=== PATIENT | male | born 1955 | race Two or more races ===

== ENCOUNTER 2023-10-27 18:45 | Inpatient (IN) | payer MEDICAID, MEDICARE ==
[~2023-10-27] VITALS: Ht 167.6 cm; Wt 70.2 kg
[2023-10-27 20:30] VITALS: PULSE 71; RESP 17; O2SAT 99
[2023-10-27 20:36] LABS: Basophils # (auto) 0 10 ^3/uL (0-0.2); Basophils % (auto) 0.3 % (0.0-2.0); Eosinophils # (auto) 0 10 ^3/uL (0-0.8); Eosinophils % (auto) 0.2 % (0.0-7.0); Hemoglobin 10.9 g/dL (13.5-17.5); Lymphocytes # (auto) 0.3 10 ^3/uL (0.4-5.4); Lymphocytes % (auto) 10.8 % (10.0-50.0); Mean Corpuscular Hemoglobin 26.4 pg (28.0-32.0); Mean Corpuscular Hgb Conc. 29.5 g/dL (32.0-36.0); Mean Corpuscular Volume 89.5 fL (80.0-100.0); Monocytes # (auto) 0.2 10 ^3/uL (0-1.3); Monocytes % (auto) 8.4 % (0.0-12.0); Neutrophils % (auto) 80.3 % (37.0-80.0); Nucleated Red Blood Cells % 0.1 %; Red Blood Cells 4.14 10^6/uL (4.5-5.90); White Blood Cell 2.5 10^3/uL (4.4-10.8)
[2023-10-27 20:37] LABS: INR 1.35 (0.9-1.15); Partial Thromboplastin Time 30.3 SEC (24.5-34.5); Prothrombin Time 13.9 sec (9.3-11.8)
[2023-10-27 20:39] LABS: Red Cell Distribution Width 22.1 % (11.8-14.3)
[2023-10-27 20:53] LABS: Alanine Aminotransferase 23 U/L (7-40); Alkaline Phosphatase 104 U/L (46-116); Anion Gap 9 (5-15); Aspartate Aminotransferase 56 U/L (13-40); BUN/Creatinine Ratio 11.3 (10.0-20.0); Blood Urea Nitrogen 8 mg/dL (9-23); Calcium 9.1 mg/dL (8.7-10.4); Carbon Dioxide 20 mmol/L (20-30); Chloride 104 mmol/L (98-107); Glucose 108 mg/dL (74-106); Potassium 4.1 mmol/L (3.5-5.1); Sodium 133 mmol/L (136-145)
[2023-10-27 20:54] LABS: Albumin 3.7 g/dL (3.2-4.8); Bilirubin, Total 2.3 mg/dL (0.2-1.0); Total Protein 8.1 g/dL (5.7-8.2)
[2023-10-27] MEDS ORDERED: ASPirin 325 MG TAB PO ONE (22:00)
[2023-10-27 22:48] LABS: Urine Bacteria NONE SEEN /hpf (None Seen); Urine Blood 1+ /uL (Negative); Urine Clarity Clear (Clear); Urine Protein, UAD Negative (Negative); Urine Specific Gravity 1.011 (1.001-1.035); Urine Urobilinogen Normal (Negative); Urine WBC 1 /hpf (0 - 3); Urine pH 5.5 (5.0-8.0)
[2023-10-27 22:49] LABS: Urine Color Straw (Yellow)
[2023-10-27 22:49] LABS: Platelet Estimate Decreased
[2023-10-27 22:53] LABS: Anisocytosis Slight
[2023-10-27] MEDS ORDERED: IOHEXOL 350 MG/ML 100ML IJ ONE ×2 (23:07→23:44)
[2023-10-28] MEDS ORDERED: HEPARIN DRIP/D5W 100UNITS/ML 250 ML IV SCH (00:30)
[2023-10-28] MEDS ORDERED: HEPARIN SODIUM (PORCINE) 5000 UNITS/ML 1ML VIAL IV ONE (00:30)
[2023-10-28 00:54] LABS: INR 1.39 (0.9-1.15); Partial Thromboplastin Time 31.3 SEC (24.5-34.5); Prothrombin Time 14.3 sec (9.3-11.8)
[2023-10-28] MEDS ORDERED: NITROGLYCERIN 0.4 MG SL TAB SL PRN (02:15)
[2023-10-28] MEDS ORDERED: ACETAMINOPHEN 325 MG TAB PO PRN (02:15)
[2023-10-28] MEDS ORDERED: MORPHINE SULFATE INJ 2 MG/ml SYRG IV PRN (02:15)
[2023-10-28 08:00] VITALS: PULSE 81; RESP 14; O2SAT 93
[2023-10-28] MEDS ORDERED: IOHEXOL 350 MG/ML 100ML IJ ONE (08:07)
[2023-10-28 08:10] LABS: Basophils # (auto) 0 10 ^3/uL (0-0.2); Basophils % (auto) 0.2 % (0.0-2.0); Eosinophils # (auto) 0 10 ^3/uL (0-0.8); Eosinophils % (auto) 0.6 % (0.0-7.0); Hematocrit 28.7 % (41.0-53.0); Hemoglobin 9.5 g/dL (13.5-17.5); Lymphocytes # (auto) 0.3 10 ^3/uL (0.4-5.4); Lymphocytes % (auto) 14.2 % (10.0-50.0); Mean Corpuscular Hemoglobin 26.7 pg (28.0-32.0); Mean Corpuscular Hgb Conc. 33.1 g/dL (32.0-36.0); Mean Corpuscular Volume 80.8 fL (80.0-100.0); Monocytes # (auto) 0.3 10 ^3/uL (0-1.3); Monocytes % (auto) 11.5 % (0.0-12.0); Neutrophils # (auto) 1.8 10 ^3/uL (1.6-8.6); Neutrophils % (auto) 73.5 % (37.0-80.0); Nucleated Red Blood Cells % 0.1 %; Red Blood Cells 3.55 10^6/uL (4.5-5.90); White Blood Cell 2.4 10^3/uL (4.4-10.8)
[2023-10-28 08:11] LABS: Red Cell Distribution Width 20.9 % (11.8-14.3)
[2023-10-28 08:15] LABS: Chloride 109 mmol/L (98-107); Potassium 3.8 mmol/L (3.5-5.1); Sodium 139 mmol/L (136-145)
[2023-10-28 08:16] LABS: Anion Gap 8 (5-15); Calcium 8.8 mg/dL (8.5-10.1); Carbon Dioxide 22 mmol/L (20-30)
[2023-10-28 08:21] LABS: BUN/Creatinine Ratio 11.9 (10.0-20.0); Blood Urea Nitrogen 8 mg/dL (9-23); Glucose 98 mg/dL (74-106)
[2023-10-28 08:22] LABS: INR 1.6 (0.9-1.15); Prothrombin Time 16.3 sec (9.3-11.8)
[2023-10-28 08:24] LABS: LDL Cholesterol 21 mg/dL (< 100); Triglycerides 48 mg/dL (< 150)
[2023-10-28 08:26] LABS: Cholesterol 63 mg/dL (< 200); HDL Cholesterol 32 mg/dL (40-59)
[2023-10-28 08:27] LABS: Partial Thromboplastin Time 120.4 SEC (24.5-34.5)
[2023-10-28] MEDS ORDERED: ASPirin 81 mg TAB PO SCH (10:00)
[2023-10-28] MEDS: METOPROLOL TARTRATE 25 MG TAB PO SCH ×2 (11:41→22:00)
[2023-10-28] MEDS: FUROSEMIDE 40 MG TAB PO SCH (11:41)
[2023-10-28] MEDS: rifAXIMin 550 MG TAB PO SCH ×2 (11:42→22:00)
[2023-10-28] MEDS ORDERED: cefTRIAXone 1GM/50ML D5W 50 ML IV ONE (12:30)
[2023-10-28] MEDS ORDERED: AZITHROMYCIN 500MG/ 250ML 250 ML IV ONE (14:00)
[2023-10-28] MEDS ORDERED: MET25T PO (18:21)
[2023-10-28] MEDS ORDERED: RIFA550T PO (18:21)
[2023-10-28] MEDS ORDERED: PHEN100C PO (18:21)
[2023-10-28] MEDS ORDERED: MIDO5TAB4 PO (18:21)
[2023-10-28] MEDS ORDERED: SPIR25TA8 PO (18:21)
[2023-10-28] MEDS ORDERED: GABA-339 PO (18:21)
[2023-10-28] MEDS ORDERED: FURO40TA4 PO (18:21)
[2023-10-28] MEDS ORDERED: MORP1TAB12 PO (18:21)
[2023-10-28] MEDS ORDERED: ATOR40TA52 PO (18:21)
[2023-10-28 18:45] VITALS: BP 105/49; PULSE 61; TEMP 36.2
[2023-10-28] MEDS: MORPHINE SULFATE INJ 2 MG/ml SYRG IV PRN ×2 (19:03→23:19)
[2023-10-28] MEDS ORDERED: DICL5GEL TOP (19:09)
[2023-10-28] MEDS ORDERED: LACT10SO3 PO (19:09)
[2023-10-28] MEDS ORDERED: ALBU108A5 INH (19:09)
[2023-10-28 20:00] VITALS: PULSE 58; PULSE 71; RESP 20; O2SAT 97
[2023-10-28] MEDS: ATORVASTATIN 20 MG TAB PO SCH ×2 (21:39→22:00)
[2023-10-28] MEDS: MELATONIN 5 MG TAB PO ONE ×2 (21:40→22:00)
[2023-10-28 22:00] VITALS: BP 104/66; PULSE 71; RESP 20; TEMP 98.1; O2SAT 97
[2023-10-28] MEDS: ONDANSETRON HCL 4 MG/2 ML VIAL IV PRN (22:18)
[2023-10-29 05:00] VITALS: BP 103/57; PULSE 69; RESP 20; TEMP 98.1; O2SAT 98
[2023-10-29] MEDS: MORPHINE SULFATE INJ 2 MG/ml SYRG IV PRN ×4 (05:21→20:02)
[2023-10-29 05:58] LABS: Basophils # (auto) 0 10 ^3/uL (0-0.2); Basophils % (auto) 0.2 % (0.0-2.0); Eosinophils # (auto) 0 10 ^3/uL (0-0.8); Lymphocytes # (auto) 0.4 10 ^3/uL (0.4-5.4); Lymphocytes % (auto) 8.8 % (10.0-50.0); Monocytes # (auto) 0.4 10 ^3/uL (0-1.3); Neutrophils # (auto) 4.1 10 ^3/uL (1.6-8.6)
[2023-10-29 06:02] LABS: Hematocrit 31.1 % (41.0-53.0); Hemoglobin 10.1 g/dL (13.5-17.5); Mean Corpuscular Hemoglobin 26.3 pg (28.0-32.0); Mean Corpuscular Hgb Conc. 32.5 g/dL (32.0-36.0); Mean Corpuscular Volume 80.7 fL (80.0-100.0); Monocytes % (auto) 7.8 % (0.0-12.0); Neutrophils % (auto) 83.2 % (37.0-80.0); Nucleated Red Blood Cells % 0.1 %; Red Blood Cells 3.85 10^6/uL (4.5-5.90); White Blood Cell 4.9 10^3/uL (4.4-10.8)
[2023-10-29 06:03] LABS: Alanine Aminotransferase 26 U/L (7-40); Albumin 3.3 g/dL (3.2-4.8); Alkaline Phosphatase 82 U/L (46-116); Anion Gap 10 (5-15); BUN/Creatinine Ratio 15.2 (10.0-20.0); Blood Urea Nitrogen 14 mg/dL (9-23); Calcium 8.5 mg/dL (8.7-10.4); Carbon Dioxide 23 mmol/L (20-30); Chloride 105 mmol/L (98-107); Glucose 104 mg/dL (74-106); Potassium 3.3 mmol/L (3.5-5.1); Sodium 138 mmol/L (136-145)
[2023-10-29 06:04] LABS: Aspartate Aminotransferase 86 U/L (13-40); Bilirubin, Total 2.8 mg/dL (0.2-1.0); Total Protein 7.4 g/dL (5.7-8.2)
[2023-10-29 06:10] LABS: Red Cell Distribution Width 21.2 % (11.8-14.3)
[2023-10-29 08:00] VITALS: PULSE 58; PULSE 75; RESP 18; O2SAT 97
[2023-10-29 09:00] VITALS: BP 108/62; PULSE 63; RESP 12; TEMP 98; O2SAT 98
[2023-10-29] MEDS: FUROSEMIDE 40 MG TAB PO SCH (10:00)
[2023-10-29] MEDS: METOPROLOL TARTRATE 25 MG TAB PO SCH ×2 (10:00→22:00)
[2023-10-29] MEDS: cefTRIAXone 1GM/50ML D5W 50 ML IV SCH (10:16)
[2023-10-29] MEDS: rifAXIMin 550 MG TAB PO SCH ×2 (10:16→22:00)
[2023-10-29] MEDS: AZITHROMYCIN 500MG/ 250ML 250 ML IV SCH (10:17)
[2023-10-29 13:00] VITALS: BP 105/65; PULSE 66; RESP 20; TEMP 98.3; O2SAT 98
[2023-10-29 16:55] VITALS: BP 110/72; PULSE 64; RESP 16; TEMP 97.8; O2SAT 97
[2023-10-29 20:00] VITALS: PULSE 70; RESP 19; O2SAT 98
[2023-10-29] MEDS: ATORVASTATIN 20 MG TAB PO SCH (22:00)
[2023-10-30] VITALS (10 sets, daily range): BP systolic 100–107; BP diastolic 57–66; PULSE 66–90; RESP 16–19; TEMP 98.1–98.7; O2SAT 93–99
[2023-10-30] MEDS: MORPHINE SULFATE INJ 2 MG/ml SYRG IV PRN ×6 (00:55→21:56)
[2023-10-30] MEDS: cefTRIAXone 1GM/50ML D5W 50 ML IV SCH (09:14)
[2023-10-30] MEDS: AZITHROMYCIN 500MG/ 250ML 250 ML IV SCH (09:14)
[2023-10-30] MEDS: rifAXIMin 550 MG TAB PO SCH ×2 (09:14→21:58)
[2023-10-30] MEDS: FUROSEMIDE 40 MG TAB PO SCH (10:00)
[2023-10-30] MEDS: METOPROLOL TARTRATE 25 MG TAB PO SCH ×2 (10:00→23:26)
[2023-10-30] MEDS: ONDANSETRON HCL 4 MG/2 ML VIAL IV PRN ×2 (18:48→23:23)
[2023-10-30] MEDS: ALBUTEROL SULF 2.5 MG/0.5ML(0.5%) NEB SOLN NEB SCH (19:24)
[2023-10-30] MEDS: ATORVASTATIN 20 MG TAB PO SCH (21:57)
[2023-10-31] VITALS (15 sets, daily range): BP systolic 91–111; BP diastolic 46–62; PULSE 64–82; RESP 15–18; TEMP 97.7–98.6; O2SAT 93–100
[2023-10-31] MEDS: ALBUTEROL SULF 2.5 MG/0.5ML(0.5%) NEB SOLN NEB SCH ×4 (00:09→20:45)
[2023-10-31] MEDS: MORPHINE SULFATE INJ 2 MG/ml SYRG IV PRN ×4 (06:03→20:12)
[2023-10-31] MEDS: cefTRIAXone 1GM/50ML D5W 50 ML IV SCH (09:00)
[2023-10-31] MEDS: FUROSEMIDE 40 MG TAB PO SCH (10:00)
[2023-10-31] MEDS: METOPROLOL TARTRATE 25 MG TAB PO SCH ×2 (10:00→21:42)
[2023-10-31 10:25] LABS: Hematocrit 28.1 % (41.0-53.0); Hemoglobin 9.2 g/dL (13.5-17.5); Mean Corpuscular Hemoglobin 26.7 pg (28.0-32.0); Mean Corpuscular Volume 82.1 fL (80.0-100.0)
[2023-10-31 10:27] LABS: Mean Corpuscular Hgb Conc. 32.5 g/dL (32.0-36.0); Red Blood Cells 3.43 10^6/uL (4.5-5.90); White Blood Cell 4.5 10^3/uL (4.4-10.8)
[2023-10-31 10:39] LABS: Red Cell Distribution Width 20.4 % (11.8-14.3)
[2023-10-31 10:40] LABS: Band Neutrophils % (manual) 0; Basophils % (manual) 0 (0.0-2.0); Blast Cells 0; Metamyelocytes % 0; Myelocytes % 0; Promyelocytes % 0; Reactive Lymphocytes 0
[2023-10-31] MEDS: rifAXIMin 550 MG TAB PO SCH ×2 (11:30→21:41)
[2023-10-31] MEDS: AZITHROMYCIN 250 MG TAB PO SCH (11:30)
[2023-10-31] MEDS: ONDANSETRON HCL 4 MG/2 ML VIAL IV PRN ×3 (11:40→20:59)
[2023-10-31 13:55] LABS: Eosinophils % (manual) 3 (0-7); Lymphocytes % (manual) 13 (10.0-50.0); Monocytes % (manual) 16 (0-12); Platelet Estimate Decreased
[2023-10-31] MEDS: ATORVASTATIN 20 MG TAB PO SCH (21:42)
[2023-11-01] VITALS (14 sets, daily range): BP systolic 92–130; BP diastolic 50–65; PULSE 56–86; RESP 15–18; TEMP 98–98.7; O2SAT 92–100
[2023-11-01] MEDS: MORPHINE SULFATE INJ 2 MG/ml SYRG IV PRN ×4 (01:31→20:15)
[2023-11-01] MEDS: ONDANSETRON HCL 4 MG/2 ML VIAL IV PRN ×4 (01:39→20:22)
[2023-11-01] MEDS: HYDROcodone-ACET 5/325MG TAB PO PRN ×3 (05:26→15:19)
[2023-11-01] MEDS: ALBUTEROL SULF 2.5 MG/0.5ML(0.5%) NEB SOLN NEB SCH ×4 (07:46→18:48)
[2023-11-01] MEDS: FUROSEMIDE 40 MG TAB PO SCH (10:00)
[2023-11-01] MEDS: METOPROLOL TARTRATE 25 MG TAB PO SCH ×2 (10:00→21:26)
[2023-11-01] MEDS: AZITHROMYCIN 250 MG TAB PO SCH (10:25)
[2023-11-01] MEDS: rifAXIMin 550 MG TAB PO SCH ×2 (10:30→21:25)
[2023-11-01] MEDS: cefTRIAXone 1GM/50ML D5W 50 ML IV SCH (11:40)
[2023-11-01] MEDS: ATORVASTATIN 20 MG TAB PO SCH (21:27)
[2023-11-02] VITALS (9 sets, daily range): BP systolic 92–124; BP diastolic 45–58; PULSE 68–87; RESP 16–18; TEMP 97.8–98.5; O2SAT 91–100
[2023-11-02] MEDS: MORPHINE SULFATE INJ 2 MG/ml SYRG IV PRN ×3 (02:19→13:51)
[2023-11-02] MEDS: ONDANSETRON HCL 4 MG/2 ML VIAL IV PRN (02:38)
[2023-11-02] MEDS: ALBUTEROL SULF 2.5 MG/0.5ML(0.5%) NEB SOLN NEB SCH ×3 (06:06→12:00)
[2023-11-02] MEDS: HYDROcodone-ACET 5/325MG TAB PO PRN (06:11)
[2023-11-02] MEDS: rifAXIMin 550 MG TAB PO SCH (09:06)
[2023-11-02] MEDS: AZITHROMYCIN 250 MG TAB PO SCH (09:06)
[2023-11-02] MEDS: METOPROLOL TARTRATE 25 MG TAB PO SCH (09:07)
[2023-11-02] MEDS: cefTRIAXone 1GM/50ML D5W 50 ML IV SCH (09:07)
[2023-11-02] MEDS: FUROSEMIDE 40 MG TAB PO SCH (09:07)
[2023-11-02] MEDS ORDERED: AZIT500T66 PO (10:57)
== END 2023-11-02 19:03 | disposition home or self-care (01) | DRG 190 ==
LOC: ER 18:45 → TELE 10-28 02:16 → TELE-WESTW 10-28 17:36
PROVIDERS: ADMIT Family Medicine; ATTEND Family Medicine
PROC: 02HV33Z Insertion of Infusion Device into Superior Vena Cava, Percutaneous Approach (ICD-10-PCS; principal; 2023-10-28)
DX: I21.4 Non-ST elevation (NSTEMI) myocardial infarction (principal); J15.69 Pneumonia due to other Gram-negative bacteria; D69.6 Thrombocytopenia, unspecified; I11.0 Hypertensive heart disease with heart failure; J15.9 Unspecified bacterial pneumonia; I50.9 Heart failure, unspecified; J44.0 Chronic obstructive pulmonary disease with (acute) lower respiratory infection; K74.60 Unspecified cirrhosis of liver; J44.1 Chronic obstructive pulmonary disease with (acute) exacerbation; E78.00 Pure hypercholesterolemia, unspecified; I25.10 Atherosclerotic heart disease of native coronary artery without angina pectoris; F17.210 Nicotine dependence, cigarettes, uncomplicated; Z96.641 Presence of right artificial hip joint; D64.9 Anemia, unspecified; Z86.73 Personal history of transient ischemic attack (TIA), and cerebral infarction without residual deficits; Z95.5 Presence of coronary angioplasty implant and graft; I25.2 Old myocardial infarction; Z59.00 Homelessness unspecified
CPT/HCPCS: 36415; 71045; 71275; 80048; 80053; 80061; 81001; 83036; 83880; 84443; 84484; 85007; 85025; 85027; 85379; 85610; 85730; 93005; 93306; 94640; 96365; 97110; 97116; 97163; 97530; 99291; G0378; J2405

== ENCOUNTER 2023-11-03 12:10 | Inpatient (IN) | payer MEDICARE ==
[~2023-11-03] VITALS: Ht 167.6 cm; Wt 66.5 kg
[2023-11-03] VITALS (8 sets, daily range): BP systolic 81–119; BP diastolic 42–65; PULSE 81–123; RESP 18–22; O2SAT 93–100
[~2023-11-03 12:10] MED LIST: ALBU108A5 INH; ATOR40TA52 PO; AZIT500T66 PO; DICL5GEL TOP; FURO40TA4 PO; GABA-339 PO; LACT10SO3 PO; MET25T PO; MIDO5TAB4 PO; MORP1TAB12 PO; PHEN100C PO; RIFA550T PO; SPIR25TA8 PO
[2023-11-03] MEDS ORDERED: SODIUM CHLORIDE 0.9% 1,000 ML IV ONE ×3 (12:45→17:00)
[2023-11-03] MEDS ORDERED: LIDOCAINE 2%HCL (LOCAL ANESTH.) INJ 10ml MDV ONE (12:49)
[2023-11-03] MEDS ORDERED: ROCURONIUM 10MG/ML 10ML VIAL IV ONE ×2 (12:53→13:15)
[2023-11-03] MEDS ORDERED: ETOMIDATE (2MG/ML) 20ML VIAL IV ONE ×2 (12:53→13:15)
[2023-11-03] MEDS ORDERED: MIDAZOLAM DRIP 50 mg/50mL 50 ML IV ONE (12:57)
[2023-11-03] MEDS ORDERED: NOREPINEPHRINE 8 MG/250ML KIT 250 ML IV ONE (12:57)
[2023-11-03] MEDS: MIDAZOLAM DRIP 50 mg/50mL 50 ML IV SCH (13:01)
[2023-11-03] MEDS: NOREPINEPHRINE 8 MG/250ML KIT 250 ML IV SCH (13:01)
[2023-11-03] MEDS ORDERED: LIDOCAINE 2% (LOCAL ANESTH.) PF 5ml SDV IJ ONE (13:30)
[2023-11-03 13:43] LABS: Base Excess -20.1 mmol/L (-2.0-2.0)
[2023-11-03] MEDS ORDERED: SODIUM BICARBONATE 8.4% INJ 50ML SYRINGE ONE (13:54)
[2023-11-03] MEDS ORDERED: SODIUM BICARBONATE 8.4 % INJ 50ML VIAL IV ONE (14:00)
[2023-11-03 14:09] LABS: Urine Epithelial Cast None Seen /hpf (<5)
[2023-11-03 14:25] LABS: Alanine Aminotransferase 38 U/L (7-40); Albumin 2.9 g/dL (3.2-4.8); Alkaline Phosphatase 95 U/L (46-116); Anion Gap 24 (5-15); Aspartate Aminotransferase 94 U/L (13-40); BUN/Creatinine Ratio 12.4 (10.0-20.0); Bilirubin, Total 1.2 mg/dL (0.2-1.0); Blood Alcohol 3.2 mg/dL (<10); Blood Urea Nitrogen 30 mg/dL (9-23); Calcium 8.2 mg/dL (8.5-10.1); Chloride 102 mmol/L (98-107); Glucose 97 mg/dL (74-106); Potassium 4.2 mmol/L (3.5-5.1); Sodium 137 mmol/L (136-145); Total Protein 6.4 g/dL (5.7-8.2)
[2023-11-03 14:31] LABS: Carbon Dioxide 11 mmol/L (20-30)
[2023-11-03 14:33] LABS: Amphetamine Screen, Urine Neg (NEGATIVE); Barbiturate Scree,Urine Neg (NEGATIVE); Benzodiazephine Screen, Urine Neg (NEGATIVE); Cocaine Screen, Urine Neg (NEGATIVE)
[2023-11-03 14:34] LABS: Cannabinoid Screen, Urine Neg (NEGATIVE); Opiate Scree,Urine Pos (NEGATIVE); Phencyclidine Screen, Urine Neg (NEGATIVE)
[2023-11-03 14:38] LABS: Urine Bacteria FEW /hpf (None Seen); Urine Blood TRACE /uL (Negative); Urine Clarity Clear (Clear); Urine Color Yellow (Yellow); Urine Protein, UAD TRACE (Negative); Urine Specific Gravity 1.017 (1.001-1.035); Urine Urobilinogen Normal (Negative); Urine WBC 1 /hpf (0 - 3); Urine pH 5.5 (5.0-8.0)
[2023-11-03 14:41] LABS: Basophils # (auto) 0 10 ^3/uL (0-0.2); Basophils % (auto) 0.1 % (0.0-2.0); Eosinophils # (auto) 0 10 ^3/uL (0-0.8); Eosinophils % (auto) 0.1 % (0.0-7.0); Hemoglobin 9.5 g/dL (13.5-17.5); Mean Corpuscular Hemoglobin 26.4 pg (28.0-32.0)
[2023-11-03 14:43] LABS: Hematocrit 31.4 % (41.0-53.0); Lymphocytes # (auto) 0.5 10 ^3/uL (0.4-5.4); Lymphocytes % (auto) 2.5 % (10.0-50.0); Mean Corpuscular Hgb Conc. 30.3 g/dL (32.0-36.0); Monocytes # (auto) 1.5 10 ^3/uL (0-1.3); Monocytes % (auto) 7.8 % (0.0-12.0); Neutrophils # (auto) 16.9 10 ^3/uL (1.6-8.6); Neutrophils % (auto) 89.5 % (37.0-80.0); Nucleated Red Blood Cells % 0.4 %; Red Blood Cells 3.61 10^6/uL (4.5-5.90); Red Cell Distribution Width 20.9 % (11.8-14.3); White Blood Cell 18.9 10^3/uL (4.4-10.8)
[2023-11-03 14:46] LABS: INR 2.09 (0.9-1.15); Partial Thromboplastin Time 34.6 SEC (24.5-34.5); Prothrombin Time 20.9 sec (9.3-11.8)
[2023-11-03] MEDS ORDERED: VANCOMYCIN 1GM/200ML 200 ML IV ONE (15:00)
[2023-11-03] MEDS ORDERED: PIPERACILLIN-TAZO 4.5GM 100 ML IV ONE (15:00)
[2023-11-03 15:15] LABS: Magnesium 2.1 mg/dL (1.6-2.6)
[2023-11-03] MEDS ORDERED: NITROGLYCERIN 0.4 MG SL TAB SL PRN (15:30)
[2023-11-03] MEDS ORDERED: MORPHINE SULFATE INJ 2 MG/ml SYRG IV PRN ×2 (15:30)
[2023-11-03] MEDS ORDERED: ACETAMINOPHEN 325 MG TAB PO PRN (15:30)
[2023-11-03] MEDS ORDERED: HYDROcodone-ACET 5/325MG TAB PO PRN (15:30)
[2023-11-03] MEDS ORDERED: VANCOMYCIN PER PHARMACY 0 MG IV SCH (16:00)
[2023-11-03] MEDS ORDERED: PHYTONADIONE (VIT K)10 MG/ML 1ML VIAL SUBCUT ONE (16:30)
[2023-11-03 16:36] LABS: Protein, Urine 40.3 mg/dL (0.0-11.9)
[2023-11-03 16:39] LABS: Creatinine, Urine 127.56 mg/dL (30.0-125.0); Urine Protein/Creatinine Ratio 0.32
[2023-11-03 17:42] LABS: % Iron Saturation 8.2 % (20-55)
[2023-11-03] MEDS: SODIUM BICARBONATE 50ML VIAL 50 ML in D5W 5% 1,000 ML IV SCH (17:47)
[2023-11-03] MEDS: SODIUM CHLORIDE 0.9% 1,000 ML IV SCH (17:51)
[2023-11-03] MEDS: LACTULOSE 20Gm/30ML SOLN PO SCH (18:00)
[2023-11-03] MEDS: BUDESONIDE (INHALATION) 0.5 MG/2 ML NEB NEB SCH (19:26)
[2023-11-03] MEDS: IPRATROPIUM BROM 0.5 MG/2.5ML INH SOL NEB SCH (19:26)
[2023-11-03] MEDS: LEVALBUTEROL HCL 1.25 MG/3 ML NEB NEB SCH (19:26)
[2023-11-03] MEDS ORDERED: HEPARIN SODIUM (PORCINE) 5000 UNITS/ML 1ML VIAL SC SCH (22:00)
[2023-11-03] MEDS: PANTOPRAZOLE 40 MG/10 ML VIAL INJ IV SCH (22:41)
[2023-11-03 23:04] LABS: Base Excess 0.2 mmol/L (-2.0-2.0)
[2023-11-04] VITALS (34 sets, daily range): BP systolic 95–147; BP diastolic 54–76; PULSE 75–110; RESP 16–22; O2SAT 89–100
[2023-11-04] MEDS: MIDAZOLAM DRIP 50 mg/50mL 50 ML IV SCH
[2023-11-04] MEDS: LACTULOSE 20Gm/30ML SOLN PO SCH ×4 (00:06→18:25)
[2023-11-04] MEDS: NOREPINEPHRINE 8 MG/250ML KIT 250 ML IV SCH (00:20)
[2023-11-04] MEDS: LEVALBUTEROL HCL 1.25 MG/3 ML NEB NEB SCH ×4 (01:09→19:28)
[2023-11-04] MEDS: IPRATROPIUM BROM 0.5 MG/2.5ML INH SOL NEB SCH ×4 (01:09→19:28)
[2023-11-04 01:12] LABS: Lactic Acid w/Reflex 2.8 mmol/L (0.4-2.0)
[2023-11-04] MEDS: SODIUM BICARBONATE 50ML VIAL 50 ML in D5W 5% 1,000 ML IV SCH (02:50)
[2023-11-04 05:28] LABS: Basophils # (auto) 0 10 ^3/uL (0-0.2); Eosinophils # (auto) 0.1 10 ^3/uL (0-0.8); Eosinophils % (auto) 0.8 % (0.0-7.0); Hemoglobin 8.8 g/dL (13.5-17.5); Lymphocytes # (auto) 0.8 10 ^3/uL (0.4-5.4)
[2023-11-04 05:31] LABS: Hematocrit 26.6 % (41.0-53.0); Lymphocytes % (auto) 10.3 % (10.0-50.0); Mean Corpuscular Hemoglobin 26.6 pg (28.0-32.0); Mean Corpuscular Volume 80.9 fL (80.0-100.0); Monocytes # (auto) 0.9 10 ^3/uL (0-1.3); Monocytes % (auto) 10.7 % (0.0-12.0); Neutrophils # (auto) 6.3 10 ^3/uL (1.6-8.6); Neutrophils % (auto) 78.2 % (37.0-80.0); Nucleated Red Blood Cells % 0.1 %; Red Cell Distribution Width 20.3 % (11.8-14.3)
[2023-11-04 05:41] LABS: Alanine Aminotransferase 43 U/L (7-40); Albumin 2.5 g/dL (3.2-4.8); Alkaline Phosphatase 78 U/L (46-116); Anion Gap 5 (5-15); Aspartate Aminotransferase 132 U/L (13-40); BUN/Creatinine Ratio 21.6 (10.0-20.0); Bilirubin, Total 1.8 mg/dL (0.2-1.0); Blood Urea Nitrogen 27 mg/dL (9-23); Calcium 7.5 mg/dL (8.5-10.1); Carbon Dioxide 29 mmol/L (20-30); Chloride 104 mmol/L (98-107); Glucose 137 mg/dL (74-106); Potassium 2.7 mmol/L (3.5-5.1); Sodium 138 mmol/L (136-145)
[2023-11-04 05:42] LABS: Total Protein 5.6 g/dL (5.7-8.2)
[2023-11-04 05:55] LABS: Lactic Acid w/Reflex 3.5 mmol/L (0.4-2.0)
[2023-11-04] MEDS: BUDESONIDE (INHALATION) 0.5 MG/2 ML NEB NEB SCH ×2 (06:36→19:29)
[2023-11-04 07:06] LABS: Base Excess 4.1 mmol/L (-2.0-2.0)
[2023-11-04] MEDS: POTASSIUM CHL 20MEQ/100ML 100 ML IV SCH ×3 (08:56→12:32)
[2023-11-04] MEDS ORDERED: VANCOMYCIN 1GM/200ML 200 ML IV ONE (09:00)
[2023-11-04] MEDS: SODIUM CHLORIDE 0.9% 1,000 ML IV SCH (09:37)
[2023-11-04] MEDS: CEFEPIME 1GM/ 50ML 50 ML IV SCH (10:01)
[2023-11-04] MEDS: PANTOPRAZOLE 40 MG/10 ML VIAL INJ IV SCH ×2 (10:16→21:37)
[2023-11-04 17:31] LABS: Alanine Aminotransferase 44 U/L (7-40); Alkaline Phosphatase 74 U/L (46-116); Anion Gap 3 (5-15); BUN/Creatinine Ratio 15.4 (10.0-20.0); Blood Urea Nitrogen 14 mg/dL (9-23); Calcium 7.1 mg/dL (8.7-10.4); Carbon Dioxide 30 mmol/L (20-30); Chloride 105 mmol/L (98-107); Glucose 95 mg/dL (74-106); Potassium 3.8 mmol/L (3.5-5.1); Sodium 138 mmol/L (136-145)
[2023-11-04 17:32] LABS: Albumin 2.4 g/dL (3.2-4.8); Aspartate Aminotransferase 136 U/L (13-40); Bilirubin, Total 1.8 mg/dL (0.2-1.0); Total Protein 5.5 g/dL (5.7-8.2)
[2023-11-05] VITALS (43 sets, daily range): BP systolic 87–134; BP diastolic 51–78; PULSE 78–114; RESP 16–17; O2SAT 88–98
[2023-11-05] MEDS: LACTULOSE 20Gm/30ML SOLN PO SCH ×4 (00:06→18:47)
[2023-11-05] MEDS: IPRATROPIUM BROM 0.5 MG/2.5ML INH SOL NEB SCH ×4 (00:06→18:53)
[2023-11-05] MEDS: LEVALBUTEROL HCL 1.25 MG/3 ML NEB NEB SCH ×4 (00:06→18:53)
[2023-11-05] MEDS: MIDAZOLAM DRIP 50 mg/50mL 50 ML IV SCH ×2 (01:14→23:09)
[2023-11-05] MEDS: NOREPINEPHRINE 8 MG/250ML KIT 250 ML IV SCH (02:05)
[2023-11-05] MEDS: SODIUM CHLORIDE 0.9% 1,000 ML IV SCH ×2 (02:31→18:47)
[2023-11-05] MEDS ORDERED: VANCOMYCIN 1GM/200ML 200 ML IV SCH (04:00)
[2023-11-05 05:28] LABS: Basophils # (auto) 0 10 ^3/uL (0-0.2); Basophils % (auto) 0.2 % (0.0-2.0); Eosinophils # (auto) 0 10 ^3/uL (0-0.8); Hemoglobin 8.6 g/dL (13.5-17.5); Monocytes # (auto) 0.4 10 ^3/uL (0-1.3); White Blood Cell 4.4 10^3/uL (4.4-10.8)
[2023-11-05 05:31] LABS: Eosinophils % (auto) 0.9 % (0.0-7.0); Hematocrit 26.2 % (41.0-53.0); Lymphocytes # (auto) 0.5 10 ^3/uL (0.4-5.4); Lymphocytes % (auto) 11.5 % (10.0-50.0); Mean Corpuscular Hemoglobin 26.6 pg (28.0-32.0); Mean Corpuscular Hgb Conc. 32.7 g/dL (32.0-36.0); Mean Corpuscular Volume 81.4 fL (80.0-100.0); Neutrophils # (auto) 3.4 10 ^3/uL (1.6-8.6); Neutrophils % (auto) 77.4 % (37.0-80.0); Red Blood Cells 3.23 10^6/uL (4.5-5.90)
[2023-11-05 05:51] LABS: Red Cell Distribution Width 21.4 % (11.8-14.3)
[2023-11-05 06:02] LABS: Alanine Aminotransferase 50 U/L (7-40); Albumin 2.4 g/dL (3.2-4.8); Alkaline Phosphatase 82 U/L (46-116); Anion Gap 7 (5-15); Aspartate Aminotransferase 134 U/L (13-40); BUN/Creatinine Ratio 14.3 (10.0-20.0); Bilirubin, Total 1.9 mg/dL (0.2-1.0); Blood Urea Nitrogen 11 mg/dL (9-23); Calcium 7.6 mg/dL (8.7-10.4); Carbon Dioxide 26 mmol/L (20-30); Chloride 105 mmol/L (98-107); GFR African American 129 mL/min; GFR Non-African American 107 mL/min; Glucose 105 mg/dL (74-106); Phosphorus 1.8 mg/dL (2.4-5.1); Potassium 3.1 mmol/L (3.5-5.1); Sodium 138 mmol/L (136-145); Total Protein 5.6 g/dL (5.7-8.2)
[2023-11-05] MEDS: BUDESONIDE (INHALATION) 0.5 MG/2 ML NEB NEB SCH ×2 (06:32→18:53)
[2023-11-05] MEDS ORDERED: POTASSIUM CHLORIDE 60 MEQ, LIDOCAINE 1% (LOCAL ANESTH.) 6 ML in SODIUM CHL 0.9% 500 ML IV ONE (06:45)
[2023-11-05 08:11] LABS: Base Excess 1.4 mmol/L (-2.0-2.0)
[2023-11-05 08:43] LABS: Anisocytosis Slight; Macrocytosis Slight; Platelet Estimate Marked
[2023-11-05] MEDS: PANTOPRAZOLE 40 MG/10 ML VIAL INJ IV SCH ×2 (10:13→22:17)
[2023-11-05] MEDS: CEFEPIME 1GM/ 50ML 50 ML IV SCH (11:02)
[2023-11-05] MEDS: VANCOMYCIN 1GM/200ML 200 ML IV SCH (20:16)
[2023-11-06] VITALS (15 sets, daily range): BP systolic 89–138; BP diastolic 54–72; PULSE 7–89; RESP 16–20; O2SAT 93–96
[2023-11-06] MEDS: IPRATROPIUM BROM 0.5 MG/2.5ML INH SOL NEB SCH ×4 (00:56→18:12)
[2023-11-06] MEDS: LEVALBUTEROL HCL 1.25 MG/3 ML NEB NEB SCH ×4 (00:56→18:12)
[2023-11-06] MEDS: LACTULOSE 20Gm/30ML SOLN PO SCH ×3 (00:59→13:12)
[2023-11-06] MEDS: MIDAZOLAM DRIP 50 mg/50mL 50 ML IV SCH (03:42)
[2023-11-06 05:07] LABS: Basophils # (auto) 0 10 ^3/uL (0-0.2); Basophils % (auto) 0.3 % (0.0-2.0); Eosinophils # (auto) 0 10 ^3/uL (0-0.8); Eosinophils % (auto) 1.4 % (0.0-7.0); Hematocrit 25.7 % (41.0-53.0); Hemoglobin 8.2 g/dL (13.5-17.5); Lymphocytes # (auto) 0.2 10 ^3/uL (0.4-5.4); Lymphocytes % (auto) 9.1 % (10.0-50.0); Mean Corpuscular Hemoglobin 25.8 pg (28.0-32.0); Mean Corpuscular Hgb Conc. 31.8 g/dL (32.0-36.0); Mean Corpuscular Volume 81.1 fL (80.0-100.0); Monocytes # (auto) 0.2 10 ^3/uL (0-1.3); Monocytes % (auto) 9.1 % (0.0-12.0); Neutrophils # (auto) 1.9 10 ^3/uL (1.6-8.6); Neutrophils % (auto) 80.1 % (37.0-80.0); Red Blood Cells 3.16 10^6/uL (4.5-5.90); White Blood Cell 2.4 10^3/uL (4.4-10.8)
[2023-11-06 05:08] LABS: Red Cell Distribution Width 21.6 % (11.8-14.3)
[2023-11-06 05:19] LABS: Alanine Aminotransferase 50 U/L (7-40); Albumin 2.3 g/dL (3.2-4.8); Alkaline Phosphatase 85 U/L (46-116); Anion Gap 6 (5-15); Aspartate Aminotransferase 117 U/L (13-40); BUN/Creatinine Ratio 15.6 (10.0-20.0); Bilirubin, Total 1.7 mg/dL (0.2-1.0); Blood Urea Nitrogen 10 mg/dL (9-23); Calcium 7.4 mg/dL (8.7-10.4); Carbon Dioxide 23 mmol/L (20-30); Chloride 111 mmol/L (98-107); Glucose 85 mg/dL (74-106); Magnesium 1.7 mg/dL (1.6-2.6); Potassium 3.6 mmol/L (3.5-5.1); Sodium 140 mmol/L (136-145); Total Protein 5.4 g/dL (5.7-8.2)
[2023-11-06] MEDS: BUDESONIDE (INHALATION) 0.5 MG/2 ML NEB NEB SCH (06:13)
[2023-11-06] MEDS: VANCOMYCIN 1GM/200ML 200 ML IV SCH ×2 (08:46→20:46)
[2023-11-06 09:19] LABS: Base Excess -0.2 mmol/L (-2.0-2.0)
[2023-11-06] MEDS: SODIUM CHLORIDE 0.9% 1,000 ML IV SCH (09:55)
[2023-11-06] MEDS: CEFEPIME 1GM/ 50ML 50 ML IV SCH (09:55)
[2023-11-06] MEDS: PANTOPRAZOLE 40 MG/10 ML VIAL INJ IV SCH ×2 (09:59→21:41)
[2023-11-06] MEDS: NOREPINEPHRINE 8 MG/250ML KIT 250 ML IV SCH (13:15)
[2023-11-07] VITALS (12 sets, daily range): BP systolic 93–108; BP diastolic 51–66; PULSE 74–91; RESP 16–21; O2SAT 94–97
[2023-11-07] MEDS: LEVALBUTEROL HCL 1.25 MG/3 ML NEB NEB SCH ×4 (00:06→18:59)
[2023-11-07] MEDS: IPRATROPIUM BROM 0.5 MG/2.5ML INH SOL NEB SCH ×4 (00:06→18:59)
[2023-11-07] MEDS: BUDESONIDE (INHALATION) 0.5 MG/2 ML NEB NEB SCH ×2 (00:06→06:02)
[2023-11-07] MEDS: SODIUM CHLORIDE 0.9% 1,000 ML IV SCH ×2 (03:46→20:06)
[2023-11-07 05:38] LABS: Base Excess -2.6 mmol/L (-2.0-2.0)
[2023-11-07 06:59] LABS: Basophils # (auto) 0 10 ^3/uL (0-0.2); Eosinophils # (auto) 0 10 ^3/uL (0-0.8); Lymphocytes # (auto) 0.5 10 ^3/uL (0.4-5.4); Lymphocytes % (auto) 15.9 % (10.0-50.0); Monocytes # (auto) 0.3 10 ^3/uL (0-1.3); Neutrophils # (auto) 2.1 10 ^3/uL (1.6-8.6)
[2023-11-07 07:05] LABS: Basophils % (auto) 0.3 % (0.0-2.0); Eosinophils % (auto) 1.7 % (0.0-7.0); Hematocrit 25.8 % (41.0-53.0); Hemoglobin 8.5 g/dL (13.5-17.5); Mean Corpuscular Hemoglobin 26.8 pg (28.0-32.0); Mean Corpuscular Hgb Conc. 32.9 g/dL (32.0-36.0); Mean Corpuscular Volume 81.5 fL (80.0-100.0); Monocytes % (auto) 8.9 % (0.0-12.0); Neutrophils % (auto) 73.2 % (37.0-80.0); Nucleated Red Blood Cells % 0.3 %; Red Blood Cells 3.16 10^6/uL (4.5-5.90); White Blood Cell 2.8 10^3/uL (4.4-10.8)
[2023-11-07 07:19] LABS: Alanine Aminotransferase 47 U/L (7-40); Albumin 2.4 g/dL (3.2-4.8); Alkaline Phosphatase 90 U/L (46-116); Anion Gap 9 (5-15); Aspartate Aminotransferase 95 U/L (13-40); BUN/Creatinine Ratio 18.8 (10.0-20.0); Bilirubin, Total 1.6 mg/dL (0.2-1.0); Blood Urea Nitrogen 12 mg/dL (9-23); Calcium 7.5 mg/dL (8.7-10.4); Carbon Dioxide 20 mmol/L (20-30); Chloride 113 mmol/L (98-107); Glucose 78 mg/dL (74-106); Potassium 3.6 mmol/L (3.5-5.1); Sodium 142 mmol/L (136-145); Total Protein 5.5 g/dL (5.7-8.2)
[2023-11-07 07:34] LABS: Red Cell Distribution Width 21.8 % (11.8-14.3)
[2023-11-07] MEDS: CEFEPIME 1GM/ 50ML 50 ML IV SCH (09:31)
[2023-11-07] MEDS: PANTOPRAZOLE 40 MG/10 ML VIAL INJ IV SCH ×2 (09:33→22:21)
[2023-11-07] MEDS ORDERED: SODIUM FERR GLUC 62.5MG/5ML 125 MG in SODIUM CHL 0.9% 100 ML IV SCH (12:00)
[2023-11-07] MEDS: MIDAZOLAM DRIP 50 mg/50mL 50 ML IV SCH (13:15)
[2023-11-07] MEDS: NOREPINEPHRINE 8 MG/250ML KIT 250 ML IV SCH (13:15)
[2023-11-08] VITALS (88 sets, daily range): BP systolic 79–128; BP diastolic 41–75; PULSE 73–108; RESP 15–33; TEMP 97.3–98.6; O2SAT 92–100
[2023-11-08] MEDS: IPRATROPIUM BROM 0.5 MG/2.5ML INH SOL NEB SCH ×4 (00:10→18:39)
[2023-11-08] MEDS: LEVALBUTEROL HCL 1.25 MG/3 ML NEB NEB SCH ×4 (00:10→18:39)
[2023-11-08] MEDS: BUDESONIDE (INHALATION) 0.5 MG/2 ML NEB NEB SCH ×3 (00:10→18:39)
[2023-11-08 05:23] LABS: Basophils # (auto) 0 10 ^3/uL (0-0.2); Eosinophils # (auto) 0 10 ^3/uL (0-0.8); Hemoglobin 8.4 g/dL (13.5-17.5); Lymphocytes # (auto) 0.3 10 ^3/uL (0.4-5.4); Monocytes # (auto) 0.2 10 ^3/uL (0-1.3); Neutrophils # (auto) 2.6 10 ^3/uL (1.6-8.6); White Blood Cell 3.1 10^3/uL (4.4-10.8)
[2023-11-08 05:24] LABS: Alanine Aminotransferase 45 U/L (7-40); Albumin 2.5 g/dL (3.2-4.8); Alkaline Phosphatase 94 U/L (46-116); Anion Gap 8 (5-15); Aspartate Aminotransferase 80 U/L (13-40); BUN/Creatinine Ratio 18.7 (10.0-20.0); Blood Urea Nitrogen 14 mg/dL (9-23); Calcium 7.8 mg/dL (8.5-10.1); Carbon Dioxide 21 mmol/L (20-30); Chloride 114 mmol/L (98-107); Glucose 82 mg/dL (74-106); Potassium 3.7 mmol/L (3.5-5.1); Sodium 143 mmol/L (136-145)
[2023-11-08 05:25] LABS: Basophils % (auto) 0.4 % (0.0-2.0); Bilirubin, Total 1.5 mg/dL (0.2-1.0); Eosinophils % (auto) 1.2 % (0.0-7.0); Lymphocytes % (auto) 8.1 % (10.0-50.0); Mean Corpuscular Hemoglobin 26.7 pg (28.0-32.0); Mean Corpuscular Hgb Conc. 32.4 g/dL (32.0-36.0); Mean Corpuscular Volume 82.5 fL (80.0-100.0); Monocytes % (auto) 7.9 % (0.0-12.0); Neutrophils % (auto) 82.4 % (37.0-80.0); Nucleated Red Blood Cells % 0.1 %; Red Blood Cells 3.15 10^6/uL (4.5-5.90); Total Protein 5.8 g/dL (5.7-8.2)
[2023-11-08 05:26] LABS: Red Cell Distribution Width 22.3 % (11.8-14.3)
[2023-11-08 08:07] LABS: Base Excess -4.2 mmol/L (-2.0-2.0)
[2023-11-08] MEDS: PANTOPRAZOLE 40 MG/10 ML VIAL INJ IV SCH ×2 (08:20→21:11)
[2023-11-08] MEDS: CEFEPIME 1GM/ 50ML 50 ML IV SCH (08:20)
[2023-11-08] MEDS ORDERED: FUROSEMIDE 40 MG/4 ML VIAL IV ONE (08:30)
[2023-11-08] MEDS: NOREPINEPHRINE 8 MG/250ML KIT 250 ML IV SCH (09:33)
[2023-11-08] MEDS: MIDAZOLAM DRIP 50 mg/50mL 50 ML IV SCH (10:56)
[2023-11-08] MEDS: MIDODRINE HCL 10 MG TAB PO SCH ×2 (11:32→17:28)
[2023-11-08] MEDS ORDERED: IRON SUCROSE COMPLEX 200 MG in SODIUM CHL 0.9% 100 ML IV SCH (12:00)
[2023-11-08] MEDS: SODIUM CHLORIDE 0.9% 1,000 ML IV SCH (12:55)
[2023-11-09] VITALS (106 sets, daily range): BP systolic 86–141; BP diastolic 48–72; PULSE 73–101; RESP 15–21; TEMP 97.2–98.6; O2SAT 93–100
[2023-11-09] MEDS: IPRATROPIUM BROM 0.5 MG/2.5ML INH SOL NEB SCH ×4 (00:17→18:36)
[2023-11-09] MEDS: LEVALBUTEROL HCL 1.25 MG/3 ML NEB NEB SCH ×4 (00:17→18:35)
[2023-11-09 04:16] LABS: Basophils # (auto) 0 10 ^3/uL (0-0.2); Basophils % (auto) 0.6 % (0.0-2.0); Eosinophils # (auto) 0.1 10 ^3/uL (0-0.8); Eosinophils % (auto) 1.9 % (0.0-7.0); Hematocrit 26.8 % (41.0-53.0); Hemoglobin 8.6 g/dL (13.5-17.5); Lymphocytes # (auto) 0.3 10 ^3/uL (0.4-5.4); Lymphocytes % (auto) 7.1 % (10.0-50.0); Mean Corpuscular Hemoglobin 26.4 pg (28.0-32.0); Mean Corpuscular Hgb Conc. 32.2 g/dL (32.0-36.0); Mean Corpuscular Volume 82.1 fL (80.0-100.0); Monocytes # (auto) 0.4 10 ^3/uL (0-1.3); Monocytes % (auto) 9.6 % (0.0-12.0); Neutrophils # (auto) 3.7 10 ^3/uL (1.6-8.6); Neutrophils % (auto) 80.8 % (37.0-80.0); Nucleated Red Blood Cells % 0.4 %; Red Blood Cells 3.27 10^6/uL (4.5-5.90); White Blood Cell 4.5 10^3/uL (4.4-10.8)
[2023-11-09 04:18] LABS: Red Cell Distribution Width 21.6 % (11.8-14.3)
[2023-11-09 04:24] LABS: Alanine Aminotransferase 43 U/L (7-40); Albumin 2.5 g/dL (3.2-4.8); Alkaline Phosphatase 96 U/L (46-116); Anion Gap 8 (5-15); Aspartate Aminotransferase 66 U/L (13-40); BUN/Creatinine Ratio 18.5 (10.0-20.0); Bilirubin, Total 1.5 mg/dL (0.2-1.0); Blood Urea Nitrogen 17 mg/dL (9-23); Calcium 8.4 mg/dL (8.5-10.1); Carbon Dioxide 23 mmol/L (20-30); Chloride 113 mmol/L (98-107); Glucose 95 mg/dL (74-106); Potassium 3.7 mmol/L (3.5-5.1); Sodium 144 mmol/L (136-145)
[2023-11-09] MEDS: BUDESONIDE (INHALATION) 0.5 MG/2 ML NEB NEB SCH ×2 (05:57→18:35)
[2023-11-09] MEDS: MIDODRINE HCL 10 MG TAB PO SCH ×3 (06:00→18:35)
[2023-11-09 07:09] LABS: Base Excess -3.4 mmol/L (-2.0-2.0)
[2023-11-09] MEDS ORDERED: FUROSEMIDE 40 MG/4 ML VIAL IV SCH (10:00)
[2023-11-09] MEDS: CEFEPIME 1GM/ 50ML 50 ML IV SCH (10:33)
[2023-11-09] MEDS: PANTOPRAZOLE 40 MG/10 ML VIAL INJ IV SCH ×2 (10:33→22:44)
[2023-11-09] MEDS ORDERED: IRON SUCROSE COMPLEX 200 MG in SODIUM CHL 0.9% 100 ML IV SCH (12:00)
[2023-11-09] MEDS ORDERED: cefTRIAXone 1GM/50ML D5W 50 ML IV ONE (13:00)
[2023-11-09] MEDS: MIDAZOLAM DRIP 50 mg/50mL 50 ML IV SCH (13:15)
[2023-11-09] MEDS: NOREPINEPHRINE 8 MG/250ML KIT 250 ML IV SCH (13:15)
[2023-11-09] MEDS: IRON SUCROSE COMPLEX 100 ML IV SCH (15:56)
[2023-11-10] VITALS (104 sets, daily range): BP systolic 86–128; BP diastolic 45–71; PULSE 73–112; RESP 13–27; TEMP 96.8–99.1; O2SAT 82–99
[2023-11-10] MEDS: LEVALBUTEROL HCL 1.25 MG/3 ML NEB NEB SCH ×4 (00:17→18:34)
[2023-11-10] MEDS: IPRATROPIUM BROM 0.5 MG/2.5ML INH SOL NEB SCH ×4 (00:17→18:33)
[2023-11-10 04:00] LABS: Basophils # (auto) 0 10 ^3/uL (0-0.2); Basophils % (auto) 0.4 % (0.0-2.0); Eosinophils # (auto) 0 10 ^3/uL (0-0.8); Hemoglobin 8.1 g/dL (13.5-17.5); Lymphocytes # (auto) 0.2 10 ^3/uL (0.4-5.4); Monocytes # (auto) 0.3 10 ^3/uL (0-1.3); Nucleated Red Blood Cells % 0.2 %
[2023-11-10 04:02] LABS: Eosinophils % (auto) 1.7 % (0.0-7.0); Lymphocytes % (auto) 7.4 % (10.0-50.0); Mean Corpuscular Hgb Conc. 32.3 g/dL (32.0-36.0); Mean Corpuscular Volume 83.7 fL (80.0-100.0); Monocytes % (auto) 10.8 % (0.0-12.0); Neutrophils # (auto) 2.2 10 ^3/uL (1.6-8.6); Neutrophils % (auto) 79.7 % (37.0-80.0); Red Blood Cells 2.99 10^6/uL (4.5-5.90); White Blood Cell 2.8 10^3/uL (4.4-10.8)
[2023-11-10 04:04] LABS: Red Cell Distribution Width 22.4 % (11.8-14.3)
[2023-11-10 04:09] LABS: Alanine Aminotransferase 34 U/L (7-40); Albumin 2.5 g/dL (3.2-4.8); Alkaline Phosphatase 90 U/L (46-116); Anion Gap 9 (5-15); Aspartate Aminotransferase 45 U/L (13-40); BUN/Creatinine Ratio 22.9 (10.0-20.0); Bilirubin, Total 1.1 mg/dL (0.2-1.0); Blood Urea Nitrogen 16 mg/dL (9-23); Calcium 8.4 mg/dL (8.7-10.4); Carbon Dioxide 23 mmol/L (20-30); Chloride 113 mmol/L (98-107); Glucose 95 mg/dL (74-106); Potassium 3.1 mmol/L (3.5-5.1); Sodium 145 mmol/L (136-145)
[2023-11-10 04:10] LABS: Total Protein 5.8 g/dL (5.7-8.2)
[2023-11-10] MEDS: MIDODRINE HCL 10 MG TAB PO SCH ×3 (06:09→18:01)
[2023-11-10] MEDS: BUDESONIDE (INHALATION) 0.5 MG/2 ML NEB NEB SCH ×2 (06:32→18:33)
[2023-11-10] MEDS: POTASSIUM CHL 20MEQ/100ML 100 ML IV SCH ×2 (06:41→08:30)
[2023-11-10] MEDS ORDERED: POTASSIUM CHL 20MEQ/100ML 100 ML IV ONE (08:15)
[2023-11-10] MEDS: cefTRIAXone 1GM/50ML D5W 50 ML IV SCH (08:55)
[2023-11-10] MEDS: PANTOPRAZOLE 40 MG/10 ML VIAL INJ IV SCH ×2 (08:56→21:35)
[2023-11-10] MEDS: FUROSEMIDE 20 MG/2 ML VIAL IV SCH (08:57)
[2023-11-10 09:51] LABS: Base Excess 0.5 mmol/L (-2.0-2.0)
[2023-11-10] MEDS: IRON SUCROSE COMPLEX 100 ML IV SCH (13:09)
[2023-11-10] MEDS: NOREPINEPHRINE 8 MG/250ML KIT 250 ML IV SCH (13:15)
[2023-11-10] MEDS: MIDAZOLAM DRIP 50 mg/50mL 50 ML IV SCH (13:15)
[2023-11-10] MEDS ORDERED: HYDROCORTISONE SOD SUCC 100 MG/2ML INJ VIAL IV SCH (14:00)
[2023-11-10] MEDS: HYDROCORTISONE SOD SUCC 100 MG/2ML INJ VIAL IV SCH (21:36)
[2023-11-11] VITALS (73 sets, daily range): BP systolic 88–124; BP diastolic 45–65; PULSE 57–95; RESP 11–30; TEMP 97.5–99.3; O2SAT 92–100
[2023-11-11] MEDS: IPRATROPIUM BROM 0.5 MG/2.5ML INH SOL NEB SCH ×4 (00:15→19:42)
[2023-11-11] MEDS: LEVALBUTEROL HCL 1.25 MG/3 ML NEB NEB SCH ×4 (00:15→19:43)
[2023-11-11 04:12] LABS: Hematocrit 25.8 % (41.0-53.0)
[2023-11-11 04:14] LABS: Basophils # (auto) 0 10 ^3/uL (0-0.2); Basophils % (auto) 0.1 % (0.0-2.0); Eosinophils # (auto) 0 10 ^3/uL (0-0.8); Hemoglobin 8.2 g/dL (13.5-17.5); Lymphocytes # (auto) 0.1 10 ^3/uL (0.4-5.4); Lymphocytes % (auto) 5.7 % (10.0-50.0); Mean Corpuscular Hemoglobin 26.6 pg (28.0-32.0); Mean Corpuscular Hgb Conc. 31.7 g/dL (32.0-36.0); Monocytes # (auto) 0.1 10 ^3/uL (0-1.3); Monocytes % (auto) 3.8 % (0.0-12.0); Neutrophils # (auto) 2.2 10 ^3/uL (1.6-8.6); Neutrophils % (auto) 90.4 % (37.0-80.0); Nucleated Red Blood Cells % 0.3 %; Red Blood Cells 3.07 10^6/uL (4.5-5.90); White Blood Cell 2.4 10^3/uL (4.4-10.8)
[2023-11-11 04:20] LABS: Red Cell Distribution Width 22.6 % (11.8-14.3)
[2023-11-11 04:34] LABS: Alanine Aminotransferase 31 U/L (7-40); Albumin 2.5 g/dL (3.2-4.8); Alkaline Phosphatase 91 U/L (46-116); Anion Gap 9 (5-15); Aspartate Aminotransferase 41 U/L (13-40); Blood Urea Nitrogen 18 mg/dL (9-23); Calcium 8.7 mg/dL (8.7-10.4); Carbon Dioxide 24 mmol/L (20-30); Chloride 113 mmol/L (98-107); Glucose 104 mg/dL (74-106); Potassium 3.8 mmol/L (3.5-5.1); Sodium 146 mmol/L (136-145)
[2023-11-11 04:35] LABS: Bilirubin, Total 1.2 mg/dL (0.2-1.0); Total Protein 6.1 g/dL (5.7-8.2)
[2023-11-11] MEDS: HYDROCORTISONE SOD SUCC 100 MG/2ML INJ VIAL IV SCH ×3 (05:36→22:02)
[2023-11-11] MEDS: MIDODRINE HCL 10 MG TAB PO SCH ×3 (05:36→16:16)
[2023-11-11] MEDS: BUDESONIDE (INHALATION) 0.5 MG/2 ML NEB NEB SCH ×2 (06:24→19:43)
[2023-11-11 07:41] LABS: Base Excess -0.1 mmol/L (-2.0-2.0)
[2023-11-11 09:31] LABS: Base Excess -0.9 mmol/L (-2.0-2.0)
[2023-11-11] MEDS: PANTOPRAZOLE 40 MG/10 ML VIAL INJ IV SCH ×2 (09:37→22:02)
[2023-11-11] MEDS: cefTRIAXone 1GM/50ML D5W 50 ML IV SCH (09:38)
[2023-11-11] MEDS: FUROSEMIDE 20 MG/2 ML VIAL IV SCH (09:38)
[2023-11-11] MEDS ORDERED: EPINEPHrine HCL 0.5 ML NEB NEB PRN (09:45)
[2023-11-11] MEDS: IRON SUCROSE COMPLEX 100 ML IV SCH (13:02)
[2023-11-11] MEDS: MIDAZOLAM DRIP 50 mg/50mL 50 ML IV SCH (13:15)
[2023-11-11] MEDS: NOREPINEPHRINE 8 MG/250ML KIT 250 ML IV SCH (13:15)
[2023-11-12] VITALS (49 sets, daily range): BP systolic 78–122; BP diastolic 39–62; PULSE 63–96; RESP 13–24; TEMP 98.2–99.1; O2SAT 89–100
[2023-11-12] MEDS: IPRATROPIUM BROM 0.5 MG/2.5ML INH SOL NEB SCH ×4 (00:19→18:34)
[2023-11-12] MEDS: LEVALBUTEROL HCL 1.25 MG/3 ML NEB NEB SCH ×4 (00:19→18:34)
[2023-11-12 03:50] LABS: Basophils # (auto) 0 10 ^3/uL (0-0.2); Eosinophils # (auto) 0 10 ^3/uL (0-0.8); Lymphocytes # (auto) 0.1 10 ^3/uL (0.4-5.4); Monocytes # (auto) 0.1 10 ^3/uL (0-1.3); Neutrophils # (auto) 2.2 10 ^3/uL (1.6-8.6); White Blood Cell 2.5 10^3/uL (4.4-10.8)
[2023-11-12 03:52] LABS: Hematocrit 24.4 % (41.0-53.0); Hemoglobin 7.8 g/dL (13.5-17.5); Lymphocytes % (auto) 4.3 % (10.0-50.0); Mean Corpuscular Hemoglobin 27.1 pg (28.0-32.0); Mean Corpuscular Volume 84.7 fL (80.0-100.0); Monocytes % (auto) 5.7 % (0.0-12.0); Nucleated Red Blood Cells % 0.3 %; Red Blood Cells 2.89 10^6/uL (4.5-5.90)
[2023-11-12 03:56] LABS: Red Cell Distribution Width 22.5 % (11.8-14.3)
[2023-11-12 04:05] LABS: Alanine Aminotransferase 29 U/L (7-40); Albumin 2.4 g/dL (3.2-4.8); Alkaline Phosphatase 85 U/L (46-116); Anion Gap 7 (5-15); Aspartate Aminotransferase 39 U/L (13-40); BUN/Creatinine Ratio 30.6 (10.0-20.0); Blood Urea Nitrogen 22 mg/dL (9-23); Calcium 8.7 mg/dL (8.7-10.4); Carbon Dioxide 26 mmol/L (20-30); Chloride 114 mmol/L (98-107); Glucose 100 mg/dL (74-106); Potassium 3.1 mmol/L (3.5-5.1); Sodium 147 mmol/L (136-145)
[2023-11-12 04:06] LABS: Bilirubin, Total 1.1 mg/dL (0.2-1.0); Total Protein 5.8 g/dL (5.7-8.2)
[2023-11-12] MEDS: MIDODRINE HCL 10 MG TAB PO SCH ×3 (06:13→17:22)
[2023-11-12] MEDS: BUDESONIDE (INHALATION) 0.5 MG/2 ML NEB NEB SCH ×2 (06:27→18:34)
[2023-11-12] MEDS: POTASSIUM CHL 20MEQ/100ML 100 ML IV SCH ×2 (08:50→12:06)
[2023-11-12] MEDS: cefTRIAXone 1GM/50ML D5W 50 ML IV SCH (08:53)
[2023-11-12] MEDS: FUROSEMIDE 20 MG/2 ML VIAL IV SCH (09:39)
[2023-11-12] MEDS: PANTOPRAZOLE 40 MG/10 ML VIAL INJ IV SCH ×2 (09:40→21:37)
[2023-11-12] MEDS: HYDROCORTISONE SOD SUCC 100 MG/2ML INJ VIAL IV SCH ×2 (09:40→21:38)
[2023-11-12 10:49] LABS: Base Excess -0.3 mmol/L (-2.0-2.0)
[2023-11-12] MEDS: NOREPINEPHRINE 8 MG/250ML KIT 250 ML IV SCH (13:15)
[2023-11-12] MEDS: MIDAZOLAM DRIP 50 mg/50mL 50 ML IV SCH (13:15)
[2023-11-12] MEDS: ERGOCALCIFEROL 50,000 UNIT(1.25MG) CAP PO SCH (17:22)
[2023-11-12] MEDS ORDERED: POTASSIUM EFFERVESENT TAB 25 MEQ PO ONE (18:30)
[2023-11-13] VITALS (78 sets, daily range): BP systolic 97–140; BP diastolic 47–79; PULSE 71–106; RESP 12–25; TEMP 98–99.2; O2SAT 81–100
[2023-11-13] MEDS: IPRATROPIUM BROM 0.5 MG/2.5ML INH SOL NEB SCH ×4 (00:12→19:29)
[2023-11-13] MEDS: LEVALBUTEROL HCL 1.25 MG/3 ML NEB NEB SCH ×4 (00:12→19:29)
[2023-11-13 04:17] LABS: Basophils # (auto) 0 10 ^3/uL (0-0.2); Eosinophils # (auto) 0 10 ^3/uL (0-0.8); Eosinophils % (auto) 0.1 % (0.0-7.0); Hemoglobin 8.7 g/dL (13.5-17.5); Lymphocytes # (auto) 0.2 10 ^3/uL (0.4-5.4); Monocytes # (auto) 0.2 10 ^3/uL (0-1.3)
[2023-11-13 04:19] LABS: Lymphocytes % (auto) 7.5 % (10.0-50.0); Mean Corpuscular Hemoglobin 27.9 pg (28.0-32.0); Monocytes % (auto) 5.7 % (0.0-12.0); Neutrophils # (auto) 2.4 10 ^3/uL (1.6-8.6); Neutrophils % (auto) 86.7 % (37.0-80.0); Nucleated Red Blood Cells % 0.6 %; Red Blood Cells 3.11 10^6/uL (4.5-5.90); White Blood Cell 2.8 10^3/uL (4.4-10.8)
[2023-11-13 04:20] LABS: Alanine Aminotransferase 36 U/L (7-40); Albumin 2.5 g/dL (3.2-4.8); Alkaline Phosphatase 95 U/L (46-116); Anion Gap 5 (5-15); Aspartate Aminotransferase 51 U/L (13-40); Blood Urea Nitrogen 20 mg/dL (9-23); Calcium 8.6 mg/dL (8.7-10.4); Carbon Dioxide 26 mmol/L (20-30); Chloride 115 mmol/L (98-107); Glucose 116 mg/dL (74-106); Potassium 3.5 mmol/L (3.5-5.1); Red Cell Distribution Width 22.4 % (11.8-14.3); Sodium 146 mmol/L (136-145)
[2023-11-13 04:21] LABS: Bilirubin, Total 1.4 mg/dL (0.2-1.0); Total Protein 6.2 g/dL (5.7-8.2)
[2023-11-13] MEDS: MIDODRINE HCL 10 MG TAB PO SCH ×3 (05:52→18:22)
[2023-11-13] MEDS: BUDESONIDE (INHALATION) 0.5 MG/2 ML NEB NEB SCH ×2 (06:21→22:31)
[2023-11-13 06:40] LABS: Anisocytosis Slight; Platelet Estimate Decreased
[2023-11-13] MEDS: cefTRIAXone 1GM/50ML D5W 50 ML IV SCH (09:13)
[2023-11-13] MEDS: PANTOPRAZOLE 40 MG/10 ML VIAL INJ IV SCH ×2 (09:15→21:16)
[2023-11-13] MEDS: FUROSEMIDE 20 MG/2 ML VIAL IV SCH (09:15)
[2023-11-13] MEDS: HYDROCORTISONE SOD SUCC 100 MG/2ML INJ VIAL IV SCH ×2 (09:19→21:17)
[2023-11-13] MEDS ORDERED: IRON SUCROSE COMPLEX 100 ML IV SCH (12:00)
[2023-11-13] MEDS: NOREPINEPHRINE 8 MG/250ML KIT 250 ML IV SCH (13:15)
[2023-11-13] MEDS: MIDAZOLAM DRIP 50 mg/50mL 50 ML IV SCH (13:15)
[2023-11-13] MEDS: LOPERAMIDE HCL 2 MG CAP/TAB PO PRN (16:30)
[2023-11-13] MEDS: HYDROcodone-ACET 5/325MG TAB PO PRN (18:59)
[2023-11-14] VITALS (24 sets, daily range): BP systolic 89–122; BP diastolic 46–66; PULSE 69–98; RESP 12–20; TEMP 97.6–99.4; O2SAT 92–100
[2023-11-14] MEDS: BUDESONIDE (INHALATION) 0.5 MG/2 ML NEB NEB SCH ×2 (00:04→06:58)
[2023-11-14] MEDS: HYDROcodone-ACET 5/325MG TAB PO PRN ×3 (00:08→22:31)
[2023-11-14] MEDS: LEVALBUTEROL HCL 1.25 MG/3 ML NEB NEB SCH ×4 (00:35→18:11)
[2023-11-14] MEDS: IPRATROPIUM BROM 0.5 MG/2.5ML INH SOL NEB SCH ×4 (00:35→18:10)
[2023-11-14 04:55] LABS: Basophils # (auto) 0 10 ^3/uL (0-0.2); Eosinophils # (auto) 0 10 ^3/uL (0-0.8); Eosinophils % (auto) 0.2 % (0.0-7.0); Hemoglobin 8.3 g/dL (13.5-17.5); Mean Corpuscular Hgb Conc. 32.1 g/dL (32.0-36.0); Monocytes # (auto) 0.2 10 ^3/uL (0-1.3)
[2023-11-14 04:57] LABS: Basophils % (auto) 0.4 % (0.0-2.0); Lymphocytes # (auto) 0.2 10 ^3/uL (0.4-5.4); Lymphocytes % (auto) 5.3 % (10.0-50.0); Mean Corpuscular Hemoglobin 27.9 pg (28.0-32.0); Mean Corpuscular Volume 86.9 fL (80.0-100.0); Monocytes % (auto) 6.3 % (0.0-12.0); Neutrophils # (auto) 2.6 10 ^3/uL (1.6-8.6); Neutrophils % (auto) 87.8 % (37.0-80.0); Nucleated Red Blood Cells % 0.3 %; Red Blood Cells 2.99 10^6/uL (4.5-5.90); Red Cell Distribution Width 21.8 % (11.8-14.3); White Blood Cell 2.9 10^3/uL (4.4-10.8)
[2023-11-14 05:13] LABS: Alanine Aminotransferase 34 U/L (7-40); Albumin 2.4 g/dL (3.2-4.8); Alkaline Phosphatase 98 U/L (46-116); Anion Gap 6 (5-15); Aspartate Aminotransferase 45 U/L (13-40); BUN/Creatinine Ratio 23.6 (10.0-20.0); Bilirubin, Total 1.5 mg/dL (0.2-1.0); Blood Urea Nitrogen 17 mg/dL (9-23); Calcium 8.2 mg/dL (8.5-10.1); Carbon Dioxide 26 mmol/L (20-30); Chloride 112 mmol/L (98-107); Glucose 121 mg/dL (74-106); Potassium 3.2 mmol/L (3.5-5.1); Sodium 144 mmol/L (136-145); Total Protein 5.7 g/dL (5.7-8.2)
[2023-11-14] MEDS: MIDODRINE HCL 10 MG TAB PO SCH ×3 (05:33→18:29)
[2023-11-14] MEDS: LOPERAMIDE HCL 2 MG CAP/TAB PO PRN (05:36)
[2023-11-14] MEDS ORDERED: POTASSIUM CHL 20 Meq TABLET PO ONE (09:15)
[2023-11-14] MEDS: PANTOPRAZOLE 40 MG/10 ML VIAL INJ IV SCH ×2 (09:44→22:32)
[2023-11-14] MEDS: HYDROCORTISONE SOD SUCC 100 MG/2ML INJ VIAL IV SCH ×2 (09:44→22:33)
[2023-11-14] MEDS: FUROSEMIDE 20 MG/2 ML VIAL IV SCH (09:44)
[2023-11-15] VITALS (16 sets, daily range): BP systolic 91–123; BP diastolic 43–70; PULSE 71–83; RESP 16–19; TEMP 98–98.7; O2SAT 92–100
[2023-11-15] MEDS: LEVALBUTEROL HCL 1.25 MG/3 ML NEB NEB SCH ×4 (00:04→19:35)
[2023-11-15] MEDS: IPRATROPIUM BROM 0.5 MG/2.5ML INH SOL NEB SCH ×4 (00:04→19:36)
[2023-11-15] MEDS: HYDROcodone-ACET 5/325MG TAB PO PRN (04:36)
[2023-11-15] MEDS: MIDODRINE HCL 10 MG TAB PO SCH ×3 (06:16→17:43)
[2023-11-15] MEDS: BUDESONIDE (INHALATION) 0.5 MG/2 ML NEB NEB SCH ×2 (06:49→19:36)
[2023-11-15] MEDS: PANTOPRAZOLE 40 MG/10 ML VIAL INJ IV SCH ×2 (09:56→21:22)
[2023-11-15] MEDS: HYDROCORTISONE SOD SUCC 100 MG/2ML INJ VIAL IV SCH ×2 (09:57→21:22)
[2023-11-15] MEDS: LOPERAMIDE HCL 2 MG CAP/TAB PO PRN ×2 (09:58→17:46)
[2023-11-15] MEDS: FUROSEMIDE 20 MG/2 ML VIAL IV SCH (09:58)
[2023-11-15] MEDS ORDERED: POTASSIUM CHLORIDE 40 MEQ, LIDOCAINE 1% (LOCAL ANESTH.) 4 ML in SODIUM CHL 0.9% 250 ML IV ONE (10:15)
[2023-11-15 10:33] LABS: Basophils # (auto) 0 10 ^3/uL (0-0.2); Eosinophils # (auto) 0.1 10 ^3/uL (0-0.8); Lymphocytes # (auto) 0.4 10 ^3/uL (0.4-5.4); Monocytes # (auto) 0.2 10 ^3/uL (0-1.3)
[2023-11-15 10:36] LABS: Basophils % (auto) 0.1 % (0.0-2.0); Eosinophils % (auto) 2.1 % (0.0-7.0); Hematocrit 29.2 % (41.0-53.0); Hemoglobin 9.3 g/dL (13.5-17.5); Mean Corpuscular Hemoglobin 28.9 pg (28.0-32.0); Mean Corpuscular Volume 90.4 fL (80.0-100.0); Monocytes % (auto) 5.6 % (0.0-12.0); Neutrophils # (auto) 3.1 10 ^3/uL (1.6-8.6); Neutrophils % (auto) 81.2 % (37.0-80.0); Nucleated Red Blood Cells % 0.3 %; Red Blood Cells 3.23 10^6/uL (4.5-5.90); White Blood Cell 3.8 10^3/uL (4.4-10.8)
[2023-11-15 10:46] LABS: Red Cell Distribution Width 22.2 % (11.8-14.3)
[2023-11-15 10:54] LABS: Alanine Aminotransferase 35 U/L (7-40); Albumin 2.4 g/dL (3.2-4.8); Alkaline Phosphatase 98 U/L (46-116); Anion Gap 6 (5-15); Aspartate Aminotransferase 52 U/L (13-40); BUN/Creatinine Ratio 19.2 (10.0-20.0); Blood Urea Nitrogen 14 mg/dL (9-23); Calcium 7.9 mg/dL (8.5-10.1); Carbon Dioxide 26 mmol/L (20-30); Chloride 110 mmol/L (98-107); Glucose 143 mg/dL (74-106); Sodium 142 mmol/L (136-145)
[2023-11-15 10:55] LABS: Bilirubin, Total 1.8 mg/dL (0.2-1.0); Total Protein 5.8 g/dL (5.7-8.2)
[2023-11-15] MEDS ORDERED: GABAPENTIN 100 MG CAP PO ONE (12:00)
[2023-11-15 12:14] LABS: INR 2.5 (0.9-1.15); Partial Thromboplastin Time 36.7 SEC (24.5-34.5)
[2023-11-15 13:17] LABS: Platelet Estimate Decreased
[2023-11-15 13:20] LABS: Basophils # (auto) 0 10 ^3/uL (0-0.2); Eosinophils # (auto) 0.1 10 ^3/uL (0-0.8); Eosinophils % (auto) 1.8 % (0.0-7.0); Monocytes # (auto) 0.2 10 ^3/uL (0-1.3); White Blood Cell 4.6 10^3/uL (4.4-10.8)
[2023-11-15 13:22] LABS: Basophils % (auto) 0.1 % (0.0-2.0); Hematocrit 32.9 % (41.0-53.0); Hemoglobin 10.3 g/dL (13.5-17.5); Lymphocytes # (auto) 0.3 10 ^3/uL (0.4-5.4); Lymphocytes % (auto) 5.5 % (10.0-50.0); Mean Corpuscular Hemoglobin 28.8 pg (28.0-32.0); Mean Corpuscular Hgb Conc. 31.1 g/dL (32.0-36.0); Mean Corpuscular Volume 92.5 fL (80.0-100.0); Monocytes % (auto) 4.5 % (0.0-12.0); Neutrophils # (auto) 4.1 10 ^3/uL (1.6-8.6); Neutrophils % (auto) 88.1 % (37.0-80.0); Nucleated Red Blood Cells % 0.2 %; Red Blood Cells 3.56 10^6/uL (4.5-5.90)
[2023-11-15 13:30] LABS: Red Cell Distribution Width 22.5 % (11.8-14.3)
[2023-11-15] MEDS: GABAPENTIN 100 MG CAP PO SCH (21:23)
[2023-11-16] VITALS (19 sets, daily range): BP systolic 96–120; BP diastolic 58–69; PULSE 53–96; RESP 10–20; TEMP 36.7–36.8; O2SAT 94–100
[2023-11-16] MEDS: IPRATROPIUM BROM 0.5 MG/2.5ML INH SOL NEB SCH ×4 (00:25→18:09)
[2023-11-16] MEDS: LEVALBUTEROL HCL 1.25 MG/3 ML NEB NEB SCH ×4 (00:25→18:09)
[2023-11-16] MEDS: LOPERAMIDE HCL 2 MG CAP/TAB PO PRN (05:34)
[2023-11-16] MEDS: MIDODRINE HCL 10 MG TAB PO SCH ×3 (05:34→17:15)
[2023-11-16 06:00] LABS: Basophils # (auto) 0 10 ^3/uL (0-0.2); Eosinophils # (auto) 0 10 ^3/uL (0-0.8); Hemoglobin 9.2 g/dL (13.5-17.5); Lymphocytes # (auto) 0.2 10 ^3/uL (0.4-5.4); Lymphocytes % (auto) 5.1 % (10.0-50.0); Red Blood Cells 3.18 10^6/uL (4.5-5.90)
[2023-11-16 06:03] LABS: Eosinophils % (auto) 0.9 % (0.0-7.0); Hematocrit 28.4 % (41.0-53.0); Mean Corpuscular Hemoglobin 28.8 pg (28.0-32.0); Mean Corpuscular Hgb Conc. 32.2 g/dL (32.0-36.0); Mean Corpuscular Volume 89.2 fL (80.0-100.0); Monocytes # (auto) 0.1 10 ^3/uL (0-1.3); Monocytes % (auto) 4.4 % (0.0-12.0); Neutrophils # (auto) 2.8 10 ^3/uL (1.6-8.6); Neutrophils % (auto) 89.6 % (37.0-80.0); White Blood Cell 3.1 10^3/uL (4.4-10.8)
[2023-11-16 06:14] LABS: Alanine Aminotransferase 34 U/L (7-40); Albumin 2.3 g/dL (3.2-4.8); Alkaline Phosphatase 98 U/L (46-116); Anion Gap 6 (5-15); Aspartate Aminotransferase 51 U/L (13-40); Bilirubin, Total 1.8 mg/dL (0.2-1.0); Blood Urea Nitrogen 13 mg/dL (9-23); Calcium 7.6 mg/dL (8.7-10.4); Carbon Dioxide 24 mmol/L (20-30); Chloride 111 mmol/L (98-107); Glucose 109 mg/dL (74-106); Lipase 68 U/L (12-53); Magnesium 1.5 mg/dL (1.6-2.6); Potassium 3.7 mmol/L (3.5-5.1); Sodium 141 mmol/L (136-145); Total Protein 5.6 g/dL (5.7-8.2)
[2023-11-16 06:15] LABS: Red Cell Distribution Width 24.1 % (11.8-14.3)
[2023-11-16 06:48] LABS: CRP High Sensitivity 0.79 mg/dL (<1.0)
[2023-11-16] MEDS: BUDESONIDE (INHALATION) 0.5 MG/2 ML NEB NEB SCH ×2 (07:01→18:09)
[2023-11-16 07:20] LABS: INR 2.3 (0.9-1.15); Partial Thromboplastin Time 33.2 SEC (24.5-34.5); Prothrombin Time 23.3 sec (9.3-11.8)
[2023-11-16] MEDS ORDERED: MAGNESIUM OXIDE 400 MG TAB PO ONE (09:00)
[2023-11-16] MEDS: PANTOPRAZOLE 40 MG/10 ML VIAL INJ IV SCH ×2 (09:43→21:16)
[2023-11-16] MEDS: FUROSEMIDE 20 MG/2 ML VIAL IV SCH (09:44)
[2023-11-16] MEDS: HYDROcodone-ACET 5/325MG TAB PO PRN ×2 (09:44→17:15)
[2023-11-16] MEDS: HYDROCORTISONE SOD SUCC 100 MG/2ML INJ VIAL IV SCH ×2 (09:44→21:16)
[2023-11-16] MEDS: LACTULOSE 20Gm/30ML SOLN PO SCH ×3 (09:44→11:07)
[2023-11-16] MEDS: GABAPENTIN 100 MG CAP PO SCH ×2 (09:44→21:17)
[2023-11-16 10:58] LABS: Platelet Estimate Markedly Decreased
[2023-11-16 10:59] LABS: Anisocytosis Moderate
[2023-11-17] VITALS (15 sets, daily range): BP systolic 105–113; BP diastolic 62–68; PULSE 76–93; RESP 14–20; TEMP 97.8–98.1; O2SAT 93–100
[2023-11-17] MEDS: IPRATROPIUM BROM 0.5 MG/2.5ML INH SOL NEB SCH ×4 (00:16→18:49)
[2023-11-17] MEDS: LEVALBUTEROL HCL 1.25 MG/3 ML NEB NEB SCH ×4 (00:16→18:49)
[2023-11-17] MEDS: HYDROcodone-ACET 5/325MG TAB PO PRN ×3 (00:37→20:42)
[2023-11-17] MEDS: MIDODRINE HCL 10 MG TAB PO SCH ×3 (06:29→18:33)
[2023-11-17 06:57] LABS: Basophils # (auto) 0 10 ^3/uL (0-0.2); Eosinophils # (auto) 0 10 ^3/uL (0-0.8); Hemoglobin 9.5 g/dL (13.5-17.5); Lymphocytes # (auto) 0.2 10 ^3/uL (0.4-5.4); Monocytes # (auto) 0.2 10 ^3/uL (0-1.3); Nucleated Red Blood Cells % 0.1 %
[2023-11-17 06:58] LABS: Eosinophils % (auto) 0.9 % (0.0-7.0); Hematocrit 29.8 % (41.0-53.0); Lymphocytes % (auto) 6.1 % (10.0-50.0); Mean Corpuscular Hemoglobin 29.3 pg (28.0-32.0); Mean Corpuscular Hgb Conc. 32.1 g/dL (32.0-36.0); Mean Corpuscular Volume 91.3 fL (80.0-100.0); Monocytes % (auto) 5.9 % (0.0-12.0); Neutrophils # (auto) 2.9 10 ^3/uL (1.6-8.6); Neutrophils % (auto) 87.1 % (37.0-80.0); Red Blood Cells 3.26 10^6/uL (4.5-5.90); White Blood Cell 3.3 10^3/uL (4.4-10.8)
[2023-11-17 07:11] LABS: Alanine Aminotransferase 41 U/L (7-40); Albumin 2.3 g/dL (3.2-4.8); Alkaline Phosphatase 112 U/L (46-116); Anion Gap 6 (5-15); Aspartate Aminotransferase 61 U/L (13-40); BUN/Creatinine Ratio 20.9 (10.0-20.0); Blood Urea Nitrogen 14 mg/dL (9-23); CRP High Sensitivity 0.58 mg/dL (<1.0); Calcium 7.9 mg/dL (8.5-10.1); Carbon Dioxide 26 mmol/L (20-30); Chloride 110 mmol/L (98-107); Glucose 112 mg/dL (74-106); Potassium 3.4 mmol/L (3.5-5.1); Sodium 142 mmol/L (136-145)
[2023-11-17 07:12] LABS: Bilirubin, Total 1.6 mg/dL (0.2-1.0); Total Protein 5.6 g/dL (5.7-8.2)
[2023-11-17 07:28] LABS: Lipase 43 U/L (12-53); Magnesium 1.6 mg/dL (1.6-2.6)
[2023-11-17 07:31] LABS: Red Cell Distribution Width 33.5 % (11.8-14.3)
[2023-11-17 09:08] LABS: Anisocytosis Moderate
[2023-11-17 09:12] LABS: Platelet Estimate Decrea
[2023-11-17] MEDS: PANTOPRAZOLE 40 MG/10 ML VIAL INJ IV SCH ×2 (09:12→21:40)
[2023-11-17] MEDS: LACTULOSE 20Gm/30ML SOLN PO SCH (09:15)
[2023-11-17] MEDS: HYDROCORTISONE SOD SUCC 100 MG/2ML INJ VIAL IV SCH ×2 (09:15→21:42)
[2023-11-17] MEDS: GABAPENTIN 100 MG CAP PO SCH ×2 (09:15→21:43)
[2023-11-17] MEDS: FUROSEMIDE 20 MG/2 ML VIAL IV SCH (09:16)
[2023-11-17] MEDS ORDERED: POTASSIUM EFFERVESENT TAB 25 MEQ PO ONE (09:45)
[2023-11-17] MEDS: BUDESONIDE (INHALATION) 0.5 MG/2 ML NEB NEB SCH ×2 (11:17→22:51)
[2023-11-18] VITALS (16 sets, daily range): BP systolic 93–104; BP diastolic 53–62; PULSE 73–97; RESP 15–22; TEMP 97.9–98.8; O2SAT 94–100
[2023-11-18] MEDS: IPRATROPIUM BROM 0.5 MG/2.5ML INH SOL NEB SCH ×4 (00:26→18:48)
[2023-11-18] MEDS: LEVALBUTEROL HCL 1.25 MG/3 ML NEB NEB SCH ×4 (00:26→18:49)
[2023-11-18] MEDS: MIDODRINE HCL 10 MG TAB PO SCH ×3 (06:04→18:12)
[2023-11-18] MEDS: BUDESONIDE (INHALATION) 0.5 MG/2 ML NEB NEB SCH ×2 (07:05→18:49)
[2023-11-18 07:27] LABS: Basophils # (auto) 0 10 ^3/uL (0-0.2); Basophils % (auto) 0.1 % (0.0-2.0); Eosinophils # (auto) 0 10 ^3/uL (0-0.8); Eosinophils % (auto) 0.6 % (0.0-7.0); Hemoglobin 9.6 g/dL (13.5-17.5); Lymphocytes # (auto) 0.2 10 ^3/uL (0.4-5.4); Monocytes # (auto) 0.2 10 ^3/uL (0-1.3)
[2023-11-18 07:30] LABS: Hematocrit 29.5 % (41.0-53.0); Lymphocytes % (auto) 6.3 % (10.0-50.0); Mean Corpuscular Hemoglobin 29.9 pg (28.0-32.0); Mean Corpuscular Hgb Conc. 32.5 g/dL (32.0-36.0); Monocytes % (auto) 7.2 % (0.0-12.0); Neutrophils # (auto) 2.3 10 ^3/uL (1.6-8.6); Neutrophils % (auto) 85.8 % (37.0-80.0); Nucleated Red Blood Cells % 0.1 %; Red Blood Cells 3.21 10^6/uL (4.5-5.90); Red Cell Distribution Width 33.6 % (11.8-14.3); White Blood Cell 2.7 10^3/uL (4.4-10.8)
[2023-11-18 08:26] LABS: Alanine Aminotransferase 50 U/L (7-40); Albumin 2.3 g/dL (3.2-4.8); Alkaline Phosphatase 112 U/L (46-116); Anion Gap 5 (5-15); Aspartate Aminotransferase 68 U/L (13-40); BUN/Creatinine Ratio 20.7 (10.0-20.0); Blood Urea Nitrogen 12 mg/dL (9-23); Calcium 7.9 mg/dL (8.5-10.1); Carbon Dioxide 28 mmol/L (20-30); Chloride 108 mmol/L (98-107); Glucose 108 mg/dL (74-106); Sodium 141 mmol/L (136-145)
[2023-11-18 08:27] LABS: Bilirubin, Total 1.8 mg/dL (0.2-1.0); Total Protein 5.7 g/dL (5.7-8.2)
[2023-11-18 08:36] LABS: Anisocytosis Moderate
[2023-11-18 08:37] LABS: Platelet Estimate Decreased
[2023-11-18 09:04] LABS: Lipase 51 U/L (12-53)
[2023-11-18] MEDS: FUROSEMIDE 20 MG/2 ML VIAL IV SCH (09:27)
[2023-11-18] MEDS: PANTOPRAZOLE 40 MG/10 ML VIAL INJ IV SCH ×2 (09:27→22:10)
[2023-11-18] MEDS: GABAPENTIN 100 MG CAP PO SCH ×2 (09:28→22:09)
[2023-11-18] MEDS: LACTULOSE 20Gm/30ML SOLN PO SCH (09:28)
[2023-11-18] MEDS: HYDROCORTISONE SOD SUCC 100 MG/2ML INJ VIAL IV SCH ×2 (09:29→22:10)
[2023-11-18] MEDS: HYDROcodone-ACET 5/325MG TAB PO PRN ×3 (10:23→23:58)
[2023-11-18] MEDS: MUPIROCIN 2% OINT 15gm or 22gm FOR MRSA NARES EACHNOSTRI SCH ×2 (10:32→22:11)
[2023-11-18] MEDS: ONDANSETRON HCL 4 MG/2 ML VIAL IV PRN (16:16)
[2023-11-18] MEDS: Ensure HIGH Protein Chocolate 8oz Bottle PO SCH (18:14)
[2023-11-19] VITALS (17 sets, daily range): BP systolic 96–123; BP diastolic 62–68; PULSE 60–87; RESP 16–18; TEMP 98.1–98.6; O2SAT 91–99
[2023-11-19] MEDS: IPRATROPIUM BROM 0.5 MG/2.5ML INH SOL NEB SCH ×4 (00:16→18:42)
[2023-11-19] MEDS: LEVALBUTEROL HCL 1.25 MG/3 ML NEB NEB SCH ×4 (00:16→18:42)
[2023-11-19] MEDS: MIDODRINE HCL 10 MG TAB PO SCH ×3 (05:48→17:47)
[2023-11-19] MEDS: BUDESONIDE (INHALATION) 0.5 MG/2 ML NEB NEB SCH ×2 (07:03→18:42)
[2023-11-19] MEDS: Ensure HIGH Protein Chocolate 8oz Bottle PO SCH ×2 (08:00→17:47)
[2023-11-19] MEDS: GABAPENTIN 100 MG CAP PO SCH ×2 (09:55→21:43)
[2023-11-19] MEDS: HYDROcodone-ACET 5/325MG TAB PO PRN (09:55)
[2023-11-19] MEDS: LACTULOSE 20Gm/30ML SOLN PO SCH ×4 (09:56→21:43)
[2023-11-19] MEDS: FUROSEMIDE 20 MG/2 ML VIAL IV SCH (09:56)
[2023-11-19] MEDS: HYDROCORTISONE SOD SUCC 100 MG/2ML INJ VIAL IV SCH ×2 (09:57→21:42)
[2023-11-19] MEDS: ONDANSETRON HCL 4 MG/2 ML VIAL IV PRN (09:57)
[2023-11-19] MEDS: PANTOPRAZOLE 40 MG/10 ML VIAL INJ IV SCH ×2 (09:58→21:41)
[2023-11-19 10:02] LABS: Basophils # (auto) 0 10 ^3/uL (0-0.2); Basophils % (auto) 0.1 % (0.0-2.0); Eosinophils # (auto) 0 10 ^3/uL (0-0.8); Monocytes # (auto) 0.3 10 ^3/uL (0-1.3); Nucleated Red Blood Cells % 0.1 %
[2023-11-19 10:05] LABS: Hematocrit 32.5 % (41.0-53.0); Hemoglobin 10.3 g/dL (13.5-17.5); Lymphocytes # (auto) 0.3 10 ^3/uL (0.4-5.4); Lymphocytes % (auto) 7.8 % (10.0-50.0); Mean Corpuscular Hemoglobin 29.4 pg (28.0-32.0); Mean Corpuscular Hgb Conc. 31.7 g/dL (32.0-36.0); Mean Corpuscular Volume 92.7 fL (80.0-100.0); Monocytes % (auto) 8.1 % (0.0-12.0); White Blood Cell 3.6 10^3/uL (4.4-10.8)
[2023-11-19] MEDS: MUPIROCIN 2% OINT 15gm or 22gm FOR MRSA NARES EACHNOSTRI SCH ×2 (10:13→21:42)
[2023-11-19 10:32] LABS: Alanine Aminotransferase 54 U/L (7-40); Albumin 2.4 g/dL (3.2-4.8); Alkaline Phosphatase 123 U/L (46-116); Anion Gap 3 (5-15); Aspartate Aminotransferase 64 U/L (13-40); BUN/Creatinine Ratio 21.2 (10.0-20.0); Bilirubin, Total 1.9 mg/dL (0.2-1.0); Blood Urea Nitrogen 14 mg/dL (9-23); Calcium 7.7 mg/dL (8.7-10.4); Carbon Dioxide 27 mmol/L (20-30); Chloride 109 mmol/L (98-107); Glucose 145 mg/dL (74-106); Magnesium 1.6 mg/dL (1.6-2.6); Potassium 3.6 mmol/L (3.5-5.1); Sodium 139 mmol/L (136-145)
[2023-11-19 10:33] LABS: Total Protein 6.2 g/dL (5.7-8.2)
[2023-11-19] MEDS: HYDROcodone-ACET 7.5/325MG TAB PO PRN ×2 (13:15→21:45)
[2023-11-19] MEDS: ERGOCALCIFEROL 50,000 UNIT(1.25MG) CAP PO SCH (17:47)
[2023-11-20] VITALS (7 sets, daily range): BP systolic 113; BP diastolic 64–70; PULSE 76–99; RESP 16–19; TEMP 97.8–98; O2SAT 94–98
[2023-11-20] MEDS: LEVALBUTEROL HCL 1.25 MG/3 ML NEB NEB SCH ×2 (00:17→07:11)
[2023-11-20] MEDS: IPRATROPIUM BROM 0.5 MG/2.5ML INH SOL NEB SCH ×2 (00:17→07:10)
[2023-11-20] MEDS: MIDODRINE HCL 10 MG TAB PO SCH ×2 (05:38→11:40)
[2023-11-20] MEDS: LACTULOSE 20Gm/30ML SOLN PO SCH ×2 (05:39→14:00)
[2023-11-20 06:54] LABS: Alanine Aminotransferase 55 U/L (7-40); Albumin 2.4 g/dL (3.2-4.8); Alkaline Phosphatase 137 U/L (46-116); Anion Gap 4 (5-15); Aspartate Aminotransferase 68 U/L (13-40); BUN/Creatinine Ratio 22.4 (10.0-20.0); Blood Urea Nitrogen 17 mg/dL (9-23); Carbon Dioxide 27 mmol/L (20-30); Chloride 107 mmol/L (98-107); Glucose 124 mg/dL (74-106); Potassium 4.3 mmol/L (3.5-5.1); Sodium 138 mmol/L (136-145)
[2023-11-20 06:56] LABS: Bilirubin, Total 1.6 mg/dL (0.2-1.0)
[2023-11-20 07:07] LABS: Magnesium 1.6 mg/dL (1.6-2.6)
[2023-11-20] MEDS: BUDESONIDE (INHALATION) 0.5 MG/2 ML NEB NEB SCH (07:10)
[2023-11-20 07:30] LABS: Hemoglobin 10.1 g/dL (13.5-17.5); Mean Corpuscular Hemoglobin 29.3 pg (28.0-32.0); White Blood Cell 3.2 10^3/uL (4.4-10.8)
[2023-11-20 07:31] LABS: Hematocrit 31.7 % (41.0-53.0); Mean Corpuscular Volume 91.7 fL (80.0-100.0); Red Blood Cells 3.45 10^6/uL (4.5-5.90)
[2023-11-20 07:33] LABS: Red Cell Distribution Width 33.9 % (11.8-14.3)
[2023-11-20 07:35] LABS: Basophils % (manual) 0 (0.0-2.0); Blast Cells 0; Eosinophils % (manual) 0 (0-7); Metamyelocytes % 0; Myelocytes % 0; Promyelocytes % 0; Reactive Lymphocytes 0
[2023-11-20] MEDS: Ensure HIGH Protein Chocolate 8oz Bottle PO SCH (09:35)
[2023-11-20] MEDS: MUPIROCIN 2% OINT 15gm or 22gm FOR MRSA NARES EACHNOSTRI SCH (09:36)
[2023-11-20] MEDS: GABAPENTIN 100 MG CAP PO SCH (09:37)
[2023-11-20] MEDS: HYDROcodone-ACET 7.5/325MG TAB PO PRN (09:37)
[2023-11-20] MEDS: FUROSEMIDE 20 MG/2 ML VIAL IV SCH (09:38)
[2023-11-20] MEDS: PANTOPRAZOLE 40 MG/10 ML VIAL INJ IV SCH (09:38)
[2023-11-20] MEDS: HYDROCORTISONE SOD SUCC 100 MG/2ML INJ VIAL IV SCH (09:38)
[2023-11-20 12:14] LABS: Band Neutrophils % (manual) 1; Lymphocytes % (manual) 3 (10.0-50.0); Monocytes % (manual) 2 (0-12)
[2023-11-20 12:15] LABS: Platelet Estimate Decreased
== END 2023-11-20 14:26 | disposition home or self-care (01) | DRG 720 ==
LOC: ER 12:10 → TELE 15:30 → ICU WEST 11-08 05:00 → DOU IN ICU 11-13 18:43 → TELE-WESTW 11-14 10:13 → WEST WING 11-15 18:49
PROVIDERS: ADMIT Internal Medicine; ATTEND Emergency Medicine
PROC: 5A1955Z Respiratory Ventilation, Greater than 96 Consecutive Hours (ICD-10-PCS; principal; 2023-11-03)
PROC: 0BH17EZ Insertion of Endotracheal Airway into Trachea, Via Natural or Artificial Opening (ICD-10-PCS; 2023-11-03)
DX: A41.9 Sepsis, unspecified organism (principal); J96.01 Acute respiratory failure with hypoxia; N17.0 Acute kidney failure with tubular necrosis; J69.0 Pneumonitis due to inhalation of food and vomit; R65.21 Severe sepsis with septic shock; G93.41 Metabolic encephalopathy; I50.33 Acute on chronic diastolic (congestive) heart failure; D69.6 Thrombocytopenia, unspecified; E87.20 Acidosis, unspecified; E43 Unspecified severe protein-calorie malnutrition; K76.82 Hepatic encephalopathy; K70.30 Alcoholic cirrhosis of liver without ascites; J44.0 Chronic obstructive pulmonary disease with (acute) lower respiratory infection; F10.10 Alcohol abuse, uncomplicated; I25.10 Atherosclerotic heart disease of native coronary artery without angina pectoris; R56.9 Unspecified convulsions; D61.818 Other pancytopenia; E55.9 Vitamin D deficiency, unspecified; G62.9 Polyneuropathy, unspecified; F17.210 Nicotine dependence, cigarettes, uncomplicated; I11.0 Hypertensive heart disease with heart failure; Y90.9 Presence of alcohol in blood, level not specified; I21.A1 Myocardial infarction type 2; Z79.899 Other long term (current) drug therapy; I25.2 Old myocardial infarction; Z59.00 Homelessness unspecified; Z68.23 Body mass index [BMI] 23.0-23.9, adult
CPT/HCPCS: 31500; 36415; 36600; 70450; 71045; 74176; 76604; 76705; 80053; 80069; 80202; 80307; 80320; 81001; 82105; 82140; 82306; 82550; 82570; 82607; 82728; 82805; 83540; 83550; 83605; 83690; 83735; 83880; 84132; 84156; 84300; 84443; 84484; 85007; 85025; 85027; 85048; 85610; 85730; 86141; 87040; 87045; 87070; 87081; 87086; 87205; 87427; 87493; 92610; 93005; 94002; 94003; 94640; 97110; 97116; 97163; 97530; 99291; 99292; C9113; G0378; J1756; J2001; J2250; J2405; J2543; J3430; J3480; J7060

== ENCOUNTER 2023-11-20 16:02 | Inpatient (IN) | payer MEDICARE, MEDICAID ==
[~2023-11-20] VITALS: Ht 167.6 cm; Wt 68.7 kg
[~2023-11-20 16:02] MED LIST changes: -AZIT500T66 PO
[2023-11-20 17:13] LABS: Hemoglobin 11.4 g/dL (13.5-17.5)
[2023-11-20 17:15] LABS: Hematocrit 35.2 % (41.0-53.0); Mean Corpuscular Hemoglobin 29.8 pg (28.0-32.0); Mean Corpuscular Hgb Conc. 32.5 g/dL (32.0-36.0); Mean Corpuscular Volume 91.7 fL (80.0-100.0); Red Blood Cells 3.84 10^6/uL (4.5-5.90); White Blood Cell 5.6 10^3/uL (4.4-10.8)
[2023-11-20 17:19] LABS: Basophils % (manual) 0 (0.0-2.0); Blast Cells 0; Eosinophils % (manual) 0 (0-7); Metamyelocytes % 0; Myelocytes % 0; Promyelocytes % 0; Reactive Lymphocytes 0
[2023-11-20 17:47] LABS: Anisocytosis Moderate; Band Neutrophils % (manual) 1; Lymphocytes % (manual) 6 (10.0-50.0); Monocytes % (manual) 3 (0-12); Platelet Estimate Decreased
[2023-11-20 17:51] LABS: Chloride 107 mmol/L (98-107); Potassium 3.8 mmol/L (3.5-5.1); Sodium 138 mmol/L (136-145)
[2023-11-20 17:52] LABS: Anion Gap 4 (5-15); Calcium 8.4 mg/dL (8.5-10.1); Carbon Dioxide 27 mmol/L (20-30)
[2023-11-20 17:57] LABS: BUN/Creatinine Ratio 27.5 (10.0-20.0); Blood Urea Nitrogen 19 mg/dL (9-23); Glucose 105 mg/dL (74-106)
[2023-11-20] MEDS ORDERED: NITROGLYCERIN 0.4 MG SL TAB SL PRN (19:15)
[2023-11-20] MEDS ORDERED: MORPHINE SULFATE INJ 2 MG/ml SYRG IV PRN (19:15)
[2023-11-20 19:41] VITALS: BP 115/65; PULSE 102; RESP 20; TEMP 98.1; O2SAT 93
[2023-11-20 20:13] LABS: INR 1.85 (0.9-1.15); Partial Thromboplastin Time 30.1 SEC (24.5-34.5); Prothrombin Time 18.7 sec (9.3-11.8)
[2023-11-20] MEDS: PANTOPRAZOLE 40 MG TAB PO SCH (22:09)
[2023-11-20] MEDS: GABAPENTIN 100 MG CAP PO SCH (22:09)
[2023-11-20] MEDS: LEVALBUTEROL HCL 1.25 MG/3 ML NEB NEB SCH (23:52)
[2023-11-20 23:54] VITALS: PULSE 80; RESP 18; O2SAT 97
[2023-11-21] VITALS (12 sets, daily range): PULSE 66–96; RESP 11–19; O2SAT 93–99
[2023-11-21] MEDS: IPRATROPIUM BROM 0.5 MG/2.5ML INH SOL NEB SCH (06:15)
[2023-11-21] MEDS: MIDODRINE HCL 10 MG TAB PO SCH (06:31)
[2023-11-21 06:35] LABS: Basophils # (auto) 0 10 ^3/uL (0-0.2); Basophils % (auto) 0.1 % (0.0-2.0); Eosinophils # (auto) 0 10 ^3/uL (0-0.8); Hematocrit 32.5 % (41.0-53.0); Lymphocytes # (auto) 0.3 10 ^3/uL (0.4-5.4); Monocytes # (auto) 0.3 10 ^3/uL (0-1.3); Neutrophils # (auto) 2.1 10 ^3/uL (1.6-8.6); Neutrophils % (auto) 76.4 % (37.0-80.0)
[2023-11-21 06:39] LABS: Alanine Aminotransferase 53 U/L (7-40); Albumin 2.5 g/dL (3.2-4.8); Alkaline Phosphatase 122 U/L (46-116); Anion Gap 4 (5-15); Aspartate Aminotransferase 67 U/L (13-40); BUN/Creatinine Ratio 28.1 (10.0-20.0); Bilirubin, Total 2.2 mg/dL (0.2-1.0); Blood Urea Nitrogen 18 mg/dL (9-23); Calcium 8.5 mg/dL (8.5-10.1); Carbon Dioxide 29 mmol/L (20-30); Chloride 107 mmol/L (98-107); Eosinophils % (auto) 1.7 % (0.0-7.0); Glucose 91 mg/dL (74-106); Hemoglobin 10.7 g/dL (13.5-17.5); Mean Corpuscular Hemoglobin 30.4 pg (28.0-32.0); Mean Corpuscular Hgb Conc. 33.1 g/dL (32.0-36.0); Monocytes % (auto) 10.8 % (0.0-12.0); Potassium 3.5 mmol/L (3.5-5.1); Red Blood Cells 3.53 10^6/uL (4.5-5.90); Sodium 140 mmol/L (136-145); Total Protein 6.1 g/dL (5.7-8.2); White Blood Cell 2.7 10^3/uL (4.4-10.8)
[2023-11-21 07:30] LABS: Red Cell Distribution Width 33.6 % (11.8-14.3)
[2023-11-21] MEDS: cefTRIAXone 1GM/50ML D5W 50 ML IV SCH (09:18)
[2023-11-21] MEDS: LACTULOSE 20Gm/30ML SOLN PO SCH (10:00)
[2023-11-21] MEDS: FUROSEMIDE 40 MG TAB PO SCH (11:18)
[2023-11-21] MEDS: AZITHROMYCIN 500MG/ 250ML 250 ML IV ONE (11:19)
[2023-11-21 12:12] LABS: Urine Epithelial Cast None Seen /hpf (<5)
[2023-11-21 12:54] LABS: Urine Bacteria FEW /hpf (None Seen); Urine Blood Negative /uL (Negative); Urine Clarity Clear (Clear); Urine Color Yellow (Yellow); Urine Mucus FEW (None Seen); Urine Protein, UAD TRACE (Negative); Urine WBC 3 /hpf (0 - 3)
[2023-11-21] MEDS ORDERED: VANCOMYCIN PER PHARMACY 0 MG IV SCH (14:45)
[2023-11-21] MEDS: IOHEXOL 350 MG/ML 100ML IJ ONE (20:23)
[2023-11-21] MEDS: VANCOMYCIN 1GM/200ML 200 ML IV ONE (20:39)
[2023-11-21] MEDS: CEFEPIME 1GM/ 50ML 50 ML IV SCH (23:52)
[2023-11-22 06:40] VITALS: PULSE 80; RESP 16; O2SAT 97
[2023-11-22 06:45] LABS: Basophils # (auto) 0 10 ^3/uL (0-0.2); Eosinophils # (auto) 0.1 10 ^3/uL (0-0.8); Hemoglobin 10.1 g/dL (13.5-17.5); Lymphocytes # (auto) 0.3 10 ^3/uL (0.4-5.4); Mean Corpuscular Hemoglobin 29.8 pg (28.0-32.0); Mean Corpuscular Hgb Conc. 32.6 g/dL (32.0-36.0); Mean Corpuscular Volume 91.4 fL (80.0-100.0); Monocytes # (auto) 0.3 10 ^3/uL (0-1.3); Neutrophils # (auto) 2.1 10 ^3/uL (1.6-8.6); White Blood Cell 2.8 10^3/uL (4.4-10.8)
[2023-11-22 06:46] VITALS: PULSE 82; RESP 16; O2SAT 96
[2023-11-22 06:47] LABS: Basophils % (auto) 0.2 % (0.0-2.0); Eosinophils % (auto) 3.2 % (0.0-7.0); Hematocrit 30.9 % (41.0-53.0); Monocytes % (auto) 11.5 % (0.0-12.0); Neutrophils % (auto) 74.1 % (37.0-80.0); Nucleated Red Blood Cells % 0.1 %; Red Blood Cells 3.38 10^6/uL (4.5-5.90)
[2023-11-22 06:52] LABS: Alanine Aminotransferase 51 U/L (7-40); Albumin 2.3 g/dL (3.2-4.8); Alkaline Phosphatase 114 U/L (46-116); Anion Gap 5 (5-15); Aspartate Aminotransferase 59 U/L (13-40); BUN/Creatinine Ratio 23.9 (10.0-20.0); Blood Urea Nitrogen 17 mg/dL (9-23); Calcium 7.8 mg/dL (8.7-10.4); Carbon Dioxide 31 mmol/L (20-30); Chloride 104 mmol/L (98-107); Glucose 98 mg/dL (74-106); Potassium 3.2 mmol/L (3.5-5.1); Sodium 140 mmol/L (136-145)
[2023-11-22 06:54] LABS: Bilirubin, Total 2.1 mg/dL (0.2-1.0); Total Protein 5.7 g/dL (5.7-8.2)
[2023-11-22 07:15] LABS: Red Cell Distribution Width 33.7 % (11.8-14.3)
[2023-11-22 07:53] LABS: Rapid Influenza A Negative (Negative); Rapid Influenza B Negative (Negative)
[2023-11-22] MEDS: POTASSIUM EFFERVESENT TAB 25 MEQ PO ONE (08:00)
[2023-11-22 08:12] LABS: COVID19 ANTIGEN SOFIA FIA NEGATIVE (NEGATIVE)
[2023-11-22] MEDS: VANCOMYCIN 1GM/200ML 200 ML IV ONE (09:00)
[2023-11-22 09:10] VITALS: PULSE 80; RESP 20; O2SAT 96
[2023-11-22] MEDS ORDERED: AZITHROMYCIN 500MG/ 250ML 250 ML IV SCH (10:00)
[2023-11-22] MEDS: HYDROcodone-ACET 5/325MG TAB PO PRN (10:30)
[2023-11-22] MEDS: FUROSEMIDE 40 MG/4 ML VIAL IV SCH (18:00)
[2023-11-22 19:30] VITALS: PULSE 77; RESP 11; O2SAT 95
[2023-11-22] MEDS: VANCOMYCIN 1GM/200ML 200 ML IV SCH (21:25)
[2023-11-22 23:08] VITALS: PULSE 82; RESP 18; O2SAT 94
[2023-11-23] VITALS (15 sets, daily range): BP systolic 90–106; BP diastolic 48–62; PULSE 63–101; RESP 16–20; TEMP 98–98.2; O2SAT 93–100
[2023-11-23 08:59] LABS: Basophils # (auto) 0 10 ^3/uL (0-0.2); Eosinophils # (auto) 0.2 10 ^3/uL (0-0.8); Lymphocytes # (auto) 0.5 10 ^3/uL (0.4-5.4); Mean Corpuscular Hemoglobin 30.1 pg (28.0-32.0); Monocytes # (auto) 0.3 10 ^3/uL (0-1.3); Neutrophils # (auto) 2.8 10 ^3/uL (1.6-8.6); Nucleated Red Blood Cells % 0.1 %; White Blood Cell 3.8 10^3/uL (4.4-10.8)
[2023-11-23 09:01] LABS: Basophils % (auto) 0.2 % (0.0-2.0); Eosinophils % (auto) 4.3 % (0.0-7.0); Hematocrit 35.3 % (41.0-53.0); Hemoglobin 11.3 g/dL (13.5-17.5); Lymphocytes % (auto) 13.3 % (10.0-50.0); Mean Corpuscular Hgb Conc. 32.2 g/dL (32.0-36.0); Mean Corpuscular Volume 93.4 fL (80.0-100.0); Monocytes % (auto) 8.9 % (0.0-12.0); Neutrophils % (auto) 73.3 % (37.0-80.0); Red Blood Cells 3.77 10^6/uL (4.5-5.90); Red Cell Distribution Width 34.2 % (11.8-14.3)
[2023-11-23 09:30] LABS: Alanine Aminotransferase 61 U/L (7-40); Albumin 2.6 g/dL (3.2-4.8); Alkaline Phosphatase 141 U/L (46-116); Anion Gap 3 (5-15); Aspartate Aminotransferase 75 U/L (13-40); BUN/Creatinine Ratio 26.3 (10.0-20.0); Blood Urea Nitrogen 21 mg/dL (9-23); Carbon Dioxide 30 mmol/L (20-30); Chloride 104 mmol/L (98-107); Glucose 141 mg/dL (74-106); Potassium 3.4 mmol/L (3.5-5.1); Sodium 137 mmol/L (136-145)
[2023-11-23 09:31] LABS: Bilirubin, Total 2.4 mg/dL (0.2-1.0); Total Protein 6.3 g/dL (5.7-8.2)
[2023-11-23] MEDS ORDERED: INFLUENZA QUAD 2023-2024 0.5 ML SYRG IM ONE (10:00)
[2023-11-23 11:25] LABS: Hepatitis B Surface Antibody Positive (Negative)
[2023-11-23 11:26] LABS: Hepatitis A Total Antibody Positive (Negative)
[2023-11-23 11:27] LABS: Hepatitis B Surface Antigen Negative (Negative)
[2023-11-23 11:30] LABS: Hepatitis B Core Total AB Positive (Negative); Hepatitis C Antibody Positive (Negative)
[2023-11-23 12:19] LABS: Base Excess 6.8 mmol/L (-2.0-2.0)
[2023-11-23] MEDS: POTASSIUM CHLORIDE 40 MEQ, LIDOCAINE 1% (LOCAL ANESTH.) 4 ML in SODIUM CHL 0.9% 250 ML IV ONE (12:50)
[2023-11-23] MEDS: ONDANSETRON HCL 4 MG/2 ML VIAL IV PRN (15:07)
[2023-11-23] MEDS: ACETAMINOPHEN 325 MG TAB PO PRN (16:26)
[2023-11-23] MEDS: VANCOMYCIN 1GM/200ML 200 ML IV SCH (18:12)
[2023-11-24] VITALS (14 sets, daily range): BP systolic 97–103; BP diastolic 51–60; PULSE 81–96; RESP 16–18; TEMP 98–98.4; O2SAT 91–98
[2023-11-24 07:00] LABS: Basophils # (auto) 0 10 ^3/uL (0-0.2); Basophils % (auto) 0.4 % (0.0-2.0); Eosinophils # (auto) 0.1 10 ^3/uL (0-0.8); Hematocrit 30.7 % (41.0-53.0); Lymphocytes # (auto) 0.4 10 ^3/uL (0.4-5.4); Monocytes # (auto) 0.3 10 ^3/uL (0-1.3); White Blood Cell 2.4 10^3/uL (4.4-10.8)
[2023-11-24 07:03] LABS: Eosinophils % (auto) 4.7 % (0.0-7.0); Lymphocytes % (auto) 17.9 % (10.0-50.0); Mean Corpuscular Hemoglobin 30.6 pg (28.0-32.0); Mean Corpuscular Hgb Conc. 32.8 g/dL (32.0-36.0); Mean Corpuscular Volume 93.5 fL (80.0-100.0); Monocytes % (auto) 12.5 % (0.0-12.0); Neutrophils # (auto) 1.6 10 ^3/uL (1.6-8.6); Neutrophils % (auto) 64.5 % (37.0-80.0); Red Blood Cells 3.28 10^6/uL (4.5-5.90)
[2023-11-24 07:11] LABS: Alanine Aminotransferase 47 U/L (7-40); Albumin 2.3 g/dL (3.2-4.8); Alkaline Phosphatase 117 U/L (46-116); Anion Gap 4 (5-15); Aspartate Aminotransferase 58 U/L (13-40); BUN/Creatinine Ratio 17.7 (10.0-20.0); Bilirubin, Total 2.1 mg/dL (0.2-1.0); Blood Urea Nitrogen 14 mg/dL (9-23); Calcium 7.9 mg/dL (8.5-10.1); Carbon Dioxide 30 mmol/L (20-30); Chloride 103 mmol/L (98-107); Glucose 87 mg/dL (74-106); Potassium 3.3 mmol/L (3.5-5.1); Sodium 137 mmol/L (136-145); Total Protein 5.6 g/dL (5.7-8.2)
[2023-11-24 07:37] LABS: Red Cell Distribution Width 33.4 % (11.8-14.3)
[2023-11-24 09:29] LABS: Platelet Estimate Decreased
[2023-11-24 09:30] LABS: Anisocytosis Marked; Ovalocytes MANY
[2023-11-24] MEDS: POTASSIUM EFFERVESENT TAB 25 MEQ PO ONE (09:45)
[2023-11-25] VITALS (17 sets, daily range): BP systolic 95–118; BP diastolic 55–59; PULSE 78–91; RESP 16–18; TEMP 98–99.8; O2SAT 92–98
[2023-11-25] MEDS: VANCOMYCIN 1GM/200ML 200 ML IV SCH (02:22)
[2023-11-25 08:47] LABS: Basophils # (auto) 0 10 ^3/uL (0-0.2); Eosinophils # (auto) 0.1 10 ^3/uL (0-0.8); Hematocrit 34.7 % (41.0-53.0); Hemoglobin 11.3 g/dL (13.5-17.5); Lymphocytes # (auto) 0.4 10 ^3/uL (0.4-5.4); Mean Corpuscular Volume 93.7 fL (80.0-100.0); Monocytes # (auto) 0.3 10 ^3/uL (0-1.3); Neutrophils # (auto) 2.1 10 ^3/uL (1.6-8.6)
[2023-11-25 08:49] LABS: Basophils % (auto) 0.8 % (0.0-2.0); Mean Corpuscular Hemoglobin 30.4 pg (28.0-32.0); Mean Corpuscular Hgb Conc. 32.4 g/dL (32.0-36.0); Monocytes % (auto) 10.3 % (0.0-12.0); Neutrophils % (auto) 70.9 % (37.0-80.0); Nucleated Red Blood Cells % 0.2 %; Red Blood Cells 3.71 10^6/uL (4.5-5.90)
[2023-11-25 08:55] LABS: Red Cell Distribution Width 32.1 % (11.8-14.3)
[2023-11-25 08:57] LABS: Alanine Aminotransferase 53 U/L (7-40); Albumin 2.6 g/dL (3.2-4.8); Alkaline Phosphatase 128 U/L (46-116); Anion Gap 3 (5-15); Aspartate Aminotransferase 74 U/L (13-40); BUN/Creatinine Ratio 18.2 (10.0-20.0); Bilirubin, Total 2.3 mg/dL (0.2-1.0); Blood Urea Nitrogen 14 mg/dL (9-23); Calcium 8.1 mg/dL (8.5-10.1); Carbon Dioxide 30 mmol/L (20-30); Chloride 102 mmol/L (98-107); Glucose 124 mg/dL (74-106); Potassium 3.5 mmol/L (3.5-5.1); Sodium 135 mmol/L (136-145); Total Protein 6.3 g/dL (5.7-8.2)
[2023-11-25 09:04] LABS: Anisocytosis Marked; Ovalocytes FEW; Platelet Estimate Decreased; Tear Drop Cells FEW
[2023-11-26] VITALS (16 sets, daily range): BP systolic 95–112; BP diastolic 55–65; PULSE 79–99; RESP 16–18; TEMP 97.8–98.7; O2SAT 91–99
[2023-11-26 07:39] LABS: Basophils # (auto) 0 10 ^3/uL (0-0.2); Eosinophils # (auto) 0.1 10 ^3/uL (0-0.8); Lymphocytes # (auto) 0.4 10 ^3/uL (0.4-5.4); Mean Corpuscular Hemoglobin 30.1 pg (28.0-32.0); Monocytes # (auto) 0.4 10 ^3/uL (0-1.3)
[2023-11-26 07:41] LABS: Basophils % (auto) 0.5 % (0.0-2.0); Hematocrit 32.7 % (41.0-53.0); Hemoglobin 10.4 g/dL (13.5-17.5); Lymphocytes % (auto) 13.3 % (10.0-50.0); Mean Corpuscular Hgb Conc. 31.9 g/dL (32.0-36.0); Mean Corpuscular Volume 94.4 fL (80.0-100.0); Monocytes % (auto) 11.5 % (0.0-12.0); Neutrophils # (auto) 2.3 10 ^3/uL (1.6-8.6); Neutrophils % (auto) 70.7 % (37.0-80.0); Nucleated Red Blood Cells % 0.2 %; Red Blood Cells 3.46 10^6/uL (4.5-5.90); Red Cell Distribution Width 32.3 % (11.8-14.3); White Blood Cell 3.3 10^3/uL (4.4-10.8)
[2023-11-26 08:15] LABS: Alanine Aminotransferase 49 U/L (7-40); Albumin 2.4 g/dL (3.2-4.8); Alkaline Phosphatase 132 U/L (46-116); Anion Gap 5 (5-15); Aspartate Aminotransferase 67 U/L (13-40); BUN/Creatinine Ratio 16.5 (10.0-20.0); Bilirubin, Total 1.7 mg/dL (0.2-1.0); Blood Urea Nitrogen 13 mg/dL (9-23); Calcium 7.9 mg/dL (8.5-10.1); Carbon Dioxide 28 mmol/L (20-30); Chloride 103 mmol/L (98-107); Glucose 92 mg/dL (74-106); Potassium 3.2 mmol/L (3.5-5.1); Sodium 136 mmol/L (136-145)
[2023-11-26 08:16] LABS: Total Protein 5.9 g/dL (5.7-8.2)
[2023-11-26 08:30] LABS: Magnesium 1.7 mg/dL (1.6-2.6)
[2023-11-26] MEDS: POTASSIUM EFFERVESENT TAB 25 MEQ PO ONE (09:30)
[2023-11-26] MEDS: MAGNESIUM SULFATE 1GM/100ML 100 ML IV ONE (13:42)
[2023-11-26] MEDS: METHOCARBAMOL 500 MG TAB PO PRN (13:42)
[2023-11-27] VITALS (17 sets, daily range): BP systolic 88–106; BP diastolic 41–66; PULSE 76–95; RESP 16–20; TEMP 97.6–98.2; O2SAT 87–99
[2023-11-27 06:50] LABS: Basophils # (auto) 0 10 ^3/uL (0-0.2); Eosinophils # (auto) 0.1 10 ^3/uL (0-0.8); Hemoglobin 10.4 g/dL (13.5-17.5); Lymphocytes # (auto) 0.5 10 ^3/uL (0.4-5.4); Mean Corpuscular Hemoglobin 30.3 pg (28.0-32.0); Monocytes # (auto) 0.3 10 ^3/uL (0-1.3); Red Blood Cells 3.44 10^6/uL (4.5-5.90); White Blood Cell 3.3 10^3/uL (4.4-10.8)
[2023-11-27 06:52] LABS: Eosinophils % (auto) 4.2 % (0.0-7.0); Hematocrit 32.4 % (41.0-53.0); Lymphocytes % (auto) 15.7 % (10.0-50.0); Mean Corpuscular Hgb Conc. 32.1 g/dL (32.0-36.0); Mean Corpuscular Volume 94.2 fL (80.0-100.0); Monocytes % (auto) 10.5 % (0.0-12.0); Neutrophils # (auto) 2.3 10 ^3/uL (1.6-8.6); Neutrophils % (auto) 68.6 % (37.0-80.0)
[2023-11-27 06:53] LABS: Red Cell Distribution Width 32.1 % (11.8-14.3)
[2023-11-27 06:59] LABS: Alanine Aminotransferase 47 U/L (7-40); Albumin 2.4 g/dL (3.2-4.8); Alkaline Phosphatase 131 U/L (46-116); Anion Gap 4 (5-15); Aspartate Aminotransferase 59 U/L (13-40); BUN/Creatinine Ratio 29.4 (10.0-20.0); Bilirubin, Total 1.9 mg/dL (0.2-1.0); Blood Urea Nitrogen 20 mg/dL (9-23); Calcium 7.6 mg/dL (8.7-10.4); Carbon Dioxide 32 mmol/L (20-30); Chloride 101 mmol/L (98-107); Glucose 95 mg/dL (74-106); Magnesium 1.8 mg/dL (1.6-2.6); Potassium 3.4 mmol/L (3.5-5.1); Sodium 137 mmol/L (136-145); Total Protein 5.7 g/dL (5.7-8.2)
[2023-11-27 07:14] LABS: Anisocytosis Moderate; Platelet Estimate Decreased
[2023-11-27] MEDS: PANTOPRAZOLE 40 MG TAB PO SCH (09:55)
[2023-11-27] MEDS: POTASSIUM CHL 20MEQ/100ML 100 ML IV ONE (12:37)
[2023-11-27] MEDS: DOCUSATE SOD 100 MG CAP PO PRN (21:51)
[2023-11-28] VITALS (14 sets, daily range): BP systolic 90–100; BP diastolic 46–61; PULSE 75–97; RESP 15–19; TEMP 97.9–98.6; O2SAT 91–100
[2023-11-28 06:37] LABS: Basophils # (auto) 0 10 ^3/uL (0-0.2); Eosinophils # (auto) 0.1 10 ^3/uL (0-0.8); Hemoglobin 10.1 g/dL (13.5-17.5); Lymphocytes # (auto) 0.5 10 ^3/uL (0.4-5.4); Monocytes # (auto) 0.3 10 ^3/uL (0-1.3); Monocytes % (auto) 11.1 % (0.0-12.0)
[2023-11-28 06:39] LABS: Chloride 102 mmol/L (98-107); Potassium 3.3 mmol/L (3.5-5.1); Sodium 135 mmol/L (136-145)
[2023-11-28 06:40] LABS: Anion Gap 2 (5-15); Calcium 7.6 mg/dL (8.7-10.4); Carbon Dioxide 31 mmol/L (20-30)
[2023-11-28 06:42] LABS: Eosinophils % (auto) 3.9 % (0.0-7.0); Hematocrit 31.2 % (41.0-53.0); Lymphocytes % (auto) 16.2 % (10.0-50.0); Mean Corpuscular Hemoglobin 30.6 pg (28.0-32.0); Mean Corpuscular Hgb Conc. 32.4 g/dL (32.0-36.0); Mean Corpuscular Volume 94.6 fL (80.0-100.0); Neutrophils # (auto) 1.9 10 ^3/uL (1.6-8.6); Neutrophils % (auto) 67.8 % (37.0-80.0); Nucleated Red Blood Cells % 0.1 %; Red Blood Cells 3.29 10^6/uL (4.5-5.90); White Blood Cell 2.9 10^3/uL (4.4-10.8)
[2023-11-28 06:45] LABS: BUN/Creatinine Ratio 21.3 (10.0-20.0); Blood Urea Nitrogen 13 mg/dL (9-23); Glucose 90 mg/dL (74-106)
[2023-11-28 07:05] LABS: Red Cell Distribution Width 31.8 % (11.8-14.3)
[2023-11-28 08:08] LABS: Anisocytosis Marked; Platelet Estimate Decreased
[2023-11-28] MEDS: POTASSIUM EFFERVESENT TAB 25 MEQ PO ONE (09:44)
[2023-11-28] MEDS: VANCOMYCIN 1GM/200ML 200 ML IV SCH (18:05)
[2023-11-29] VITALS (17 sets, daily range): BP systolic 94–116; BP diastolic 55–65; PULSE 72–99; RESP 14–20; TEMP 97.4–98.7; O2SAT 92–100
[2023-11-29 10:47] LABS: Basophils # (auto) 0 10 ^3/uL (0-0.2); Basophils % (auto) 0.9 % (0.0-2.0); Eosinophils # (auto) 0.1 10 ^3/uL (0-0.8); Eosinophils % (auto) 2.6 % (0.0-7.0); Hematocrit 34.3 % (41.0-53.0); Hemoglobin 10.9 g/dL (13.5-17.5); Lymphocytes # (auto) 0.4 10 ^3/uL (0.4-5.4); Lymphocytes % (auto) 11.3 % (10.0-50.0); Mean Corpuscular Hemoglobin 30.6 pg (28.0-32.0); Mean Corpuscular Hgb Conc. 31.9 g/dL (32.0-36.0); Mean Corpuscular Volume 95.9 fL (80.0-100.0); Monocytes # (auto) 0.5 10 ^3/uL (0-1.3); Monocytes % (auto) 13.5 % (0.0-12.0); Neutrophils # (auto) 2.6 10 ^3/uL (1.6-8.6); Neutrophils % (auto) 71.7 % (37.0-80.0); Red Blood Cells 3.57 10^6/uL (4.5-5.90); White Blood Cell 3.7 10^3/uL (4.4-10.8)
[2023-11-29 10:49] LABS: Red Cell Distribution Width 31.2 % (11.8-14.3)
[2023-11-29 11:00] LABS: Anion Gap 3 (5-15); Carbon Dioxide 32 mmol/L (20-30); Chloride 102 mmol/L (98-107); Potassium 3.2 mmol/L (3.5-5.1); Sodium 137 mmol/L (136-145)
[2023-11-29 11:01] LABS: Calcium 8.3 mg/dL (8.5-10.1)
[2023-11-29 11:06] LABS: BUN/Creatinine Ratio 15.2 (10.0-20.0); Blood Urea Nitrogen 12 mg/dL (9-23); Glucose 110 mg/dL (74-106)
[2023-11-29] MEDS: POTASSIUM EFFERVESENT TAB 25 MEQ PO ONE (16:45)
[2023-11-29] MEDS: FUROSEMIDE 40 MG TAB PO SCH (18:19)
[2023-11-29] MEDS: HYDROcodone-ACET 5/325MG TAB ONE (22:25)
[2023-11-30] VITALS (16 sets, daily range): BP systolic 89–108; BP diastolic 57–62; PULSE 73–93; RESP 16–18; TEMP 97.9–99.1; O2SAT 92–100
[2023-11-30 06:50] LABS: Basophils # (auto) 0 10 ^3/uL (0-0.2); Eosinophils # (auto) 0.1 10 ^3/uL (0-0.8); Eosinophils % (auto) 4.3 % (0.0-7.0); Lymphocytes # (auto) 0.4 10 ^3/uL (0.4-5.4); Lymphocytes % (auto) 16.2 % (10.0-50.0); Monocytes # (auto) 0.3 10 ^3/uL (0-1.3); Neutrophils # (auto) 1.7 10 ^3/uL (1.6-8.6); White Blood Cell 2.6 10^3/uL (4.4-10.8)
[2023-11-30 06:51] LABS: Alanine Aminotransferase 41 U/L (7-40); Albumin 2.5 g/dL (3.2-4.8); Alkaline Phosphatase 149 U/L (46-116); Anion Gap 2 (5-15); Aspartate Aminotransferase 69 U/L (13-40); BUN/Creatinine Ratio 13.7 (10.0-20.0); Bilirubin, Total 1.8 mg/dL (0.2-1.0); Blood Urea Nitrogen 10 mg/dL (9-23); Calcium 8.1 mg/dL (8.5-10.1); Carbon Dioxide 32 mmol/L (20-30); Chloride 103 mmol/L (98-107); Glucose 78 mg/dL (74-106); Potassium 3.3 mmol/L (3.5-5.1); Sodium 137 mmol/L (136-145); Total Protein 6.2 g/dL (5.7-8.2)
[2023-11-30 06:53] LABS: Basophils % (auto) 1.2 % (0.0-2.0); Hematocrit 33.5 % (41.0-53.0); Mean Corpuscular Hemoglobin 31.2 pg (28.0-32.0); Mean Corpuscular Hgb Conc. 32.9 g/dL (32.0-36.0); Mean Corpuscular Volume 94.8 fL (80.0-100.0); Monocytes % (auto) 13.4 % (0.0-12.0); Neutrophils % (auto) 64.9 % (37.0-80.0); Nucleated Red Blood Cells % 0.2 %; Red Blood Cells 3.53 10^6/uL (4.5-5.90)
[2023-11-30 06:59] LABS: Red Cell Distribution Width 30.8 % (11.8-14.3)
[2023-11-30 08:12] LABS: Platelet Estimate Decreased
[2023-11-30] MEDS: POTASSIUM EFFERVESENT TAB 25 MEQ PO ONE (08:12)
[2023-11-30 08:13] LABS: Anisocytosis Moderate
[2023-12-01] VITALS (16 sets, daily range): BP systolic 94–119; BP diastolic 58–61; PULSE 72–89; RESP 16–20; TEMP 97.9–98.7; O2SAT 93–100
[2023-12-01 06:50] LABS: Basophils # (auto) 0 10 ^3/uL (0-0.2); Eosinophils # (auto) 0.1 10 ^3/uL (0-0.8); Lymphocytes # (auto) 0.4 10 ^3/uL (0.4-5.4); Monocytes # (auto) 0.2 10 ^3/uL (0-1.3); Neutrophils # (auto) 1.7 10 ^3/uL (1.6-8.6); Nucleated Red Blood Cells % 0.1 %; White Blood Cell 2.4 10^3/uL (4.4-10.8)
[2023-12-01 06:52] LABS: Alanine Aminotransferase 41 U/L (7-40); Albumin 2.5 g/dL (3.2-4.8); Alkaline Phosphatase 132 U/L (46-116); Anion Gap 4 (5-15); Aspartate Aminotransferase 58 U/L (13-40); BUN/Creatinine Ratio 15.9 (10.0-20.0); Blood Urea Nitrogen 11 mg/dL (9-23); Calcium 8.2 mg/dL (8.5-10.1); Carbon Dioxide 30 mmol/L (20-30); Chloride 103 mmol/L (98-107); Glucose 131 mg/dL (74-106); Potassium 3.5 mmol/L (3.5-5.1); Sodium 137 mmol/L (136-145)
[2023-12-01 06:53] LABS: Bilirubin, Total 2.1 mg/dL (0.2-1.0); Total Protein 5.9 g/dL (5.7-8.2)
[2023-12-01 06:55] LABS: Basophils % (auto) 0.9 % (0.0-2.0); Eosinophils % (auto) 3.9 % (0.0-7.0); Hematocrit 32.8 % (41.0-53.0); Hemoglobin 10.5 g/dL (13.5-17.5); Lymphocytes % (auto) 16.4 % (10.0-50.0); Mean Corpuscular Hemoglobin 31.1 pg (28.0-32.0); Mean Corpuscular Hgb Conc. 32.1 g/dL (32.0-36.0); Mean Corpuscular Volume 96.9 fL (80.0-100.0); Monocytes % (auto) 8.3 % (0.0-12.0); Neutrophils % (auto) 70.5 % (37.0-80.0); Red Blood Cells 3.39 10^6/uL (4.5-5.90)
[2023-12-01 07:32] LABS: Red Cell Distribution Width 30.9 % (11.8-14.3)
[2023-12-01 09:52] LABS: Base Excess 7.7 mmol/L (-2.0-2.0)
[2023-12-01] MEDS: HYDROcodone-ACET 10/325MG TAB PO PRN (14:04)
[2023-12-02] VITALS (14 sets, daily range): BP systolic 92–103; BP diastolic 53–62; PULSE 66–81; RESP 16–20; TEMP 97.8–98.4; O2SAT 93–100
[2023-12-02 05:58] LABS: Basophils # (auto) 0 10 ^3/uL (0-0.2); Eosinophils # (auto) 0.2 10 ^3/uL (0-0.8); Lymphocytes # (auto) 0.5 10 ^3/uL (0.4-5.4); Monocytes # (auto) 0.3 10 ^3/uL (0-1.3); Neutrophils # (auto) 1.4 10 ^3/uL (1.6-8.6); White Blood Cell 2.4 10^3/uL (4.4-10.8)
[2023-12-02 06:00] LABS: Eosinophils % (auto) 6.7 % (0.0-7.0); Hematocrit 32.8 % (41.0-53.0); Hemoglobin 10.6 g/dL (13.5-17.5); Lymphocytes % (auto) 20.9 % (10.0-50.0); Mean Corpuscular Hemoglobin 31.3 pg (28.0-32.0); Mean Corpuscular Hgb Conc. 32.4 g/dL (32.0-36.0); Mean Corpuscular Volume 96.6 fL (80.0-100.0); Neutrophils % (auto) 58.4 % (37.0-80.0); Nucleated Red Blood Cells % 0.2 %
[2023-12-02 06:06] LABS: Red Cell Distribution Width 30.9 % (11.8-14.3)
[2023-12-02 06:15] LABS: Alanine Aminotransferase 34 U/L (7-40); Albumin 2.3 g/dL (3.2-4.8); Alkaline Phosphatase 147 U/L (46-116); Anion Gap 2 (5-15); Aspartate Aminotransferase 52 U/L (13-40); BUN/Creatinine Ratio 15.9 (10.0-20.0); Blood Urea Nitrogen 11 mg/dL (9-23); Calcium 7.6 mg/dL (8.7-10.4); Carbon Dioxide 34 mmol/L (20-30); Chloride 103 mmol/L (98-107); Glucose 92 mg/dL (74-106); Potassium 3.3 mmol/L (3.5-5.1); Sodium 139 mmol/L (136-145); Total Protein 5.7 g/dL (5.7-8.2)
[2023-12-02 06:16] LABS: Bilirubin, Total 1.6 mg/dL (0.2-1.0)
[2023-12-02 07:07] LABS: Ovalocytes FEW; Platelet Estimate Decreased
[2023-12-02] MEDS ORDERED: HYDROcodone-ACET 5/325MG TAB PO PRN (08:45)
[2023-12-02] MEDS: POTASSIUM EFFERVESENT TAB 25 MEQ PO ONE (08:45)
[2023-12-03] VITALS (15 sets, daily range): BP systolic 88–104; BP diastolic 47–57; PULSE 71–95; RESP 16–22; TEMP 98.4–98.7; O2SAT 15–97
[2023-12-03 07:22] LABS: Basophils # (auto) 0 10 ^3/uL (0-0.2); Eosinophils # (auto) 0.1 10 ^3/uL (0-0.8); Hemoglobin 10.1 g/dL (13.5-17.5); Lymphocytes # (auto) 0.6 10 ^3/uL (0.4-5.4); Monocytes # (auto) 0.3 10 ^3/uL (0-1.3); White Blood Cell 2.1 10^3/uL (4.4-10.8)
[2023-12-03 07:26] LABS: Basophils % (auto) 1.1 % (0.0-2.0); Eosinophils % (auto) 5.6 % (0.0-7.0); Hematocrit 31.2 % (41.0-53.0); Lymphocytes % (auto) 26.3 % (10.0-50.0); Mean Corpuscular Hemoglobin 31.5 pg (28.0-32.0); Mean Corpuscular Hgb Conc. 32.3 g/dL (32.0-36.0); Mean Corpuscular Volume 97.5 fL (80.0-100.0); Monocytes % (auto) 12.1 % (0.0-12.0); Neutrophils # (auto) 1.2 10 ^3/uL (1.6-8.6); Neutrophils % (auto) 54.9 % (37.0-80.0)
[2023-12-03 07:33] LABS: Chloride 101 mmol/L (98-107); Potassium 3.8 mmol/L (3.5-5.1); Sodium 136 mmol/L (136-145)
[2023-12-03 07:34] LABS: Anion Gap 1 (5-15); Calcium 7.7 mg/dL (8.7-10.4); Carbon Dioxide 34 mmol/L (20-30)
[2023-12-03 07:39] LABS: BUN/Creatinine Ratio 20.3 (10.0-20.0); Blood Urea Nitrogen 13 mg/dL (9-23); Glucose 84 mg/dL (74-106)
[2023-12-03 07:50] LABS: Red Cell Distribution Width 29.8 % (11.8-14.3)
[2023-12-03 13:47] LABS: Anisocytosis Marked; Platelet Estimate Decreased
[2023-12-04] VITALS (10 sets, daily range): BP systolic 100–102; BP diastolic 52–59; PULSE 76–85; RESP 16–18; TEMP 98–98.6; O2SAT 94–99
[2023-12-04 06:27] LABS: Alanine Aminotransferase 30 U/L (7-40); Albumin 2.2 g/dL (3.2-4.8); Alkaline Phosphatase 134 U/L (46-116); Anion Gap 3 (5-15); Aspartate Aminotransferase 50 U/L (13-40); BUN/Creatinine Ratio 15.5 (10.0-20.0); Blood Urea Nitrogen 9 mg/dL (9-23); Calcium 7.8 mg/dL (8.5-10.1); Carbon Dioxide 31 mmol/L (20-30); Chloride 102 mmol/L (98-107); Glucose 85 mg/dL (74-106); Potassium 3.6 mmol/L (3.5-5.1); Sodium 136 mmol/L (136-145)
[2023-12-04 06:28] LABS: Bilirubin, Total 1.6 mg/dL (0.2-1.0); Total Protein 5.4 g/dL (5.7-8.2)
[2023-12-04 06:30] LABS: Basophils # (auto) 0 10 ^3/uL (0-0.2); Basophils % (auto) 1.3 % (0.0-2.0); Eosinophils # (auto) 0.1 10 ^3/uL (0-0.8); Eosinophils % (auto) 5.6 % (0.0-7.0); Hemoglobin 9.9 g/dL (13.5-17.5); Lymphocytes # (auto) 0.4 10 ^3/uL (0.4-5.4); Lymphocytes % (auto) 20.7 % (10.0-50.0); Mean Corpuscular Hemoglobin 30.9 pg (28.0-32.0); Mean Corpuscular Volume 93.6 fL (80.0-100.0); Monocytes # (auto) 0.3 10 ^3/uL (0-1.3); Monocytes % (auto) 13.2 % (0.0-12.0); Neutrophils # (auto) 1.2 10 ^3/uL (1.6-8.6); Neutrophils % (auto) 59.2 % (37.0-80.0); Nucleated Red Blood Cells % 0.4 %
[2023-12-04 08:59] LABS: Anisocytosis Marked; Platelet Estimate Decreased
[2023-12-04 09:00] LABS: Macrocytosis Slight
[2023-12-04 17:30] LABS: Body Fluid Polymorphonuclear 9 % (0-25); Body Fluid Red Blood Cells 2520 CUMM (0-2000); Body Fluid White Blood Cells 68 CUMM (0-200)
[2023-12-05 13:07] LABS: Protein, Body Fluid 0.6 g/dL (.)
== END 2023-12-04 16:15 | disposition hospice, home (50) | DRG 133 ==
LOC: ER 16:02 → TELE 19:12 → TELE-CENTR 11-22 22:31
PROVIDERS: ADMIT Internal Medicine Pulmonary Disease; ATTEND Internal Medicine Pulmonary Disease
PROC: 0W993ZZ Drainage of Right Pleural Cavity, Percutaneous Approach (ICD-10-PCS; principal; 2023-12-04)
DX: J96.21 Acute and chronic respiratory failure with hypoxia (principal); N17.0 Acute kidney failure with tubular necrosis; I50.33 Acute on chronic diastolic (congestive) heart failure; J15.69 Pneumonia due to other Gram-negative bacteria; D61.818 Other pancytopenia; I21.A1 Myocardial infarction type 2; I11.0 Hypertensive heart disease with heart failure; G62.9 Polyneuropathy, unspecified; E87.6 Hypokalemia; E55.9 Vitamin D deficiency, unspecified; J45.909 Unspecified asthma, uncomplicated; K70.30 Alcoholic cirrhosis of liver without ascites; Z20.822 Contact with and (suspected) exposure to COVID-19; F17.210 Nicotine dependence, cigarettes, uncomplicated; B19.20 Unspecified viral hepatitis C without hepatic coma; J44.1 Chronic obstructive pulmonary disease with (acute) exacerbation; J44.0 Chronic obstructive pulmonary disease with (acute) lower respiratory infection; Z99.81 Dependence on supplemental oxygen; Z59.00 Homelessness unspecified; I25.2 Old myocardial infarction; Z95.5 Presence of coronary angioplasty implant and graft; Z86.73 Personal history of transient ischemic attack (TIA), and cerebral infarction without residual deficits
CPT/HCPCS: 36415; 36600; 71045; 71275; 76604; 76705; 76942; 80048; 80053; 80202; 81001; 82140; 82565; 82805; 82962; 83735; 83880; 83986; 84484; 85007; 85025; 85027; 85379; 85610; 85730; 86704; 86706; 86708; 86803; 87070; 87081; 87205; 87340; 87426; 87804; 89051; 93005; 93970; 94640; 96365; 96367; 97110; 97116; 97162; 97530; G0378; J2001; J2405; J3480

== ENCOUNTER 2024-06-04 11:17 | Inpatient (IN) | payer OTHER, MEDICAID ==
[2024-06-04] VITALS (7 sets, daily range): BP systolic 84–120; BP diastolic 40–63; PULSE 92–113; RESP 14–20; TEMP 98.1–98.5; O2SAT 79–96
[~2024-06-04] VITALS: Ht 167.6 cm; Wt 64.1 kg
[2024-06-04] MEDS: PANTOPRAZOLE 40 MG/10 ML VIAL INJ IV ONE (12:49)
[2024-06-04 13:07] LABS: Alanine Aminotransferase 22 U/L (7-40); Alkaline Phosphatase 69 U/L (46-116); Anion Gap 7 (5-15); Aspartate Aminotransferase 56 U/L (13-40); BUN/Creatinine Ratio 27.5 (10.0-20.0); Bilirubin, Total 4.1 mg/dL (0.2-1.0); Blood Urea Nitrogen 19 mg/dL (9-23); Calcium 8.7 mg/dL (8.7-10.4); Carbon Dioxide 23 mmol/L (20-30); Chloride 100 mmol/L (98-107); Glucose 89 mg/dL (74-106); Sodium 130 mmol/L (136-145)
[2024-06-04 13:17] LABS: INR 2.53 (0.9-1.15); Partial Thromboplastin Time 36.7 SEC (24.5-34.5)
[2024-06-04] MEDS ORDERED: ONDANSETRON HCL 4 MG/2 ML VIAL IV PRN ×2 (15:00→15:30)
[2024-06-04] MEDS ORDERED: DOCUSATE SOD 100 MG CAP PO PRN (15:00)
[2024-06-04 15:03] LABS: Basophils # (auto) 0 10 ^3/uL (0-0.2); Basophils % (auto) 0.1 % (0.0-2.0); Eosinophils # (auto) 0 10 ^3/uL (0-0.8); Eosinophils % (auto) 0.3 % (0.0-7.0); Hematocrit 26.2 % (41.0-53.0); Hemoglobin 9.4 g/dL (13.5-17.5); Lymphocytes # (auto) 0.6 10 ^3/uL (0.4-5.4); Lymphocytes % (auto) 7.4 % (10.0-50.0); Mean Corpuscular Hemoglobin 36.3 pg (28.0-32.0); Mean Corpuscular Hgb Conc. 35.9 g/dL (32.0-36.0); Mean Corpuscular Volume 101.2 fL (80.0-100.0); Monocytes # (auto) 1.1 10 ^3/uL (0-1.3); Neutrophils # (auto) 6.9 10 ^3/uL (1.6-8.6); Neutrophils % (auto) 79.2 % (37.0-80.0); Nucleated Red Blood Cells % 0.1 %; Platelet Count (auto) 42 10^3/uL (140-450); Red Blood Cells 2.58 10^6/uL (4.5-5.90); Red Cell Distribution Width 16.2 % (11.8-14.3); White Blood Cell 8.7 10^3/uL (4.4-10.8)
[2024-06-04] MEDS ORDERED: NITROGLYCERIN 0.4 MG SL TAB SL PRN (16:00)
[2024-06-04] MEDS: ALBUMIN 25% 100 ML IV ONE (16:09)
[2024-06-04] MEDS: AZITHROMYCIN 500MG/ 250ML 250 ML IV ONE (16:13)
[2024-06-04] MEDS: ALBUTEROL SULF 2.5 MG/0.5ML(0.5%) NEB SOLN NEB PRN (18:29)
[2024-06-04] MEDS: MIDODRINE HCL 10 MG TAB PO SCH (18:37)
[2024-06-04] MEDS: SODIUM CHLOR 0.9% PF (SALINE LOCK) 10ML VIAL/SYR IV SCH (22:00)
[2024-06-04] MEDS: LACTULOSE 20Gm/30ML SOLN PO SCH (22:00)
[2024-06-04] MEDS: PHENYTOIN SODIUM 100 MG CAP PO SCH (22:33)
[2024-06-04] MEDS: CARVEDILOL 3.125 MG TAB PO SCH (22:34)
[2024-06-05] VITALS (42 sets, daily range): BP systolic 73–133; BP diastolic 35–58; PULSE 67–103; RESP 8–16; TEMP 98–100; O2SAT 91–100
[2024-06-05 05:20] LABS: Basophils # (auto) 0 10 ^3/uL (0-0.2); Basophils % (auto) 0.2 % (0.0-2.0); Eosinophils # (auto) 0.1 10 ^3/uL (0-0.8); Hemoglobin 7.1 g/dL (13.5-17.5); Monocytes # (auto) 0.5 10 ^3/uL (0-1.3)
[2024-06-05 05:22] LABS: Eosinophils % (auto) 3.7 % (0.0-7.0); Hematocrit 19.4 % (41.0-53.0); Lymphocytes # (auto) 0.7 10 ^3/uL (0.4-5.4); Lymphocytes % (auto) 16.8 % (10.0-50.0); Mean Corpuscular Hemoglobin 37.2 pg (28.0-32.0); Mean Corpuscular Hgb Conc. 36.4 g/dL (32.0-36.0); Mean Corpuscular Volume 102.2 fL (80.0-100.0); Neutrophils # (auto) 2.6 10 ^3/uL (1.6-8.6); Neutrophils % (auto) 66.3 % (37.0-80.0); Nucleated Red Blood Cells % 0.1 %; Platelet Count (auto) 32 10^3/uL (140-450); Red Blood Cells 1.89 10^6/uL (4.5-5.90); Red Cell Distribution Width 16.5 % (11.8-14.3)
[2024-06-05 05:32] LABS: INR 2.02 (0.9-1.15); Partial Thromboplastin Time 51.8 SEC (24.5-34.5); Prothrombin Time 20.3 sec (9.3-11.8)
[2024-06-05 05:34] LABS: Alanine Aminotransferase 12 U/L (7-40); Albumin 2.3 g/dL (3.2-4.8); Alkaline Phosphatase 39 U/L (46-116); Anion Gap 2 (5-15); Aspartate Aminotransferase 27 U/L (13-40); BUN/Creatinine Ratio 33.3 (10.0-20.0); Bilirubin, Total 2.9 mg/dL (0.2-1.0); Blood Urea Nitrogen 19 mg/dL (9-23); Calcium 8.4 mg/dL (8.7-10.4); Carbon Dioxide 28 mmol/L (20-30); Chloride 105 mmol/L (98-107); Glucose 93 mg/dL (74-106); Potassium 4.4 mmol/L (3.5-5.1); Total Protein 4.6 g/dL (5.7-8.2)
[2024-06-05 05:44] LABS: Sodium 135 mmol/L (136-145)
[2024-06-05 07:50] LABS: Platelet Estimate Decreased
[2024-06-05] MEDS: ASPirin 81 mg TAB PO SCH (10:00)
[2024-06-05] MEDS: SPIRONOLACTONE 25 MG TAB PO SCH (10:00)
[2024-06-05] MEDS ORDERED: PANTOPRAZOLE 40 MG/10 ML VIAL INJ IV SCH (10:00)
[2024-06-05] MEDS: AZITHROMYCIN 500MG/ 250ML 250 ML IV SCH (10:00)
[2024-06-05] MEDS: PANTOPRAZOLE 40mg/50ML NS AE 50 ML IV SCH (11:00)
[2024-06-05] MEDS: SODIUM CHLORIDE 0.9% 250 ML IV ONE (12:00)
[2024-06-05] MEDS: cefTRIAXone 1GM/50ML D5W 50 ML IV ONE (12:01)
[2024-06-05 12:10] LABS: % Iron Saturation 24.1 % (20-55)
[2024-06-05 12:30] LABS: Ferritin 113.4 ng/mL (22-322)
[2024-06-05 12:31] LABS: Folate (Folic Acid) 7.58 ng/mL (>5.38)
[2024-06-05 13:30] LABS: Urine Bacteria None Seen /hpf (None Seen); Urine WBC None Seen /hpf (0 - 3)
[2024-06-05 13:41] LABS: Urine Blood Negative /uL (Negative); Urine Clarity Clear (Clear); Urine Color Colorless (Yellow); Urine Protein, UAD Negative (Negative); Urine Specific Gravity 1.006 (1.001-1.035); Urine Urobilinogen Normal (Negative); Urine pH 7.5 (5.0-9.0)
[2024-06-05 13:49] LABS: Amphetamine Screen, Urine Neg (NEGATIVE); Barbiturate Scree,Urine Neg (NEGATIVE); Benzodiazephine Screen, Urine Neg (NEGATIVE); Cannabinoid Screen, Urine Neg (NEGATIVE); Cocaine Screen, Urine Neg (NEGATIVE); Opiate Scree,Urine Neg (NEGATIVE); Phencyclidine Screen, Urine Neg (NEGATIVE)
[2024-06-05] MEDS: AMINO ACID INFUSION IN D10W 1,000 ML IV ONE (14:00)
[2024-06-05] MEDS ORDERED: DEXTROSE (50%) 50ML SYRG IV SCH (14:00)
[2024-06-05] MEDS: OCTREOTIDE ACETATE 500 MCG in SODIUM CHL 0.9% 99 ML IV SCH (14:30)
[2024-06-05] MEDS: OCTREOTIDE ACETATE 100 MCG in SODIUM CHL 0.9% 50 ML IV ONE (14:42)
[2024-06-05] MEDS: InsuLIN REG 1unit/0.01ml Soln (100units/ml) SC SCH (18:00)
[2024-06-05] MEDS: ACCU-CHEK COMFORT CURVE STRIP VI SCH (18:24)
[2024-06-06] VITALS (28 sets, daily range): BP systolic 106–137; BP diastolic 40–55; PULSE 69–84; RESP 11–20; TEMP 98.2–99.4; O2SAT 90–100
[2024-06-06] MEDS: TPN PER PHARMACY 0 ML IV SCH (00:29)
[2024-06-06 01:45] LABS: Hematocrit 23.5 % (41.0-53.0); Hemoglobin 8.3 g/dL (13.5-17.5)
[2024-06-06] MEDS: IOHEXOL 350 MG/ML 100ML IJ ONE (05:20)
[2024-06-06 05:24] LABS: Basophils # (auto) 0 10 ^3/uL (0-0.2); Eosinophils # (auto) 0.1 10 ^3/uL (0-0.8); Lymphocytes # (auto) 0.3 10 ^3/uL (0.4-5.4); Monocytes # (auto) 0.3 10 ^3/uL (0-1.3); Platelet Count (auto) 30 10^3/uL (140-450); White Blood Cell 2.2 10^3/uL (4.4-10.8)
[2024-06-06 05:27] LABS: Basophils % (auto) 0.3 % (0.0-2.0); Eosinophils % (auto) 3.7 % (0.0-7.0); Hematocrit 24.5 % (41.0-53.0); Hemoglobin 8.7 g/dL (13.5-17.5); Mean Corpuscular Hemoglobin 36.3 pg (28.0-32.0); Mean Corpuscular Hgb Conc. 35.4 g/dL (32.0-36.0); Mean Corpuscular Volume 102.5 fL (80.0-100.0); Monocytes % (auto) 11.3 % (0.0-12.0); Neutrophils # (auto) 1.6 10 ^3/uL (1.6-8.6); Neutrophils % (auto) 69.7 % (37.0-80.0); Nucleated Red Blood Cells % 0.2 %; Red Blood Cells 2.39 10^6/uL (4.5-5.90); Red Cell Distribution Width 17.5 % (11.8-14.3)
[2024-06-06 05:32] LABS: Alanine Aminotransferase 15 U/L (7-40); Albumin 2.7 g/dL (3.2-4.8); Alkaline Phosphatase 52 U/L (46-116); Anion Gap 4 (5-15); Aspartate Aminotransferase 31 U/L (13-40); Bilirubin, Total 3.1 mg/dL (0.2-1.0); Blood Urea Nitrogen 18 mg/dL (9-23); Calcium 8.6 mg/dL (8.7-10.4); Carbon Dioxide 27 mmol/L (20-30); Chloride 107 mmol/L (98-107); Glucose 135 mg/dL (74-106); Magnesium 1.5 mg/dL (1.6-2.6); Phosphorus 3.1 mg/dL (2.4-5.1); Sodium 138 mmol/L (136-145); Triglycerides 63 mg/dL (< 150)
[2024-06-06 05:49] LABS: Partial Thromboplastin Time 32.4 SEC (24.5-34.5)
[2024-06-06 05:55] LABS: INR 1.39 (0.9-1.15); Prothrombin Time 14.4 sec (9.3-11.8)
[2024-06-06] MEDS: MAGNESIUM SULFATE 1GM/100ML 100 ML IV SCH (07:56)
[2024-06-06] MEDS: cefTRIAXone 1GM/50ML D5W 50 ML IV SCH (07:56)
[2024-06-06 10:52] LABS: Hematocrit 22.5 % (41.0-53.0)
[2024-06-06] MEDS ORDERED: AMINO ACID INFUSION IN D10W 1,000 ML IV ONE (11:30)
[2024-06-06] MEDS ORDERED: MAGNESIUM SULFATE 1GM/100ML 100 ML IV SCH (12:00)
[2024-06-06 12:24] LABS: Rapid Influenza A Negative (Negative); Rapid Influenza B Negative (Negative)
[2024-06-06 12:25] LABS: COVID19 ANTIGEN SOFIA FIA NEGATIVE (NEGATIVE)
[2024-06-06] MEDS: LIDOCAINE 1% (LOCAL ANESTH.) PF 5ml SDV ID ONE (14:24)
[2024-06-06] MEDS ORDERED: LIDOCAINE VISCOUS 2% 15ML UD ONE (15:43)
[2024-06-06] MEDS: LIDOCAINE VISCOUS 2% 15ML UD MT ONE (15:45)
[2024-06-06] MEDS ORDERED: MIDAZOLAM HCL 2MG/2ML 2ml VIAL (1mg/ml) ONE (15:54)
[2024-06-06] MEDS ORDERED: PROPOFOL 10 MG/ML 20 ML IV ONE (16:13)
[2024-06-06] MEDS: AMINO ACID INFUSION IN D10W 1,000 ML IV ONE (20:45)
[2024-06-06] MEDS: SODIUM CHLOR 0.9% PF (SALINE LOCK) 10ML VIAL/SYR IV SCH (22:00)
[2024-06-06 22:06] LABS: Hematocrit 21.7 % (41.0-53.0); Hemoglobin 7.6 g/dL (13.5-17.5)
[2024-06-07] VITALS (26 sets, daily range): BP systolic 113–144; BP diastolic 44–61; PULSE 13–93; RESP 10–17; TEMP 98.4–99.3; O2SAT 91–100
[2024-06-07] MEDS: HYDROcodone-ACET 5/325MG TAB PO PRN (01:43)
[2024-06-07 04:53] LABS: Basophils # (auto) 0 10 ^3/uL (0-0.2); Eosinophils # (auto) 0.1 10 ^3/uL (0-0.8); Hemoglobin 7.2 g/dL (13.5-17.5); Lymphocytes # (auto) 0.3 10 ^3/uL (0.4-5.4); Monocytes # (auto) 0.2 10 ^3/uL (0-1.3); Neutrophils # (auto) 1.3 10 ^3/uL (1.6-8.6); Red Blood Cells 2.01 10^6/uL (4.5-5.90)
[2024-06-07 04:56] LABS: Basophils % (auto) 0.6 % (0.0-2.0); Eosinophils % (auto) 3.4 % (0.0-7.0); Lymphocytes % (auto) 15.4 % (10.0-50.0); Mean Corpuscular Hgb Conc. 34.5 g/dL (32.0-36.0); Mean Corpuscular Volume 104.1 fL (80.0-100.0); Monocytes % (auto) 11.9 % (0.0-12.0); Neutrophils % (auto) 68.7 % (37.0-80.0); Platelet Count (auto) 35 10^3/uL (140-450); Red Cell Distribution Width 17.2 % (11.8-14.3)
[2024-06-07 08:08] LABS: Anisocytosis Slight; Macrocytosis Slight; Platelet Estimate Markedly Decreased
[2024-06-07 09:26] LABS: Hematocrit 22.7 % (41.0-53.0)
[2024-06-07 09:33] LABS: Chloride 107 mmol/L (98-107); Potassium 3.5 mmol/L (3.5-5.1)
[2024-06-07 09:39] LABS: INR 1.43 (0.9-1.15); Partial Thromboplastin Time 31.2 SEC (24.5-34.5); Prothrombin Time 14.8 sec (9.3-11.8)
[2024-06-07 09:40] LABS: Calcium 8.1 mg/dL (8.7-10.4); Carbon Dioxide 30 mmol/L (20-30)
[2024-06-07 09:44] LABS: Alkaline Phosphatase 50 U/L (46-116)
[2024-06-07 09:45] LABS: Glucose 118 mg/dL (74-106)
[2024-06-07 09:46] LABS: Alanine Aminotransferase 11 U/L (7-40); BUN/Creatinine Ratio 22.6 (10.0-20.0); Blood Urea Nitrogen 12 mg/dL (9-23); Magnesium 1.5 mg/dL (1.6-2.6)
[2024-06-07 09:47] LABS: Albumin 2.6 g/dL (3.2-4.8); Aspartate Aminotransferase 25 U/L (13-40); Phosphorus 2.6 mg/dL (2.4-5.1)
[2024-06-07 09:48] LABS: Bilirubin, Total 2.4 mg/dL (0.2-1.0)
[2024-06-07 11:22] LABS: Anion Gap 0 (5-15); Sodium 137 mmol/L (136-145)
[2024-06-07] MEDS ORDERED: MAGNESIUM SULFATE 1GM/100ML 100 ML IV SCH (12:00)
[2024-06-07] MEDS: POTASSIUM PHOSPHATE 22 MEQ in SODIUM CHL 0.9% 100 ML IV ONE (13:36)
[2024-06-07] MEDS: MAGNESIUM SULFATE 1GM/100ML 100 ML IV SCH (13:37)
[2024-06-07] MEDS: MORPHINE SULFATE INJ 2 MG/ml SYRG IV PRN (18:28)
[2024-06-07] MEDS: TPN PER PHARMACY IV NR (20:04)
[2024-06-07 22:49] LABS: Hematocrit 26.2 % (41.0-53.0); Hemoglobin 9.1 g/dL (13.5-17.5)
[2024-06-08] VITALS (24 sets, daily range): BP systolic 111–146; BP diastolic 46–72; PULSE 57–75; RESP 10–19; TEMP 97.8–100.6; O2SAT 92–100
[2024-06-08 05:31] LABS: Basophils # (auto) 0 10 ^3/uL (0-0.2); Lymphocytes # (auto) 0.5 10 ^3/uL (0.4-5.4); Platelet Count (auto) 33 10^3/uL (140-450); White Blood Cell 2.3 10^3/uL (4.4-10.8)
[2024-06-08 05:32] LABS: Basophils % (auto) 0.6 % (0.0-2.0); Eosinophils # (auto) 0.2 10 ^3/uL (0-0.8); Hemoglobin 8.5 g/dL (13.5-17.5); Lymphocytes % (auto) 22.3 % (10.0-50.0); Mean Corpuscular Hemoglobin 35.4 pg (28.0-32.0); Mean Corpuscular Hgb Conc. 35.6 g/dL (32.0-36.0); Mean Corpuscular Volume 99.4 fL (80.0-100.0); Monocytes # (auto) 0.4 10 ^3/uL (0-1.3); Monocytes % (auto) 15.8 % (0.0-12.0); Neutrophils # (auto) 1.2 10 ^3/uL (1.6-8.6); Neutrophils % (auto) 54.3 % (37.0-80.0); Nucleated Red Blood Cells % 0.1 %; Red Blood Cells 2.41 10^6/uL (4.5-5.90); Red Cell Distribution Width 18.2 % (11.8-14.3)
[2024-06-08 05:50] LABS: Alanine Aminotransferase 11 U/L (7-40); Albumin 2.4 g/dL (3.2-4.8); Alkaline Phosphatase 48 U/L (46-116); Anion Gap 1 (5-15); Aspartate Aminotransferase 22 U/L (13-40); BUN/Creatinine Ratio 12.5 (10.0-20.0); Bilirubin, Total 2.1 mg/dL (0.2-1.0); Blood Urea Nitrogen 7 mg/dL (9-23); Calcium 7.9 mg/dL (8.7-10.4); Carbon Dioxide 30 mmol/L (20-30); Chloride 108 mmol/L (98-107); Glucose 138 mg/dL (74-106); Magnesium 1.7 mg/dL (1.6-2.6); Potassium 3.6 mmol/L (3.5-5.1); Sodium 139 mmol/L (136-145); Total Protein 4.7 g/dL (5.7-8.2)
[2024-06-08] MEDS: POTASSIUM PHOSPHATE 22 MEQ in SODIUM CHL 0.9% 100 ML IV ONE (11:53)
[2024-06-08] MEDS: ACETAMINOPHEN 325 MG TAB PO PRN (17:26)
[2024-06-08] MEDS ORDERED: TPN PER PHARMACY IV NR (20:00)
[2024-06-08] MEDS: PANTOPRAZOLE 40 MG/10 ML VIAL INJ IV SCH (21:11)
[2024-06-09] VITALS (21 sets, daily range): BP systolic 104–127; BP diastolic 47–61; PULSE 59–78; RESP 9–18; TEMP 97.7–98.8; O2SAT 87–98
[2024-06-09 05:35] LABS: Basophils # (auto) 0 10 ^3/uL (0-0.2); Basophils % (auto) 0.5 % (0.0-2.0); Eosinophils # (auto) 0.3 10 ^3/uL (0-0.8); Hemoglobin 9.8 g/dL (13.5-17.5); Lymphocytes # (auto) 0.8 10 ^3/uL (0.4-5.4); Monocytes # (auto) 0.5 10 ^3/uL (0-1.3); Neutrophils # (auto) 1.9 10 ^3/uL (1.6-8.6); Nucleated Red Blood Cells % 0.1 %
[2024-06-09 05:37] LABS: Eosinophils % (auto) 8.1 % (0.0-7.0); Hematocrit 27.8 % (41.0-53.0); Lymphocytes % (auto) 22.4 % (10.0-50.0); Mean Corpuscular Hemoglobin 35.4 pg (28.0-32.0); Mean Corpuscular Hgb Conc. 35.4 g/dL (32.0-36.0); Mean Corpuscular Volume 100.1 fL (80.0-100.0); Monocytes % (auto) 14.5 % (0.0-12.0); Neutrophils % (auto) 54.5 % (37.0-80.0); Red Blood Cells 2.78 10^6/uL (4.5-5.90); Red Cell Distribution Width 18.5 % (11.8-14.3); White Blood Cell 3.5 10^3/uL (4.4-10.8)
[2024-06-09 05:38] LABS: Platelet Count (auto) 40 10^3/uL (140-450)
[2024-06-09 05:51] LABS: Alanine Aminotransferase 16 U/L (7-40); Albumin 2.7 g/dL (3.2-4.8); Alkaline Phosphatase 62 U/L (46-116); Anion Gap 4 (5-15); Aspartate Aminotransferase 35 U/L (13-40); BUN/Creatinine Ratio 19.2 (10.0-20.0); Blood Urea Nitrogen 10 mg/dL (9-23); Calcium 8.2 mg/dL (8.7-10.4); Carbon Dioxide 29 mmol/L (20-30); Chloride 104 mmol/L (98-107); Glucose 98 mg/dL (74-106); Magnesium 1.6 mg/dL (1.6-2.6); Potassium 3.9 mmol/L (3.5-5.1); Sodium 137 mmol/L (136-145)
[2024-06-09 05:52] LABS: Total Protein 5.1 g/dL (5.7-8.2)
[2024-06-10] VITALS (10 sets, daily range): BP systolic 92–108; BP diastolic 36–90; PULSE 62–72; RESP 14–18; TEMP 97.9–98.6; O2SAT 94–100
[2024-06-11 05:00] VITALS: BP 99/49; PULSE 58; RESP 16; TEMP 97.9; O2SAT 97
[2024-06-11 08:00] VITALS: PULSE 50
[2024-06-11 09:00] VITALS: BP 121/47; PULSE 54; RESP 20; TEMP 98.2; O2SAT 97
[2024-06-11] MEDS ORDERED: CARV-214 PO (10:44)
[2024-06-11] MEDS ORDERED: PANT40T PO (10:44)
[2024-06-11] MEDS ORDERED: AZIT500T66 PO (10:44)
[2024-06-11 12:19] VITALS: BP 112/44; PULSE 68; RESP 20; TEMP 97.9; O2SAT 95
[2024-06-11 17:33] VITALS: BP 101/47; PULSE 58; RESP 16; TEMP 98.1; O2SAT 96
== END 2024-06-11 18:34 | disposition hospice, home (50) | DRG 368 ==
LOC: EDBD 11:17 → ER 11:21 → TELE 15:58 → DOU IN ICU 21:40 → TELE-E-ADS 06-09 16:09 → TELE-EAST 06-11 02:35
PROVIDERS: ADMIT Nurse Practitioner Family; ATTEND Family Medicine
PROC: 30233N1 Transfusion of Nonautologous Red Blood Cells into Peripheral Vein, Percutaneous Approach (ICD-10-PCS; 2024-06-05)
PROC: 30233K1 Transfusion of Nonautologous Frozen Plasma into Peripheral Vein, Percutaneous Approach (ICD-10-PCS; 2024-06-05)
PROC: 30233R1 Transfusion of Nonautologous Platelets into Peripheral Vein, Percutaneous Approach (ICD-10-PCS; 2024-06-05)
PROC: 05HA33Z Insertion of Infusion Device into Left Brachial Vein, Percutaneous Approach (ICD-10-PCS; 2024-06-05)
PROC: B54NZZA Ultrasonography of Left Upper Extremity Veins, Guidance (ICD-10-PCS; 2024-06-05)
PROC: 02HV33Z Insertion of Infusion Device into Superior Vena Cava, Percutaneous Approach (ICD-10-PCS; 2024-06-06)
PROC: B548ZZA Ultrasonography of Superior Vena Cava, Guidance (ICD-10-PCS; 2024-06-06)
PROC: 0DJ08ZZ Inspection of Upper Intestinal Tract, Via Natural or Artificial Opening Endoscopic (ICD-10-PCS; principal; 2024-06-06 15:48)
DX: I85.11 Secondary esophageal varices with bleeding (principal); I50.33 Acute on chronic diastolic (congestive) heart failure; J69.0 Pneumonitis due to inhalation of food and vomit; J96.20 Acute and chronic respiratory failure, unspecified whether with hypoxia or hypercapnia; D61.818 Other pancytopenia; J44.1 Chronic obstructive pulmonary disease with (acute) exacerbation; D62 Acute posthemorrhagic anemia; N17.9 Acute kidney failure, unspecified; J44.0 Chronic obstructive pulmonary disease with (acute) lower respiratory infection; K70.31 Alcoholic cirrhosis of liver with ascites; G62.9 Polyneuropathy, unspecified; I11.0 Hypertensive heart disease with heart failure; K72.10 Chronic hepatic failure without coma; R56.9 Unspecified convulsions; K31.89 Other diseases of stomach and duodenum; Z20.822 Contact with and (suspected) exposure to COVID-19; K21.9 Gastro-esophageal reflux disease without esophagitis; F17.210 Nicotine dependence, cigarettes, uncomplicated; I78.1 Nevus, non-neoplastic; Z86.73 Personal history of transient ischemic attack (TIA), and cerebral infarction without residual deficits; I25.2 Old myocardial infarction; Z83.3 Family history of diabetes mellitus; Z98.61 Coronary angioplasty status; Z82.49 Family history of ischemic heart disease and other diseases of the circulatory system
CPT/HCPCS: 36415; 36430; 36569; 71045; 71275; 74176; 76705; 80053; 80307; 80320; 81001; 82140; 82607; 82728; 82746; 82962; 83540; 83550; 83615; 83735; 83880; 84100; 84478; 85014; 85018; 85025; 85045; 85610; 85730; 86850; 86900; 86901; 86920; 87081; 87086; 87426; 87804; 93005; 93306; 93970; 94640; 96365; 96366; 97163; G0378; J2250; J2470; J2704; P9047

== ENCOUNTER 2025-03-07 12:21 | Inpatient (IN) | payer OTHER, MEDICAID ==
[~2025-03-07] VITALS: Ht 172.7 cm; Wt 62.7 kg
[~2025-03-07 12:21] MED LIST changes: +AZIT500T66 PO; +CARV-214 PO; +PANT40T PO
[2025-03-07] MEDS: SODIUM CHLORIDE 0.9% 500 ML IVB ONE (12:45)
--- NOTE | 2025-03-07 12:51 | ED.PDOC ---
History of Present Illness HPI Comments 69M BIBA w/ prior MHx of Neuropathy, Asthma, CHF, CVA, GERD, HTN, RI, SZ, COPD- 4L [place] at Home, Liver [place];SHx of PTCA and the c/c of lethargic. EMS report that the pt is currently on hospice care and family stated that they saw that the pt was lethargic and has liver [place]. When EMS arrived on scene the pt's BP was at 89 systolic and was given 200 Bolus and went up to 103 systolic as well as an accucheck of 97. Denies chills, fever, N/V/D, SOB, CP or other associated symptom's, modifiers, or recent injuries or sick contact at this time. Chief Complaint: General Weakness Time Seen by MD: 12:30 Primary Care Provider: Hansel Schulz Reviewed Notes: Nurses Notes, Holistic Pulser Notes, Medications, Allergies Allergies: Coded Allergies: NO KNOWN ALLERGIES (Unverified , 10/27/23) Home Meds Active Scripts Carvedilol (COREG) 3.125 Mg Tab, 3.125 MG PO BID, #60 TAB Prov:LISSY JACQUES MD 06/11/24 Pantoprazole Sodium Sesquihydr (Pantoprazole Sodium) 40 Mg Tab, 40 MG PO BID, #60 TAB Prov:LISSY JACQUES MD 06/11/24 Azithromycin (Azithromycin) 500 Mg Tab, 1 TAB PO DAILY, #7 TAB Prov:LISSY JACQUES MD 06/11/24 Reported Medications Albuterol Sulfate (Albuterol Sulfate Hfa) 108 Mcg/Act Aer, INH 10/28/23 Diclofenac Sodium (Actinic Ker (Diclofenac Sodium) 3 % Gel, TOP 10/28/23 Lactulose (Lactulose) 10 Gm/15 Ml Frances, ML PO 10/28/23 Phenytoin Sodium (Dilantin) 100 Mg Cap, 1 CAP PO TID 10/28/23 Morphine Sulfate (Morphine Sulfate Cr) 15 Mg Tab, 1 TAB PO TID 10/28/23 Furosemide (Furosemide) 40 Mg Tab, 1 TAB PO BID 10/28/23 Rifaximin (Xifaxan) 550 Mg Tab, 1 TAB PO BID 10/28/23 Gabapentin (Gabapentin) 600 Mg Tab, 1 TAB PO TID 10/28/23 Atorvastatin Calcium (ATORVASTATIN CALCIUM) 40 Mg Tab, 1 TAB PO DAILY 10/28/23 Midodrine Hcl (Midodrine Hcl) 5 Mg Tab, 1 TAB PO TID 10/28/23 Spironolactone (Spironolactone) 25 Mg Tab, 1 TAB PO DAILY 10/28/23 Metoprolol Tartrate (Lopressor) 25 Mg Tb, TAB PO 10/28/23 Information Source: Patient Mode of Arrival: EMS Severity: Moderate Timing: Hours Duration: Since onset, Hours Prehospital treatment: None Past Medical History PAST MEDICAL HISTORY: Asthma, CHF, COPD (on 4L at home [place]), CVA, GERD, HTN, Liver ([place]), RI, Seizures Surgical History: PTCA Family History Family History: Reviewed,noncontributory to illness, Unknown Social History Smoker: Non-Smoker Alcohol: Denies ETOH Use Drugs: Denies Drug Use Lives In: Home Constitutional: reports: others (Hypotensive); denies: chills, diaphoresis, fatigue, fever, malaise, sweats, weakness EENTM: denies: blurred vision, double vision, ear bleeding, ear discharge, ear drainage, ear pain, ear ringing, eye pain, eye redness, hearing loss, mouth pain, mouth swelling, nasal discharge, nose bleeding, nose congestion, nose pain, photophobia, tearing, throat pain, throat swelling, voice changes, others Respiratory: denies: cough, hemoptysis, orthopnea, SOB at rest, shortness of breath, SOB with excertion, stridor, wheezing, others Cardiovascular: denies: chest pain, dizzy spells, diaphoresis, Dyspnea on exertion, edema, irregular heart beat, left arm pain, lightheadedness, palpitations, PND, syncope, others Gastrointestinal: denies: abdomen distended, abdominal pain, blood streaked bowels, constipated, diarrhea, dysphagia, difficulty swallowing, hematemesis, melena, nausea, poor appetite, poor fluid intake, rectal bleeding, rectal pain, vomiting, others Genitourinary: denies: burning, dysuria, flank pain, frequency, hematuria, incontinence, penile discharge, penile sore, pain, testicle pain, testicle swelling, urgency, others Neurological: denies: dizziness, fainting, headache, left sided numbness, left sided weakness, numbness, paresthesia, pre-existing deficit, right sided numbness, right sided weakness, seizure, speech problems, tingling, tremors, weakness, others Musculoskeletal: denies: back pain, gout, joint pain, joint swelling, muscle pain, muscle stiffness, neck pain, others Integumetry: denies: bruises, change in color, change in hair/nails, dryness, laceration, lesions, lumps, rash, wounds, others Allergic/Immunocompromised: denies: Difficulty Healing, Frequent Infections, Hives, Itching, others Hematologic/Lymphatic: denies: anemia, blood clots, easy bleeding, easy bruising, swollen glands, others Endocrine: denies: excessive hunger, excessive sweating, excessive thirst, excessive urination, flushing, intolerance to cold, intolerance to heat, unexplained weight gain, unexplained weight loss, others Psychiatric: denies: anxiety, bipolar disorder, depression, hopeless, panic disorder, schizophrenia, sleepless, suicidal, others All Other Systems: Reviewed and Negative Physical Exam General Appearance: Moderate Distress, Other (Altered mental status) HEENT: Pale [place] (L), Pale Conjuntivae (R), Pharynx Normal, TMs Normal Neck: Full Range of Motion, Non-Tender, Normal, Normal Inspection Respiratory: Chest Non-Tender, Lungs Clear, No Accessory Muscle Use, No Respiratory Distress, Normal Breath Sounds Cardiovascular: No Edema, No JVD, No Murmur, No Gallop, Normal Peripheral Pulses, Regular Rate/Rhythm Breast Exam: Deferred Gastrointestinal: No Organomegaly, Non Tender, No Pulsatile Mass, Normal Bowel Sounds, Soft Genitalia: Deferred Pelvic: Deferred Rectal: Deferred Extremities: No calf tenderness, Normal capillary refill, Normal inspection, Normal range of motion, Non-tender, No pedal edema Musculoskeletal : Apperance: Normal Neurologic: retail support associate II-XII nml as Tested, Motor Weakness, No Sensory Deficits, Other (Altered mental status) Cerebellar Function: Unable to Test Reflexes: Normal Skin: Dry, Pallor, Warm Lymphatic: No Adenopathy Was a procedure done? Was a procedure done?: No EKG EKG : Pulse Rate (adult): 93 [place]: Normal Cardiac Rhythm: NSR Block: None Hypertrophy: None ST: Normal Differential Dx Considerations may include: Generalized weakness, electrolyte imbalance, dehydration, hepatic encephalopathy, UTI, sepsis X-Ray, Labs, Meds, VS Vital Signs Date Time Temp Pulse Resp B/P (MAP) Pulse Ox O2 Delivery O2 Flow Rate FiO2 03/07/25 13:24 89 03/07/25 13:01 97.8 82 24 103/62 (76) 99 97.8 03/07/25 12:51 93 03/07/25 12:21 93 Lab Test 03/07/25 13:15 03/07/25 13:12 Range/Units White Blood Count 5.2 4.4-10.8 10^3/uL Red Blood Count 3.28 L 4.5-5.90 10^6/uL Hemoglobin 11.5 L 13.5-17.5 g/dL Hematocrit 32.8 L 41.0-53.0 % Mean Corpuscular Volume 100.2 H 80.0-100.0 fL Mean Corpuscular Hemoglobin 35.1 H 28.0-32.0 pg Mean Corpuscular Hemoglobin Concent 35.0 32.0-36.0 g/dL Red Cell Distribution Width 17.3 H 11.8-14.3 % Platelet Count 31 L 140-450 10^3/uL Mean Platelet Volume 8.2 6.9-10.8 fL Neutrophils (%) (Auto) 84.7 H 37.0-80.0 % Lymphocytes (%) (Auto) 8.3 L 10.0-50.0 % Monocytes (%) (Auto) 6.5 0.0-12.0 % Eosinophils (%) (Auto) 0.4 0.0-7.0 % Basophils (%) (Auto) 0.1 0.0-2.0 % Neutrophils # (Auto) 4.4 1.6-8.6 10 ^3/uL Lymphocytes # (Auto) 0.4 0.4-5.4 10 ^3/uL Monocytes # (Auto) 0.3 0-1.3 10 ^3/uL Eosinophils # (Auto) 0 0-0.8 10 ^3/uL Basophils # (Auto) 0 0-0.2 10 ^3/uL Nucleated Red Blood Cells 0.1 % Platelet Estimate Decreased Large Platelets Few Macrocytosis Slight Sodium Level 144 136-145 mmol/L Potassium Level 4.1 3.5-5.1 mmol/L Chloride Level 111 H 98-107 mmol/L Carbon Dioxide Level 25 20-31 mmol/L Anion Gap 8 5-15 Blood Urea Nitrogen 16 9-23 mg/dL Creatinine 0.50 L 0.700-1.30 mg/dL Glomerular Filtration Rate Calc 110 >90 mL/min BUN/Creatinine Ratio 32.0 H 10.0-20.0 Serum Glucose 99 74-106 mg/dL Lactic Acid Level 1.4 0.4-2.0 mmol/L Calcium Level 8.2 L 8.7-10.4 mg/dL Ammonia 94 H 11-32 umol/L Troponin I High Sensitivity 5 </=54 ng/L POC Glucose 107 H 70-106 mg/dl Current Medications Medications (Trade) Dose Ordered Sig/Sandi Route Start Time Stop Time Status Last Admin Sodium Chloride 500 ml @ 500 mls/hr Q1H ONCE IVB 03/07/25 12:45 03/07/25 13:44 DC 03/07/25 12:45 IMPRESSION: No acute intracranial abnormality. Radiation optimization: All CT scans at this facility use at least one of these dose optimization techniques: automated exposure control mA and/or kV adjustment per patient size (includes targeted exams where dose is matched to clinical indication) or iterative reconstruction. ESSION: No acute disease. Hep-Lock was established and the patient was given normal saline at a 500 cc bolus The patient's CBC shows a hemoglobin of 11.5 and hematocrit of 32.8 The chemistry panel is within normal limits The lactic acid levels within normal limits At this time, the patient will be admitted The ammonia level is elevated at 94 indicating hepatic encephalopathy Images Reviewed?: Images reviewed and evaluated by me Time of 1ST Reevaluation: 13:00 Reevaluation 1ST: Unchanged Patient Education/Counseling: Other (The patient is confused) Family Education/Counseling: No Family Present Departure 1 Departure Time of Disposition: 16:24 Impression: Primary Impression: Hepatic encephalopathy Disposition: ADMITTED INPATIENT [facility]mit to: [facility] Condition: Fair Critical Care Note Critical Care Time?: Yes (55 min-critical care time only) Stability Stability form required: Yes Unstable for transfer: Telemetry monitoring (Telemetry monitoring required), ED Physician Assesment (Clinical assesment) Heart Score Heart Score: Heart Score Response (Comments) Value History N/A 0 EKG N/A 0 Age N/A 0 Risk Factors N/A 0 Troponin N/A 0 Total 0 I personally scribed for RAFI THOMAS MD ([email or web address]) on 03/07/25 at 12:51. Electronically submitted by Kiel De Jesus ([employer]). I personally scribed for RAFI THOMAS MD ([email or web address]) on 03/07/25 at 13:36. Electronically submitted by Kiel De Jesus ([employer]). RAFI THOMAS MD March 07, 2025 12:51
--- NOTE | 2025-03-07 13:07 | DVH ---
CHEST RADIOGRAPH Indication: aloc Technique: Single frontal view of the chest was obtained COMPARISON: XY CHEST PORTABLE on DOS: 06/07/24, XY CHEST PORTABLE on DOS: 06/05/24, XY CHEST PORTABLE on DOS: 12/04/23, XY CHEST PORTABLE on DOS: 11/20/23, XY CHEST PORTABLE on DOS: 11/12/23 FINDINGS: Lines and Tubes: None Lungs: Clear Pleura: No effusion. No pneumothorax. Cardiomediastinal contours: Unremarkable Bones: Unremarkable IMPRESSION: No acute disease.
--- NOTE | 2025-03-07 13:27 | DVH ---
EXAM: CT HEAD WITHOUT CONTRAST INDICATION: aloc TECHNIQUE: CT of the head without intravenous contrast. Radiation Dose : 1. Head: CT Dose: CTDI volume is 53 mGy. Dose-length product is 64 mGy*cm The dose indicators for CT are the volume Computed Tomography (CT) Dose Index (CTDIvol) and the Dose Length Product (DLP), and are measured in units of mGy and mGy-cm, respectively. These indicators are not patient dose, but values generated from the CT scanner acquisition factors. The report includes radiation exposure data for exposures received during this examination. COMPARISON: CT HEAD WITHOUT CONTRAST on DOS: 11/03/23 FINDINGS: There is no evidence of acute intracranial hemorrhage, extra-axial collection, mass effect, midline s hift, herniation or hydrocephalus. Bifrontal atrophy. The ventricles, sulci and cisterns are age appropriate. The montano-white differentiation is intact. Patchy periventricular and subcortical white matter hypoattenuation is nonspecific but may be related to small vessel ischemic disease. The visualized paranasal sinuses and mastoid air cells are clear. The surrounding soft tissues and osseous structures are unremarkable. IMPRESSION: No acute intracranial abnormality. Radiation optimization: All CT scans at this facility use at least one of these dose optimization anil hniques: automated exposure control mA and/or kV adjustment per patient size (includes targeted exam s where dose is matched to clinical indication) or iterative reconstruction.
[2025-03-07 13:44] LABS: Basophils # (auto) 0 10 ^3/uL (0-0.2); Basophils % (auto) 0.1 % (0.0-2.0); Eosinophils # (auto) 0 10 ^3/uL (0-0.8); Hemoglobin 11.5 g/dL (13.5-17.5); Lymphocytes # (auto) 0.4 10 ^3/uL (0.4-5.4); Monocytes # (auto) 0.3 10 ^3/uL (0-1.3); Neutrophils # (auto) 4.4 10 ^3/uL (1.6-8.6); Nucleated Red Blood Cells % 0.1 %; Platelet Count (auto) 31 10^3/uL (140-450); Potassium 4.1 mmol/L (3.5-5.1); Sodium 144 mmol/L (136-145)
[2025-03-07 13:45] LABS: Anion Gap 8 (5-15); Carbon Dioxide 25 mmol/L (20-31)
[2025-03-07 13:47] LABS: Eosinophils % (auto) 0.4 % (0.0-7.0); Hematocrit 32.8 % (41.0-53.0); Lymphocytes % (auto) 8.3 % (10.0-50.0); Mean Corpuscular Hemoglobin 35.1 pg (28.0-32.0); Mean Corpuscular Volume 100.2 fL (80.0-100.0); Monocytes % (auto) 6.5 % (0.0-12.0); Neutrophils % (auto) 84.7 % (37.0-80.0); Red Blood Cells 3.28 10^6/uL (4.5-5.90); Red Cell Distribution Width 17.3 % (11.8-14.3); White Blood Cell 5.2 10^3/uL (4.4-10.8)
[2025-03-07 13:48] LABS: Calcium 8.2 mg/dL (8.7-10.4); Chloride 111 mmol/L (98-107)
[2025-03-07 13:50] LABS: Blood Urea Nitrogen 16 mg/dL (9-23); Glucose 99 mg/dL (74-106)
[2025-03-07 14:25] LABS: Large Platelets FEW; Macrocytosis Slight; Platelet Estimate Decreased
[2025-03-07 17:07] VITALS: PULSE 80; RESP 16; O2SAT 95
[2025-03-07 18:35] LABS: Urine Bacteria FEW /hpf (None Seen); Urine Blood Negative /uL (Negative); Urine Clarity Turbid (Clear); Urine Color Yellow (Yellow); Urine Mucus FEW (None Seen); Urine Protein, UAD TRACE (Negative); Urine Specific Gravity 1.029 (1.001-1.035); Urine Squamous Epithelial Cell None Seen /hpf (<5); Urine Urobilinogen 8 mg/dL (Negative); Urine WBC 29 /HPF (0-3)
[2025-03-07 19:00] VITALS: PULSE 84; RESP 18; O2SAT 98
[2025-03-07] MEDS ORDERED: DOCUSATE SOD 100 MG CAP PO PRN (22:00)
[2025-03-07] MEDS ORDERED: MORPHINE SULFATE INJ 2 MG/ml SYRG IV PRN (22:00)
[2025-03-07] MEDS: SODIUM CHLOR 0.9% PF (SALINE LOCK) 10ML VIAL/SYR IV SCH (22:00)
[2025-03-07] MEDS ORDERED: ONDANSETRON HCL 4 MG/2 ML VIAL IV PRN (22:00)
[2025-03-07] MEDS ORDERED: NITROGLYCERIN 0.4 MG SL TAB SL PRN (22:00)
--- NOTE | 2025-03-07 22:41 | DVHHP2 ---
History of Present Illness History of Present Illness Patient is 69 years old male hospice revoked past medical history of cirrhosis of liver, hepatitis-C, COPD, asthma, home oxygen [place] O2 4 L/min, CHF, CVA, hypertension, CAD-KS, status post PTCA, seizure disorder, neuropathy was brought in by EMS due to worsening lethargy. Information was gathered from talking to the patient, from the the chart, talking to the nursing staff as there was no family contact number available at this time. As per nursing staff patient had morphine at home given by hospice not followed by patient was be lethargy diffi cult to arouse or communicate so family called 911 and EMS. Atorvastatin HIDA soft BP. On arrival patient was lethargic, hypotensive. Patient reported feeling chest pain, central, 9/10, pressure-like no aggravating factor for last 3 days, denied any nausea or vomiting or fever. Initial lab workup revealed thrombocytopenia with platelet 31K, MCV 100.2, RDW 17.3, liquid to feel illicit 4.7, ammonia 94, urinalysis revealed UTI with leukocyte esterase 2+, WBC 29, bilirubin few,. CXR no acute abnormality noted, CT head no acute abnormality noted. Past Medical History cirrhosis of liver, hepatitis-C, COPD, asthma, home oxygen [place] O2 4 L/min, CHF, CVA, hypertension, CAD-KS, status post PTCA, seizure disorder, neuropathy Past Surgical History PTCA Review of Systems Review of Systems Patient was seen today at the bedside. Cardiovascular- deny acute shortness of breath or cough or palpitation Respiratory denies cough or short of breath or wheezing Gastrointestinal- denies any rectal bleeding, nausea or vomiting Musculoskeletal-denies acute joint swelling or tenderness or redness Neurological- denies acute dysarthria, dysphagia, change in vision Psychiatry- denies depression or SI or HI Skin- denies acute rash or purpura Allergies: Coded Allergies: NO KNOWN ALLERGIES (Unverified , 10/27/23) Medications Current Medications Medications Dose Ordered Sig/Sandi Route Start Time Stop Time Status Last Admin Dose Admin Sodium Chloride 10 ml Q8HR IV 03/07/25 22:00 Ondansetron HCl 4 mg Q4HP PRN IV 03/07/25 22:00 Docusate Sodium 100 mg BIDPRN PRN PO 03/07/25 22:00 Nitroglycerin 0.4 mg Q5MINP PRN SL 03/07/25 22:00 Morphine Sulfate 2 mg Q30M PRN IV 03/07/25 22:00 Lactulose 30 ml Q6H PO 03/08/25 04:00 Pantoprazole Sodium 40 mg DAILY IV 03/08/25 10:00 Exam Vital Signs Vital Signs Date Time Temp Pulse Resp B/P (MAP) Pulse Ox O2 Delivery O2 Flow Rate FiO2 03/07/25 22:04 104/47 (66) 03/07/25 21:30 98.6 85 16 98 98.6 03/07/25 17:07 Nasal Cannula* 4 36 Exam General examination- patient tired looking, lethargic, awake and alert HEENT- [place], no acute nasal discharge Cardiovascular- S1-S2 audible, rate and rhythm regular, no murmur Respiratory- CTAB, no wheeze or rhonchi Gastrointestinal-nontender, bowel sound+. Nondistended Musculoskeletal-no acute joint swelling or tenderness or redness Lower extremity- no leg edema, foot contracture Neurological- cranial nerves intact, no acute dysarthria or dysphagia Psychiatry- denies depression or SI or HI Skin- no acute rash or purpura Labs/Xrays Labs Test 03/07/25 22:25 03/07/25 18:00 03/07/25 13:15 03/07/25 13:12 Range/Units Urine Color Yellow Yellow Urine Clarity Turbid H Clear Urine pH 7.0 5.0-9.0 Urine Specific [place] 1.029 1.001-1.035 Urine Protein Trace H Negative Urine Ketones 1+ H Negative Urine Blood Negative Negative /uL Urine Nitrite 2+ H Negative Urine Bilirubin Negative Negative Urine Urobilinogen 8 H Negative mg/dL Urine Leukocyte Esterase 2+ Negative /uL Urine RBC 3 0 - 3 /hpf Urine Microscopic WBC 29 H 0-3 /HPF Urine Squamous Epithelial Cells None seen <5 /hpf Urine Bacteria Few H None Seen /hpf Urine Mucus Few None Seen Urine Glucose Normal Normal mg/dL White Blood Count 5.2 4.4-10.8 10^3/uL Red Blood Count 3.28 L 4.5-5.90 10^6/uL Hemoglobin 11.5 L 13.5-17.5 g/dL Hematocrit 32.8 L 41.0-53.0 % Mean Corpuscular Volume 100.2 H 80.0-100.0 fL Mean Corpuscular Hemoglobin 35.1 H 28.0-32.0 pg Mean Corpuscular Hemoglobin Concent 35.0 32.0-36.0 g/dL Red Cell Distribution Width 17.3 H 11.8-14.3 % Platelet Count 31 L 140-450 10^3/uL Mean Platelet Volume 8.2 6.9-10.8 fL Neutrophils (%) (Auto) 84.7 H 37.0-80.0 % Lymphocytes (%) (Auto) 8.3 L 10.0-50.0 % Monocytes (%) (Auto) 6.5 0.0-12.0 % Eosinophils (%) (Auto) 0.4 0.0-7.0 % Basophils (%) (Auto) 0.1 0.0-2.0 % Neutrophils # (Auto) 4.4 1.6-8.6 10 ^3/uL Lymphocytes # (Auto) 0.4 0.4-5.4 10 ^3/uL Monocytes # (Auto) 0.3 0-1.3 10 ^3/uL Eosinophils # (Auto) 0 0-0.8 10 ^3/uL Basophils # (Auto) 0 0-0.2 10 ^3/uL Nucleated Red Blood Cells 0.1 % Platelet Estimate Decreased Large Platelets Few Macrocytosis Slight Sodium Level 144 136-145 mmol/L Potassium Level 4.1 3.5-5.1 mmol/L Chloride Level 111 H 98-107 mmol/L Carbon Dioxide Level 25 20-31 mmol/L Anion Gap 8 5-15 Blood Urea Nitrogen 16 9-23 mg/dL Creatinine 0.50 L 0.700-1.30 mg/dL Glomerular Filtration Rate Calc 110 >90 mL/min BUN/Creatinine Ratio 32.0 H 10.0-20.0 Serum Glucose 99 74-106 mg/dL Lactic Acid Level 1.4 0.4-2.0 mmol/L Calcium Level 8.2 L 8.7-10.4 mg/dL Ammonia 94 H 11-32 umol/L Troponin I High Sensitivity 5 </=54 ng/L POC Glucose 107 H 70-106 mg/dl Assessment/Plan Assessment/Plan Assessment and plan Acute metabolic encephalopathy likely due to hepatic failure Lethargy and fatigue likely due to hepatic encephalopathy Acute chest pain, rule out acute coronary syndrome Acute Complicated cystitis Thrombocytopenia likely due to portal hypertension Bicytopenia, Leukopenia likely due to hypersplenism SIRS cirrhosis of liver, hepatitis-C, COPD, asthma, home oxygen [place] O2 4 L/min, CHF, CVA, hypertension, CAD-[place], status post PTCA, seizure disorder, neuropathy CT head negative for acute intracranial abnormality CXR negative for acute abnormality Plan Lactulose 30 mL q.6h Pantoprazole Rifaximin as prescribed Ceftriaxone 1 g IV daily Pending urine culture report Avoid dehydration and nephrotoxic drugs Goals of care, Code status ; discussed with >15 minutes PUD prophylaxis: Pantoprazole DVT prophylaxis: SCD Plan discussed with Dr. Xavier , nursing staff, Total time spent on patient evaluation, chart review, assessment and plan, discussion discussion >35 minutes Plan discussed with: Patient, Other (RN) My Orders Orders - GABRIEL AUGUSTINE RESIDENT Procedure Category Date Status Time Admit ADMIT 03/07/25 Transmitted 21:55 Code Status CODE 03/07/25 Transmitted 21:55 Sodium Chloride Lock PHA 03/07/25 In Process (Saline Lock Ns) 22:00 Ondansetron Hcl PHA 03/07/25 In Process (Zofran) 22:00 Docusate Sodium PHA 03/07/25 In Process Capsule (Colace 22:00 Complete Blood Count LAB 03/08/25 Verified 04:00 Comprehensive LAB 03/08/25 Verified Metabolic Panel 04:00 Npo (Nothing By DIET 03/08/25 Transmitted Mouth) Diet Breakfast * Swallow Request ST 03/07/25 Transmitted 21:55 Nitroglycerin PHA 03/07/25 In Process Sublingual (Ntrostat 22:00 Morphine Sulfate PHA 03/07/25 In Process Injection 22:00 Oxygen By Nasal RT 03/07/25 Transmitted Cannula 21:55 Stat Ekg For Chest ZAHRA 03/07/25 In Process Pain 21:55 Notify Md Of Changes BANNER 03/07/25 In Process From Base 21:55 Pastry Chef For ZAHRA 03/07/25 In Process 24 Hours 21:55 Emergency Dysrhythmia BANNER 03/07/25 In Process Protocol 21:55 Rhythm Strips Once BANNER 03/07/25 In Process Every Shift 21:55 Prothrombin Time W/ LAB 03/07/25 In Process INR 21:58 Covid19 Antigen Sunitha LAB 03/07/25 Logged Rapid Influenza A&B LAB 5/9/25 Logged 21:58 Lactulose Oral PHA 03/08/25 In Process 04:00 Pantoprazole PHA 03/08/25 In Process (Protonix) 10:00 Date of Service: March 07, 2025 Billing Provider: ASA XAVIER MD Common Visit Codes: 28777-NPOPBLZ INP/OBS CARE (HIGH) Secondary Visit Codes: 20584-FEVTOTUS CARE PLAN 30 MINUTES GABRIEL AUGUSTINE RESIDENT March 07, 2025 22:41
[2025-03-07] MEDS: SODIUM CHLORIDE 0.9% 500 ML IV ONE (23:00)
[2025-03-07 23:35] LABS: INR 1.25 (0.9-1.15)
[2025-03-07] MEDS: LACTULOSE 20Gm/30ML SOLN PO ONE (23:48)
[2025-03-07] MEDS: PANTOPRAZOLE 40 MG/10 ML VIAL INJ IV ONE (23:48)
[2025-03-07] MEDS: rifAXIMin 550 MG TAB PO ONE (23:52)
[2025-03-08] MEDS: THIAMINE HCL 100 MG TAB PO ONE ×2 (00:30→08:43)
[2025-03-08] MEDS: FOLIC ACID 1 MG TAB PO ONE ×2 (00:30→08:43)
[2025-03-08] MEDS: cefTRIAXone 1GM/50ML D5W 50 ML IV ONE (00:53)
[2025-03-08 06:24] LABS: Basophils # (auto) 0 10 ^3/uL (0-0.2); Basophils % (auto) 0.2 % (0.0-2.0); Eosinophils # (auto) 0.1 10 ^3/uL (0-0.8); Hemoglobin 11.9 g/dL (13.5-17.5); Lymphocytes # (auto) 0.4 10 ^3/uL (0.4-5.4); Lymphocytes % (auto) 12.3 % (10.0-50.0); Mean Corpuscular Volume 101.4 fL (80.0-100.0); Monocytes # (auto) 0.2 10 ^3/uL (0-1.3); Neutrophils # (auto) 2.7 10 ^3/uL (1.6-8.6); Platelet Count (auto) 32 10^3/uL (140-450); White Blood Cell 3.4 10^3/uL (4.4-10.8)
[2025-03-08 06:26] LABS: Eosinophils % (auto) 2.5 % (0.0-7.0); Mean Corpuscular Hemoglobin 35.4 pg (28.0-32.0); Mean Corpuscular Hgb Conc. 34.9 g/dL (32.0-36.0); Monocytes % (auto) 7.1 % (0.0-12.0); Neutrophils % (auto) 77.9 % (37.0-80.0); Nucleated Red Blood Cells % 0.1 %; Red Blood Cells 3.36 10^6/uL (4.5-5.90); Red Cell Distribution Width 17.2 % (11.8-14.3)
[2025-03-08 06:47] LABS: Alanine Aminotransferase 25 U/L (7-40); Alkaline Phosphatase 83 U/L (46-116); Anion Gap 11 (5-15); BUN/Creatinine Ratio 26.8 (10.0-20.0); Blood Urea Nitrogen 19 mg/dL (9-23); Calcium 8.8 mg/dL (8.7-10.4); Carbon Dioxide 21 mmol/L (20-31); Glucose 100 mg/dL (74-106); Potassium 4.7 mmol/L (3.5-5.1); Sodium 144 mmol/L (136-145)
[2025-03-08 06:52] LABS: Albumin 2.9 g/dL (3.2-4.8); Aspartate Aminotransferase 55 U/L (13-40); Chloride 112 mmol/L (98-107)
[2025-03-08] MEDS: SODIUM CHLORIDE 0.9% 500 ML IV ONE (07:00)
--- NOTE | 2025-03-08 07:13 | ECG ---
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
[2025-03-08 07:35] VITALS: PULSE 84; RESP 15; O2SAT 97
[2025-03-08] MEDS: LACTULOSE 20Gm/30ML SOLN PO SCH (08:43)
--- NOTE | 2025-03-08 08:48 | DVHINCON2 ---
Date Seen: March 08, 2025 Referring Physician Toshia Reason for Consultation Chest Pain History of Present Illness 69-year-old male with PMH for liver cirrhosis, hepatitis-C, COPD, asthma, CHF, CVA, HTN, and CAD/HI status post PCI presents to the hospital with worsening lethargy. Patient continues to be lethargic, information gathering mainly from chart review. Apparently patient was previously on hospice and was being given morphine for comfort though once patient became difficult to arouse or communicate family called 911. Apparently patient had reported episode of chest pain that was central 9/10 pressure like no aggravating factors for the last 3 days denied any nausea vomiting fever. Upon evaluation in the ER, platelets 32, troponin negative x4, CT head and CXR negative for acute pathology. EKG reviewed and shows sinus rhythm at 83 beats per minute, no significant ST and T-wave abnormalities noted. Past Medical History As stated above Past Surgical History Coronary angiogram s/p DELORIS x2 1985 Family History: FH: heart attack G8 MOTHER G8 BROTHER G8 BROTHER Allergies: Coded Allergies: NO KNOWN ALLERGIES (Unverified , 10/27/23) Home Meds Active Scripts Carvedilol (COREG) 3.125 Mg Tab, 3.125 MG PO BID, #60 TAB Prov:LISSY JACQUES MD 06/11/24 Pantoprazole Sodium Sesquihydr (Pantoprazole Sodium) 40 Mg Tab, 40 MG PO BID, #60 TAB Prov:LISSY JACQUES MD 06/11/24 Azithromycin (Azithromycin) 500 Mg Tab, 1 TAB PO DAILY, #7 TAB Prov:LISSY JACQUES MD 06/11/24 Reported Medications Albuterol Sulfate (Albuterol Sulfate Hfa) 108 Mcg/Act Aer, INH 10/28/23 Diclofenac Sodium (Actinic Ker (Diclofenac Sodium) 3 % Gel, TOP 10/28/23 Lactulose (Lactulose) 10 Gm/15 Ml Frances, ML PO 10/28/23 Phenytoin Sodium (Dilantin) 100 Mg Cap, 1 CAP PO TID 10/28/23 Morphine Sulfate (Morphine Sulfate Cr) 15 Mg Tab, 1 TAB PO TID 10/28/23 Furosemide (Furosemide) 40 Mg Tab, 1 TAB PO BID 10/28/23 Rifaximin (Xifaxan) 550 Mg Tab, 1 TAB PO BID 10/28/23 Gabapentin (Gabapentin) 600 Mg Tab, 1 TAB PO TID 10/28/23 Atorvastatin Calcium (ATORVASTATIN CALCIUM) 40 Mg Tab, 1 TAB PO DAILY 10/28/23 Midodrine Hcl (Midodrine Hcl) 5 Mg Tab, 1 TAB PO TID 10/28/23 Spironolactone (Spironolactone) 25 Mg Tab, 1 TAB PO DAILY 10/28/23 Metoprolol Tartrate (Lopressor) 25 Mg Tb, TAB PO 10/28/23 Current Medications Current Medications Medications (Trade) Dose Ordered Sig/Sandi Route PRN Reason Start Time Stop Time Status Last Admin Sodium Chloride (Saline Lock Ns) 10 ml Q8HR IV 03/07/25 22:00 03/08/25 06:04 Ondansetron HCl (Zofran) 4 mg Q4HP PRN IV NAUSEA / VOMITING 03/07/25 22:00 Docusate Sodium (Colace Capsule) 100 mg BIDPRN PRN PO FOR CONSTIPATION 03/07/25 22:00 Nitroglycerin (Ntrostat Sublingual) 0.4 mg Q5MINP PRN SL FOR CHEST PAIN 03/07/25 22:00 Morphine Sulfate 2 mg Q30M PRN IV FOR CHEST PAIN 03/07/25 22:00 Lactulose 30 ml Q6H PO 03/08/25 08:00 Pantoprazole Sodium (Protonix) 40 mg DAILY IV 03/08/25 10:00 Rifaximin (Xifaxan) 550 mg BID PO 03/08/25 10:00 Ceftriaxone Sodium 50 ml @ 100 mls/hr DAILY@09 IV 03/09/25 09:00 Thiamine HCl 100 mg DAILY PO 03/09/25 10:00 Folic Acid 1 mg DAILY PO 03/09/25 10:00 Carvedilol (Coreg Tablet) 3.125 mg BID PO 03/08/25 10:00 Spironolactone (Aldactone) 25 mg DAILY PO 03/08/25 10:00 Atorvastatin Calcium (Lipitor) 40 mg HS PO 03/08/25 22:00 Review of Systems Unable to obtain Vital Signs Vital Signs Date Time Temp Pulse Resp B/P (MAP) Pulse Ox O2 Delivery O2 Flow Rate FiO2 03/08/25 06:00 78 18 115/54 (74) 97 03/07/25 21:30 98.6 98.6 03/07/25 19:00 Nasal Cannula* 4 36 Physical Exam General appearance: Ill-appearing, in no acute distress. HEENT: Exam shows: Normocephalic, atraumatic, PERRLA, EOMI Neck: Supple, no bruits Chest: Equal chest excursion bilaterally. Breath sounds diminished Heart: Rhythm: Regular rate; no murmur or gallop Abdomen: Exam shows: Soft, nontender, nondistended Musculoskeletal: No clubbing, no cyanosis, no lower extremity edema Dermatology: Skin warm, moist. Neurological: Exam shows: Lethargic Available prior records, labs, EKG, rhythm strips reviewed and interpreted Labs/Diagnostic Data Labs Test 03/08/25 06:13 03/08/25 05:47 03/07/25 22:25 03/07/25 18:00 Range/Units White Blood Count 3.4 #L 4.4-10.8 10^3/uL Red Blood Count 3.36 L 4.5-5.90 10^6/uL Hemoglobin 11.9 L 13.5-17.5 g/dL Hematocrit 34.0 L 41.0-53.0 % Mean Corpuscular Volume 101.4 H 80.0-100.0 fL Mean Corpuscular Hemoglobin 35.4 H 28.0-32.0 pg Mean Corpuscular Hemoglobin Concent 34.9 32.0-36.0 g/dL Red Cell Distribution Width 17.2 H 11.8-14.3 % Platelet Count 32 L 140-450 10^3/uL Mean Platelet Volume 8.3 6.9-10.8 fL Neutrophils (%) (Auto) 77.9 37.0-80.0 % Lymphocytes (%) (Auto) 12.3 10.0-50.0 % Monocytes (%) (Auto) 7.1 0.0-12.0 % Eosinophils (%) (Auto) 2.5 0.0-7.0 % Basophils (%) (Auto) 0.2 0.0-2.0 % Neutrophils # (Auto) 2.7 1.6-8.6 10 ^3/uL Lymphocytes # (Auto) 0.4 0.4-5.4 10 ^3/uL Monocytes # (Auto) 0.2 0-1.3 10 ^3/uL Eosinophils # (Auto) 0.1 0-0.8 10 ^3/uL Basophils # (Auto) 0 0-0.2 10 ^3/uL Nucleated Red Blood Cells 0.1 % Sodium Level 144 136-145 mmol/L Potassium Level 4.7 3.5-5.1 mmol/L Chloride Level 112 H 98-107 mmol/L Carbon Dioxide Level 21 20-31 mmol/L Anion Gap 11 5-15 Blood Urea Nitrogen 19 9-23 mg/dL Creatinine 0.71 0.700-1.30 mg/dL Glomerular Filtration Rate Calc 99 >90 mL/min BUN/Creatinine Ratio 26.8 H 10.0-20.0 Serum Glucose 100 74-106 mg/dL Calcium Level 8.8 8.7-10.4 mg/dL Magnesium Level 1.8 1.6-2.6 mg/dL Total Bilirubin 2.0 H 0.2-1.0 mg/dL Aspartate Amino Transferase (AST) 55 H 13-40 U/L Alanine Aminotransferase (ALT) 25 7-40 U/L Alkaline Phosphatase 83 46-116 U/L Ammonia 60 H 11-32 umol/L Troponin I High Sensitivity 4 </=54 ng/L Total Protein 6.0 5.7-8.2 g/dL Albumin 2.9 L 3.2-4.8 g/dL Prothrombin Time 13.0 H 9.3-11.8 sec Prothrombin Time INR 1.25 H 0.9-1.15 Urine Color Yellow Yellow Urine Clarity Turbid H Clear Urine pH 7.0 5.0-9.0 Urine Specific [place] 1.029 1.001-1.035 Urine Protein Trace H Negative Urine Ketones 1+ H Negative Urine Blood Negative Negative /uL Urine Nitrite 2+ H Negative Urine Bilirubin Negative Negative Urine Urobilinogen 8 H Negative mg/dL Urine Leukocyte Esterase 2+ Negative /uL Urine RBC 3 0 - 3 /hpf Urine Microscopic WBC 29 H 0-3 /HPF Urine Squamous Epithelial Cells None seen <5 /hpf Urine Bacteria Few H None Seen /hpf Urine Mucus Few None Seen Urine Glucose Normal Normal mg/dL Test 03/07/25 13:15 03/07/25 13:12 Range/Units Platelet Estimate Decreased Large Platelets Few Macrocytosis Slight Hemoglobin A1c 4.2 <5.7 % A1C Lactic Acid Level 1.4 0.4-2.0 mmol/L Vitamin B12 Level 1630 H 211-911 pg/mL Thyroid Stimulating Hormone (TSH) 1.04 0.55-4.78 uIU/mL POC Glucose 107 H 70-106 mg/dl Assessment Chest pain CAD s/p stent CHF Liver cirrhosis Thrombocytopenia Metabolic encephalopathy UTI Plan/Recommendation * Troponins negative x4, check echo. EKG negative for acute ischemic changes. Patient not a good candidate for invasive ischemic workup due to history of bleeding complications and current thrombocytopenia. Recommend conservative medical management. * Continue statin. * BP stable, currently on Coreg 3.125 mg p.o. twice daily, continue trending. Case Discussed with Dr Thompson. Check ECHO, There is no further cardiac work-up indicated at this time. Thank you for allowing us to participate in this patient's care. Will sign off.Please call if in need to continue follow-up. Thank you for allowing us to care for this patient. Please call with any questions or concerns. Critical care, time spent: 38 minutes This medical document was created using an electronic medical record system with voice recognition software and computerized dictation system. Although this document has been carefully reviewed, there might still be some phonetic and typographical errors. Occasional wrong-word or ``sound-alike�� substitutions may have occurred due to the inherent limitations of voice recognition software. These areas are purely typographical due to imperfections of the software programs and do not reflect any compromise in the patient's medical care. Please read the chart carefully and recognize, using context, where these substitutions have occurred. Plan discussed with: Patient, Other NYHA Physical activity limitations: Class3(Marked) ordinary Date of Service: March 08, 2025 Billing Provider: PANCHITO BALDWIN Cardiology Common Codes: [id number] INP/OBS CARE (High), [id number] CARE 30-74 MIN PANCHITO BALDWIN March 08, 2025 08:48
[2025-03-08] MEDS: PANTOPRAZOLE 40 MG/10 ML VIAL INJ IV SCH (11:24)
[2025-03-08] MEDS: SPIRONOLACTONE 25 MG TAB PO SCH (11:24)
[2025-03-08] MEDS: CARVEDILOL 3.125 MG TAB PO SCH (11:25)
[2025-03-08] MEDS: rifAXIMin 550 MG TAB PO SCH (11:26)
--- NOTE | 2025-03-08 13:23 | DVHPN2 ---
Reviewed: Care Plan, H&P, Labs, Medications, Previous Orders, Radiology Changes from previous H/P or p: No Changes Objective Vitals Vital Signs Date Time Temp Pulse Resp B/P (MAP) Pulse Ox O2 Delivery O2 Flow Rate FiO2 03/08/25 12:29 80 136/75 03/08/25 07:35 98.3 15 97 98.3 03/08/25 07:35 Nasal Cannula* 3 32 Intake/Output Intake and Output 03/08/25 07:00 Intake Total 550 ml Output Total 450 ml Balance 100 ml Intake IV Total 550 ml Output Urine Total 450 ml Medications Current Medications Medications Dose Ordered Sig/Sandi Route Start Time Stop Time Status Last Admin Dose Admin Sodium Chloride 10 ml Q8HR IV 03/07/25 22:00 03/08/25 06:04 10 ML Ondansetron HCl 4 mg Q4HP PRN IV 03/07/25 22:00 Docusate Sodium 100 mg BIDPRN PRN PO 03/07/25 22:00 Nitroglycerin 0.4 mg Q5MINP PRN SL 03/07/25 22:00 Morphine Sulfate 2 mg Q30M PRN IV 03/07/25 22:00 Lactulose 30 ml Q6H PO 03/08/25 08:00 03/08/25 08:43 30 ML Pantoprazole Sodium 40 mg DAILY IV 03/08/25 10:00 03/08/25 11:24 40 MG Rifaximin 550 mg BID PO 03/08/25 10:00 03/08/25 11:26 550 MG Ceftriaxone Sodium 50 ml @ 100 mls/hr DAILY@09 IV 03/09/25 09:00 Thiamine HCl 100 mg DAILY PO 03/09/25 10:00 Folic Acid 1 mg DAILY PO 03/09/25 10:00 Carvedilol 3.125 mg BID PO 03/08/25 10:00 03/08/25 11:25 3.125 MG Spironolactone 25 mg DAILY PO 03/08/25 10:00 03/08/25 11:24 25 MG Atorvastatin Calcium 40 mg HS PO 03/08/25 22:00 Laboratory Results Laboratory Tests 03/08/25 05:47 03/08/25 06:13 Chemistry Test 03/08/25 05:47 Albumin 2.9 g/dL (3.2-4.8) L Calcium Level 8.8 mg/dL (8.7-10.4) Magnesium Level 1.8 mg/dL (1.6-2.6) Total Protein 6.0 g/dL (5.7-8.2) Coagulation Test 03/07/25 22:25 Prothrombin Time 13.0 sec (9.3-11.8) H Prothrombin Time INR 1.25 (0.9-1.15) H LFT Test 03/08/25 05:47 Alanine Aminotransferase (ALT) 25 U/L (7-40) Alkaline Phosphatase 83 U/L (46-116) Aspartate Amino Transferase (AST) 55 U/L (13-40) H Total Bilirubin 2.0 mg/dL (0.2-1.0) H Urinalysis Test 03/07/25 18:00 Urine Color Yellow (Yellow) Urine Clarity Turbid (Clear) H Urine pH 7.0 (5.0-9.0) Urine Specific [place] 1.029 (1.001-1.035) Urine Protein Trace (Negative) H Urine Ketones 1+ (Negative) H Urine Blood Negative /uL (Negative) Urine Nitrite 2+ (Negative) H Urine Bilirubin Negative (Negative) Urine Urobilinogen 8 mg/dL (Negative) H Urine Leukocyte Esterase 2+ /uL (Negative) Urine RBC 3 /hpf (0 - 3) Urine Microscopic WBC 29 /HPF (0-3) H Urine Squamous Epithelial Cells None seen /hpf (<5) Urine Bacteria Few /hpf (None Seen) H Urine Mucus Few (None Seen) Urine Glucose Normal mg/dL (Normal) Labs and/or images reviewed: Labs reviewed by me, Image(s) reviewed by me Assessment/Plan Assessment/Plan Acute Abdominal pain Acute blood loss anemia hemoglobin 7.1 status post 1 unit RBC 1 unit platelet and 2 units fresh frozen plasma transfusion, improved to 8.5, Acute hematemesis: Severe portal gastropathy by EGD by Dr. Puri which might be the source of bleeding, mild esophageal varies Minimal ascites. Not drainable per radiologist Acute on chronic hypoxic respiratory failure on oxygen 5 L by nasal canula Possible aspiration pneumonia: Rocephin azithromycin consult for pulmonology Dr Reed appreciated Alcoholic Cirrhosis of liver DVT ruled out PE ruled out Acute on chronic diastolic heart failure, ejection fraction 60% Pancytopenia NINOSKA Acute on chronic COPD exacerbation Hypotension History of [facility] Nutrition: TPN per pharmacy Seizures Peripheral neuropathy History of PTCA Plan discussed with: Patient Date of Service: March 08, 2025 Billing Provider: LISSY JACQUES MD Common Visit Codes: [id number] CARE 30-74 MIN LISSY JACQUES MD March 08, 2025 13:23
--- NOTE | 2025-03-08 13:27 | DVHPN2 ---
Reviewed: Care Plan, H&P, Labs, Medications, Previous Orders, Radiology Changes from previous H/P or p: No Changes Objective Vitals Vital Signs Date Time Temp Pulse Resp B/P (MAP) Pulse Ox O2 Delivery O2 Flow Rate FiO2 03/08/25 12:29 80 136/75 03/08/25 07:35 98.3 15 97 98.3 03/08/25 07:35 Nasal Cannula* 3 32 Intake/Output Intake and Output 03/08/25 07:00 Intake Total 550 ml Output Total 450 ml Balance 100 ml Intake IV Total 550 ml Output Urine Total 450 ml Medications Current Medications Medications Dose Ordered Sig/Sandi Route Start Time Stop Time Status Last Admin Dose Admin Sodium Chloride 10 ml Q8HR IV 03/07/25 22:00 03/08/25 06:04 10 ML Ondansetron HCl 4 mg Q4HP PRN IV 03/07/25 22:00 Docusate Sodium 100 mg BIDPRN PRN PO 03/07/25 22:00 Nitroglycerin 0.4 mg Q5MINP PRN SL 03/07/25 22:00 Morphine Sulfate 2 mg Q30M PRN IV 03/07/25 22:00 Lactulose 30 ml Q6H PO 03/08/25 08:00 03/08/25 08:43 30 ML Pantoprazole Sodium 40 mg DAILY IV 03/08/25 10:00 03/08/25 11:24 40 MG Rifaximin 550 mg BID PO 03/08/25 10:00 03/08/25 11:26 550 MG Ceftriaxone Sodium 50 ml @ 100 mls/hr DAILY@09 IV 03/09/25 09:00 Thiamine HCl 100 mg DAILY PO 03/09/25 10:00 Folic Acid 1 mg DAILY PO 03/09/25 10:00 Carvedilol 3.125 mg BID PO 03/08/25 10:00 03/08/25 11:25 3.125 MG Spironolactone 25 mg DAILY PO 03/08/25 10:00 03/08/25 11:24 25 MG Atorvastatin Calcium 40 mg HS PO 03/08/25 22:00 Laboratory Results Laboratory Tests 03/08/25 05:47 03/08/25 06:13 Chemistry Test 03/08/25 05:47 Albumin 2.9 g/dL (3.2-4.8) L Calcium Level 8.8 mg/dL (8.7-10.4) Magnesium Level 1.8 mg/dL (1.6-2.6) Total Protein 6.0 g/dL (5.7-8.2) Coagulation Test 03/07/25 22:25 Prothrombin Time 13.0 sec (9.3-11.8) H Prothrombin Time INR 1.25 (0.9-1.15) H LFT Test 03/08/25 05:47 Alanine Aminotransferase (ALT) 25 U/L (7-40) Alkaline Phosphatase 83 U/L (46-116) Aspartate Amino Transferase (AST) 55 U/L (13-40) H Total Bilirubin 2.0 mg/dL (0.2-1.0) H Urinalysis Test 03/07/25 18:00 Urine Color Yellow (Yellow) Urine Clarity Turbid (Clear) H Urine pH 7.0 (5.0-9.0) Urine Specific [place] 1.029 (1.001-1.035) Urine Protein Trace (Negative) H Urine Ketones 1+ (Negative) H Urine Blood Negative /uL (Negative) Urine Nitrite 2+ (Negative) H Urine Bilirubin Negative (Negative) Urine Urobilinogen 8 mg/dL (Negative) H Urine Leukocyte Esterase 2+ /uL (Negative) Urine RBC 3 /hpf (0 - 3) Urine Microscopic WBC 29 /HPF (0-3) H Urine Squamous Epithelial Cells None seen /hpf (<5) Urine Bacteria Few /hpf (None Seen) H Urine Mucus Few (None Seen) Urine Glucose Normal mg/dL (Normal) Labs and/or images reviewed: Labs reviewed by me, Image(s) reviewed by me Assessment/Plan Assessment/Plan Acute metabolic encephalopathy likely due to hepatic failure Lethargy and fatigue likely due to hepatic encephalopathy Hyperammonemia ammonia 94: Lactulose Acute chest pain, rule out acute coronary syndrome Acute Complicated cystitis: Urine cultures Rocephin Thrombocytopenia likely due to portal hypertension Leukopenia due to hypersplenism SIRS cirrhosis of liver, hepatitis-C, COPD, asthma, home oxygen [place] O2 4 L/min, CHF, CVA, hypertension, CAD-NC, status post PTCA, seizure disorder, neuropathy Patient hospice revoked time 20 minutes Time spent 70 mts Patient is full code Advanced care planning Plan discussed with: Patient Date of Service: March 08, 2025 Billing Provider: LISSY JACQUES MD Common Visit Codes: [id number] CARE 30-74 MIN LISSY JACQUES MD March 08, 2025 13:27
[2025-03-08 16:01] VITALS: BP 94/67; PULSE 76; RESP 17; TEMP 98.6; O2SAT 96
[2025-03-08] MEDS ORDERED: TRAZ-227 PO (16:16)
[2025-03-08] MEDS ORDERED: HYDR-4798 PO (16:16)
[2025-03-08] MEDS ORDERED: LORA-1121 PO (16:16)
[2025-03-08] MEDS ORDERED: RISP0.5T17 PO (16:16)
[2025-03-08 17:00] VITALS: BP 94/67; PULSE 76; RESP 17; TEMP 98.6; O2SAT 96
--- NOTE | 2025-03-08 17:46 | DVHSR ---
APPROVED REPORT EXAM: LIMITED Two-dimensional and M-mode echocardiogram with Doppler and color Doppler. Blood Pressure: 115/54 mmHg INDICATION Chest Pain HF RISK FACTORS Height: 5'8", Weight: 110 DIMENSIONS LVDd5.1 (3.8-5.7cm)LA (2D) (1.9-4.0cm)Aortic Root3.4 (2.0-3.7cm) LVDs3.5 (2.5-4.0cm)LA (MM) (1.9-4.0cm)Aortic Cusp Exc1.7 (1.5-2.0cm) EF (%) 60.0 (55-70%)Rt. Atrium (1.9-4.0cm)Asc. Aorta cm IVSd1.0 (0.7-1.1cm)RV (D) (1.8-2.4cm) PWd1.1 (0.7-1.1cm) Mitral Valve MitralMitral Stenosis E/A ratio0.02D MVAcm2 Aortic Valve Aortic ValveAortic Stenosis LVOT Diameter2.2 (1.8-2.4cm)Doppler AVAcm2 Tricuspid Valve TR Velocity2.05m/s [id number] Other Information Quality : Technically LimitedRhythm : Technically limited study due to body habitus and patient lying flat. Conclusion MODERATE DEGREE LVH AND MODERATE DEGREE LV DIASTOLIC DYSFUNCTION LV EF IS 60% AND IS NORMAL MODERATELY DILATED RV WITH DYSKINESIS OF IVS STUDY REVEAL LIKELY CHRONIC RV STRAIN PATTERIN BUT NORMAL RV FUNCTION NORMAL VALVES NO EFFUSION
[2025-03-08 20:00] VITALS: PULSE 80; RESP 18; O2SAT 98
[2025-03-08 21:00] VITALS: BP 93/46; PULSE 74; RESP 17; TEMP 96.8; O2SAT 98
[2025-03-08] MEDS: ATORVASTATIN 20 MG TAB PO SCH (21:39)
--- NOTE | 2025-03-08 23:19 | DVHINCON2 ---
Date Seen: March 08, 2025 Referring Physician Toshia Reason for Consultation Chest Pain History of Present Illness This is a 69-year-old male with a PMH of liver cirrhosis, hepatitis-C, COPD, asthma, CHF, CVA, HTN, and CAD/[place] status post PCI presents to the ED with c/o worsening lethargy. Patient continues to be lethargic, information gathering mainly from chart review. Apparently patient was previously on hospice and was being given morphine for comfort though once patient became difficult to arouse or communicate family called 911. Apparently the patient had reported episode of chest pain that was central 9/10 pressure like no aggravating factors for the last 3 days denied any nausea vomiting fever. Upon evaluation in the ED, platelets 32, troponin negative x4, CT head and Chest x-ray are negative for acute pathology. EKG shows sinus rhythm at 83 beats per minute, no significant ST and T-wave abnormalities noted. Patient was admitted to the hospital. I am asked to consult on this patient. Past Medical History As stated above Past Surgical History Coronary angiogram s/p DELORIS x2 1985 Family History: FH: heart attack G8 MOTHER G8 BROTHER G8 BROTHER Allergies: Coded Allergies: NO KNOWN ALLERGIES (Unverified , 10/27/23) Home Meds Active Scripts Carvedilol (COREG) 3.125 Mg Tab, 3.125 MG PO BID, #60 TAB Prov:LISSY JACQUES MD 06/11/24 Pantoprazole Sodium Sesquihydr (Pantoprazole Sodium) 40 Mg Tab, 40 MG PO BID, #60 TAB Prov:LISSY JACQUES MD 06/11/24 Azithromycin (Azithromycin) 500 Mg Tab, 1 TAB PO DAILY, #7 TAB Prov:LISSY JACQUES MD 06/11/24 Reported Medications Lorazepam (ATIVAN TABLET) 0.5 Mg Tb, 1 TAB PO BIDPRN PRN for AGITATION, #90 TAB 03/08/25 Risperidone (Risperdal) 0.5 Mg Tab, 0.5 MG PO HS, TAB 03/08/25 Trazodone Hcl (Trazodone Hcl) 50 Mg Tab, 50 MG PO HS, MG 25 Hydrocodone-Acetaminophen (Hydrocodone Bitartrate/AC 10-325 mg) 1 Tab Tab, 1 TAB PO TIDP, TAB 03/08/25 Albuterol Sulfate (Albuterol Sulfate Hfa) 108 Mcg/Act Aer, INH 10/28/23 Diclofenac Sodium (Actinic Ker (Diclofenac Sodium) 3 % Gel, TOP 10/28/23 Lactulose (Lactulose) 10 Gm/15 Ml Frances, ML PO 10/28/23 Phenytoin Sodium (Dilantin) 100 Mg Cap, 1 CAP PO TID 10/28/23 Morphine Sulfate (Morphine Sulfate Cr) 15 Mg Tab, 1 TAB PO TID 10/28/23 Furosemide (Furosemide) 40 Mg Tab, 1 TAB PO BID 10/28/23 Rifaximin (Xifaxan) 550 Mg Tab, 1 TAB PO BID 10/28/23 Gabapentin (Gabapentin) 600 Mg Tab, 1 TAB PO TID 10/28/23 Atorvastatin Calcium (ATORVASTATIN CALCIUM) 40 Mg Tab, 1 TAB PO DAILY 10/28/23 Midodrine Hcl (Midodrine Hcl) 5 Mg Tab, 1 TAB PO TID 10/28/23 Spironolactone (Spironolactone) 25 Mg Tab, 1 TAB PO DAILY 10/28/23 Metoprolol Tartrate (Lopressor) 25 Mg Tb, TAB PO 10/28/23 Current Medications Current Medications Medications (Trade) Dose Ordered Sig/Sandi Route PRN Reason Start Time Stop Time Status Last Admin Sodium Chloride (Saline Lock Ns) 10 ml Q8HR IV 03/07/25 22:00 03/08/25 06:04 Ondansetron HCl (Zofran) 4 mg Q4HP PRN IV NAUSEA / VOMITING 03/07/25 22:00 Docusate Sodium (Colace Capsule) 100 mg BIDPRN PRN PO FOR CONSTIPATION 03/07/25 22:00 Nitroglycerin (Ntrostat Sublingual) 0.4 mg Q5MINP PRN SL FOR CHEST PAIN 03/07/25 22:00 Morphine Sulfate 2 mg Q30M PRN IV FOR CHEST PAIN 03/07/25 22:00 Lactulose 30 ml Q6H PO 03/08/25 08:00 03/08/25 08:43 Pantoprazole Sodium (Protonix) 40 mg DAILY IV 03/08/25 10:00 03/08/25 11:24 Rifaximin (Xifaxan) 550 mg BID PO 03/08/25 10:00 03/08/25 11:26 Ceftriaxone Sodium 50 ml @ 100 mls/hr DAILY@09 IV 03/09/25 09:00 Thiamine HCl 100 mg DAILY PO 03/09/25 10:00 Folic Acid 1 mg DAILY PO 03/09/25 10:00 Carvedilol (Coreg Tablet) 3.125 mg BID PO 03/08/25 10:00 03/08/25 11:25 Spironolactone (Aldactone) 25 mg DAILY PO 03/08/25 10:00 03/08/25 11:24 Atorvastatin Calcium (Lipitor) 40 mg HS PO 03/08/25 22:00 Review of Systems Review of Systems: Unable to obtain Vital Signs Vital Signs Date Time Temp Pulse Resp B/P (MAP) Pulse Ox O2 Delivery O2 Flow Rate FiO2 03/08/25 12:29 80 136/75 03/08/25 07:35 98.3 15 97 98.3 03/08/25 07:35 Nasal Cannula* 3 32 Physical Exam GENERAL: Ill appearing. Lethargic. EYES: PERRL, EOMI. Anicteric. HENT: Moist mucous membranes. LUNGS: Clear to auscultation bilaterally. CARDIOVASCULAR: Regular rate and rhythm. ABDOMEN: Soft, nontender and nondistended. EXTREMITIES: No edema. SKIN: Warm, dry. Labs/Diagnostic Data Labs Test 03/08/25 06:13 03/08/25 05:47 03/07/25 22:25 03/07/25 18:00 Range/Units White Blood Count 3.4 #L 4.4-10.8 10^3/uL Red Blood Count 3.36 L 4.5-5.90 10^6/uL Hemoglobin 11.9 L 13.5-17.5 g/dL Hematocrit 34.0 L 41.0-53.0 % Mean Corpuscular Volume 101.4 H 80.0-100.0 fL Mean Corpuscular Hemoglobin 35.4 H 28.0-32.0 pg Mean Corpuscular Hemoglobin Concent 34.9 32.0-36.0 g/dL Red Cell Distribution Width 17.2 H 11.8-14.3 % Platelet Count 32 L 140-450 10^3/uL Mean Platelet Volume 8.3 6.9-10.8 fL Neutrophils (%) (Auto) 77.9 37.0-80.0 % Lymphocytes (%) (Auto) 12.3 10.0-50.0 % Monocytes (%) (Auto) 7.1 0.0-12.0 % Eosinophils (%) (Auto) 2.5 0.0-7.0 % Basophils (%) (Auto) 0.2 0.0-2.0 % Neutrophils # (Auto) 2.7 1.6-8.6 10 ^3/uL Lymphocytes # (Auto) 0.4 0.4-5.4 10 ^3/uL Monocytes # (Auto) 0.2 0-1.3 10 ^3/uL Eosinophils # (Auto) 0.1 0-0.8 10 ^3/uL Basophils # (Auto) 0 0-0.2 10 ^3/uL Nucleated Red Blood Cells 0.1 % Sodium Level 144 136-145 mmol/L Potassium Level 4.7 3.5-5.1 mmol/L Chloride Level 112 H 98-107 mmol/L Carbon Dioxide Level 21 20-31 mmol/L Anion Gap 11 5-15 Blood Urea Nitrogen 19 9-23 mg/dL Creatinine 0.71 0.700-1.30 mg/dL Glomerular Filtration Rate Calc 99 >90 mL/min BUN/Creatinine Ratio 26.8 H 10.0-20.0 Serum Glucose 100 74-106 mg/dL Calcium Level 8.8 8.7-10.4 mg/dL Magnesium Level 1.8 1.6-2.6 mg/dL Total Bilirubin 2.0 H 0.2-1.0 mg/dL Aspartate Amino Transferase (AST) 55 H 13-40 U/L Alanine Aminotransferase (ALT) 25 7-40 U/L Alkaline Phosphatase 83 46-116 U/L Ammonia 60 H 11-32 umol/L Troponin I High Sensitivity 4 </=54 ng/L Total Protein 6.0 5.7-8.2 g/dL Albumin 2.9 L 3.2-4.8 g/dL Prothrombin Time 13.0 H 9.3-11.8 sec Prothrombin Time INR 1.25 H 0.9-1.15 Urine Color Yellow Yellow Urine Clarity Turbid H Clear Urine pH 7.0 5.0-9.0 Urine Specific [place] 1.029 1.001-1.035 Urine Protein Trace H Negative Urine Ketones 1+ H Negative Urine Blood Negative Negative /uL Urine Nitrite 2+ H Negative Urine Bilirubin Negative Negative Urine Urobilinogen 8 H Negative mg/dL Urine Leukocyte Esterase 2+ Negative /uL Urine RBC 3 0 - 3 /hpf Urine Microscopic WBC 29 H 0-3 /HPF Urine Squamous Epithelial Cells None seen <5 /hpf Urine Bacteria Few H None Seen /hpf Urine Mucus Few None Seen Urine Glucose Normal Normal mg/dL Test 03/07/25 13:15 03/07/25 13:12 Range/Units Platelet Estimate Decreased Large Platelets Few Macrocytosis Slight Hemoglobin A1c 4.2 <5.7 % A1C Lactic Acid Level 1.4 0.4-2.0 mmol/L Vitamin B12 Level 1630 H 211-911 pg/mL Thyroid Stimulating Hormone (TSH) 1.04 0.55-4.78 uIU/mL POC Glucose 107 H 70-106 mg/dl Assessment Chest pain. CAD s/p stent. CHF. Liver cirrhosis. Thrombocytopenia. Metabolic encephalopathy. UTI. Plan/Recommendation I agree with your ongoing assessment and care of plan. Patient has been seen by Sai Taylor NP on my behalf, him and I discussed the plan with the patient. Echocardiogram. Patient not a good candidate for invasive ischemic workup due to history of bleeding complications and current thrombocytopenia. Recommend conservative medical management. Continue statin. BP stable, currently on Coreg 3.125 mg p.o. twice daily, continue trending. Additional plan as per the hospital course. Plan discussed with: Patient NYHA Physical activity limitations: Class3(Marked) ordinary Date of Service: March 08, 2025 Billing Provider: CHAD ROBLES MD Cardiology Common Codes: [id number] INP/OBS CARE (High) CHAD ROBLES MD March 08, 2025 12:44
[2025-03-08 23:52] LABS: COVID19 ANTIGEN SOFIA FIA NEGATIVE (NEGATIVE); Rapid Influenza A Negative (Negative); Rapid Influenza B Negative (Negative)
[2025-03-09] VITALS (9 sets, daily range): BP systolic 92–106; BP diastolic 50–67; PULSE 69–89; RESP 16–18; TEMP 96.3–99.1; O2SAT 93–98
--- NOTE | 2025-03-09 08:49 | DVHPN2 ---
Reviewed: Care Plan, H&P, Labs, Medications, Previous Orders, Radiology Changes from previous H/P or p: No Changes Objective Vitals Vital Signs Date Time Temp Pulse Resp B/P (MAP) Pulse Ox O2 Delivery O2 Flow Rate FiO2 03/09/25 05:00 96.3 75 17 97/56 (70) 93 96.3 03/08/25 20:00 Nasal Cannula* 4 36 Intake/Output Intake and Output 03/09/25 07:00 Intake Total 1200 ml Output Total 1000 ml Balance 200 ml Intake Oral 700 ml IV Total 500 ml Output Urine Total 1000 ml # Bowel Movements 2 Medications Current Medications Medications Dose Ordered Sig/Sandi Route Start Time Stop Time Status Last Admin Dose Admin Sodium Chloride 10 ml Q8HR IV 03/07/25 22:00 03/09/25 05:37 10 ML Ondansetron HCl 4 mg Q4HP PRN IV 03/07/25 22:00 Docusate Sodium 100 mg BIDPRN PRN PO 03/07/25 22:00 Nitroglycerin 0.4 mg Q5MINP PRN SL 03/07/25 22:00 Morphine Sulfate 2 mg Q30M PRN IV 03/07/25 22:00 Lactulose 30 ml Q6H PO 03/08/25 08:00 03/08/25 08:43 30 ML Pantoprazole Sodium 40 mg DAILY IV 03/08/25 10:00 03/08/25 11:24 40 MG Rifaximin 550 mg BID PO 03/08/25 10:00 03/08/25 11:26 550 MG Ceftriaxone Sodium 50 ml @ 100 mls/hr DAILY@09 IV 03/09/25 09:00 Thiamine HCl 100 mg DAILY PO 03/09/25 10:00 Folic Acid 1 mg DAILY PO 03/09/25 10:00 Carvedilol 3.125 mg BID PO 03/08/25 10:00 03/08/25 11:25 3.125 MG Spironolactone 25 mg DAILY PO 03/08/25 10:00 03/08/25 11:24 25 MG Atorvastatin Calcium 40 mg HS PO 03/08/25 22:00 Laboratory Results Laboratory Tests 03/08/25 05:47 03/08/25 06:13 Urinalysis Test 03/07/25 18:00 Urine Color Yellow (Yellow) Urine Clarity Turbid (Clear) H Urine pH 7.0 (5.0-9.0) Urine Specific [place] 1.029 (1.001-1.035) Urine Protein Trace (Negative) H Urine Ketones 1+ (Negative) H Urine Blood Negative /uL (Negative) Urine Nitrite 2+ (Negative) H Urine Bilirubin Negative (Negative) Urine Urobilinogen 8 mg/dL (Negative) H Urine Leukocyte Esterase 2+ /uL (Negative) Urine RBC 3 /hpf (0 - 3) Urine Microscopic WBC 29 /HPF (0-3) H Urine Squamous Epithelial Cells None seen /hpf (<5) Urine Bacteria Few /hpf (None Seen) H Urine Mucus Few (None Seen) Urine Glucose Normal mg/dL (Normal) Microbiology Microbiology Date/Time Source Procedure Growth Status 03/07/25 13:15 Blood Blood Culture - Preliminary NO GROWTH AFTER 24 HOURS OF INCUBATION. Resulted Labs and/or images reviewed: Labs reviewed by me, Image(s) reviewed by me Assessment/Plan Assessment/Plan Acute metabolic encephalopathy likely due to hepatic failure Lethargy and fatigue likely due to hepatic encephalopathy Hyperammonemia ammonia 94: Lactulose Acute chest pain, rule out acute coronary syndrome; Per train station agent Dr. Carmine Thompson, Patient not a good candidate for invasive ischemic workup due to history of bleeding complications and current thrombocytopenia. Acute Complicated cystitis: Urine cultures Rocephin Thrombocytopenia likely due to portal hypertension Leukopenia due to hypersplenism SIRS cirrhosis of liver, hepatitis-C, COPD, asthma, home oxygen [place] O2 4 L/min, CHF, CVA, hypertension, CAD-[place], status post PTCA, seizure disorder, neuropathy Patient hospice revoked Time spent 50 mts Patient is full code Advanced care planning Plan discussed with: Patient My Orders Orders - LISSY JACQUES MD Procedure Category Date Status Time Apply Barrier Cream ZAHRA 03/08/25 In Process 10:55 * Dietary Consult CONS 03/08/25 Transmitted 16:52 Date of Service: March 09, 2025 Billing Provider: LISSY JACQUES MD Common Visit Codes: [id number] INP/OBS CARE(HIGH) LISSY JACQUES MD March 09, 2025 08:49
[2025-03-09] MEDS: cefTRIAXone 1GM/50ML D5W 50 ML IV SCH (09:08)
[2025-03-09] MEDS: FOLIC ACID 1 MG TAB PO SCH (09:08)
[2025-03-09] MEDS: THIAMINE HCL 100 MG TAB PO SCH (09:08)
[2025-03-09] MEDS: LACTULOSE 20Gm/30ML SOLN PO SCH (14:18)
--- NOTE | 2025-03-09 23:05 | DVHPN2 ---
Progress Note - Dictate Date Seen: March 09, 2025 Medical Necessity Reason Pt with a Central, PICC or Fol: No Subjective Patient was seen and evaluated in follow up. No overnight events. Patient remains lethargic. Patient passed swallow eval. Patient received wound care this am. Telemetry reviewed. vital signs Vital Sign Date Time Temp Pulse Resp B/P (MAP) Pulse Ox O2 Delivery O2 Flow Rate FiO2 03/09/25 13:00 97.6 89 17 106/61 (76) 93 97.6 03/09/25 08:00 Nasal Cannula* 4 36 Total Intake and Output 03/08/25 03/08/25 03/09/25 15:00 23:00 07:00 Intake Total 500 ml 700 ml Output Total 1000 ml Balance 500 ml -1000 ml 700 ml medications Current Medications Medications Dose Ordered Sig/Sandi Route Start Time Stop Time Status Last Admin Dose Admin Sodium Chloride 10 ml Q8HR IV 03/07/25 22:00 03/09/25 14:18 10 ML Ondansetron HCl 4 mg Q4HP PRN IV 03/07/25 22:00 Docusate Sodium 100 mg BIDPRN PRN PO 03/07/25 22:00 Nitroglycerin 0.4 mg Q5MINP PRN SL 03/07/25 22:00 Morphine Sulfate 2 mg Q30M PRN IV 03/07/25 22:00 Pantoprazole Sodium 40 mg DAILY IV 03/08/25 10:00 03/09/25 09:07 40 MG Rifaximin 550 mg BID PO 03/08/25 10:00 03/08/25 11:26 550 MG Ceftriaxone Sodium 50 ml @ 100 mls/hr DAILY@09 IV 03/09/25 09:00 03/09/25 09:08 100 MLS/HR Thiamine HCl 100 mg DAILY PO 03/09/25 10:00 03/09/25 09:08 100 MG Folic Acid 1 mg DAILY PO 03/09/25 10:00 03/09/25 09:08 1 MG Carvedilol 3.125 mg BID PO 03/08/25 10:00 03/08/25 11:25 3.125 MG Spironolactone 25 mg DAILY PO 03/08/25 10:00 03/08/25 11:24 25 MG Atorvastatin Calcium 40 mg HS PO 03/08/25 22:00 Lactulose 50 ml Q6H PO 03/09/25 14:00 03/09/25 14:18 50 ML objective GENERAL: Ill appearing. Lethargic. EYES: PERRL, EOMI. Anicteric. HENT: Moist mucous membranes. LUNGS: Clear to auscultation bilaterally. CARDIOVASCULAR: Regular rate and rhythm. ABDOMEN: Soft, nontender and nondistended. EXTREMITIES: No edema. SKIN: Warm, dry. laboratory and microbiology Laboratory Tests 03/08/25 06:13 03/08/25 05:47 Test 03/08/25 05:47 Range/Units Serum Glucose 100 74-106 mg/dL Problem List Chest pain. CAD s/p stent. CHF. Liver cirrhosis. Thrombocytopenia. Metabolic encephalopathy. UTI. Assessment/Plan Continued all current supportive medical care. Echocardiogram. Lipitor. Coreg. IV antibiotics as ordered. Morphine for pain management. GI prophylactics. Additional plan as per the hospital course. Dietary Evaluation Review Recommendations by RD: Dietary education by RD, Increase Calorie Intake Comments: 1) Initiate Pro-Stat @ 30 mL qd 2) Initiate MVI @ 1 tb qd 3) If patient remains NPO > 7 days, consider EN/TPN to meet at least 75% estimated needs 4) Advance to hepatic diet, pending APPRAISER approval; Initiate NutriHep @ 8 fl oz bid. Encourage optimal PO intake 5) Continue micronutrient supplementation 6) Refer to outpatient RD for weight management 7) Follow-up with hepatology 8) Continue to monitor I&O, labs, and skin integrity Expected Outcomes/Goals: 1) patient to receive nutrition support within 7 days of NPO status 2) labs and wound to improve 3) diet to advance 4) follow-up in 3-5 days Plan discussed with: CHAD Rincon MD March 09, 2025 17:09
[2025-03-10] VITALS (9 sets, daily range): BP systolic 97–129; BP diastolic 57–78; PULSE 74–90; RESP 14–18; TEMP 97.7–99.8; O2SAT 93–99
[2025-03-10 06:19] LABS: Basophils # (auto) 0 10 ^3/uL (0-0.2); Eosinophils # (auto) 0.2 10 ^3/uL (0-0.8); Monocytes # (auto) 0.5 10 ^3/uL (0-1.3); Neutrophils # (auto) 3.1 10 ^3/uL (1.6-8.6); Platelet Count (auto) 61 10^3/uL (140-450)
[2025-03-10 06:21] LABS: Basophils % (auto) 0.4 % (0.0-2.0); Hematocrit 36.6 % (41.0-53.0); Hemoglobin 12.8 g/dL (13.5-17.5); Lymphocytes # (auto) 0.6 10 ^3/uL (0.4-5.4); Lymphocytes % (auto) 14.3 % (10.0-50.0); Mean Corpuscular Hemoglobin 34.9 pg (28.0-32.0); Mean Corpuscular Hgb Conc. 34.9 g/dL (32.0-36.0); Mean Corpuscular Volume 99.9 fL (80.0-100.0); Monocytes % (auto) 11.3 % (0.0-12.0); Nucleated Red Blood Cells % 0.1 %; Red Blood Cells 3.66 10^6/uL (4.5-5.90); Red Cell Distribution Width 17.3 % (11.8-14.3); White Blood Cell 4.5 10^3/uL (4.4-10.8)
[2025-03-10 06:36] LABS: Alanine Aminotransferase 19 U/L (7-40); Alkaline Phosphatase 105 U/L (46-116); Anion Gap 8 (5-15); Aspartate Aminotransferase 35 U/L (13-40); BUN/Creatinine Ratio 16.1 (10.0-20.0); Blood Urea Nitrogen 10 mg/dL (9-23); Calcium 8.8 mg/dL (8.7-10.4); Carbon Dioxide 24 mmol/L (20-31); Potassium 3.9 mmol/L (3.5-5.1); Sodium 139 mmol/L (136-145); Total Protein 6.6 g/dL (5.7-8.2)
[2025-03-10 06:39] LABS: Albumin 3.1 g/dL (3.2-4.8); Bilirubin, Total 1.7 mg/dL (0.2-1.0); Chloride 107 mmol/L (98-107); Glucose 112 mg/dL (74-106)
[2025-03-10] MEDS: LACTULOSE 20Gm/30ML SOLN PO SCH (08:15)
--- NOTE | 2025-03-10 08:26 | DVHPN2 ---
Reviewed: Care Plan, H&P, Labs, Medications, Previous Orders, Radiology Changes from previous H/P or p: No Changes Objective Vitals Vital Signs Date Time Temp Pulse Resp B/P (MAP) Pulse Ox O2 Delivery O2 Flow Rate FiO2 03/10/25 05:00 97.7 77 17 105/62 (76) 98 97.7 03/09/25 20:00 Nasal Cannula* 4 36 Intake/Output Intake and Output 03/10/25 07:00 Intake Total 1038 ml Output Total 1350 ml Balance -312 ml Intake Oral 1038 ml Output Urine Total 1350 ml # Voids 6 # Bowel Movements 9 Medications Current Medications Medications Dose Ordered Sig/Sandi Route Start Time Stop Time Status Last Admin Dose Admin Sodium Chloride 10 ml Q8HR IV 03/07/25 22:00 03/10/25 06:11 10 ML Ondansetron HCl 4 mg Q4HP PRN IV 03/07/25 22:00 Docusate Sodium 100 mg BIDPRN PRN PO 03/07/25 22:00 Nitroglycerin 0.4 mg Q5MINP PRN SL 03/07/25 22:00 Morphine Sulfate 2 mg Q30M PRN IV 03/07/25 22:00 Pantoprazole Sodium 40 mg DAILY IV 03/08/25 10:00 03/09/25 09:07 40 MG Rifaximin 550 mg BID PO 03/08/25 10:00 03/09/25 22:08 550 MG Ceftriaxone Sodium 50 ml @ 100 mls/hr DAILY@09 IV 03/09/25 09:00 03/09/25 09:08 100 MLS/HR Thiamine HCl 100 mg DAILY PO 03/09/25 10:00 03/09/25 09:08 100 MG Folic Acid 1 mg DAILY PO 03/09/25 10:00 03/09/25 09:08 1 MG Carvedilol 3.125 mg BID PO 03/08/25 10:00 03/09/25 22:08 3.125 MG Spironolactone 25 mg DAILY PO 03/08/25 10:00 03/08/25 11:24 25 MG Atorvastatin Calcium 40 mg HS PO 03/08/25 22:00 03/09/25 22:08 40 MG Lactulose 30 ml TID PO 03/10/25 08:15 UNV Laboratory Results Laboratory Tests 03/10/25 05:57 Chemistry Test 03/10/25 05:57 Albumin 3.1 g/dL (3.2-4.8) L Calcium Level 8.8 mg/dL (8.7-10.4) Total Protein 6.6 g/dL (5.7-8.2) LFT Test 03/10/25 05:57 Alanine Aminotransferase (ALT) 19 U/L (7-40) Alkaline Phosphatase 105 U/L (46-116) Aspartate Amino Transferase (AST) 35 U/L (13-40) Total Bilirubin 1.7 mg/dL (0.2-1.0) H Urinalysis Test 03/07/25 18:00 Urine Color Yellow (Yellow) Urine Clarity Turbid (Clear) H Urine pH 7.0 (5.0-9.0) Urine Specific [place] 1.029 (1.001-1.035) Urine Protein Trace (Negative) H Urine Ketones 1+ (Negative) H Urine Blood Negative /uL (Negative) Urine Nitrite 2+ (Negative) H Urine Bilirubin Negative (Negative) Urine Urobilinogen 8 mg/dL (Negative) H Urine Leukocyte Esterase 2+ /uL (Negative) Urine RBC 3 /hpf (0 - 3) Urine Microscopic WBC 29 /HPF (0-3) H Urine Squamous Epithelial Cells None seen /hpf (<5) Urine Bacteria Few /hpf (None Seen) H Urine Mucus Few (None Seen) Urine Glucose Normal mg/dL (Normal) Microbiology Microbiology Date/Time Source Procedure Growth Status 03/07/25 18:00 Voided Urine Urine Culture - Preliminary Resulted 03/07/25 13:15 Blood Blood Culture - Preliminary NO GROWTH AFTER 48 HOURS OF INCUBATION. Resulted Labs and/or images reviewed: Labs reviewed by me, Image(s) reviewed by me Assessment/Plan Assessment/Plan Acute metabolic encephalopathy Acute hepatic encephalopathy Hyperammonemia ammonia 94: Lactulose 30 mL PO TID Acute chest pain, rule out acute coronary syndrome; Per screener operator Dr. Carmine Thompson, Patient not a good candidate for invasive ischemic workup due to history of bleeding complications and current thrombocytopenia. Acute Complicated cystitis: Urine cultures Rocephin Thrombocytopenia likely due to portal hypertension Leukopenia due to hypersplenism SIRS cirrhosis of liver, hepatitis-C, COPD, asthma, home oxygen [place] O2 4 L/min, CHF, CVA, hypertension, CAD-[place], status post PTCA, seizure disorder, neuropathy Patient hospice revoked Was in [facility] hospice Time spent 50 mts Patient is full code Advanced care planning Plan discussed with: Patient My Orders Orders - LISSY JACQUES MD Procedure Category Date Status Time Complete Blood Count LAB 03/11/25 Verified 05:00 Complete Blood Count LAB 03/12/25 Verified 05:00 Comprehensive LAB 03/11/25 Verified Metabolic Panel 05:00 Comprehensive LAB 03/12/25 Verified Metabolic Panel 05:00 Ammonia LAB 03/11/25 Verified 05:00 Ammonia LAB 03/12/25 Verified 05:00 Pt Request For Service PT 03/09/25 Logged 09:48 Hepatic Diet DIET 03/09/25 Transmitted (50gmpro,2gmna) Dinner Lactulose Oral PHA 03/10/25 Logged 08:15 Date of Service: March 10, 2025 Billing Provider: LISSY JACQUES MD Common Visit Codes: [id number] INP/OBS CARE(HIGH) LISSY JACQUES MD March 10, 2025 08:26
[2025-03-10 11:12] LABS: Folate (Folic Acid) 39.92 ng/mL (>5.38)
--- NOTE | 2025-03-10 15:20 | DVHDS2 ---
Discharge Summary Date of Admission March 07, 2025 at 21:55 Date of Discharge: March 11, 2025 Admitting Diagnosis Altered mental status and confusion Wounds: None Labs/Diagnostic Data: Laboratory Results Test 03/10/25 05:57 03/08/25 23:07 03/08/25 05:47 03/07/25 22:25 White Blood Count 4.5 10^3/uL (4.4-10.8) Red Blood Count 3.66 10^6/uL (4.5-5.90) Hemoglobin 12.8 g/dL (13.5-17.5) Hematocrit 36.6 % (41.0-53.0) Mean Corpuscular Volume 99.9 fL (80.0-100.0) Mean Corpuscular Hemoglobin 34.9 pg (28.0-32.0) Mean Corpuscular Hemoglobin Concent 34.9 g/dL (32.0-36.0) Red Cell Distribution Width 17.3 % (11.8-14.3) Platelet Count 61 10^3/uL (140-450) Mean Platelet Volume 9.0 fL (6.9-10.8) Neutrophils (%) (Auto) 70.0 % (37.0-80.0) Lymphocytes (%) (Auto) 14.3 % (10.0-50.0) Monocytes (%) (Auto) 11.3 % (0.0-12.0) Eosinophils (%) (Auto) 4.0 % (0.0-7.0) Basophils (%) (Auto) 0.4 % (0.0-2.0) Neutrophils # (Auto) 3.1 10 ^3/uL (1.6-8.6) Lymphocytes # (Auto) 0.6 10 ^3/uL (0.4-5.4) Monocytes # (Auto) 0.5 10 ^3/uL (0-1.3) Eosinophils # (Auto) 0.2 10 ^3/uL (0-0.8) Basophils # (Auto) 0 10 ^3/uL (0-0.2) Nucleated Red Blood Cells 0.1 % Sodium Level 139 mmol/L (136-145) Potassium Level 3.9 mmol/L (3.5-5.1) Chloride Level 107 mmol/L (98-107) Carbon Dioxide Level 24 mmol/L (20-31) Anion Gap 8 (5-15) Blood Urea Nitrogen 10 mg/dL (9-23) Creatinine 0.62 mg/dL (0.700-1.30) Glomerular Filtration Rate Calc 103 mL/min (>90) BUN/Creatinine Ratio 16.1 (10.0-20.0) Serum Glucose 112 mg/dL (74-106) Calcium Level 8.8 mg/dL (8.7-10.4) Total Bilirubin 1.7 mg/dL (0.2-1.0) Aspartate Amino Transferase (AST) 35 U/L (13-40) Alanine Aminotransferase (ALT) 19 U/L (7-40) Alkaline Phosphatase 105 U/L (46-116) Ammonia 39 umol/L (11-32) Total Protein 6.6 g/dL (5.7-8.2) Albumin 3.1 g/dL (3.2-4.8) Influenza Type A Antigen Negative (Negative) Influenza Type B Antigen Negative (Negative) SARS-CoV-2 Antigen (Rapid) Negative (NEGATIVE) Magnesium Level 1.8 mg/dL (1.6-2.6) Troponin I High Sensitivity 4 ng/L (</=54) Prothrombin Time 13.0 sec (9.3-11.8) Prothrombin Time INR 1.25 (0.9-1.15) Test 03/07/25 18:00 03/07/25 13:15 03/07/25 13:12 Urine Color Yellow (Yellow) Urine Clarity Turbid (Clear) Urine pH 7.0 (5.0-9.0) Urine Specific [place] 1.029 (1.001-1.035) Urine Protein Trace (Negative) Urine Ketones 1+ (Negative) Urine Blood Negative /uL (Negative) Urine Nitrite 2+ (Negative) Urine Bilirubin Negative (Negative) Urine Urobilinogen 8 mg/dL (Negative) Urine Leukocyte Esterase 2+ /uL (Negative) Urine RBC 3 /hpf (0 - 3) Urine Microscopic WBC 29 /HPF (0-3) Urine Squamous Epithelial Cells None seen /hpf (<5) Urine Bacteria Few /hpf (None Seen) Urine Mucus Few (None Seen) Urine Glucose Normal mg/dL (Normal) Platelet Estimate Decreased Large Platelets Few Macrocytosis Slight Hemoglobin A1c 4.2 % A1C (<5.7) Lactic Acid Level 1.4 mmol/L (0.4-2.0) Vitamin B12 Level 1630 pg/mL (211-911) Folic Acid 39.92 ng/mL (>5.38) Thyroid Stimulating Hormone (TSH) 1.04 uIU/mL (0.55-4.78) POC Glucose 107 mg/dl (70-106) Other Laboratory Tests 03/10/25 05:57 Brief Hx & Hospital Course: 69-year-old male with a history of cirrhosis of liver hepatitis-C COPD CHF CVA hypotension coronary artery disease RI status post PTCA seizures peripheral neuropathy burden to the ER for altered mental status and confusion found to have higher level of ammonia 94 given lactulose 30 mL PO TID. Also complained of acute chest pain child care provider Dr. Thompson advised not a patient for invasive ischemic workup due to history of bleeding complications and current thrombocytopenia . Patient improved with the lactulose. Urine cultures came positive for ESBL E coli started on Invanz 1 g IV daily for 14 days. [facility]. plan was discussed with the patient and patient's caregiver Ludy [phone]. Consults/Reason for consult None Operations or Procedures CT abdomen pelvis without contrast Condition at Discharge: Fair Final Diagnosis/Problems List Sepsis secondary to complicated UTI with ESBL E coli: Invanz 1 g IV daily for 14 days Acute metabolic encephalopathy Acute hepatic encephalopathy Hyperammonemia ammonia 94: Lactulose 30 mL PO TID Acute chest pain, rule out acute coronary syndrome; Per child care provider Dr. Carmine Thompson, Patient not a good candidate for invasive ischemic workup due to history of bleeding complications and current thrombocytopenia. Acute Complicated cystitis: Urine cultures Rocephin Thrombocytopenia likely due to portal hypertension Leukopenia due to hypersplenism SIRS cirrhosis of liver, hepatitis-C, COPD, asthma, home oxygen [place] O2 4 L/min, CHF, CVA, hypertension, CAD-RI, status post PTCA, seizure disorder, neuropathy Discharge Disposition: [facility] Facility Discharge Instruct/Medications Diet: See Comment Diet comment: Hepatic diet Activity: Bed rest Follow Up/Referral: [facility] with the [facility] Medications: Invanz 1 g IV daily for two weeks for complicated UTI See list for other meds 39 (Time taken for discharge summary 39 mts) Discharge Statement: "Patient was advised to return to the ER or call 911 if any headaches, dizziness, shortness of breath, chest pain, abdominal pain, bleeding, fevers, or worsening of medical condition. Patient was counseled about treatment plan, medications, possible side effects, patient�verbalized understanding. All questions were answered to the best of my ability. This discharge took greater then 30 minutes in planning, reviewing documentation, counseling the patient, and discussing with other team members." ASSESSMENT ASSESSMENT Hospital Course Patient has marginally improved Assessment Sepsis secondary to complicated UTI with ESBL E coli: Invanz 1 g IV daily for 14 days Acute metabolic encephalopathy Acute hepatic encephalopathy Hyperammonemia ammonia 94: Lactulose 30 mL PO TID Acute chest pain, rule out acute coronary syndrome; Per child care provider Dr. Carmine Thompson, Patient not a good candidate for invasive ischemic workup due to history of bleeding complications and current thrombocytopenia. Acute Complicated cystitis: Urine cultures Rocephin Thrombocytopenia likely due to portal hypertension Leukopenia due to hypersplenism SIRS cirrhosis of liver, hepatitis-C, COPD, asthma, home oxygen [place] O2 4 L/min, CHF, CVA, hypertension, CAD-RI, status post PTCA, seizure disorder, neuropathy Date of Service: March 10, 2025 Billing Provider: LISSY JACQUES MD Common Visit Codes: 34147-RGV/OBS DISCH DAY >30min LISSY JACQUES MD March 10, 2025 15:20
[2025-03-10] MEDS: ERTAPENEM SOD INJ 1 GM in SODIUM CHL 0.9% 50 ML IV ONE (17:53)
--- NOTE | 2025-03-10 22:20 | DVHPN2 ---
Progress Note - Dictate Date Seen: March 10, 2025 Medical Necessity Reason Pt with a Central, PICC or Fol: No Subjective Patient was seen and evaluated in follow up. Patient is on 4 LPM NC. Patient is resting in bed. Urine cultures came back positive for ESBL E coli. Ammonia 39. Echocardiogram.shows an EF of 60%. Telemetry reviewed. vital signs Vital Sign Date Time Temp Pulse Resp B/P (MAP) Pulse Ox O2 Delivery O2 Flow Rate FiO2 03/10/25 22:00 86 105/65 03/10/25 21:00 99.8 18 99 99.8 03/10/25 20:15 Nasal Cannula* 4 36 Total Intake and Output 03/09/25 03/09/25 03/10/25 15:00 23:00 07:00 Intake Total 688 ml 350 ml Output Total 600 ml 750 ml Balance 88 ml -400 ml medications Current Medications Medications Dose Ordered Sig/Sandi Route Start Time Stop Time Status Last Admin Dose Admin Sodium Chloride 10 ml Q8HR IV 03/07/25 22:00 03/10/25 22:03 10 ML Ondansetron HCl 4 mg Q4HP PRN IV 03/07/25 22:00 Docusate Sodium 100 mg BIDPRN PRN PO 03/07/25 22:00 Nitroglycerin 0.4 mg Q5MINP PRN SL 03/07/25 22:00 Morphine Sulfate 2 mg Q30M PRN IV 03/07/25 22:00 Pantoprazole Sodium 40 mg DAILY IV 03/08/25 10:00 03/10/25 10:03 40 MG Rifaximin 550 mg BID PO 03/08/25 10:00 03/10/25 22:04 550 MG Ceftriaxone Sodium 50 ml @ 100 mls/hr DAILY@09 IV 03/09/25 09:00 03/10/25 10:03 100 MLS/HR Thiamine HCl 100 mg DAILY PO 03/09/25 10:00 03/10/25 10:03 100 MG Folic Acid 1 mg DAILY PO 03/09/25 10:00 03/10/25 10:10 1 MG Carvedilol 3.125 mg BID PO 03/08/25 10:00 03/09/25 22:08 3.125 MG Spironolactone 25 mg DAILY PO 03/08/25 10:00 03/08/25 11:24 25 MG Atorvastatin Calcium 40 mg HS PO 03/08/25 22:00 03/10/25 22:04 40 MG Lactulose 30 ml TID PO 03/10/25 08:15 03/10/25 22:03 30 ML Ertapenem 1 gm/ Sodium Chloride 50 ml @ 100 mls/hr DAILY IV 03/11/25 10:00 objective GENERAL: Ill appearing. Lethargic. EYES: PERRL, EOMI. Anicteric. HENT: Moist mucous membranes. LUNGS: Clear to auscultation bilaterally. CARDIOVASCULAR: Regular rate and rhythm. ABDOMEN: Soft, nontender and nondistended. EXTREMITIES: No edema. SKIN: Warm, dry. laboratory and microbiology Laboratory Tests 03/10/25 05:57 Test 03/10/25 05:57 Range/Units Serum Glucose 112 H 74-106 mg/dL Problem List Chest pain. CAD s/p stent. CHF. Liver cirrhosis. Thrombocytopenia. Metabolic encephalopathy. UTI. Assessment/Plan Continued all current supportive medical care. Lipitor. Coreg. IV antibiotics as ordered. Morphine for pain management. GI prophylactics. Additional plan as per the hospital course. Dietary Evaluation Review Recommendations by RD: Dietary education by RD, Increase Calorie Intake Comments: 1) Initiate Pro-Stat @ 30 mL qd 2) Initiate MVI @ 1 tb qd 3) If patient remains NPO > 7 days, consider EN/TPN to meet at least 75% estimated needs 4) Advance to hepatic diet, pending [employer] approval; Initiate NutriHep @ 8 fl oz bid. Encourage optimal PO intake 5) Continue micronutrient supplementation 6) Refer to outpatient RD for weight management 7) Follow-up with hepatology 8) Continue to monitor I&O, labs, and skin integrity Expected Outcomes/Goals: 1) patient to receive nutrition support within 7 days of NPO status 2) labs and wound to improve 3) diet to advance 4) follow-up in 3-5 days Plan discussed with: Patient CHAD ROBLES MD March 10, 2025 22:20
[2025-03-11 01:00] VITALS: BP 108/70; PULSE 88; RESP 19; TEMP 98.7; O2SAT 95
[2025-03-11 05:00] VITALS: BP 108/72; PULSE 84; RESP 17; TEMP 98.4; O2SAT 100
[2025-03-11 07:30] LABS: Alanine Aminotransferase 23 U/L (7-40); Albumin 3.2 g/dL (3.2-4.8); Alkaline Phosphatase 97 U/L (46-116); Anion Gap 8 (5-15); Blood Urea Nitrogen 9 mg/dL (9-23); Calcium 8.7 mg/dL (8.7-10.4); Carbon Dioxide 22 mmol/L (20-31); Potassium 3.7 mmol/L (3.5-5.1); Sodium 139 mmol/L (136-145)
[2025-03-11 07:32] LABS: Aspartate Aminotransferase 56 U/L (13-40); Bilirubin, Total 1.9 mg/dL (0.2-1.0); Chloride 109 mmol/L (98-107); Glucose 112 mg/dL (74-106)
[2025-03-11 08:00] VITALS: PULSE 82; PULSE 83; RESP 16; O2SAT 98
[2025-03-11 08:17] LABS: Basophils # (auto) 0 10 ^3/uL (0-0.2); Basophils % (auto) 0.7 % (0.0-2.0); Monocytes # (auto) 0.5 10 ^3/uL (0-1.3); White Blood Cell 5.3 10^3/uL (4.4-10.8)
[2025-03-11 08:21] LABS: Eosinophils # (auto) 0.3 10 ^3/uL (0-0.8); Eosinophils % (auto) 6.4 % (0.0-7.0); Hematocrit 36.8 % (41.0-53.0); Lymphocytes # (auto) 0.9 10 ^3/uL (0.4-5.4); Lymphocytes % (auto) 16.4 % (10.0-50.0); Mean Corpuscular Hemoglobin 34.9 pg (28.0-32.0); Mean Corpuscular Hgb Conc. 35.4 g/dL (32.0-36.0); Mean Corpuscular Volume 98.6 fL (80.0-100.0); Monocytes % (auto) 9.4 % (0.0-12.0); Neutrophils # (auto) 3.6 10 ^3/uL (1.6-8.6); Neutrophils % (auto) 67.1 % (37.0-80.0); Nucleated Red Blood Cells % 0.1 %; Platelet Count (auto) 79 10^3/uL (140-450); Red Blood Cells 3.73 10^6/uL (4.5-5.90); Red Cell Distribution Width 17.4 % (11.8-14.3)
--- NOTE | 2025-03-11 08:30 | DVHPN2 ---
Reviewed: Care Plan, H&P, Labs, Medications, Previous Orders, Radiology Changes from previous H/P or p: No Changes Objective Vitals Vital Signs Date Time Temp Pulse Resp B/P (MAP) Pulse Ox O2 Delivery O2 Flow Rate FiO2 03/11/25 05:00 98.4 84 17 108/72 (84) 100 98.4 03/10/25 20:15 Nasal Cannula* 4 36 Intake/Output Intake and Output 03/11/25 07:00 Intake Total 700 ml Output Total 635 ml Balance 65 ml Intake Oral 700 ml Output Urine Total 635 ml # Bowel Movements 11 Medications Current Medications Medications Dose Ordered Sig/Sandi Route Start Time Stop Time Status Last Admin Dose Admin Sodium Chloride 10 ml Q8HR IV 03/07/25 22:00 03/11/25 06:54 10 ML Ondansetron HCl 4 mg Q4HP PRN IV 03/07/25 22:00 Docusate Sodium 100 mg BIDPRN PRN PO 03/07/25 22:00 Nitroglycerin 0.4 mg Q5MINP PRN SL 03/07/25 22:00 Morphine Sulfate 2 mg Q30M PRN IV 03/07/25 22:00 Pantoprazole Sodium 40 mg DAILY IV 03/08/25 10:00 03/10/25 10:03 40 MG Rifaximin 550 mg BID PO 03/08/25 10:00 03/10/25 22:04 550 MG Ceftriaxone Sodium 50 ml @ 100 mls/hr DAILY@09 IV 03/09/25 09:00 03/10/25 10:03 100 MLS/HR Thiamine HCl 100 mg DAILY PO 03/09/25 10:00 03/10/25 10:03 100 MG Folic Acid 1 mg DAILY PO 03/09/25 10:00 03/10/25 10:10 1 MG Carvedilol 3.125 mg BID PO 03/08/25 10:00 03/09/25 22:08 3.125 MG Spironolactone 25 mg DAILY PO 03/08/25 10:00 03/08/25 11:24 25 MG Atorvastatin Calcium 40 mg HS PO 03/08/25 22:00 03/10/25 22:04 40 MG Lactulose 30 ml TID PO 03/10/25 08:15 03/11/25 06:55 30 ML Ertapenem 1 gm/ Sodium Chloride 50 ml @ 100 mls/hr DAILY IV 03/11/25 10:00 Laboratory Results Laboratory Tests 03/11/25 07:04 Chemistry Test 03/11/25 07:04 Albumin 3.2 g/dL (3.2-4.8) Calcium Level 8.7 mg/dL (8.7-10.4) Total Protein 7.0 g/dL (5.7-8.2) LFT Test 03/11/25 07:04 Alanine Aminotransferase (ALT) 23 U/L (7-40) Alkaline Phosphatase 97 U/L (46-116) Aspartate Amino Transferase (AST) 56 U/L (13-40) H Total Bilirubin 1.9 mg/dL (0.2-1.0) H Urinalysis Test 03/07/25 18:00 Urine Color Yellow (Yellow) Urine Clarity Turbid (Clear) H Urine pH 7.0 (5.0-9.0) Urine Specific [place] 1.029 (1.001-1.035) Urine Protein Trace (Negative) H Urine Ketones 1+ (Negative) H Urine Blood Negative /uL (Negative) Urine Nitrite 2+ (Negative) H Urine Bilirubin Negative (Negative) Urine Urobilinogen 8 mg/dL (Negative) H Urine Leukocyte Esterase 2+ /uL (Negative) Urine RBC 3 /hpf (0 - 3) Urine Microscopic WBC 29 /HPF (0-3) H Urine Squamous Epithelial Cells None seen /hpf (<5) Urine Bacteria Few /hpf (None Seen) H Urine Mucus Few (None Seen) Urine Glucose Normal mg/dL (Normal) Microbiology Microbiology Date/Time Source Procedure Growth Status 03/07/25 18:00 Voided Urine Urine Culture - Final Escherichia coli - ESBL Complete 03/07/25 13:15 Blood Blood Culture - Preliminary NO GROWTH AFTER 72 HOURS OF INCUBATION. Resulted Labs and/or images reviewed: Labs reviewed by me, Image(s) reviewed by me Assessment/Plan Assessment/Plan Acute metabolic encephalopathy Acute hepatic encephalopathy Hyperammonemia ammonia 94: Lactulose 30 mL PO TID Acute chest pain, rule out acute coronary syndrome; Per waiter/waitress formal Dr. Carmine Thompson, Patient not a good candidate for invasive ischemic workup due to history of bleeding complications and current thrombocytopenia. Acute Complicated cystitis: Urine cultures Rocephin Thrombocytopenia likely due to portal hypertension Leukopenia due to hypersplenism SIRS cirrhosis of liver, hepatitis-C, COPD, asthma, home oxygen [place] O2 4 L/min, CHF, CVA, hypertension, CAD-[place], status post PTCA, seizure disorder, neuropathy Patient was discharged to long-term facility for rehab. Discussed with the patient at bedside. RN Kelsey present. plan agreeable with the patient and caregiver Ludy. Plan discussed with: Patient My Orders Orders - LISSY JACQUES MD Procedure Category Date Status Time Covid19 Antigen Sunitha LAB 03/10/25 Logged Ok To Send Pt Home ORDERS 03/10/25 Transmitted With Mcdaniel 10:58 Insert Midline ORDERS 03/10/25 Transmitted 12:53 Communication Order ORDERS 03/10/25 Transmitted 15:10 Discharge DISCHARGE 03/10/25 Transmitted 15:11 * Management Recruiter CONS 03/10/25 Transmitted Consult 15:22 Ertapenem Sod Inj PHA 03/11/25 In Process (Invanz) 10:00 Date of Service: March 11, 2025 Billing Provider: LISSY JACQUES MD Common Visit Codes: [id number] INP/OBS CARE(HIGH) LISSY JACQUES MD March 11, 2025 08:30
[2025-03-11 09:00] VITALS: BP 116/67; PULSE 93; RESP 16; TEMP 97.8; O2SAT 94
[2025-03-11] MEDS: ERTAPENEM SOD INJ 1 GM in SODIUM CHL 0.9% 50 ML IV SCH (10:00)
[2025-03-11 12:07] VITALS: BP 116/67; PULSE 93; RESP 16; TEMP 97.5; O2SAT 94
[2025-03-11 13:00] VITALS: BP 122/63; PULSE 74; RESP 16; TEMP 98.1; O2SAT 93
--- NOTE | 2025-03-11 21:55 | DVHPN2 ---
Progress Note - Dictate Date Seen: March 11, 2025 Medical Necessity Reason Pt with a Central, PICC or Fol: No Subjective Patient was seen and evaluated in follow up. Patient has no new complaints at this time. Patient denies any cardiac symptoms. Patient is cardiac stable for discharge. Telemetry reviewed. vital signs Vital Sign Date Time Temp Pulse Resp B/P (MAP) Pulse Ox O2 Delivery O2 Flow Rate FiO2 03/11/25 13:00 98.1 74 16 122/63 (82) 93 98.1 03/11/25 08:00 Nasal Cannula* 4 36 Total Intake and Output 03/10/25 03/10/25 03/11/25 15:00 23:00 07:00 Intake Total 700 ml Output Total 500 ml 135 ml Balance -500 ml 565 ml objective GENERAL: Ill appearing. Lethargic. EYES: PERRL, EOMI. Anicteric. HENT: Moist mucous membranes. LUNGS: Clear to auscultation bilaterally. CARDIOVASCULAR: Regular rate and rhythm. ABDOMEN: Soft, nontender and nondistended. EXTREMITIES: No edema. SKIN: Warm, dry. laboratory and microbiology Laboratory Tests 03/11/25 07:04 Test 03/11/25 07:04 Range/Units Serum Glucose 112 H 74-106 mg/dL Problem List Chest pain. CAD s/p stent. CHF. Liver cirrhosis. Thrombocytopenia. Metabolic encephalopathy. UTI. Assessment/Plan Continued all current supportive medical care. Lipitor. Coreg. IV antibiotics as ordered. Morphine for pain management. GI prophylactics. Additional plan as per the hospital course. Dietary Evaluation Review Recommendations by RD: Dietary education by RD, Increase Calorie Intake Comments: 1) Initiate Pro-Stat @ 30 mL qd 2) Initiate MVI @ 1 tb qd 3) If patient remains NPO > 7 days, consider EN/TPN to meet at least 75% estimated needs 4) Advance to hepatic diet, pending [employer] approval; Initiate NutriHep @ 8 fl oz bid. Encourage optimal PO intake 5) Continue micronutrient supplementation 6) Refer to outpatient RD for weight management 7) Follow-up with hepatology 8) Continue to monitor I&O, labs, and skin integrity Expected Outcomes/Goals: 1) patient to receive nutrition support within 7 days of NPO status 2) labs and wound to improve 3) diet to advance 4) follow-up in 3-5 days Plan discussed with: Patient CHAD ROBLES MD March 11, 2025 21:55
[2025-03-12] MEDS ORDERED: ERTAPENEM SOD INJ 1 GM in SODIUM CHL 0.9% 50 ML IV SCH (10:00)
[2025-03-13] MEDS ORDERED: ERTAPENEM SOD INJ 1 GM in SODIUM CHL 0.9% 50 ML IV ONE (15:00)
== END 2025-03-11 14:14 | DRG 871 ==
LOC: ER 12:21 → EDBD 12:21 → OVERFLOW 21:55 → TELE-CENTR 03-08 15:38
PROVIDERS: ADMIT Family Medicine; ATTEND Family Medicine
PROC: 05HF33Z Insertion of Infusion Device into Left Cephalic Vein, Percutaneous Approach (ICD-10-PCS; principal; 2025-03-10)
PROC: B54NZZA Ultrasonography of Left Upper Extremity Veins, Guidance (ICD-10-PCS; 2025-03-10)
DX: A41.51 Sepsis due to Escherichia coli [E. coli] (principal); G93.41 Metabolic encephalopathy; J69.0 Pneumonitis due to inhalation of food and vomit; I50.33 Acute on chronic diastolic (congestive) heart failure; J96.21 Acute and chronic respiratory failure with hypoxia; D61.818 Other pancytopenia; J44.1 Chronic obstructive pulmonary disease with (acute) exacerbation; K76.6 Portal hypertension; K92.0 Hematemesis; N17.9 Acute kidney failure, unspecified; N30.00 Acute cystitis without hematuria; D62 Acute posthemorrhagic anemia; Z16.12 Extended spectrum beta lactamase (ESBL) resistance; I11.0 Hypertensive heart disease with heart failure; B19.20 Unspecified viral hepatitis C without hepatic coma; D73.1 Hypersplenism; G40.909 Epilepsy, unspecified, not intractable, without status epilepticus; G62.9 Polyneuropathy, unspecified; I25.10 Atherosclerotic heart disease of native coronary artery without angina pectoris; K70.30 Alcoholic cirrhosis of liver without ascites; K76.82 Hepatic encephalopathy; I25.2 Old myocardial infarction; Z79.899 Other long term (current) drug therapy; Z86.73 Personal history of transient ischemic attack (TIA), and cerebral infarction without residual deficits; Z82.49 Family history of ischemic heart disease and other diseases of the circulatory system; Z79.2 Long term (current) use of antibiotics; Z95.5 Presence of coronary angioplasty implant and graft
CPT/HCPCS: 36415; 70450; 71045; 80048; 80053; 81001; 82140; 82607; 82746; 82962; 83036; 83605; 83735; 84443; 84484; 85025; 85610; 87040; 87086; 87426; 87804; 92610; 93005; 93306; 96360; 96361; 97163; 99291; G0378; J1335; J2470; J7042

== ENCOUNTER 2025-06-05 13:23 | Inpatient (IN) | payer OTHER, MEDICAID ==
[~2025-06-05] VITALS: Ht 170.2 cm; Wt 55.7 kg
[~2025-06-05 13:23] MED LIST changes: +HYDR-4798 PO; +LORA-1121 PO; +RISP0.5T17 PO; +TRAZ-227 PO
--- NOTE | 2025-06-05 13:35 | ED.PDOC ---
History of Present Illness HPI Comments 70-year-old brought by paramedics from [facility] because he was having shortness of breath for the past two days. His saturation was 80% when paramedics arrived. He was placed on 10 L which is still 90%. He was hospice but the family decided to revoke. He they want everything done for the patient. He is bed ridden. History of CO hypertension CVA. Unable to get a good history from the patient. Chief Complaint: Shortness of Breath Time Seen by MD: 13:29 Primary Care Provider: UNKNOWN Reviewed Notes: Nurses Notes, Medications, Allergies Allergies: Coded Allergies: NO KNOWN ALLERGIES (Unverified , 10/27/23) Home Meds Active Scripts Carvedilol (COREG) 3.125 Mg Tab, 3.125 MG PO BID, #60 TAB Prov:LISSY JACQUES MD 06/11/24 Pantoprazole Sodium Sesquihydr (Pantoprazole Sodium) 40 Mg Tab, 40 MG PO BID, #60 TAB Prov:LISSY JACQUES MD 06/11/24 Azithromycin (Azithromycin) 500 Mg Tab, 1 TAB PO DAILY, #7 TAB Prov:LISSY JACQUES MD 06/11/24 Reported Medications Lorazepam (ATIVAN TABLET) 0.5 Mg Tb, 1 TAB PO BIDPRN PRN for AGITATION, #90 TAB 03/08/25 Risperidone (Risperdal) 0.5 Mg Tab, 0.5 MG PO HS, TAB 03/08/25 Trazodone Hcl (Trazodone Hcl) 50 Mg Tab, 50 MG PO HS, MG 03/08/25 Hydrocodone-Acetaminophen (Hydrocodone Bitartrate/AC 10-325 mg) 1 Tab Tab, 1 TAB PO TIDP, TAB 03/08/25 Albuterol Sulfate (Albuterol Sulfate Hfa) 108 Mcg/Act Aer, INH 10/28/23 Diclofenac Sodium (Actinic Ker (Diclofenac Sodium) 3 % Gel, TOP 10/28/23 Lactulose (Lactulose) 10 Gm/15 Ml Frances, ML PO 10/28/23 Phenytoin Sodium (Dilantin) 100 Mg Cap, 1 CAP PO TID 10/28/23 Morphine Sulfate (Morphine Sulfate Cr) 15 Mg Tab, 1 TAB PO TID 10/28/23 Furosemide (Furosemide) 40 Mg Tab, 1 TAB PO BID 10/28/23 Rifaximin (Xifaxan) 550 Mg Tab, 1 TAB PO BID 10/28/23 Gabapentin (Gabapentin) 600 Mg Tab, 1 TAB PO TID 10/28/23 Atorvastatin Calcium (ATORVASTATIN CALCIUM) 40 Mg Tab, 1 TAB PO DAILY 10/28/23 Midodrine Hcl (Midodrine Hcl) 5 Mg Tab, 1 TAB PO TID 10/28/23 Spironolactone (Spironolactone) 25 Mg Tab, 1 TAB PO DAILY 10/28/23 Metoprolol Tartrate (Lopressor) 25 Mg Tb, TAB PO 10/28/23 Information Source: Emergency Med Personnel Mode of Arrival: EMS Severity: Moderate Timing: Days Duration: Since onset Past Medical History PAST MEDICAL HISTORY: Asthma, CHF, COPD, CVA, GERD, HTN, Liver, CO, Seizures Surgical History: PTCA Family History Family History: Reviewed,noncontributory to illness, Unknown Social History Smoker: Non-Smoker Alcohol: Denies ETOH Use Drugs: Denies Drug Use Lives In: Home Constitutional: denies: chills, diaphoresis, fatigue, fever, malaise, sweats, weakness, others EENTM: denies: blurred vision, double vision, ear bleeding, ear discharge, ear drainage, ear pain, ear ringing, eye pain, eye redness, hearing loss, mouth pain, mouth swelling, nasal discharge, nose bleeding, nose congestion, nose pain, photophobia, tearing, throat pain, throat swelling, voice changes, others Respiratory: reports: shortness of breath; denies: cough, hemoptysis, orthopnea, SOB at rest, SOB with excertion, stridor, wheezing, others Cardiovascular: denies: chest pain, dizzy spells, diaphoresis, Dyspnea on exertion, edema, irregular heart beat, left arm pain, lightheadedness, palpitations, PND, syncope, others Gastrointestinal: denies: abdomen distended, abdominal pain, blood streaked bowels, constipated, diarrhea, dysphagia, difficulty swallowing, hematemesis, melena, nausea, poor appetite, poor fluid intake, rectal bleeding, rectal pain, vomiting, others Genitourinary: denies: burning, dysuria, flank pain, frequency, hematuria, incontinence, penile discharge, penile sore, pain, testicle pain, testicle swelling, urgency, others Neurological: denies: dizziness, fainting, headache, left sided numbness, left sided weakness, numbness, paresthesia, pre-existing deficit, right sided numbness, right sided weakness, seizure, speech problems, tingling, tremors, weakness, others Musculoskeletal: denies: back pain, gout, joint pain, joint swelling, muscle pain, muscle stiffness, neck pain, others Integumetry: denies: bruises, change in color, change in hair/nails, dryness, laceration, lesions, lumps, rash, wounds, others Allergic/Immunocompromised: denies: Difficulty Healing, Frequent Infections, Hives, Itching, others Hematologic/Lymphatic: denies: anemia, blood clots, easy bleeding, easy bruising, swollen glands, others Endocrine: denies: excessive hunger, excessive sweating, excessive thirst, excessive urination, flushing, intolerance to cold, intolerance to heat, unexplained weight gain, unexplained weight loss, others Psychiatric: denies: anxiety, bipolar disorder, depression, hopeless, panic disorder, schizophrenia, sleepless, suicidal, others Physical Exam General Appearance: Moderate Distress HEENT: Normal ENT Inspection, Pharynx Normal, TMs Normal Neck: Full Range of Motion, Non-Tender, Normal, Normal Inspection Respiratory: Other (Coarse breath sounds) Cardiovascular: Tachycardia Breast Exam: Deferred Gastrointestinal: No Organomegaly, Non Tender, No Pulsatile Mass, Normal Bowel Sounds, Soft Genitalia: Deferred Pelvic: Deferred Rectal: Deferred Extremities: No calf tenderness, No pedal edema Musculoskeletal : Apperance: Normal Neurologic: Alert Cerebellar Function: NOT DONE Reflexes: NOT DONE Skin: Pallor Lymphatic: No Adenopathy Was a procedure done? Was a procedure done?: No EKG EKG : Pulse Rate (adult): 106 Cardiac Rhythm: ST Differential Dx Considerations may include: Sepsis Electrolyte imbalance X-Ray, Labs, Meds, VS Vital Signs Date Time Temp Pulse Resp B/P (MAP) Pulse Ox O2 Delivery O2 Flow Rate FiO2 06/05/25 15:17 100 Non-Rebreather 12 N/A 06/05/25 15:09 99.0 88 12 98/54 (69) 100 99.0 06/05/25 14:32 101 21 99 Non-Rebreather 12 N/A 06/05/25 14:00 100 21 91/47 (62) 97 06/05/25 13:36 100.4 108 24 108/64 96 100.4 06/05/25 13:35 106 06/05/25 13:33 106 Lab Test 06/05/25 15:57 06/05/25 14:26 Range/Units White Blood Count 8.7 4.4-10.8 10^3/uL Red Blood Count 3.57 L 4.5-5.90 10^6/uL Hemoglobin 11.0 L 13.5-17.5 g/dL Hematocrit 32.3 L 41.0-53.0 % Mean Corpuscular Volume 90.4 80.0-100.0 fL Mean Corpuscular Hemoglobin 30.7 28.0-32.0 pg Mean Corpuscular Hemoglobin Concent 34.0 32.0-36.0 g/dL Red Cell Distribution Width 18.2 H 11.8-14.3 % Platelet Count 55 L 140-450 10^3/uL Mean Platelet Volume 7.9 6.9-10.8 fL Neutrophils (%) (Auto) 95.0 H 37.0-80.0 % Lymphocytes (%) (Auto) 1.6 L 10.0-50.0 % Monocytes (%) (Auto) 3.3 0.0-12.0 % Eosinophils (%) (Auto) 0.0 0.0-7.0 % Basophils (%) (Auto) 0.1 0.0-2.0 % Neutrophils # (Auto) 8.3 1.6-8.6 10 ^3/uL Lymphocytes # (Auto) 0.1 L 0.4-5.4 10 ^3/uL Monocytes # (Auto) 0.3 0-1.3 10 ^3/uL Eosinophils # (Auto) 0 0-0.8 10 ^3/uL Basophils # (Auto) 0 0-0.2 10 ^3/uL Nucleated Red Blood Cells 0.1 % Prothrombin Time 16.0 H 9.3-11.8 sec Prothrombin Time INR 1.58 H 0.9-1.15 Activated Partial Thromboplast Time 32.5 24.5-34.5 SEC Sodium Level 141 136-145 mmol/L Potassium Level 3.2 L 3.5-5.1 mmol/L Chloride Level 105 98-107 mmol/L Carbon Dioxide Level 23 20-31 mmol/L Anion Gap 13 5-15 Blood Urea Nitrogen 20 9-23 mg/dL Creatinine 0.89 0.700-1.30 mg/dL Glomerular Filtration Rate Calc 92 >90 mL/min BUN/Creatinine Ratio 22.5 H 10.0-20.0 Serum Glucose 97 74-106 mg/dL Lactic Acid Level 6.0 *H 0.4-2.0 mmol/L Calcium Level 8.1 L 8.7-10.4 mg/dL Total Bilirubin 2.7 H 0.2-1.0 mg/dL Aspartate Amino Transferase (AST) 54 H 13-40 U/L Alanine Aminotransferase (ALT) 24 7-40 U/L Alkaline Phosphatase 129 H 46-116 U/L Total Protein 6.3 5.7-8.2 g/dL Albumin 2.8 L 3.2-4.8 g/dL Current Medications Medications (Trade) Dose Ordered Sig/Sandi Route Start Time Stop Time Status Last Admin Sodium Chloride 1,000 ml @ 1,000 mls/hr Q1H ONCE IV 06/05/25 13:45 06/05/25 14:44 DC 06/05/25 14:23 Sodium Chloride 1,000 ml @ 150 mls/hr Q6H40M ONCE IV 06/05/25 13:45 06/05/25 20:24 06/05/25 14:24 Cefepime HCl 50 ml @ 50 mls/hr ONCE ONCE IV 06/05/25 14:15 06/05/25 15:14 DC 06/05/25 15:17 Patient alert. Complaining of shortness a breath. Has been seen here in the past. Placed on oxygen. EKG reviewed does not show any acute changes. Possible pneumonia. Possible sepsis. Explained to the patient. Continue monitoring. [facility] [id number] [place] [id number] Ph: [phone] DIAGNOSTIC IMAGING Diagnostic Imaging Report : [id number] Signed PATIENT: ALEXIS GHOSH ACCT: [id number] UNIT: [id number] : 1955 LOC: ER ROOM / BED: / AGE / SEX: 70 / M ADM STATUS: REG ER SERVICE 1545 ORDERING PHYSICIAN: ZOYA UMANA MD PROCEDURE(s): CXRP - CHEST PORTABLE REASON: sob ORDER NUMBER(s): [id number], ACCESSION NUMBER(s): [id number] CHEST RADIOGRAPH Indication: sob Technique: Single frontal view of the chest was obtained Comparison: XY CHEST PORTABLE on DOS: 03/07/25, XY CHEST PORTABLE on DOS: 06/07/24, XY CHEST PORTABLE on DOS: 06/05/24 FINDINGS: Lines and Tubes: None Lungs: Basilar areas of airspace disease or atelectasis. These findings were not present on 03/07/2025 Pleura: No effusion. No pneumothorax. Cardiomediastinal contours: Unremarkable Bones: No acute osseous abnormality. IMPRESSION: 1. Bibasilar areas of atelectasis or airspace disease not present on 03/07/2025 ATED BY: ALEXIS BYRNES Jr., DO DICTATED DATE/TIME: 06/05/251412 SIGNED BY: ALEXIS BYRNES Jr., SIGNED DATE/TIME: 06/05/251412 CC: Time of 1ST Reevaluation: 13:33 Reevaluation 1ST: Unchanged Patient Education/Counseling: Diagnosis, Treatment, Prognosis Family Education/Counseling: No Family Present SEPSIS Sepsis Screen Physician Orders Electrocardigram (06/05/25 13:35) Urinalysis (06/05/25 13:35) Chest Portable (06/05/25 13:35) Accucheck (06/05/25 13:35) Blood Culture (06/05/25 13:35) Lactic Acid W/ Reflex Order (06/05/25 16:00) Cefepime 1gm/ 50ml (Maxipime 1gm/50ml) (06/05/25 22:00) Notify Md If Map <65 Or Bp<90 (06/05/25 13:35) If Map<65 Start Vasopressor (06/05/25 13:35) Sepsis Reassesment After Fluid (06/05/25 14:35) Sodium Chloride 0.9% (06/05/25 13:45) Metronidazole 500mg/100ml (Flagyl 500mg/ (06/05/25 15:30) Vancomycin 1gm/250ml Kit (06/05/25 15:45) Vital Signs Date Time Temp Pulse Resp B/P (MAP) Pulse Ox O2 Delivery O2 Flow Rate FiO2 06/05/25 15:17 100 Non-Rebreather 12 N/A 06/05/25 15:09 99.0 88 12 98/54 (69) 100 99.0 06/05/25 14:32 101 21 99 Non-Rebreather 12 N/A 06/05/25 14:00 100 21 91/47 (62) 97 06/05/25 13:36 100.4 108 24 108/64 96 100.4 06/05/25 13:35 106 06/05/25 13:33 106 Laboratory Tests Test 06/05/25 14:26 06/05/25 15:57 Lactic Acid Level 6.0 mmol/L (0.4-2.0) *H White Blood Count 8.7 10^3/uL (4.4-10.8) Medications Medications Dose Ordered Sig/Sandi Route Start Time Stop Time Status Last Admin Dose Admin Cefepime HCl 50 ml @ 50 mls/hr ONCE ONCE IV 06/05/25 14:15 06/05/25 15:14 DC 06/05/25 15:17 Sodium Chloride 1,000 ml @ 150 mls/hr Q6H40M ONCE IV 06/05/25 13:45 06/05/25 20:24 06/05/25 14:24 Sodium Chloride 1,000 ml @ 1,000 mls/hr Q1H ONCE IV 06/05/25 13:45 06/05/25 14:44 DC 06/05/25 14:23 Departure 1 Departure Time of Disposition: 13:34 Impression: Primary Impression: Acute hypoxic respiratory failure Additional Impression: Pneumonia, unspecified organism Qualified Codes: J18.9 - Pneumonia, unspecified organism Disposition: 09 ADMITTED INPATIENT Admit to: Med Surg Condition: Guarded Critical Care Note Critical Care Time?: Yes (90 min-critical care time only) Stability Stability form required: No Heart Score Heart Score: Heart Score Response (Comments) Value History Slightly Suspicious 0 EKG Normal 0 Age >65 2 Risk Factors >3 or Hx ASHD 2 Troponin N/A 0 Total 4 I personally scribed for ZOYA UMANA MD ([email or web address]) on 06/05/25 at 15:00. E lectronically submitted by Liz Nunez [email or web address]). ZOYA UMANA MD Jun 05, 2025 13:35
[2025-06-05] MEDS: VANCOMYCIN 1GM/200ML PM 200 ML IV ONE (13:45)
--- NOTE | 2025-06-05 14:15 | DVH ---
CHEST RADIOGRAPH Indication: sob Technique: Single frontal view of the chest was obtained Comparison: XY CHEST PORTABLE on DOS: 03/07/25, XY CHEST PORTABLE on DOS: 06/07/24, XY CHEST PORTABLE on DOS: 06/05/24 FINDINGS: Lines and Tubes: None Lungs: Basilar areas of airspace disease or atelectasis. These findings were not present on Pleura: No effusion. No pneumothorax. Cardiomediastinal contours: Unremarkable Bones: No acute osseous abnormality. IMPRESSION: 1. Bibasilar areas of atelectasis or airspace disease not present on 03/07/2025
[2025-06-05] MEDS: SODIUM CHLORIDE 0.9% 1,000 ML IV ONE ×2 (14:23→14:24)
[2025-06-05 14:32] VITALS: PULSE 101; RESP 21; O2SAT 99
[2025-06-05 15:02] LABS: Alanine Aminotransferase 24 U/L (7-40); Anion Gap 13 (5-15); BUN/Creatinine Ratio 22.5 (10.0-20.0); Blood Urea Nitrogen 20 mg/dL (9-23); Carbon Dioxide 23 mmol/L (20-31); Chloride 105 mmol/L (98-107); Glucose 97 mg/dL (74-106); Sodium 141 mmol/L (136-145); Total Protein 6.3 g/dL (5.7-8.2)
[2025-06-05 15:03] LABS: Albumin 2.8 g/dL (3.2-4.8); Alkaline Phosphatase 129 U/L (46-116); Bilirubin, Total 2.7 mg/dL (0.2-1.0); Calcium 8.1 mg/dL (8.7-10.4); Potassium 3.2 mmol/L (3.5-5.1)
[2025-06-05 15:09] LABS: INR 1.58 (0.9-1.15); Partial Thromboplastin Time 32.5 SEC (24.5-34.5); Prothrombin Time 16.0 sec (9.3-11.8)
[2025-06-05 15:14] LABS: Lactic Acid w/Reflex 6.0 mmol/L (0.4-2.0)
[2025-06-05] MEDS: CEFEPIME 1GM/ 50ML 50 ML IV ONE (15:17)
[2025-06-05 16:03] LABS: Hemoglobin 11.0 g/dL (13.5-17.5)
[2025-06-05 16:04] LABS: Hematocrit 32.3 % (41.0-53.0); Mean Corpuscular Hemoglobin 30.7 pg (28.0-32.0); Mean Corpuscular Volume 90.4 fL (80.0-100.0); Nucleated Red Blood Cells % 0.1 %
[2025-06-05 17:17] LABS: Lactic Acid w/Reflex 2.2 mmol/L (0.4-2.0)
[2025-06-05] MEDS: VANCOMYCIN 1GM/250ML KIT 250 ML IV ONE (18:03)
[2025-06-05 18:07] LABS: Urine Protein, UAD TRACE (Negative)
--- NOTE | 2025-06-05 18:30 | ECG ---
[facility] Test Date: 2025-06-05 Test Time: 13:30:27 Pat Name: ALEXIS GHOSH Department: [facility] ED Patient ID: [facility]-[id number] Room: 0205 Gender: M Research Editor: CHAZ : 1955 Requested By: ZOYA UMANA Order Number: [id number] Reading MD: Dung Aviita Measurements Intervals [place] Rate: 106 P: 50 HI: 181 QRS: 17 QRSD: 101 T: -76 QT: 352 QTc: 468 Interpretive Statements Sinus tachycardia Inferior infarct, age indeterminate Electronically Signed On 06-09-2025 18:10:03 PDT by Dung Avitia Please click the below link to view image of tracing.
[2025-06-05 19:30] VITALS: PULSE 77; RESP 19; O2SAT 97
[2025-06-05] MEDS: AZITHROMYCIN 500MG/ 250ML 250 ML IV ONE (19:35)
[2025-06-05] MEDS ORDERED: ONDANSETRON HCL 4 MG/2 ML VIAL IV PRN (21:30)
[2025-06-05] MEDS ORDERED: DOCUSATE SOD 100 MG CAP PO PRN (21:30)
[2025-06-05] MEDS ORDERED: ACETAMINOPHEN 325 MG TAB PO PRN (21:30)
[2025-06-05] MEDS: SODIUM CHLOR 0.9% PF (SALINE LOCK) 10ML VIAL/SYR IV SCH (22:15)
[2025-06-05] MEDS: CALCIUM GLUC 1,000mg/50ml-NS 50 ML IV ONE (22:16)
[2025-06-05] MEDS: POTASSIUM CHL 20 Meq TABLET PO ONE (22:19)
--- NOTE | 2025-06-05 23:33 | DVHHP2 ---
History of Present Illness Reason for Visit: Acute hypoxic respiratory failure History of Present Illness The patient is a 70-year-old male bedridden with multiple past medical history including COPD, CHF, asthma, hypertension, seizures, and [place] who presented to [facility] ED with complaint of shortness of breaths for the past 2 days. Patient's symptoms progressively get worse with hypoxia, desaturating on oxygen at 80 %, increased work of breathing, getting worse that prompted this visit. Patient was placed on 10 L simple mask with O2 saturation in the 90s. Patient was hospice but family decided to revoked it, the one everything done for the patient. Patient was seen and evaluated in the ED, laboratory data shows WBC 8.7, hemoglobin 11.0, hematocrit 32.3, platelets [id number], sodium 141, potassium 3.2, BUN 20, creatinine 0.89, glucose 97, calcium 8.1, total bilirubin 2.1, lactic acid 6.0 trending down to 2.2, AST 54, ALT 24, albumin 2.8, blood pressure 107/62, pulse 76, temperature 97.3 F, O2 saturation 98% on oxygen. Urinalysis positive for urinary tract infection. Chest x-ray revealing bibasilar areas of atelectasis or airspace disease. Patient was started on IV antibiotic regimen cefepime, please see medication orders section in the computer. On my assessment, patient denies chest pain, no headache, no dizziness, currently on oxygen, no diaphoresis, no nausea, no vomiting, no fever, no chills. Patient was admitted for further evaluation and medical management. Past Medical History Asthma, CHF, COPD, CVA, GERD, HTN, Liver, [place], Seizures Past Surgical History PTCA Family History Reviewed, noncontributory to the management of this case. Past Social History The patient lives at home, denies smoking, alcohol or illicit drugs abuse. Review of Systems Constitutional: Yes: Weakness; No: Fever, Chills, Sweats, Malaise, Other Eyes: No: Pain, Vision change, Conjunctivae inflammation, Eyelid inflammation, Other, Redness ENT: No: Ear pain, Ear discharge, Nose pain, Nose discharge, Nose congestion, Mouth pain, Mouth swelling, Throat pain, Throat swelling, Other Respiratory: Shortness of breath; No: Cough, Dry, SOB with excertion, Wheezing, Hemoptysis, Pleuritic Pain, Sputum, Wheezing, Other Cardiovascular: No: Chest Pain, Palpitations, Orthopnea, Paroxysmal Noc. Dyspnea, Edema, Lt Headedness, Other Gastrointestinal: No: Nausea, Vomiting, Abdominal Pain, Diarrhea, Constipation, Melena, Hematochezia, Other Genitourinary: No Dysuria, No Frequency, No Incontinence, No Hematuria, No Retention, No Other Musculoskeletal: No: other, neck pain, shoulder pain, arm pain, back pain, hand pain, leg pain, foot pain Skin: No: Rash, Lesions, Jaundice, Bruising, Other Neurological: No: Weakness, Numbness, Incoordination, Change in speech, Confusion, Seizures, Other Allergies: Coded Allergies: NO KNOWN ALLERGIES (Unverified , 10/27/23) Medications Current Medications Medications Dose Ordered Sig/Sandi Route Start Time Stop Time Status Last Admin Dose Admin Cefepime HCl 50 ml @ 12.5 mls/hr Q12H IV 06/05/25 22:00 Azithromycin 250 ml @ 125 mls/hr DAILY IV 06/06/25 10:00 Phenytoin Sodium 100 mg Q8HR PO 06/05/25 22:00 Atorvastatin Calcium 20 mg HS PO 06/05/25 22:00 Sodium Chloride 10 ml Q8HR IV 06/05/25 22:00 06/05/25 22:15 10 ML Acetaminophen/ Hydrocodone Bitart 1 tab Q4HP PRN PO 06/05/25 21:30 Ondansetron HCl 4 mg Q4HP PRN IV 06/05/25 21:30 Docusate Sodium 100 mg BIDPRN PRN PO 06/05/25 21:30 Acetaminophen 650 mg Q6HP PRN PO 06/05/25 21:30 Exam Vital Signs Vital Signs Date Time Temp Pulse Resp B/P (MAP) Pulse Ox O2 Delivery O2 Flow Rate FiO2 06/05/25 21:53 72 16 87/51 (63) 97 06/05/25 19:30 97.3 97.3 06/05/25 19:30 Non-Rebreather 12 N/A General Appearance: Alert, Oriented X3, Cooperative, No acute distress HEENT: Atraumatic, PERRLA, EOMI, Mucous membr. moist/pink Respiratory: Normal air movement Cardiovascular: Regular rate, Normal S1, Normal S2, No murmurs Abdominal: Normal bowel sounds, Soft, No tenderness, No hepatospenomegaly, No masses Extremities: No clubbing, No cyanosis, No edema, Normal pulses, No tenderness/swelling Skin: No rashes, No breakdown, No significant lesion Neuro: Normal speech, Normal tone, Sensation intact, Cranial nerves 3-12 NL, Reflexes 2+, Other (Generalized weakness) Psych/Mental Status: Mental status NL, Mood NL Labs/Xrays Labs Test 06/05/25 16:25 06/05/25 15:57 06/05/25 14:26 06/05/25 14:01 Range/Units Lactic Acid Level 2.2 *H 0.4-2.0 mmol/L White Blood Count 8.7 4.4-10.8 10^3/uL Red Blood Count 3.57 L 4.5-5.90 10^6/uL Hemoglobin 11.0 L 13.5-17.5 g/dL Hematocrit 32.3 L 41.0-53.0 % Mean Corpuscular Volume 90.4 80.0-100.0 fL Mean Corpuscular Hemoglobin 30.7 28.0-32.0 pg Mean Corpuscular Hemoglobin Concent 34.0 32.0-36.0 g/dL Red Cell Distribution Width 18.2 H 11.8-14.3 % Platelet Count 55 L 140-450 10^3/uL Mean Platelet Volume 7.9 6.9-10.8 fL Neutrophils (%) (Auto) 95.0 H 37.0-80.0 % Lymphocytes (%) (Auto) 1.6 L 10.0-50.0 % Monocytes (%) (Auto) 3.3 0.0-12.0 % Eosinophils (%) (Auto) 0.0 0.0-7.0 % Basophils (%) (Auto) 0.1 0.0-2.0 % Neutrophils # (Auto) 8.3 1.6-8.6 10 ^3/uL Lymphocytes # (Auto) 0.1 L 0.4-5.4 10 ^3/uL Monocytes # (Auto) 0.3 0-1.3 10 ^3/uL Eosinophils # (Auto) 0 0-0.8 10 ^3/uL Basophils # (Auto) 0 0-0.2 10 ^3/uL Nucleated Red Blood Cells 0.1 % B-Type Natriuretic Peptide 255.51 0-100 pg/mL Prothrombin Time 16.0 H 9.3-11.8 sec Prothrombin Time INR 1.58 H 0.9-1.15 Activated Partial Thromboplast Time 32.5 24.5-34.5 SEC Sodium Level 141 136-145 mmol/L Potassium Level 3.2 L 3.5-5.1 mmol/L Chloride Level 105 98-107 mmol/L Carbon Dioxide Level 23 20-31 mmol/L Anion Gap 13 5-15 Blood Urea Nitrogen 20 9-23 mg/dL Creatinine 0.89 0.700-1.30 mg/dL Glomerular Filtration Rate Calc 92 >90 mL/min BUN/Creatinine Ratio 22.5 H 10.0-20.0 Serum Glucose 97 74-106 mg/dL Calcium Level 8.1 L 8.7-10.4 mg/dL Total Bilirubin 2.7 H 0.2-1.0 mg/dL Aspartate Amino Transferase (AST) 54 H 13-40 U/L Alanine Aminotransferase (ALT) 24 7-40 U/L Alkaline Phosphatase 129 H 46-116 U/L Total Protein 6.3 5.7-8.2 g/dL Albumin 2.8 L 3.2-4.8 g/dL Urine Color Yellow Yellow Urine Clarity Clear Clear Urine pH 5.0 5.0-9.0 Urine Specific [place] 1.014 1.001-1.035 Urine Protein Trace H Negative Urine Ketones Negative Negative Urine Blood 3+ H Negative /uL Urine Nitrite Negative Negative Urine Bilirubin Negative Negative Urine Urobilinogen Normal Negative mg/dL Urine Leukocyte Esterase 1+ Negative /uL Urine RBC 32 0 - 3 /hpf Urine Microscopic WBC 11 H 0-3 /HPF Urine Squamous Epithelial Cells Few <5 /hpf Urine Bacteria None seen None Seen /hpf Urine Mucus Few None Seen Urine Glucose Normal Normal mg/dL PATIENT: ALEXIS GHOSH ACCT: [id number] UNIT: [id number] : 1955 LOC: ER ROOM / BED: / AGE / SEX: 70 / M ADM STATUS: REG ER SERVICE 1335 ORDERING PHYSICIAN: ZOYA UMANA MD PROCEDURE(s): CXRP - CHEST PORTABLE REASON: sob ORDER NUMBER(s): [id number], ACCESSION NUMBER(s): [id number] CHEST RADIOGRAPH Indication: sob Technique: Single frontal view of the chest was obtained Comparison: XY CHEST PORTABLE on DOS: 03/07/25, XY CHEST PORTABLE on DOS: 06/07/24, XY CHEST PORTABLE on DOS: 06/05/24 FINDINGS: Lines and Tubes: None Lungs: Basilar areas of airspace disease or atelectasis. These findings were not present on 03/07/2025 Pleura: No effusion. No pneumothorax. Cardiomediastinal contours: Unremarkable Bones: No acute osseous abnormality. IMPRESSION: 1. Bibasilar areas of atelectasis or airspace disease not present on 03/07/2025 SEPSIS Sepsis Screen Date sepsis recognized/suspect: Jun 05, 2025 Time Sepsis recognized/suspect: 1436 Recent Procedure: No On Antibiotic Therapy: Yes Respiratory Rate >20: Yes Heart Rate >90: Yes Temp<36 C (96.8 F) or >38.3 C: Yes SBP <90 or MAP <65 mmHG: No New Acute Mental Status Change: No Is the patient on CPAP, BIPAP,: No Physician Orders Azithromycin 500mg/ 250ml (Zithromax 50 (06/06/25 10:00) Phenytoin Capsule (Dilantin Capsule) (06/05/25 22:00) Atorvastatin (Lipitor) (06/05/25 22:00) Urine Bacterial Culture (06/05/25 21:21) Allergies (06/05/25 21:21) Code Status (06/05/25 21:21) Sodium Chloride Lock (Saline Lock Ns) (06/05/25 22:00) Oxygen Per Hour (06/05/25 21:21) Hydrocodone-Acet 5/325mg Tab (Disney 5/32 (06/05/25 21:30) Ondansetron Hcl (Zofran) (06/05/25 21:30) Docusate Sodium Capsule (Colace Capsule) (06/05/25 21:30) Complete Blood Count (06/06/25 04:00) Comprehensive Metabolic Panel (06/06/25 04:00) Cardiac Diet-2gna,Lofat,Lochol (06/06/25 Breakfast) Condition: Serious (06/05/25 21:21) Acetaminophen Tablet (Tylenol Tablet) (06/05/25 21:30) Bedrest With Bathroom Privileg (06/05/25 21:21) Sequential Compression Device (06/05/25 ) Admit (06/05/25 23:32) Nitroglycerin Sublingual (Ntrostat Subli (06/05/25 23:45) Morphine Sulfate Injection (06/05/25 23:45) Stat Ekg For Chest Pain (06/05/25 23:32) Notify Of Changes From Base (06/05/25 23:32) Automatic Edger For 24 Hours (06/05/25 23:32) Emergency Dysrhythmia Protocol (06/05/25 23:32) Rhythm Strips Once Every Shift (06/05/25 23:32) Oxygen By Nasal Cannula (06/05/25 23:32) Vital Signs Date Time Temp Pulse Resp B/P (MAP) Pulse Ox O2 Delivery O2 Flow Rate FiO2 06/05/25 21:53 72 16 87/51 (63) 97 06/05/25 20:00 76 06/05/25 19:30 97.3 80 16 107/62 (77) 98 97.3 06/05/25 19:30 77 19 97 Non-Rebreather 12 N/A 06/05/25 18:34 84 13 97/56 (70) 99 06/05/25 16:00 85 06/05/25 16:00 86 16 101/57 (72) 96 Laboratory Tests Test 06/05/25 14:26 06/05/25 15:57 06/05/25 16:25 Lactic Acid Level 6.0 mmol/L (0.4-2.0) *H 2.2 mmol/L (0.4-2.0) *H White Blood Count 8.7 10^3/uL (4.4-10.8) Medications Medications Dose Ordered Sig/Sandi Route Start Time Stop Time Status Last Admin Dose Admin Azithromycin 250 ml @ 125 mls/hr ONCE ONCE IV 06/05/25 16:30 06/05/25 18:29 DC 06/05/25 19:35 125 MLS/HR Calcium Gluconate/ Sodium Chloride 50 ml @ 100 mls/hr ONCE ONCE IV 06/05/25 21:30 06/05/25 21:59 DC 06/05/25 22:16 100 MLS/HR Cefepime HCl 50 ml @ 50 mls/hr ONCE ONCE IV 06/05/25 14:15 06/05/25 15:14 DC 06/05/25 15:17 50 MLS/HR Potassium Chloride 40 meq ONCE ONCE PO 06/05/25 21:30 06/05/25 21:58 DC 06/05/25 22:19 40 MEQ Sodium Chloride 10 ml Q8HR IV 06/05/25 22:00 06/05/25 22:15 10 ML Sodium Chloride 1,000 ml @ 150 mls/hr Q6H40M ONCE IV 06/05/25 13:45 06/05/25 20:24 DC 06/05/25 14:24 150 MLS/HR Sodium Chloride 1,000 ml @ 1,000 mls/hr Q1H ONCE IV 06/05/25 13:45 06/05/25 14:44 DC 06/05/25 14:23 1,000 MLS/HR Vancomycin HCl 250 ml @ 250 mls/hr ONCE ONCE IV 06/05/25 15:45 06/05/25 16:44 DC 06/05/25 18:03 250 MLS/HR Assessment/Plan Assessment/Plan Acute hypoxic respiratory failure Electrolyte imbalance Urinary tract infection Elevated lactic acid level Generalized weakness Pneumonia, unspecified organism Plan 1. Admit to telemetry unit 2. Breathing treatment 3. Pain control management 4. IV antibiotic management 5. Management of fluids and electrolytes 6. Consultation for hospitalist 7. Diagnostic test chest x-ray 8. DVT prophylaxis on SCDs 9. Repeat labs CBC, CMP in a.m. 10. Home medication reviewed and reconciled 11. Continue with current medical management 12. Treatment plan discussed with patient and RN. Patient verbalized understanding. Plan discussed with: Patient, Other (RN) My Orders Orders - BRIAN PIMENTEL DNP Procedure Category Date Status Time Azithromycin 500mg/ PHA 06/06/25 In Process 250ml (Zithromax 50 10:00 Phenytoin Capsule PHA 06/05/25 In Process (Dilantin Capsule) 22:00 Atorvastatin (Lipitor) PHA 06/05/25 In Process 22:00 Urine Bacterial HERNÁN 06/05/25 In Process Culture 21:21 Allergies ZAHRA 06/05/25 In Process 21:21 Code Status CODE 06/05/25 Transmitted 21:21 Sodium Chloride Lock PHA 06/05/25 In Process (Saline Lock Ns) 22:00 Oxygen Per Hour RT 06/05/25 Transmitted 21:21 Hydrocodone-Acet PHA 06/05/25 In Process 5/325mg Tab (Disney 21:30 Ondansetron Hcl PHA 06/05/25 In Process (Zofran) 21:30 Docusate Sodium [facility] 06/05/25 In Process Capsule (Colace 21:30 Complete Blood Count LAB 06/06/25 Verified 04:00 Comprehensive LAB 06/06/25 Verified Metabolic Panel 04:00 Cardiac DIET 06/06/25 Transmitted Diet-2gna,Lofat,Lochol Breakfast Condition: Serious ZAHRA 06/05/25 In Process 21:21 Acetaminophen Tablet PHA 06/05/25 In Process (Tylenol Tablet) 21:30 Bedrest With Bathroom ZAHRA 06/05/25 In Process Privileg 21:21 Sequential [facility] 06/05/25 In Process Compression Device Admit ADMIT 06/05/25 Verified 23:32 Nitroglycerin [facility] 06/05/25 Verified Sublingual (Ntrostat 23:45 Morphine Sulfate [facility] 06/05/25 Verified Injection 23:45 Stat Ekg For Chest [facility] 06/05/25 Verified Pain 23:32 Notify Md Of Changes [facility] 06/05/25 Verified From Base 23:32 Automatic Edger For [facility] 06/05/25 Verified 24 Hours 23:32 Emergency Dysrhythmia [facility] 06/05/25 Verified Protocol 23:32 Rhythm Strips Once [facility] 06/05/25 Verified Every Shift 23:32 Oxygen By Nasal 06/05/25 Verified Cannula 23:32 Problem List: (1) Acute hypoxic respiratory failure (2) Electrolyte imbalance (3) Urinary tract infection (4) Elevated lactic acid level (5) Generalized weakness (6) Pneumonia, unspecified organism Date of Service: Jun 05, 2025 Billing Provider: BRIAN PIMENTEL DNP Common Visit Codes: [id number] INP/OBS CARE (HIGH) BRIAN PIMENTEL DNP Jun 05, 2025 23:33
[2025-06-05] MEDS: PHENYTOIN SODIUM 100 MG CAP PO SCH (23:42)
[2025-06-05] MEDS: ATORVASTATIN 20 MG TAB PO SCH (23:43)
[2025-06-05] MEDS: ALBUMIN 25% 100 ML IV ONE (23:44)
[2025-06-05] MEDS ORDERED: NITROGLYCERIN 0.4 MG SL TAB SL PRN (23:45)
[2025-06-06] MEDS: MIDODRINE HCL 10 MG TAB PO SCH (01:11)
[2025-06-06] MEDS: CEFEPIME 1GM/ 50ML 50 ML IV SCH (01:11)
[2025-06-06 06:13] LABS: Alanine Aminotransferase 17 U/L (7-40); Alkaline Phosphatase 83 U/L (46-116); Anion Gap 6 (5-15); BUN/Creatinine Ratio 23.1 (10.0-20.0); Blood Urea Nitrogen 18 mg/dL (9-23); Carbon Dioxide 27 mmol/L (20-31); Chloride 104 mmol/L (98-107); Glucose 89 mg/dL (74-106); Hematocrit 28.6 % (41.0-53.0); Hemoglobin 10.2 g/dL (13.5-17.5); Mean Corpuscular Hemoglobin 31.9 pg (28.0-32.0); Mean Corpuscular Volume 89.4 fL (80.0-100.0); Potassium 4.0 mmol/L (3.5-5.1); Sodium 137 mmol/L (136-145); Total Protein 6.2 g/dL (5.7-8.2)
[2025-06-06 06:14] LABS: Albumin 2.8 g/dL (3.2-4.8); Bilirubin, Total 1.9 mg/dL (0.2-1.0); Calcium 8.2 mg/dL (8.7-10.4)
[2025-06-06 07:03] LABS: Total Cells Counted 100.0 (100)
[2025-06-06 08:56] VITALS: PULSE 52; RESP 16; O2SAT 100
[2025-06-06] MEDS: AZITHROMYCIN 500MG/ 250ML 250 ML IV SCH (09:54)
[2025-06-06] MEDS: HYDROcodone-ACET 5/325MG TAB PO PRN (12:13)
[2025-06-06] MEDS: LACTATED RINGER'S 500 ML IV ONE (15:00)
[2025-06-06 17:00] VITALS: BP 92/59; PULSE 71; RESP 19; TEMP 99.4; O2SAT 98
--- NOTE | 2025-06-06 17:15 | DVHPN2 ---
Subjective doing well. patient unalb eto present complains appropriately, possible poor historian. Reviewed: H&P Changes from previous H/P or p: No Changes General: Per HPI Eyes: No Pain, No Vision change, No Conjunctivae inflammation, No Eyelid inflammation, No Other, No Redness ENT: No Ear pain, No Ear discharge, No Nose pain, No Nose discharge, No Nose congestion, No Mouth pain, No Mouth swelling, No Throat pain, No Throat swelling, No Other Cardiovascular: No Chest Pain, No Palpitations, No Orthopnea, No Paroxysmal Noc. Dyspnea, No Edema, No Lt Headedness, No Other Respiratory: No Cough, No Dry; Shortness of breath; No SOB with excertion, No Wheezing, No Hemoptysis, No Pleuritic Pain, No Sputum, No Other Gastrointestinal: No Nausea, No Vomiting, No Abdominal Pain, No Diarrhea, No Constipation, No Melena, No Hematochezia, No Other Genitourinary: No Dysuria, No Frequency, No Incontinence, No Hematuria, No Retention, No Other Musculoskeletal: No other, No neck pain, No shoulder pain, No arm pain, No back pain, No hand pain, No leg pain, No foot pain Skin: No Rash, No Lesions, No Jaundice, No Bruising, No Other Objective Vitals Vital Signs Date Time Temp Pulse Resp B/P (MAP) Pulse Ox O2 Delivery O2 Flow Rate FiO2 06/06/25 15:00 71 18 89/54 (66) 98 06/06/25 10:16 98.2 98.2 06/06/25 08:56 Nasal Cannula* 2 28 Intake/Output Intake and Output 06/06/25 07:00 Intake Total 750.0 ml Balance 750.0 ml Intake IV Total 750.0 ml Exam GEN: Healthy appearing, well-developed, NAD. HEENT: NC/AT; MMM. CV: RRR, no m/r/g. LUNGS: CTAB, no w/r/c. ABD: Soft, NT/ND, NBS, no masses or organomegaly. EXT: skin Warm, well perfused. no rashes. No clubbing, cyanosis, or edema. NEURO: Ambulating with no limitations. No focal deficits. Medications Current Medications Medications Dose Ordered Sig/Sandi Route Start Time Stop Time Status Last Admin Dose Admin Cefepime HCl 50 ml @ 12.5 mls/hr Q12H IV 8/7/25 22:00 06/06/25 12:12 12.5 MLS/HR Azithromycin 250 ml @ 125 mls/hr DAILY IV 06/06/25 10:00 06/06/25 09:54 125 MLS/HR Phenytoin Sodium 100 mg Q8HR PO 06/05/25 22:00 06/06/25 06:06 100 MG Atorvastatin Calcium 20 mg HS PO 06/05/25 22:00 06/05/25 23:43 20 MG Sodium Chloride 10 ml Q8HR IV 06/05/25 22:00 06/06/25 14:00 10 ML Acetaminophen/ Hydrocodone Bitart 1 tab Q4HP PRN PO 06/05/25 21:30 06/06/25 12:13 1 TAB Ondansetron HCl 4 mg Q4HP PRN IV 06/05/25 21:30 Docusate Sodium 100 mg BIDPRN PRN PO 06/05/25 21:30 Acetaminophen 650 mg Q6HP PRN PO 06/05/25 21:30 Nitroglycerin 0.4 mg Q5MINP PRN SL 06/05/25 23:45 Morphine Sulfate 2 mg Q30M PRN IV 06/05/25 23:45 Midodrine 10 mg TID@0600,1200,1800 PO 06/06/25 00:45 06/06/25 12:12 10 MG Morphine Sulfate 1 mg Q4HP PRN IV 06/06/25 15:00 Laboratory Results Laboratory Tests 06/06/25 04:21 Chemistry Test 06/06/25 04:21 Albumin 2.8 g/dL (3.2-4.8) L Calcium Level 8.2 mg/dL (8.7-10.4) L Total Protein 6.2 g/dL (5.7-8.2) LFT Test 06/06/25 04:21 Alanine Aminotransferase (ALT) 17 U/L (7-40) Alkaline Phosphatase 83 U/L (46-116) Aspartate Amino Transferase (AST) 45 U/L (13-40) H Total Bilirubin 1.9 mg/dL (0.2-1.0) H Urinalysis Test 06/05/25 14:01 Urine Color Yellow (Yellow) Urine Clarity Clear (Clear) Urine pH 5.0 (5.0-9.0) Urine Specific [place] 1.014 (1.001-1.035) Urine Protein Trace (Negative) H Urine Ketones Negative (Negative) Urine Blood 3+ /uL (Negative) H Urine Nitrite Negative (Negative) Urine Bilirubin Negative (Negative) Urine Urobilinogen Normal mg/dL (Negative) Urine Leukocyte Esterase 1+ /uL (Negative) Urine RBC 32 /hpf (0 - 3) Urine Microscopic WBC 11 /HPF (0-3) H Urine Squamous Epithelial Cells Few /hpf (<5) Urine Bacteria None seen /hpf (None Seen) Urine Mucus Few (None Seen) Urine Glucose Normal mg/dL (Normal) Microbiology Microbiology Date/Time Source Procedure Growth Status 06/05/25 14:58 Blood Blood Culture - Preliminary Resulted 06/05/25 14:01 Voided Urine Urine Culture - Preliminary Resulted Labs and/or images reviewed: Labs reviewed by me, Image(s) reviewed by me Assessment/Plan Assessment/Plan 70-year-old male bedridden with multiple past medical history including COPD, CHF, asthma, hypertension, seizures, and [place] who presented to [facility] ED with complaint of shortness of breaths for the past 2 days. Patient's symptoms progressively get worse with hypoxia, desaturating on oxygen at 80 %, increased work of breathing, getting worse that prompted this visit. Patient was placed on 10 L simple mask with O2 saturation in the 90s. Patient was hospice but family decided to revoked it, the one everything done for the patient. 06/06: Patient complain of diffuse aches and pains today, patient asking for stronger medication for pain. Poor historian. Continue treating as possible Community acquired pneumonia. Patient appears euvolemic, no wheezing. Patient is on nasal cannula. Patient was hypotensive low maps we will try fluid bolus and then low IV infusion. Patient looks dry mucous membranes dry Acute hypoxic respiratory failure Community-acquired pneumonia, Gram-negative Gram-positive possible Electrolyte imbalance Urinary tract infection Elevated lactic acid level Generalized weakness Hospital revoke status -Continue IV antibiotics -continue prn pain control -continuing IV fluids Continue diet Tele Full code Plan discussed with: Patient My Orders Orders - AMADOR CANELA MD Procedure Category Date Status Time Lactated Ringer's PHA 06/06/25 In Process 15:00 Morphine Sulfate PHA 06/06/25 In Process Injection 15:00 Date of Service: Jun 06, 2025 Billing Provider: AMADOR CANELA MD Common Visit Codes: [id number] INP/OBS CARE(HIGH) AMADOR CANELA MD Jun 06, 2025 17:15
[2025-06-06 17:57] VITALS: TEMP 99.4
[2025-06-06] MEDS: MORPHINE SULFATE INJ 2 MG/ml SYRG IV PRN (18:43)
[2025-06-06 20:00] VITALS: PULSE 68
[2025-06-06 21:00] VITALS: BP 86/58; PULSE 72; RESP 16; TEMP 99.2; O2SAT 97
[2025-06-07] VITALS (7 sets, daily range): BP systolic 102–117; BP diastolic 58–72; PULSE 68–91; RESP 16–19; TEMP 98.1–98.8; O2SAT 94–98
[2025-06-07 11:07] LABS: Hemoglobin 10.8 g/dL (13.5-17.5)
[2025-06-07 11:08] LABS: Hematocrit 31.8 % (41.0-53.0); Mean Corpuscular Hemoglobin 30.9 pg (28.0-32.0); Mean Corpuscular Volume 90.6 fL (80.0-100.0); Nucleated Red Blood Cells % 0.1 %
[2025-06-07 11:21] LABS: Alanine Aminotransferase 21 U/L (7-40); Alkaline Phosphatase 75 U/L (46-116); Anion Gap 7 (5-15); BUN/Creatinine Ratio 27.9 (10.0-20.0); Blood Urea Nitrogen 17 mg/dL (9-23); Carbon Dioxide 24 mmol/L (20-31); Chloride 104 mmol/L (98-107); Potassium 3.9 mmol/L (3.5-5.1); Total Protein 5.7 g/dL (5.7-8.2)
[2025-06-07 11:24] LABS: Albumin 2.6 g/dL (3.2-4.8); Bilirubin, Total 1.6 mg/dL (0.2-1.0); Calcium 7.9 mg/dL (8.7-10.4); Glucose 154 mg/dL (74-106); Sodium 135 mmol/L (136-145)
[2025-06-07] MEDS: CEFEPIME 2GM/50ML NS 50 ML IV SCH (18:20)
--- NOTE | 2025-06-07 19:07 | DVHPN2 ---
Subjective No change Reviewed: Care Plan, H&P, Labs, Medications, Previous Orders, Radiology, Other (Consultants) Changes from previous H/P or p: No Changes General: Per HPI Objective Vitals Vital Signs Date Time Temp Pulse Resp B/P (MAP) Pulse Ox O2 Delivery O2 Flow Rate FiO2 06/07/25 18:42 73 16 115/66 06/07/25 17:30 98.7 97 98.7 06/06/25 17:57 Nasal Cannula* 3 32 Intake/Output Intake and Output 06/07/25 07:00 Intake Total 1312.5 ml Output Total 1500 ml Balance -187.5 ml Intake Oral 1000 ml IV Total 312.5 ml Output Urine Total 1500 ml # Bowel Movements 1 General Appearance: Alert, Oriented X3, Cooperative, No acute distress HEENT: Atraumatic Lungs: Other (Few crackles bilateral lungs) Cardiovascular: Regular rate Abdomen: Normal bowel sounds, Soft, No tenderness Medications Current Medications Medications Dose Ordered Sig/Sandi Route Start Time Stop Time Status Last Admin Dose Admin Azithromycin 250 ml @ 125 mls/hr DAILY IV 06/06/25 10:00 06/07/25 08:50 125 MLS/HR Phenytoin Sodium 100 mg Q8HR PO 06/05/25 22:00 06/06/25 06:06 100 MG Atorvastatin Calcium 20 mg HS PO 06/05/25 22:00 06/05/25 23:43 20 MG Sodium Chloride 10 ml Q8HR IV 06/05/25 22:00 06/07/25 14:17 10 ML Acetaminophen/ Hydrocodone Bitart 1 tab Q4HP PRN PO 06/05/25 21:30 06/06/25 12:13 1 TAB Ondansetron HCl 4 mg Q4HP PRN IV 06/05/25 21:30 Docusate Sodium 100 mg BIDPRN PRN PO 06/05/25 21:30 Acetaminophen 650 mg Q6HP PRN PO 06/05/25 21:30 Nitroglycerin 0.4 mg Q5MINP PRN SL 06/05/25 23:45 Morphine Sulfate 2 mg Q30M PRN IV 06/05/25 23:45 Midodrine 10 mg TID@0600,1200,1800 PO 06/06/25 00:45 06/07/25 18:20 10 MG Morphine Sulfate 1 mg Q4HP PRN IV 06/06/25 15:00 06/07/25 18:42 1 MG Cefepime HCl 50 ml @ 12.5 mls/hr Q8H IV 06/07/25 18:00 06/07/25 18:20 12.5 MLS/HR Laboratory Results Laboratory Tests 06/07/25 10:50 Chemistry Test 06/07/25 10:50 Albumin 2.6 g/dL (3.2-4.8) L Calcium Level 7.9 mg/dL (8.7-10.4) L Total Protein 5.7 g/dL (5.7-8.2) LFT Test 06/07/25 10:50 Alanine Aminotransferase (ALT) 21 U/L (7-40) Alkaline Phosphatase 75 U/L (46-116) Aspartate Amino Transferase (AST) 46 U/L (13-40) H Total Bilirubin 1.6 mg/dL (0.2-1.0) H Urinalysis Test 06/05/25 14:01 Urine Color Yellow (Yellow) Urine Clarity Clear (Clear) Urine pH 5.0 (5.0-9.0) Urine Specific [place] 1.014 (1.001-1.035) Urine Protein Trace (Negative) H Urine Ketones Negative (Negative) Urine Blood 3+ /uL (Negative) H Urine Nitrite Negative (Negative) Urine Bilirubin Negative (Negative) Urine Urobilinogen Normal mg/dL (Negative) Urine Leukocyte Esterase 1+ /uL (Negative) Urine RBC 32 /hpf (0 - 3) Urine Microscopic WBC 11 /HPF (0-3) H Urine Squamous Epithelial Cells Few /hpf (<5) Urine Bacteria None seen /hpf (None Seen) Urine Mucus Few (None Seen) Urine Glucose Normal mg/dL (Normal) Microbiology Microbiology Date/Time Source Procedure Growth Status 06/06/25 22:08 Nose MRSA Screen - Final Complete 06/05/25 14:58 Blood Blood Culture - Preliminary Resulted 06/05/25 14:01 Voided Urine Urine Culture - Preliminary Resulted Assessment/Plan Assessment/Plan Respiratory failure Pneumonia UTI Bacteremia and sepsis with a Gram-negative kelly COPD Bed-bound for two years CHF Hypertension History of [place] History of seizures Plan: Continue current plan of care continue IV antibiotics. Awaiting final ID and sensitivity on Gram-negative kelly in blood in the urine Plan discussed with: Patient My Orders Orders - MARYCHUY CHAPA MD Procedure Category Date Status Time * Wound Consult CONS 06/07/25 Transmitted Mechanical Soft Diet DIET 06/07/25 Transmitted Lunch Date of Service: Jun 07, 2025 Billing Provider: MARYCHUY HCAPA MD Common Visit Codes: [id number] INP/OBS CARE(HIGH) MARYCHUY CHAPA MD Jun 07, 2025 19:07
[2025-06-08] VITALS (16 sets, daily range): BP systolic 85–114; BP diastolic 52–78; PULSE 61–99; RESP 14–20; TEMP 97.6–99.2; O2SAT 3–100
[2025-06-08] MEDS ORDERED: ALBUTEROL SULF 2.5 MG/0.5ML(0.5%) NEB SOLN NEB PRN (10:45)
[2025-06-08] MEDS ORDERED: ALBUTEROL SULF 2.5 MG/0.5ML(0.5%) NEB SOLN NEB SCH (11:30)
[2025-06-08] MEDS: ALBUTEROL SULF 2.5 MG/0.5ML(0.5%) NEB SOLN NEB SCH (14:00)
--- NOTE | 2025-06-08 17:28 | DVHPN2 ---
Subjective No change Reviewed: Care Plan, H&P, Labs, Medications, Previous Orders, Radiology, Other (Consultants) Changes from previous H/P or p: No Changes General: Per HPI Objective Vitals Vital Signs Date Time Temp Pulse Resp B/P (MAP) Pulse Ox O2 Delivery O2 Flow Rate FiO2 06/08/25 16:54 99.2 87 20 114/73 (87) 96 99.2 06/08/25 14:53 Nasal Cannula 2.0 06/08/25 14:53 28 Intake/Output Intake and Output 06/08/25 07:00 Intake Total 2010 ml Output Total 1790 ml Balance 220 ml Intake Oral 1710 ml IV Total 300 ml Output Urine Total 1790 ml # Bowel Movements 3 General Appearance: Alert, Oriented X3, Cooperative, No acute distress HEENT: Atraumatic Lungs: Other (Few crackles bilateral lungs) Cardiovascular: Regular rate Abdomen: Normal bowel sounds, Soft, No tenderness Medications Current Medications Medications Dose Ordered Sig/Sandi Route Start Time Stop Time Status Last Admin Dose Admin Azithromycin 250 ml @ 125 mls/hr DAILY IV 06/06/25 10:00 06/08/25 08:53 125 MLS/HR Phenytoin Sodium 100 mg Q8HR PO 06/05/25 22:00 06/06/25 06:06 100 MG Atorvastatin Calcium 20 mg HS PO 06/05/25 22:00 06/05/25 23:43 20 MG Sodium Chloride 10 ml Q8HR IV 06/05/25 22:00 06/08/25 14:26 10 ML Acetaminophen/ Hydrocodone Bitart 1 tab Q4HP PRN PO 06/05/25 21:30 06/06/25 12:13 1 TAB Ondansetron HCl 4 mg Q4HP PRN IV 06/05/25 21:30 Docusate Sodium 100 mg BIDPRN PRN PO 06/05/25 21:30 Acetaminophen 650 mg Q6HP PRN PO 06/05/25 21:30 Nitroglycerin 0.4 mg Q5MINP PRN SL 06/05/25 23:45 Morphine Sulfate 2 mg Q30M PRN IV 06/05/25 23:45 Midodrine 10 mg TID@0600,1200,1800 PO 06/06/25 00:45 06/08/25 11:30 10 MG Morphine Sulfate 1 mg Q4HP PRN IV 06/06/25 15:00 06/08/25 15:12 1 MG Cefepime HCl 50 ml @ 12.5 mls/hr Q8H IV 06/07/25 18:00 06/08/25 08:53 12.5 MLS/HR Albuterol 2.5 mg Q4HR NEB 06/08/25 14:00 06/08/25 14:50 2.5 MG Laboratory Results Laboratory Tests 06/07/25 10:50 Urinalysis Test 06/05/25 14:01 Urine Color Yellow (Yellow) Urine Clarity Clear (Clear) Urine pH 5.0 (5.0-9.0) Urine Specific [place] 1.014 (1.001-1.035) Urine Protein Trace (Negative) H Urine Ketones Negative (Negative) Urine Blood 3+ /uL (Negative) H Urine Nitrite Negative (Negative) Urine Bilirubin Negative (Negative) Urine Urobilinogen Normal mg/dL (Negative) Urine Leukocyte Esterase 1+ /uL (Negative) Urine RBC 32 /hpf (0 - 3) Urine Microscopic WBC 11 /HPF (0-3) H Urine Squamous Epithelial Cells Few /hpf (<5) Urine Bacteria None seen /hpf (None Seen) Urine Mucus Few (None Seen) Urine Glucose Normal mg/dL (Normal) Microbiology Microbiology Date/Time Source Procedure Growth Status 06/06/25 22:08 Nose MRSA Screen - Final Complete 06/05/25 14:58 Blood Blood Culture - Final Escherichia coli - ESBL Complete 06/05/25 14:01 Voided Urine Urine Culture - Final Escherichia coli - ESBL Enterococcus faecalis Complete Assessment/Plan Assessment/Plan Respiratory failure Pneumonia UTI Bacteremia and sepsis with E coli/ESBL/pending final sensitivity COPD Bed-bound for two years CHF Hypertension History of [place] History of seizures Plan: Cefepime. Awaiting final sensitivity. Plan discussed with: Other (nursing) My Orders Orders - MARYCHUY CHAPA MD Procedure Category Date Status Time Albuterol Medneb PHA 06/08/25 In Process (Ventolin Medneb) 14:00 Cleanse Wound With ZAHRA 06/08/25 In Process Mild Soap A 10:45 Date of Service: Jun 08, 2025 Billing Provider: MARYCHUY CHAPA MD Common Visit Codes: [id number] INP/OBS CARE(HIGH) MARYCHUY CHAPA MD Jun 08, 2025 17:28
[2025-06-09] VITALS (21 sets, daily range): BP systolic 96–120; BP diastolic 36–73; PULSE 70–105; RESP 14–21; TEMP 98.1–99; O2SAT 94–100
--- NOTE | 2025-06-09 10:25 | DVHPN2 ---
Progress Note Date Seen: Jun 09, 2025 Medical Necessity Reason Pt with a Central, PICC or Fol: No Subjective Patient reports: No new complaints Review of Systems: HEENT:Normal, CVS:Normal, RESPIRATORY:Normal, GI:Normal, :Normal, MSK:Normal, NEURO:Normal Objective vital signs Vital Sign Date Time Temp Pulse Resp B/P (MAP) Pulse Ox O2 Delivery O2 Flow Rate FiO2 06/09/25 09:25 70 16 100 06/09/25 09:19 Nasal Cannula 2.0 06/09/25 09:19 28 06/09/25 09:00 98.1 120/73 (89) 98.1 Total Intake and Output 06/08/25 06/08/25 06/09/25 15:00 23:00 07:00 Intake Total 300 ml 650 ml 927 ml Output Total 1050 ml 1751 ml Balance 300 ml -400 ml -824 ml medications Current Medications Medications Dose Ordered Sig/Sandi Route Start Time Stop Time Status Last Admin Dose Admin Phenytoin Sodium 100 mg Q8HR PO 06/05/25 22:00 06/06/25 06:06 100 MG Atorvastatin Calcium 20 mg HS PO 06/05/25 22:00 06/08/25 21:13 20 MG Sodium Chloride 10 ml Q8HR IV 06/05/25 22:00 06/09/25 05:45 10 ML Acetaminophen/ Hydrocodone Bitart 1 tab Q4HP PRN PO 06/05/25 21:30 06/08/25 18:26 1 TAB Ondansetron HCl 4 mg Q4HP PRN IV 06/05/25 21:30 Docusate Sodium 100 mg BIDPRN PRN PO 06/05/25 21:30 Acetaminophen 650 mg Q6HP PRN PO 06/05/25 21:30 Nitroglycerin 0.4 mg Q5MINP PRN SL 06/05/25 23:45 Morphine Sulfate 2 mg Q30M PRN IV 06/05/25 23:45 Midodrine 10 mg TID@0600,1200,1800 PO 06/06/25 00:45 06/09/25 05:45 10 MG Morphine Sulfate 1 mg Q4HP PRN IV 06/06/25 15:00 06/09/25 05:56 1 MG Albuterol 2.5 mg Q4HR NEB 06/08/25 14:00 06/09/25 09:19 2.5 MG Examination: GENERAL:Normal, HEENT:Normal, NECK:Normal, LUNGS:Normal, CVS:Normal, ABDOMEN:Normal, MSK:Normal, SKIN:Normal, NEURO:Normal, :Normal laboratory and microbiology Laboratory Tests 06/07/25 10:50 Test 06/07/25 10:50 Range/Units Serum Glucose 154 H 74-106 mg/dL Microbiology Date/Time Source Procedure Growth Status 06/06/25 22:08 Nose MRSA Screen - Final Complete 06/05/25 14:58 Blood Blood Culture - Final Escherichia coli - ESBL Complete 06/05/25 14:01 Voided Urine Urine Culture - Final Escherichia coli - ESBL Enterococcus faecalis Complete Problem List/Assessment/Plan Problem List/Assessment/Plan #1 sepsis with uti with esbl e coli: iv invanz #2 chronic natarajan: change #3 liver cirrhosis with hep C #4 h/o drug abuse #5 chronic diastolic heart failure #6 cad #7 chronic diastolic heart failure #8 mod protein malnutrition #9 copd #10 functional quadriplegia advance care planning- full code- time spent 19 mins Plan discussed with: Patient My Orders My Orders Orders - ADI PEREZ MD Procedure Category Date Status Time Invanz 1gm Ivpb X One PHA 06/09/25 Transmitted 10:15 Invanz 1gm Ivpb Daily PHA 06/10/25 Transmitted 10:00 Lactulose Oral PHA 06/09/25 Transmitted 22:00 Lactulose Oral PHA 06/09/25 Transmitted 10:15 Ok To Change Natarajan ORDERS 06/09/25 Transmitted 10:05 Pt Request For Service PT 06/09/25 Logged 10:05 Pantoprazole Tablet PHA 06/09/25 Transmitted (Protonix Tablet) 10:15 Pantoprazole Tablet PHA 06/10/25 Transmitted (Protonix Tablet) 06:00 Spironolactone PHA 06/10/25 Transmitted (Aldactone) 10:00 Complete Blood Count LAB 06/10/25 Verified 06:00 Comprehensive LAB 06/10/25 Verified Metabolic Panel 06:00 Ammonia LAB 06/10/25 Verified 06:00 Phenytoin (Dilantin) LAB 06/10/25 Verified 06:00 Blood Culture HERNÁN 06/10/25 Logged 05:00 Dietary Evaluation Review Recommendations by RD: Protein Supplementation Comments: 1) Add cardiac restriction to mechanical soft diet 2) Initiate Ensure High-Protein qd - Encourage optimal PO intake 3) Follow-up with cardiology, pulmonology, and neurology 4) Continue to monitor I&O, labs, and skin integrity Expected Outcomes/Goals: 1) appetite and labs to improve 2) wounds to improve 3) f/u in 3-5 days Date of Service: Jun 09, 2025 Billing Provider: ADI PEREZ MD Common Visit Codes: [id number] INP/OBS CARE(HIGH) Secondary Visit Codes: [id number] CARE PLAN 30 MINUTES ADI PEREZ MD Jun 09, 2025 10:25
[2025-06-09] MEDS: PANTOPRAZOLE 40 MG TAB PO ONE (11:16)
[2025-06-09] MEDS: LACTULOSE 20Gm/30ML SOLN PO ONE (11:16)
[2025-06-09] MEDS: ERTAPENEM SOD INJ 1 GM in SODIUM CHL 0.9% 50 ML IV ONE (11:17)
[2025-06-09] MEDS: LACTULOSE 20Gm/30ML SOLN PO SCH (22:00)
[2025-06-10] VITALS (19 sets, daily range): BP systolic 89–110; BP diastolic 57–68; PULSE 69–105; RESP 16–20; TEMP 97.5–99.5; O2SAT 94–100
[2025-06-10] MEDS: PANTOPRAZOLE 40 MG TAB PO SCH (05:22)
[2025-06-10 06:55] LABS: Hematocrit 28.5 % (41.0-53.0); Hemoglobin 9.8 g/dL (13.5-17.5); Mean Corpuscular Hemoglobin 30.7 pg (28.0-32.0); Mean Corpuscular Volume 89.5 fL (80.0-100.0)
[2025-06-10 07:17] LABS: Alanine Aminotransferase 25 U/L (7-40); Alkaline Phosphatase 87 U/L (46-116); Anion Gap 7 (5-15); BUN/Creatinine Ratio 10.2 (10.0-20.0); Calcium 8.8 mg/dL (8.7-10.4); Carbon Dioxide 26 mmol/L (20-31); Chloride 105 mmol/L (98-107); Glucose 77 mg/dL (74-106); Potassium 4.3 mmol/L (3.5-5.1); Sodium 138 mmol/L (136-145); Total Protein 6.3 g/dL (5.7-8.2)
[2025-06-10 07:20] LABS: Bilirubin, Total 1.5 mg/dL (0.2-1.0); Blood Urea Nitrogen 6 mg/dL (9-23)
[2025-06-10 07:21] LABS: Albumin 2.7 g/dL (3.2-4.8)
[2025-06-10 09:08] LABS: Total Cells Counted 100.0 (100)
[2025-06-10] MEDS: ERTAPENEM SOD INJ 1 GM in SODIUM CHL 0.9% 50 ML IV SCH (10:07)
[2025-06-10] MEDS: SPIRONOLACTONE 25 MG TAB PO SCH (10:07)
[2025-06-10] MEDS: MORPHINE SULFATE INJ 2 MG/ml SYRG IV PRN (10:09)
--- NOTE | 2025-06-10 10:16 | DVHPN2 ---
Progress Note Date Seen: Jun 10, 2025 Medical Necessity Reason Pt with a Central, PICC or Fol: No Subjective Patient reports: No new complaints Review of Systems: HEENT:Normal, CVS:Normal, RESPIRATORY:Normal, GI:Normal, :Normal, MSK:Normal, NEURO:Normal Objective vital signs Vital Sign Date Time Temp Pulse Resp B/P (MAP) Pulse Ox O2 Delivery O2 Flow Rate FiO2 06/10/25 10:09 79 20 100/61 06/10/25 09:41 99 06/10/25 09:31 Nasal Cannula 2.0 06/10/25 09:31 28 06/10/25 09:00 97.5 97.5 Total Intake and Output 06/09/25 06/09/25 06/10/25 15:00 23:00 07:00 Intake Total 350 ml 800 ml 948 ml Output Total 675 ml 1950 ml Balance 350 ml 125 ml -1002 ml medications Current Medications Medications Dose Ordered Sig/Sandi Route Start Time Stop Time Status Last Admin Dose Admin Phenytoin Sodium 100 mg Q8HR PO 06/05/25 22:00 06/06/25 06:06 100 MG Atorvastatin Calcium 20 mg HS PO 06/05/25 22:00 06/09/25 22:41 20 MG Sodium Chloride 10 ml Q8HR IV 06/05/25 22:00 06/10/25 05:23 10 ML Acetaminophen/ Hydrocodone Bitart 1 tab Q4HP PRN PO 06/05/25 21:30 06/08/25 18:26 1 TAB Ondansetron HCl 4 mg Q4HP PRN IV 06/05/25 21:30 Docusate Sodium 100 mg BIDPRN PRN PO 06/05/25 21:30 Acetaminophen 650 mg Q6HP PRN PO 06/05/25 21:30 Nitroglycerin 0.4 mg Q5MINP PRN SL 06/05/25 23:45 Morphine Sulfate 2 mg Q30M PRN IV 06/05/25 23:45 06/10/25 10:09 2 MG Midodrine 10 mg TID@0600,1200,1800 PO 06/06/25 00:45 06/10/25 05:22 10 MG Morphine Sulfate 1 mg Q4HP PRN IV 06/06/25 15:00 06/10/25 05:24 1 MG Albuterol 2.5 mg Q4HR NEB 06/08/25 14:00 06/10/25 09:31 2.5 MG Ertapenem 1 gm/ Sodium Chloride 50 ml @ 100 mls/hr DAILY IV 06/10/25 10:00 06/10/25 10:07 100 MLS/HR Lactulose 30 ml BID PO 06/09/25 22:00 Pantoprazole Sodium 40 mg DAILY@0600 PO 06/10/25 06:00 06/10/25 05:22 40 MG Spironolactone 25 mg DAILY PO 06/10/25 10:00 06/10/25 10:07 25 MG Examination: GENERAL:Normal, HEENT:Normal, NECK:Normal, LUNGS:Normal, CVS:Normal, ABDOMEN:Normal, MSK:Normal, SKIN:Normal, NEURO:Normal, :Normal laboratory and microbiology Laboratory Tests 06/10/25 06:10 Test 06/10/25 06:10 Range/Units Serum Glucose 77 74-106 mg/dL Microbiology Date/Time Source Procedure Growth Status 06/06/25 22:08 Nose MRSA Screen - Final Complete 06/05/25 14:58 Blood Blood Culture - Final Escherichia coli - ESBL Complete 06/05/25 14:01 Voided Urine Urine Culture - Final Escherichia coli - ESBL Enterococcus faecalis Complete Problem List/Assessment/Plan Problem List/Assessment/Plan #1 sepsis with uti with esbl e coli: iv invanz #2 chronic natarajan: change #3 liver cirrhosis with hep C #4 h/o drug abuse #5 chronic diastolic heart failure #6 cad #7 mod protein malnutrition #8 copd #9 functional quadriplegia advance care planning- full code- time spent 19 mins Plan discussed with: Patient My Orders My Orders Orders - DAI PEREZ MD Procedure Category Date Status Time Ertapenem Sod Inj PHA 06/10/25 In Process (Invanz) 10:00 Lactulose Oral PHA 06/09/25 In Process 22:00 Ok To Change Natarajan ORDERS 06/09/25 Transmitted 10:05 Pt Request For Service PT 06/09/25 Logged 10:05 Pantoprazole Tablet PHA 06/10/25 In Process (Protonix Tablet) 06:00 Spironolactone PHA 06/10/25 In Process (Aldactone) 10:00 Blood Culture HERNÁN 06/10/25 In Process 05:00 Discontinue Tele ZAHRA 06/09/25 In Process 10:21 Transfer Orders XFER 06/09/25 Transmitted 10:21 Dietary Evaluation Review Recommendations by RD: Protein Supplementation Comments: 1) Add cardiac restriction to mechanical soft diet 2) Initiate Ensure High-Protein qd - Encourage optimal PO intake 3) Follow-up with cardiology, pulmonology, and neurology 4) Continue to monitor I&O, labs, and skin integrity Expected Outcomes/Goals: 1) appetite and labs to improve 2) wounds to improve 3) f/u in 3-5 days Date of Service: Jun 10, 2025 Billing Provider: ADI PEREZ MD Common Visit Codes: [id number] INP/OBS CARE(HIGH) ADI PEREZ MD Jun 10, 2025 10:16
[2025-06-11] VITALS (21 sets, daily range): BP systolic 92–140; BP diastolic 51–73; PULSE 72–92; RESP 16–22; TEMP 98.4–100.1; O2SAT 95–100
--- NOTE | 2025-06-11 10:14 | DVHPN2 ---
Progress Note Date Seen: Jun 11, 2025 Medical Necessity Reason Pt with a Central, PICC or Fol: No Subjective Patient reports: No new complaints Review of Systems: HEENT:Normal, CVS:Normal, RESPIRATORY:Normal, GI:Normal, :Normal, MSK:Normal, NEURO:Normal Objective vital signs Vital Sign Date Time Temp Pulse Resp B/P (MAP) Pulse Ox O2 Delivery O2 Flow Rate FiO2 06/11/25 09:11 84 18 100 06/11/25 09:02 Nasal Cannula* 2 28 06/11/25 08:18 98.6 114/73 (87) 98.6 Total Intake and Output 06/10/25 06/10/25 06/11/25 15:00 23:00 07:00 Intake Total 50 ml 1950 ml 800 ml Output Total 1650 ml 1225 ml Balance 50 ml 300 ml -425 ml medications Current Medications Medications Dose Ordered Sig/Sandi Route Start Time Stop Time Status Last Admin Dose Admin Phenytoin Sodium 100 mg Q8HR PO 06/05/25 22:00 06/06/25 06:06 100 MG Atorvastatin Calcium 20 mg HS PO 06/05/25 22:00 06/10/25 22:10 20 MG Sodium Chloride 10 ml Q8HR IV 06/05/25 22:00 06/10/25 22:10 10 ML Acetaminophen/ Hydrocodone Bitart 1 tab Q4HP PRN PO 06/05/25 21:30 06/08/25 18:26 1 TAB Ondansetron HCl 4 mg Q4HP PRN IV 06/05/25 21:30 Docusate Sodium 100 mg BIDPRN PRN PO 06/05/25 21:30 Acetaminophen 650 mg Q6HP PRN PO 06/05/25 21:30 Nitroglycerin 0.4 mg Q5MINP PRN SL 06/05/25 23:45 Morphine Sulfate 2 mg Q30M PRN IV 06/05/25 23:45 Midodrine 10 mg TID@0600,1200,1800 PO 06/06/25 00:45 06/11/25 05:16 10 MG Morphine Sulfate 1 mg Q4HP PRN IV 06/06/25 15:00 06/11/25 05:18 1 MG Albuterol 2.5 mg Q4HR NEB 06/08/25 14:00 06/11/25 09:01 2.5 MG Ertapenem 1 gm/ Sodium Chloride 50 ml @ 100 mls/hr DAILY IV 06/10/25 10:00 06/10/25 10:07 100 MLS/HR Lactulose 30 ml BID PO 06/09/25 22:00 Pantoprazole Sodium 40 mg DAILY@0600 PO 06/10/25 06:00 06/11/25 05:16 40 MG Spironolactone 25 mg DAILY PO 06/10/25 10:00 06/10/25 10:07 25 MG Examination: GENERAL:Normal, HEENT:Normal, NECK:Normal, LUNGS:Normal, CVS:Normal, ABDOMEN:Normal, MSK:Normal, SKIN:Normal, NEURO:Normal, :Normal laboratory and microbiology Laboratory Tests 06/10/25 06:10 Test 06/10/25 06:10 Range/Units Serum Glucose 77 74-106 mg/dL Microbiology Date/Time Source Procedure Growth Status 06/10/25 06:25 Blood Blood Culture - Preliminary NO GROWTH AFTER 24 HOURS OF INCUBATION. Resulted 06/06/25 22:08 Nose MRSA Screen - Final Complete 06/05/25 14:01 Voided Urine Urine Culture - Final Escherichia coli - ESBL Enterococcus faecalis Complete Problem List/Assessment/Plan Problem List/Assessment/Plan #1 sepsis with uti with esbl e coli: iv invanz #2 chronic natarajan: change #3 liver cirrhosis with hep C #4 h/o drug abuse #5 chronic diastolic heart failure #6 cad #7 mod protein malnutrition #8 copd #9 functional quadriplegia advance care planning- full code- time spent 19 mins Plan discussed with: Patient My Orders My Orders Orders - ADI PEREZ MD Procedure Category Date Status Time Insert Midline ORDERS 06/11/25 Verified 10:05 Ss Consult To Arrange ZAHRA 06/11/25 Verified Home Iv 10:05 * Spice F[employer]igator CONS 06/11/25 Verified Consult Dietary Evaluation Review Recommendations by RD: Protein Supplementation Comments: 1) Add cardiac restriction to mechanical soft diet 2) Initiate Ensure High-Protein qd - Encourage optimal PO intake 3) Follow-up with cardiology, pulmonology, and neurology 4) Continue to monitor I&O, labs, and skin integrity Expected Outcomes/Goals: 1) appetite and labs to improve 2) wounds to improve 3) f/u in 3-5 days Date of Service: Jun 11, 2025 Billing Provider: ADI PEREZ MD Common Visit Codes: [id number] INP/OBS CARE(HIGH) ADI PEREZ MD Jun 11, 2025 10:14
[2025-06-12] VITALS (20 sets, daily range): BP systolic 95–128; BP diastolic 62–72; PULSE 61–92; RESP 16–20; TEMP 36.6; O2SAT 33–100
--- NOTE | 2025-06-12 10:05 | DVHDS2 ---
Discharge Summary Date of Admission Jun 05, 2025 at 23:32 Date of Discharge: Jun 12, 2025 Labs/Diagnostic Data: Laboratory Results Test 06/10/25 11:29 06/10/25 06:25 06/10/25 06:10 06/07/25 10:50 POC Glucose 73 mg/dl (70-106) Phenytoin (Dilantin) Level < 2.0 ug/mL (10-20) White Blood Count 4.0 10^3/uL (4.4-10.8) Red Blood Count 3.19 10^6/uL (4.5-5.90) Hemoglobin 9.8 g/dL (13.5-17.5) Hematocrit 28.5 % (41.0-53.0) Mean Corpuscular Volume 89.5 fL (80.0-100.0) Mean Corpuscular Hemoglobin 30.7 pg (28.0-32.0) Mean Corpuscular Hemoglobin Concent 34.3 g/dL (32.0-36.0) Red Cell Distribution Width 18.7 % (11.8-14.3) Platelet Count 80 10^3/uL (140-450) Mean Platelet Volume 8.1 fL (6.9-10.8) Neutrophils (%) (Auto) % (37.0-80.0) Lymphocytes (%) (Auto) % (10.0-50.0) Monocytes (%) (Auto) % (0.0-12.0) Basophils (%) (Auto) % (0.0-2.0) Neutrophils # (Auto) 10 ^3/uL (1.6-8.6) Lymphocytes # (Auto) 10 ^3/uL (0.4-5.4) Monocytes # (Auto) 10 ^3/uL (0-1.3) Differential Total Cells Counted 100.0 (100) Neutrophils % (Manual) 79 (37.0-80.0) Band Neutrophils % (Manual) 0 Lymphocytes % (Manual) 12 (10.0-50.0) Monocytes % (Manual) 6 (0-12) Eosinophils % (Manual) 3 (0-7) Basophils % (Manual) 0 (0.0-2.0) Metamyelocytes % (manual) 0 Myelocytes % (Manual) 0 Promyelocytes % (Manual) 0 Blast Cells % (Manual) 0 Reactive Lymphocytes 0 Platelet Estimate Decreased Sodium Level 138 mmol/L (136-145) Potassium Level 4.3 mmol/L (3.5-5.1) Chloride Level 105 mmol/L (98-107) Carbon Dioxide Level 26 mmol/L (20-31) Anion Gap 7 (5-15) Blood Urea Nitrogen 6 mg/dL (9-23) Creatinine 0.59 mg/dL (0.700-1.30) Glomerular Filtration Rate Calc 104 mL/min (>90) BUN/Creatinine Ratio 10.2 (10.0-20.0) Serum Glucose 77 mg/dL (74-106) Calcium Level 8.8 mg/dL (8.7-10.4) Total Bilirubin 1.5 mg/dL (0.2-1.0) Aspartate Amino Transferase (AST) 45 U/L (13-40) Alanine Aminotransferase (ALT) 25 U/L (7-40) Alkaline Phosphatase 87 U/L (46-116) Ammonia 18 umol/L (11-32) Total Protein 6.3 g/dL (5.7-8.2) Albumin 2.7 g/dL (3.2-4.8) Eosinophils (%) (Auto) 1.0 % (0.0-7.0) Eosinophils # (Auto) 0 10 ^3/uL (0-0.8) Basophils # (Auto) 0 10 ^3/uL (0-0.2) Nucleated Red Blood Cells 0.1 % Test 06/05/25 16:25 06/05/25 15:57 06/05/25 14:26 06/05/25 14:01 Lactic Acid Level 2.2 mmol/L (0.4-2.0) B-Type Natriuretic Peptide 255.51 pg/mL (0-100) Prothrombin Time 16.0 sec (9.3-11.8) Prothrombin Time INR 1.58 (0.9-1.15) Activated Partial Thromboplast Time 32.5 SEC (24.5-34.5) Urine Color Yellow (Yellow) Urine Clarity Clear (Clear) Urine pH 5.0 (5.0-9.0) Urine Specific [place] 1.014 (1.001-1.035) Urine Protein Trace (Negative) Urine Ketones Negative (Negative) Urine Blood 3+ /uL (Negative) Urine Nitrite Negative (Negative) Urine Bilirubin Negative (Negative) Urine Urobilinogen Normal mg/dL (Negative) Urine Leukocyte Esterase 1+ /uL (Negative) Urine RBC 32 /hpf (0 - 3) Urine Microscopic WBC 11 /HPF (0-3) Urine Squamous Epithelial Cells Few /hpf (<5) Urine Bacteria None seen /hpf (None Seen) Urine Mucus Few (None Seen) Urine Glucose Normal mg/dL (Normal) Other Laboratory Tests 06/10/25 06:10 Brief Hx & Hospital Course: see dictated note Condition at Discharge: Fair Final Diagnosis/Problems List sepsis Discharge Disposition: Home with Health Services Discharge Instruct/Medications Diet: Cardiac 2g Na,low cholest Activity: No Restrictions, As Tolerated Follow Up/Referral: fu wiht pcp in 1 wk Medications: resume home meds home health iv antibiotics Scheduled Atorvastatin Calcium (Atorvastatin Calcium), 1 TAB PO DAILY, (Reported) Carvedilol (Coreg), 3.125 MG PO BID Furosemide (Furosemide), 1 TAB PO BID, (Reported) Gabapentin (Gabapentin), 1 TAB PO TID, (Reported) Hydrocodone-Acetaminophen (Hydrocodone Bitartrate/AC 10-325 mg), 1 TAB PO TIDP, (Reported) Midodrine Hcl (Midodrine Hcl), 1 TAB PO TID, (Reported) Morphine Sulfate (Morphine Sulfate Cr), 1 TAB PO TID, (Reported) Pantoprazole Sodium Sesquihydr (Pantoprazole Sodium), 40 MG PO BID Phenytoin Sodium (Dilantin), 1 CAP PO TID, (Reported) Rifaximin (Xifaxan), 1 TAB PO BID, (Reported) Risperidone (Risperdal), 0.5 MG PO HS, (Reported) Spironolactone (Spironolactone), 1 TAB PO DAILY, (Reported) Trazodone Hcl (Trazodone Hcl), 50 MG PO HS, (Reported) Scheduled PRN Lorazepam (Ativan Tablet), 1 TAB PO BIDPRN PRN for AGITATION, (Reported) Miscellaneous Medications Albuterol Sulfate (Albuterol Sulfate Hfa), INH, (Reported) Diclofenac Sodium (Actinic Ker (Diclofenac Sodium), TOP, (Reported) Lactulose (Lactulose), ML PO, (Reported) Metoprolol Tartrate (Lopressor), TAB PO, (Reported) Discharge Statement: "Patient was advised to return to the ER or call 911 if any headaches, dizziness, shortness of breath, chest pain, abdominal pain, bleeding, fevers, or worsening of medical condition. Patient was counseled about treatment plan, medications, possible side effects, patientverbalized understanding. All questions were answered to the best of my ability. This discharge took greater then 30 minutes in planning, reviewing documentation, counseling the patient, and discussing with other team members." ASSESSMENT ASSESSMENT Assessment sepsis Date of Service: Jun 12, 2025 Billing Provider: ADI PEREZ MD Common Visit Codes: [id number] DISCH DAY >30min ADI PEREZ MD Jun 12, 2025 10:05
--- NOTE | 2025-06-12 10:28 | DVHDS ---
DATE OF DISCHARGE: 06/12/2025 HISTORY OF PRESENT ILLNESS: The patient is a 70-year-old gentleman who was admitted with history of low oxygen saturations and shortness of breath. He has a history of COPD, CHF, hypertension, liver cirrhosis, seizure disorder, as well as coronary artery disease. HOSPITAL COURSE: The patient had evidence of UTI with ESBL E. coli as well as blood cultures positive for ESBL E. coli. Chest x-ray showed bibasilar atelectasis. The patient was placed on IV Invanz. Repeat blood cultures have been negative. The patient's ammonia level was 18. He is currently doing well and will be discharged home to resume his home medications as well as will be on IV Invanz 1 g daily for 14 days. He will follow up with his primary in 1 week. FINAL DIAGNOSES: * Sepsis with UTI with ESBL E. coli. * Chronic Mcdaniel. * Liver cirrhosis with hepatitis C. * History of drug abuse. * Chronic diastolic heart failure. * Coronary artery disease. * Moderate protein malnutrition. * COPD. * Functional quadriplegia. Time spent in discharge planning and review of plan with the patient and nursing was 39 minutes. MD NENA Reyes/DARIO TID: [id number] RECEIPT: [id number]
[2025-06-13] VITALS (19 sets, daily range): BP systolic 96–139; BP diastolic 61–87; PULSE 59–93; RESP 16–18; TEMP 97.2–98.3; O2SAT 90–100
--- NOTE | 2025-06-13 12:57 | DVHPN2 ---
Subjective The patient seen and examined at bedside. No change overnight. Waiting for equipment for home. Reviewed: Care Plan, H&P, Labs, Medications, Previous Orders, Radiology, Other (Consultants) Changes from previous H/P or p: No Changes General: Per HPI Objective Vitals Vital Signs Date Time Temp Pulse Resp B/P (MAP) Pulse Ox O2 Delivery O2 Flow Rate FiO2 06/13/25 12:21 98.2 83 16 106/64 (78) 99 98.2 06/13/25 09:57 Nasal Cannula 3.0 06/13/25 09:57 32 Intake/Output Intake and Output 06/13/25 07:00 Intake Total 2000 ml Output Total 2100 ml Balance -100 ml Intake Oral 2000 ml Output Urine Total 2100 ml # Voids 3 General Appearance: Alert, Oriented X3, Cooperative, No acute distress HEENT: Atraumatic Lungs: Other (Few crackles bilateral lungs) Cardiovascular: Regular rate Abdomen: Normal bowel sounds, Soft, No tenderness Medications Current Medications Medications Dose Ordered Sig/Sandi Route Start Time Stop Time Status Last Admin Dose Admin Phenytoin Sodium 100 mg Q8HR PO 06/05/25 22:00 06/06/25 06:06 100 MG Atorvastatin Calcium 20 mg HS PO 06/05/25 22:00 06/12/25 22:00 20 MG Sodium Chloride 10 ml Q8HR IV 06/05/25 22:00 06/13/25 06:08 10 ML Acetaminophen/ Hydrocodone Bitart 1 tab Q4HP PRN PO 06/05/25 21:30 06/12/25 18:14 1 TAB Ondansetron HCl 4 mg Q4HP PRN IV 06/05/25 21:30 Docusate Sodium 100 mg BIDPRN PRN PO 06/05/25 21:30 Acetaminophen 650 mg Q6HP PRN PO 06/05/25 21:30 Nitroglycerin 0.4 mg Q5MINP PRN SL 06/05/25 23:45 Morphine Sulfate 2 mg Q30M PRN IV 06/05/25 23:45 Midodrine 10 mg TID@0600,1200,1800 PO 06/06/25 00:45 06/13/25 11:58 10 MG Morphine Sulfate 1 mg Q4HP PRN IV 06/06/25 15:00 06/13/25 10:10 1 MG Albuterol 2.5 mg Q4HR NEB 06/08/25 14:00 06/13/25 09:26 2.5 MG Ertapenem 1 gm/ Sodium Chloride 50 ml @ 100 mls/hr DAILY IV 06/10/25 10:00 06/13/25 10:10 100 MLS/HR Lactulose 30 ml BID PO 06/09/25 22:00 Pantoprazole Sodium 40 mg DAILY@0600 PO 06/10/25 06:00 06/13/25 06:09 40 MG Spironolactone 25 mg DAILY PO 06/10/25 10:00 06/13/25 10:10 25 MG Laboratory Results Laboratory Tests 06/10/25 06:10 Urinalysis Test 06/05/25 14:01 Urine Color Yellow (Yellow) Urine Clarity Clear (Clear) Urine pH 5.0 (5.0-9.0) Urine Specific [place] 1.014 (1.001-1.035) Urine Protein Trace (Negative) H Urine Ketones Negative (Negative) Urine Blood 3+ /uL (Negative) H Urine Nitrite Negative (Negative) Urine Bilirubin Negative (Negative) Urine Urobilinogen Normal mg/dL (Negative) Urine Leukocyte Esterase 1+ /uL (Negative) Urine RBC 32 /hpf (0 - 3) Urine Microscopic WBC 11 /HPF (0-3) H Urine Squamous Epithelial Cells Few /hpf (<5) Urine Bacteria None seen /hpf (None Seen) Urine Mucus Few (None Seen) Urine Glucose Normal mg/dL (Normal) Microbiology Microbiology Date/Time Source Procedure Growth Status 06/10/25 06:25 Blood Blood Culture - Preliminary NO GROWTH AFTER 72 HOURS OF INCUBATION. Resulted 06/06/25 22:08 Nose MRSA Screen - Final Complete 06/05/25 14:01 Voided Urine Urine Culture - Final Escherichia coli - ESBL Enterococcus faecalis Complete Labs and/or images reviewed: Labs reviewed by me Assessment/Plan Assessment/Plan #1 sepsis with uti with esbl e coli: iv invanz #2 chronic natarajan: change #3 liver cirrhosis with hep C #4 h/o drug abuse #5 chronic diastolic heart failure #6 cad #7 mod protein malnutrition #8 copd #9 functional quadriplegia Plan discussed with: Patient My Orders Orders - AGUILA GONZALEZ MD Procedure Category Date Status Time * Flame Hardening Machine Operator CONS 06/13/25 Transmitted Consult Abg W/ Co-Ox RT 06/13/25 Logged 11:38 * Flame Hardening Machine Operator CONS 06/13/25 Transmitted Consult Date of Service: Jun 13, 2025 Billing Provider: AGUILA GONZALEZ MD Common Visit Codes: [id number] INP/OBS CARE(HIGH) AGUILA GONZALEZ MD Jun 13, 2025 12:57
[2025-06-13 14:08] LABS: Base Excess 2.3 mmol/L (-2.0-3.0)
[2025-06-14] VITALS (19 sets, daily range): BP systolic 100–142; BP diastolic 56–88; PULSE 64–89; RESP 16–18; TEMP 97.6–98.4; O2SAT 96–100
--- NOTE | 2025-06-14 15:06 | DVHPN2 ---
Subjective The patient seen and examined at bedside. No change overnight. Waiting for equipment for home. Reviewed: Care Plan, H&P, Labs, Medications, Previous Orders, Radiology, Other (Consultants) Changes from previous H/P or p: No Changes General: Per HPI Objective Vitals Vital Signs Date Time Temp Pulse Resp B/P (MAP) Pulse Ox O2 Delivery O2 Flow Rate FiO2 06/14/25 14:26 82 16 96 06/14/25 13:00 97.6 133/71 (91) 97.6 06/14/25 10:00 Nasal Cannula 2.0 06/14/25 10:00 28 Intake/Output Intake and Output 06/14/25 07:00 Intake Total 1125 ml Output Total 1600 ml Balance -475 ml Intake Oral 1075 ml IV Total 50 ml Output Urine Total 1600 ml # Bowel Movements 5 General Appearance: Alert, Oriented X3, Cooperative, No acute distress HEENT: Atraumatic Lungs: Other (Few crackles bilateral lungs) Cardiovascular: Regular rate Abdomen: Normal bowel sounds, Soft, No tenderness Medications Current Medications Medications Dose Ordered Sig/Sandi Route Start Time Stop Time Status Last Admin Dose Admin Phenytoin Sodium 100 mg Q8HR PO 06/05/25 22:00 06/06/25 06:06 100 MG Atorvastatin Calcium 20 mg HS PO 06/05/25 22:00 06/13/25 21:52 20 MG Sodium Chloride 10 ml Q8HR IV 06/05/25 22:00 06/14/25 13:37 10 ML Acetaminophen/ Hydrocodone Bitart 1 tab Q4HP PRN PO 06/05/25 21:30 06/12/25 18:14 1 TAB Ondansetron HCl 4 mg Q4HP PRN IV 06/05/25 21:30 Docusate Sodium 100 mg BIDPRN PRN PO 06/05/25 21:30 Acetaminophen 650 mg Q6HP PRN PO 06/05/25 21:30 Nitroglycerin 0.4 mg Q5MINP PRN SL 06/05/25 23:45 Morphine Sulfate 2 mg Q30M PRN IV 06/05/25 23:45 Midodrine 10 mg TID@0600,1200,1800 PO 06/06/25 00:45 06/14/25 09:59 10 MG Morphine Sulfate 1 mg Q4HP PRN IV 06/06/25 15:00 06/14/25 12:14 1 MG Albuterol 2.5 mg Q4HR NEB 06/08/25 14:00 06/14/25 14:26 2.5 MG Ertapenem 1 gm/ Sodium Chloride 50 ml @ 100 mls/hr DAILY IV 06/10/25 10:00 06/14/25 09:59 100 MLS/HR Lactulose 30 ml BID PO 06/09/25 22:00 Pantoprazole Sodium 40 mg DAILY@0600 PO 06/10/25 06:00 06/14/25 05:47 40 MG Spironolactone 25 mg DAILY PO 06/10/25 10:00 06/14/25 09:58 25 MG Laboratory Results Laboratory Tests 06/10/25 06:10 Urinalysis Test 06/05/25 14:01 Urine Color Yellow (Yellow) Urine Clarity Clear (Clear) Urine pH 5.0 (5.0-9.0) Urine Specific [place] 1.014 (1.001-1.035) Urine Protein Trace (Negative) H Urine Ketones Negative (Negative) Urine Blood 3+ /uL (Negative) H Urine Nitrite Negative (Negative) Urine Bilirubin Negative (Negative) Urine Urobilinogen Normal mg/dL (Negative) Urine Leukocyte Esterase 1+ /uL (Negative) Urine RBC 32 /hpf (0 - 3) Urine Microscopic WBC 11 /HPF (0-3) H Urine Squamous Epithelial Cells Few /hpf (<5) Urine Bacteria None seen /hpf (None Seen) Urine Mucus Few (None Seen) Urine Glucose Normal mg/dL (Normal) Microbiology Microbiology Date/Time Source Procedure Growth Status 06/10/25 06:25 Blood Blood Culture - Preliminary NO GROWTH AFTER 72 HOURS OF INCUBATION. Resulted 06/06/25 22:08 Nose MRSA Screen - Final Complete 06/05/25 14:01 Voided Urine Urine Culture - Final Escherichia coli - ESBL Enterococcus faecalis Complete Assessment/Plan Assessment/Plan #1 sepsis with uti with esbl e coli: iv invanz #2 chronic natarajan: change #3 liver cirrhosis with hep C #4 h/o drug abuse #5 chronic diastolic heart failure #6 cad #7 mod protein malnutrition #8 copd #9 functional quadriplegia Plan discussed with: Patient Date of Service: Jun 14, 2025 Billing Provider: AGUILA GONZALEZ MD Common Visit Codes: [id number] INP/OBS CARE(HIGH) AGUILA GONZALEZ MD Jun 14, 2025 15:06
[2025-06-15] VITALS (21 sets, daily range): BP systolic 110–147; BP diastolic 58–79; PULSE 61–83; RESP 16–18; TEMP 97.9–98.6; O2SAT 93–100
[2025-06-15 12:31] LABS: Base Excess 0.4 mmol/L (-2.0-3.0)
[2025-06-15 15:01] LABS: Base Excess -2.1 mmol/L (-2.0-3.0)
--- NOTE | 2025-06-15 22:44 | DVHPN2 ---
Subjective The patient seen and examined at bedside. No change overnight. Waiting for equipment for home. Reviewed: Care Plan, H&P, Labs, Medications, Previous Orders, Radiology, Other (Consultants) Changes from previous H/P or p: No Changes General: Per HPI Objective Vitals Vital Signs Date Time Temp Pulse Resp B/P (MAP) Pulse Ox O2 Delivery O2 Flow Rate FiO2 06/15/25 21:53 71 16 100 06/15/25 21:48 Nasal Cannula 4.0 06/15/25 21:48 36 06/15/25 21:00 97.9 123/69 (87) 97.9 Intake/Output Intake and Output 06/15/25 07:00 Intake Total 1714 ml Output Total 1950 ml Balance -236 ml Intake Oral 1664 ml IV Total 50 ml Output Urine Total 1950 ml # Voids 4 # Bowel Movements 1 General Appearance: Alert, Oriented X3, Cooperative, No acute distress HEENT: Atraumatic Lungs: Other (Few crackles bilateral lungs) Cardiovascular: Regular rate Abdomen: Normal bowel sounds, Soft, No tenderness Medications Current Medications Medications Dose Ordered Sig/Sandi Route Start Time Stop Time Status Last Admin Dose Admin Phenytoin Sodium 100 mg Q8HR PO 06/05/25 22:00 06/06/25 06:06 100 MG Atorvastatin Calcium 20 mg HS PO 06/05/25 22:00 06/13/25 21:52 20 MG Sodium Chloride 10 ml Q8HR IV 06/05/25 22:00 06/15/25 21:42 10 ML Ondansetron HCl 4 mg Q4HP PRN IV 06/05/25 21:30 Docusate Sodium 100 mg BIDPRN PRN PO 06/05/25 21:30 Acetaminophen 650 mg Q6HP PRN PO 06/05/25 21:30 Nitroglycerin 0.4 mg Q5MINP PRN SL 06/05/25 23:45 Midodrine 10 mg TID@0600,1200,1800 PO 06/06/25 00:45 06/15/25 17:10 10 MG Albuterol 2.5 mg Q4HR NEB 06/08/25 14:00 06/15/25 21:48 2.5 MG Ertapenem 1 gm/ Sodium Chloride 50 ml @ 100 mls/hr DAILY IV 06/10/25 10:00 06/15/25 08:49 100 MLS/HR Lactulose 30 ml BID PO 06/09/25 22:00 Pantoprazole Sodium 40 mg DAILY@0600 PO 06/10/25 06:00 06/15/25 06:11 40 MG Spironolactone 25 mg DAILY PO 06/10/25 10:00 06/15/25 08:50 25 MG Morphine Sulfate 1 mg Q4HP PRN IV 06/15/25 21:15 Laboratory Results Laboratory Tests 06/10/25 06:10 Urinalysis Test 06/05/25 14:01 Urine Color Yellow (Yellow) Urine Clarity Clear (Clear) Urine pH 5.0 (5.0-9.0) Urine Specific [place] 1.014 (1.001-1.035) Urine Protein Trace (Negative) H Urine Ketones Negative (Negative) Urine Blood 3+ /uL (Negative) H Urine Nitrite Negative (Negative) Urine Bilirubin Negative (Negative) Urine Urobilinogen Normal mg/dL (Negative) Urine Leukocyte Esterase 1+ /uL (Negative) Urine RBC 32 /hpf (0 - 3) Urine Microscopic WBC 11 /HPF (0-3) H Urine Squamous Epithelial Cells Few /hpf (<5) Urine Bacteria None seen /hpf (None Seen) Urine Mucus Few (None Seen) Urine Glucose Normal mg/dL (Normal) Blood Gas Results Test 06/15/25 12:25 06/15/25 14:55 Arterial Blood pH 7.464 (7.350-7.450) 7.469 (7.350-7.450) FiO2 % 21.0 21.0 Microbiology Microbiology Date/Time Source Procedure Growth Status 06/10/25 06:25 Blood Blood Culture - Final NO GROWTH AFTER 5 DAYS OF INCUBATION. Complete 06/06/25 22:08 Nose MRSA Screen - Final Complete 06/05/25 14:01 Voided Urine Urine Culture - Final Escherichia coli - ESBL Enterococcus faecalis Complete Labs and/or images reviewed: Labs reviewed by me Assessment/Plan Assessment/Plan #1 sepsis with uti with esbl e coli: iv invanz #2 chronic natarajan: change #3 liver cirrhosis with hep C #4 h/o drug abuse #5 chronic diastolic heart failure #6 cad #7 mod protein malnutrition #8 copd #9 functional quadriplegia Per RN, patient did not qualify for oxygen at home, however, when they take him off oxygen and stand him up, his Sat drop to 70%. Will order ABG in room air to see if he qualify. Plan discussed with: Patient My Orders Orders - AGUILA GONZALEZ MD Procedure Category Date Status Time Abg W/ Co-Ox RT 06/15/25 Logged 12:19 Abg W/ Co-Ox RT 06/15/25 Logged 14:38 Date of Service: Jun 15, 2025 Billing Provider: AGUILA GONZALEZ MD Common Visit Codes: [id number] INP/OBS CARE(HIGH) AGUILA GONZALEZ MD Jun 15, 2025 22:44
[2025-06-16] VITALS (17 sets, daily range): BP systolic 108–122; BP diastolic 60–71; PULSE 67–81; RESP 16–19; TEMP 97.7–98.5; O2SAT 95–100
[2025-06-16] MEDS: MORPHINE SULFATE INJ 2 MG/ml SYRG IV PRN (03:12)
--- NOTE | 2025-06-16 10:17 | DVHPN2 ---
Progress Note Date Seen: Jun 16, 2025 Medical Necessity Reason Pt with a Central, PICC or Fol: No Subjective Patient reports: No new complaints Review of Systems: HEENT:Normal, CVS:Normal, RESPIRATORY:Normal, GI:Normal, :Normal, MSK:Normal, NEURO:Normal Objective vital signs Vital Sign Date Time Temp Pulse Resp B/P (MAP) Pulse Ox O2 Delivery O2 Flow Rate FiO2 06/16/25 09:39 97 Nasal Cannula 3.0 06/16/25 09:39 32 06/16/25 08:42 71 16 122/67 06/16/25 08:35 98.4 98.4 Total Intake and Output 06/15/25 06/15/25 06/16/25 15:00 23:00 07:00 Intake Total 50 ml 800 ml 650 ml Output Total 500 ml 500 ml Balance 50 ml 300 ml 150 ml medications Current Medications Medications Dose Ordered Sig/Sandi Route Start Time Stop Time Status Last Admin Dose Admin Phenytoin Sodium 100 mg Q8HR PO 06/05/25 22:00 06/06/25 06:06 100 MG Atorvastatin Calcium 20 mg HS PO 06/05/25 22:00 06/13/25 21:52 20 MG Sodium Chloride 10 ml Q8HR IV 06/05/25 22:00 06/16/25 05:47 10 ML Ondansetron HCl 4 mg Q4HP PRN IV 06/05/25 21:30 Docusate Sodium 100 mg BIDPRN PRN PO 06/05/25 21:30 Acetaminophen 650 mg Q6HP PRN PO 06/05/25 21:30 Nitroglycerin 0.4 mg Q5MINP PRN SL 06/05/25 23:45 Midodrine 10 mg TID@0600,1200,1800 PO 06/06/25 00:45 06/16/25 05:50 10 MG Albuterol 2.5 mg Q4HR NEB 06/08/25 14:00 06/16/25 05:51 2.5 MG Ertapenem 1 gm/ Sodium Chloride 50 ml @ 100 mls/hr DAILY IV 06/10/25 10:00 06/16/25 08:41 100 MLS/HR Lactulose 30 ml BID PO 06/09/25 22:00 Pantoprazole Sodium 40 mg DAILY@0600 PO 06/10/25 06:00 06/16/25 05:50 40 MG Spironolactone 25 mg DAILY PO 06/10/25 10:00 06/16/25 08:41 25 MG Morphine Sulfate 1 mg Q4HP PRN IV 06/15/25 21:15 06/16/25 08:42 1 MG Examination: GENERAL:Normal, HEENT:Normal, NECK:Normal, LUNGS:Normal, LUNGS:Abnormal (on oxygen), CVS:Normal, ABDOMEN:Normal, MSK:Normal, SKIN:Normal, NEURO:Normal, :Normal laboratory and microbiology Laboratory Tests 06/10/25 06:10 Test 06/10/25 06:10 Range/Units Serum Glucose 77 74-106 mg/dL Microbiology Date/Time Source Procedure Growth Status 06/10/25 06:25 Blood Blood Culture - Final NO GROWTH AFTER 5 DAYS OF INCUBATION. Complete 06/06/25 22:08 Nose MRSA Screen - Final Complete 06/05/25 14:01 Voided Urine Urine Culture - Final Escherichia coli - ESBL Enterococcus faecalis Complete Problem List/Assessment/Plan Problem List/Assessment/Plan #1 sepsis with uti with esbl e coli: iv invanz #2 chronic natarajan: change #3 liver cirrhosis with hep C #4 h/o drug abuse #5 chronic diastolic heart failure #6 cad #7 mod protein malnutrition #8 copd #9 functional quadriplegia #10 acute resp failure: chest xray, oxygen advance care planning- full code- time spent 19 mins Plan discussed with: Patient My Orders My Orders Orders - ADI PEREZ MD Procedure Category Date Status Time * Patient Service Coordinator CONS 06/16/25 Transmitted Consult Chest Portable XY 06/16/25 Transmitted 10:13 Complete Blood Count LAB 06/17/25 Verified 06:00 Comprehensive LAB 06/17/25 Verified Metabolic Panel 06:00 Dietary Evaluation Review Recommendations by RD: Protein Supplementation Comments: 1) Add cardiac restriction to mechanical soft diet 2) Initiate Ensure High-Protein qd - Encourage optimal PO intake 3) Follow-up with cardiology, pulmonology, and neurology 4) Continue to monitor I&O, labs, and skin integrity Expected Outcomes/Goals: 1) appetite and labs to improve 2) wounds to improve 3) f/u in 3-5 days Date of Service: Jun 16, 2025 Billing Provider: ADI PEREZ MD Common Visit Codes: [id number] INP/OBS CARE(HIGH) ADI PEREZ MD Jun 16, 2025 10:17
--- NOTE | 2025-06-16 11:45 | DVH ---
INDICATION: RESP FAILURE TECHNIQUE: Frontal view of the chest. COMPARISON: XY CHEST PORTABLE on DOS: 06/05/25, XY CHEST PORTABLE on DOS: 03/07/25, XY CHEST PORTABLE on DOS: 06/07/24, CT CT ANGIO CHEST CONTRAST on DOS: 06/06/24, XY CHEST PORTABLE on DOS: 06/05/24 FINDINGS: . The heart and mediastinal contours are grossly unremarkable. There is no evidence of pleural disea se. The lungs are clear. The bony structures of the chest are intact without fracture. IMPRESSION: 1. Mild pulmonary edema
[2025-06-17] VITALS (14 sets, daily range): BP systolic 102–116; BP diastolic 62–92; PULSE 72–92; RESP 16–20; TEMP 97.6–98.9; O2SAT 91–100
--- NOTE | 2025-06-17 09:53 | DVHPN2 ---
Progress Note Date Seen: Jun 17, 2025 Medical Necessity Reason Pt with a Central, PICC or Fol: No Subjective Patient reports: No new complaints Review of Systems: HEENT:Normal, CVS:Normal, RESPIRATORY:Normal, GI:Normal, :Normal, MSK:Normal, NEURO:Normal Objective vital signs Vital Sign Date Time Temp Pulse Resp B/P (MAP) Pulse Ox O2 Delivery O2 Flow Rate FiO2 06/17/25 09:00 97.6 72 17 116/69 (85) 93 97.6 06/16/25 20:00 Nasal Cannula* 2 28 Total Intake and Output 06/16/25 06/16/25 06/17/25 15:00 23:00 07:00 Intake Total 50 ml 1800 ml 320 ml Output Total 1400 ml Balance 50 ml 1800 ml -1080 ml medications Current Medications Medications Dose Ordered Sig/Sandi Route Start Time Stop Time Status Last Admin Dose Admin Phenytoin Sodium 100 mg Q8HR PO 06/05/25 22:00 06/06/25 06:06 100 MG Atorvastatin Calcium 20 mg HS PO 06/05/25 22:00 06/13/25 21:52 20 MG Sodium Chloride 10 ml Q8HR IV 06/05/25 22:00 06/17/25 05:40 10 ML Ondansetron HCl 4 mg Q4HP PRN IV 06/05/25 21:30 Docusate Sodium 100 mg BIDPRN PRN PO 06/05/25 21:30 Acetaminophen 650 mg Q6HP PRN PO 06/05/25 21:30 Nitroglycerin 0.4 mg Q5MINP PRN SL 06/05/25 23:45 Midodrine 10 mg TID@0600,1200,1800 PO 06/06/25 00:45 06/17/25 05:40 10 MG Albuterol 2.5 mg Q4HR NEB 06/08/25 14:00 06/16/25 22:59 2.5 MG Ertapenem 1 gm/ Sodium Chloride 50 ml @ 100 mls/hr DAILY IV 06/10/25 10:00 06/16/25 08:41 100 MLS/HR Lactulose 30 ml BID PO 06/09/25 22:00 Pantoprazole Sodium 40 mg DAILY@0600 PO 06/10/25 06:00 06/17/25 05:40 40 MG Spironolactone 25 mg DAILY PO 06/10/25 10:00 06/16/25 08:41 25 MG Morphine Sulfate 1 mg Q4HP PRN IV 06/15/25 21:15 06/17/25 08:47 1 MG Examination: GENERAL:Normal, HEENT:Normal, NECK:Normal, LUNGS:Normal, LUNGS:Abnormal (ON OXYGEN), CVS:Normal, ABDOMEN:Normal, MSK:Normal, SKIN:Normal, NEURO:Normal, :Normal laboratory and microbiology Laboratory Tests 06/10/25 06:10 Test 06/10/25 06:10 Range/Units Serum Glucose 77 74-106 mg/dL Microbiology Date/Time Source Procedure Growth Status 06/10/25 06:25 Blood Blood Culture - Final NO GROWTH AFTER 5 DAYS OF INCUBATION. Complete 06/06/25 22:08 Nose MRSA Screen - Final Complete 06/05/25 14:01 Voided Urine Urine Culture - Final Escherichia coli - ESBL Enterococcus faecalis Complete Problem List/Assessment/Plan Problem List/Assessment/Plan #1 sepsis with uti with esbl e coli: iv invanz #2 chronic natarajan: change #3 liver cirrhosis with hep C #4 h/o drug abuse #5 acute on chronic diastolic heart failure: iv lasix #6 cad #7 mod protein malnutrition #8 copd #9 functional quadriplegia #10 acute resp failure: chest xray, oxygen advance care planning- full code- time spent 19 mins Plan discussed with: Patient My Orders My Orders Orders - ADI PEREZ MD Procedure Category Date Status Time * Pulmonology Technician CONS 06/16/25 Transmitted Consult Chest Portable XY 06/16/25 Resulted 10:13 Complete Blood Count LAB 06/17/25 Logged 06:00 Comprehensive LAB 06/17/25 Logged Metabolic Panel 06:00 * Pulmonology Technician CONS 06/16/25 Transmitted Consult Spironolactone PHA 06/17/25 Verified (Aldactone) 10:00 Furosemide Injection PHA 06/17/25 Verified (Lasix Injection) 10:00 Furosemide Injection PHA 06/17/25 Verified (Lasix Injection) 10:00 Basic Metabolic Panel LAB 06/18/25 Verified 06:00 Magnesium LAB 06/18/25 Verified 05:00 Dietary Evaluation Review Recommendations by RD: Protein Supplementation Comments: 1) Add cardiac restriction to mechanical soft diet 2) Initiate Ensure High-Protein qd - Encourage optimal PO intake 3) Follow-up with cardiology, pulmonology, and neurology 4) Continue to monitor I&O, labs, and skin integrity Expected Outcomes/Goals: 1) appetite and labs to improve 2) wounds to improve 3) f/u in 3-5 days Date of Service: Jun 17, 2025 Billing Provider: ADI PEREZ MD Common Visit Codes: [id number] INP/OBS CARE(HIGH) ADI PEREZ MD Jun 17, 2025 09:53
[2025-06-17] MEDS ORDERED: FUROSEMIDE 20 MG/2 ML VIAL IV SCH (10:00)
[2025-06-17 10:32] LABS: Hematocrit 31.7 % (41.0-53.0); Hemoglobin 10.7 g/dL (13.5-17.5); Mean Corpuscular Hemoglobin 31.2 pg (28.0-32.0); Mean Corpuscular Volume 92.3 fL (80.0-100.0); Nucleated Red Blood Cells % 0.0 %
[2025-06-17 10:47] LABS: Alanine Aminotransferase 39 U/L (7-40); Anion Gap 6 (5-15); BUN/Creatinine Ratio 21.9 (10.0-20.0); Blood Urea Nitrogen 14 mg/dL (9-23); Carbon Dioxide 26 mmol/L (20-31); Chloride 103 mmol/L (98-107); Potassium 4.4 mmol/L (3.5-5.1); Total Protein 6.9 g/dL (5.7-8.2)
[2025-06-17 10:48] LABS: Albumin 2.9 g/dL (3.2-4.8); Alkaline Phosphatase 132 U/L (46-116); Bilirubin, Total 1.2 mg/dL (0.2-1.0); Calcium 8.6 mg/dL (8.7-10.4); Glucose 147 mg/dL (74-106); Sodium 135 mmol/L (136-145)
[2025-06-17] MEDS: SPIRONOLACTONE 25 MG TAB PO SCH (11:06)
[2025-06-17] MEDS: FUROSEMIDE 20 MG/2 ML VIAL IV ONE (11:07)
[2025-06-17 11:28] LABS: Anisocytosis Slight
[2025-06-18] VITALS (16 sets, daily range): BP systolic 87–116; BP diastolic 56–74; PULSE 70–94; RESP 16–19; TEMP 97.7–98.6; O2SAT 92–100
[2025-06-18 07:14] LABS: Anion Gap 7 (5-15); Carbon Dioxide 29 mmol/L (20-31); Chloride 102 mmol/L (98-107); Potassium 4.4 mmol/L (3.5-5.1); Sodium 138 mmol/L (136-145)
[2025-06-18 07:20] LABS: BUN/Creatinine Ratio 21.7 (10.0-20.0); Blood Urea Nitrogen 15 mg/dL (9-23); Glucose 91 mg/dL (74-106)
[2025-06-18 07:21] LABS: Magnesium 1.8 mg/dL (1.6-2.6)
[2025-06-18 07:26] LABS: Calcium 8.4 mg/dL (8.7-10.4)
--- NOTE | 2025-06-18 09:48 | DVHPN2 ---
Progress Note Date Seen: Jun 18, 2025 Medical Necessity Reason Pt with a Central, PICC or Fol: No Subjective Patient reports: No new complaints Review of Systems: HEENT:Normal, CVS:Normal, RESPIRATORY:Normal, GI:Normal, :Normal, MSK:Normal, NEURO:Normal Objective vital signs Vital Sign Date Time Temp Pulse Resp B/P (MAP) Pulse Ox O2 Delivery O2 Flow Rate FiO2 06/18/25 09:16 77 16 100 06/18/25 09:07 Nasal Cannula* 2 28 06/18/25 09:02 114/72 06/18/25 09:00 98.6 98.6 Total Intake and Output 06/17/25 06/17/25 06/18/25 15:00 23:00 07:00 Intake Total 50 ml 1100 ml 150 ml Output Total 320 ml 675 ml 300 ml Balance -270 ml 425 ml -150 ml medications Current Medications Medications Dose Ordered Sig/Sandi Route Start Time Stop Time Status Last Admin Dose Admin Phenytoin Sodium 100 mg Q8HR PO 06/05/25 22:00 06/06/25 06:06 100 MG Atorvastatin Calcium 20 mg HS PO 06/05/25 22:00 06/17/25 21:35 20 MG Sodium Chloride 10 ml Q8HR IV 06/05/25 22:00 06/18/25 05:21 10 ML Ondansetron HCl 4 mg Q4HP PRN IV 06/05/25 21:30 Docusate Sodium 100 mg BIDPRN PRN PO 06/05/25 21:30 Acetaminophen 650 mg Q6HP PRN PO 06/05/25 21:30 Nitroglycerin 0.4 mg Q5MINP PRN SL 06/05/25 23:45 Midodrine 10 mg TID@0600,1200,1800 PO 06/06/25 00:45 06/18/25 05:18 10 MG Albuterol 2.5 mg Q4HR NEB 06/08/25 14:00 06/18/25 09:07 2.5 MG Ertapenem 1 gm/ Sodium Chloride 50 ml @ 100 mls/hr DAILY IV 06/10/25 10:00 06/17/25 11:07 100 MLS/HR Lactulose 30 ml BID PO 06/09/25 22:00 Pantoprazole Sodium 40 mg DAILY@0600 PO 06/10/25 06:00 06/18/25 05:18 40 MG Morphine Sulfate 1 mg Q4HP PRN IV 06/15/25 21:15 06/18/25 09:02 1 MG Spironolactone 50 mg DAILY PO 06/17/25 10:00 06/17/25 11:06 50 MG Furosemide 20 mg DAILY IV 06/18/25 10:00 Examination: GENERAL:Normal, HEENT:Normal, NECK:Normal, LUNGS:Normal, CVS:Normal, ABDOMEN:Normal, MSK:Normal, SKIN:Normal, NEURO:Normal, :Normal laboratory and microbiology Laboratory Tests 06/18/25 05:09 06/17/25 10:12 Test 06/18/25 05:09 Range/Units Serum Glucose 91 74-106 mg/dL Microbiology Date/Time Source Procedure Growth Status 06/10/25 06:25 Blood Blood Culture - Final NO GROWTH AFTER 5 DAYS OF INCUBATION. Complete 06/06/25 22:08 Nose MRSA Screen - Final Complete 06/05/25 14:01 Voided Urine Urine Culture - Final Escherichia coli - ESBL Enterococcus faecalis Complete Problem List/Assessment/Plan Problem List/Assessment/Plan #1 sepsis with uti with esbl e coli: iv invanz #2 chronic natarajan: change #3 liver cirrhosis with hep C #4 h/o drug abuse #5 acute on chronic diastolic heart failure: iv lasix #6 cad #7 mod protein malnutrition #8 copd #9 functional quadriplegia #10 acute resp failure: chest xray, oxygen advance care planning- full code- time spent 19 mins Plan discussed with: Patient My Orders My Orders Orders - ADI PEREZ MD Procedure Category Date Status Time Spironolactone PHA 06/17/25 In Process (Aldactone) 10:00 Furosemide Injection PHA 06/18/25 In Process (Lasix Injection) 10:00 Dietary Evaluation Review Recommendations by RD: Protein Supplementation Comments: 1) Add cardiac restriction to mechanical soft diet 2) Initiate Ensure High-Protein qd - Encourage optimal PO intake 3) Follow-up with cardiology, pulmonology, and neurology 4) Continue to monitor I&O, labs, and skin integrity Expected Outcomes/Goals: 1) appetite and labs to improve 2) wounds to improve 3) f/u in 3-5 days Date of Service: Jun 18, 2025 Billing Provider: ADI PEREZ MD Common Visit Codes: [id number] INP/OBS CARE(HIGH) ADI PEREZ MD Jun 18, 2025 09:48
[2025-06-18] MEDS: FUROSEMIDE 20 MG/2 ML VIAL IV SCH (11:24)
[2025-06-19] VITALS (17 sets, daily range): BP systolic 106–135; BP diastolic 54–74; PULSE 63–95; RESP 16–19; TEMP 97.8–98.5; O2SAT 92–100
--- NOTE | 2025-06-19 09:43 | DVHPN2 ---
Progress Note Date Seen: Jun 19, 2025 Medical Necessity Reason Pt with a Central, PICC or Fol: Yes The following are medically ne: Natarajan Catheter Reason for natarajan catheter: Bladder Retention/Obstruc Subjective Patient reports: No new complaints Review of Systems: HEENT:Normal, CVS:Normal, RESPIRATORY:Normal, GI:Normal, :Normal, MSK:Normal, NEURO:Normal Objective vital signs Vital Sign Date Time Temp Pulse Resp B/P (MAP) Pulse Ox O2 Delivery O2 Flow Rate FiO2 06/19/25 09:04 77 18 118/66 06/19/25 08:35 98.5 96 98.5 06/19/25 06:24 Nasal Cannula 1.0 06/19/25 06:24 24 Total Intake and Output 06/18/25 06/18/25 06/19/25 15:00 23:00 07:00 Intake Total 500 ml 700 ml Output Total 1000 ml 1750 ml 1000 ml Balance -1000 ml -1250 ml -300 ml medications Current Medications Medications Dose Ordered Sig/Sandi Route Start Time Stop Time Status Last Admin Dose Admin Phenytoin Sodium 100 mg Q8HR PO 06/05/25 22:00 06/06/25 06:06 100 MG Atorvastatin Calcium 20 mg HS PO 06/05/25 22:00 06/18/25 22:31 20 MG Sodium Chloride 10 ml Q8HR IV 06/05/25 22:00 06/19/25 05:26 10 ML Ondansetron HCl 4 mg Q4HP PRN IV 06/05/25 21:30 Docusate Sodium 100 mg BIDPRN PRN PO 06/05/25 21:30 Acetaminophen 650 mg Q6HP PRN PO 06/05/25 21:30 Nitroglycerin 0.4 mg Q5MINP PRN SL 06/05/25 23:45 Midodrine 10 mg TID@0600,1200,1800 PO 06/06/25 00:45 06/19/25 05:27 10 MG Albuterol 2.5 mg Q4HR NEB 06/08/25 14:00 06/19/25 06:24 2.5 MG Ertapenem 1 gm/ Sodium Chloride 50 ml @ 100 mls/hr DAILY IV 06/10/25 10:00 06/18/25 11:23 100 MLS/HR Lactulose 30 ml BID PO 06/09/25 22:00 Pantoprazole Sodium 40 mg DAILY@0600 PO 06/10/25 06:00 06/19/25 05:27 40 MG Morphine Sulfate 1 mg Q4HP PRN IV 06/15/25 21:15 06/19/25 09:04 1 MG Spironolactone 50 mg DAILY PO 06/17/25 10:00 06/19/25 09:02 50 MG Furosemide 20 mg DAILY IV 06/18/25 10:00 06/19/25 09:03 20 MG laboratory and microbiology Laboratory Tests 06/18/25 05:09 06/17/25 10:12 Test 06/18/25 05:09 Range/Units Serum Glucose 91 74-106 mg/dL Microbiology Date/Time Source Procedure Growth Status 06/10/25 06:25 Blood Blood Culture - Final NO GROWTH AFTER 5 DAYS OF INCUBATION. Complete 06/06/25 22:08 Nose MRSA Screen - Final Complete 06/05/25 14:01 Voided Urine Urine Culture - Final Escherichia coli - ESBL Enterococcus faecalis Complete Problem List/Assessment/Plan Problem List/Assessment/Plan #1 sepsis with uti with esbl e coli: iv invanz- finished course of antibiotics #2 chronic natarajan: change #3 liver cirrhosis with hep C #4 h/o drug abuse #5 acute on chronic diastolic heart failure: iv lasix #6 cad #7 mod protein malnutrition #8 copd #9 functional quadriplegia #10 acute resp failure: chest xray, abg on room air advance care planning- full code- time spent 19 mins Plan discussed with: Patient My Orders My Orders Orders - ADI PEREZ MD Procedure Category Date Status Time Abg W/ Co-Ox RT 06/19/25 Logged 06:00 * Practice Assistant CONS 06/18/25 Transmitted Consult Dietary Evaluation Review Recommendations by RD: Protein Supplementation Comments: 1) Add cardiac restriction to mechanical soft diet 2) Initiate Ensure High-Protein qd - Encourage optimal PO intake 3) Follow-up with cardiology, pulmonology, and neurology 4) Continue to monitor I&O, labs, and skin integrity Expected Outcomes/Goals: 1) appetite and labs to improve 2) wounds to improve 3) f/u in 3-5 days Date of Service: Jun 19, 2025 Billing Provider: ADI PEREZ MD Common Visit Codes: [id number] INP/OBS CARE(HIGH) ADI PEREZ MD Jun 19, 2025 09:43
[2025-06-19 13:27] LABS: Base Excess 3.2 mmol/L (-2.0-3.0)
[2025-06-20] VITALS (13 sets, daily range): BP systolic 99–111; BP diastolic 56–72; PULSE 78–102; RESP 16–20; TEMP 97.6–97.8; O2SAT 90–99
--- NOTE | 2025-06-20 08:21 | DVHDS2 ---
Discharge Summary Date of Admission Jun 05, 2025 at 23:32 Date of Discharge: Jun 19, 2025 Labs/Diagnostic Data: Laboratory Results Test 06/19/25 13:14 06/18/25 05:09 06/17/25 10:12 06/15/25 14:55 Blood Gas Specimen Type Arterial Blood Gas Sample Site Right radial Blood Gas Patient Temperature 37.0 Arterial Blood Date Drawn [id number] Arterial Blood pH 7.483 (7.350-7.450) Arterial Blood Partial Pressure CO2 36.3 mmHg (35.0-48.0) Arterial Blood Partial Pressure O2 54.0 mmHg (83.0-108.0) Arterial Blood HCO3 26.6 mmol/L (21.0-28.0) Arterial Blood Oxygen Saturation 86.9 % (94.0-98.0) Arterial Blood Base Excess 3.2 mmol/L (-2.0-3.0) Arterial Blood Oxyhemoglobin 86.1 % (94.0-98.0) Arterial Blood Carboxyhemoglobin 0.4 % (0.5-1.5) Arterial Blood Methemoglobin 0.5 % (0.0-1.5) Pete Test Yes Blood Gas Total Hemoglobin 11.60 g/dL (13.5-17.5) Blood Gas Modality Room air FiO2 % 21.0 Blood Gas Critical Value Read Back Yes Blood Gas Notified Whom dawit Salazar md Blood Gas Notified Time [id number] Blood Gas Notified By dawit Wade rrt Sodium Level 138 mmol/L (136-145) Potassium Level 4.4 mmol/L (3.5-5.1) Chloride Level 102 mmol/L (98-107) Carbon Dioxide Level 29 mmol/L (20-31) Anion Gap 7 (5-15) Blood Urea Nitrogen 15 mg/dL (9-23) Creatinine 0.69 mg/dL (0.700-1.30) Glomerular Filtration Rate Calc 100 mL/min (>90) BUN/Creatinine Ratio 21.7 (10.0-20.0) Serum Glucose 91 mg/dL (74-106) Calcium Level 8.4 mg/dL (8.7-10.4) Magnesium Level 1.8 mg/dL (1.6-2.6) White Blood Count 2.8 10^3/uL (4.4-10.8) Red Blood Count 3.43 10^6/uL (4.5-5.90) Hemoglobin 10.7 g/dL (13.5-17.5) Hematocrit 31.7 % (41.0-53.0) Mean Corpuscular Volume 92.3 fL (80.0-100.0) Mean Corpuscular Hemoglobin 31.2 pg (28.0-32.0) Mean Corpuscular Hemoglobin Concent 33.8 g/dL (32.0-36.0) Red Cell Distribution Width 20.5 % (11.8-14.3) Platelet Count 78 10^3/uL (140-450) Mean Platelet Volume 8.1 fL (6.9-10.8) Neutrophils (%) (Auto) 70.9 % (37.0-80.0) Lymphocytes (%) (Auto) 16.5 % (10.0-50.0) Monocytes (%) (Auto) 8.9 % (0.0-12.0) Eosinophils (%) (Auto) 3.0 % (0.0-7.0) Basophils (%) (Auto) 0.7 % (0.0-2.0) Neutrophils # (Auto) 2.0 10 ^3/uL (1.6-8.6) Lymphocytes # (Auto) 0.5 10 ^3/uL (0.4-5.4) Monocytes # (Auto) 0.2 10 ^3/uL (0-1.3) Eosinophils # (Auto) 0.1 10 ^3/uL (0-0.8) Basophils # (Auto) 0 10 ^3/uL (0-0.2) Nucleated Red Blood Cells 0.0 % Platelet Estimate Decreased Anisocytosis (manual) Slight Total Bilirubin 1.2 mg/dL (0.2-1.0) Aspartate Amino Transferase (AST) 71 U/L (13-40) Alanine Aminotransferase (ALT) 39 U/L (7-40) Alkaline Phosphatase 132 U/L (46-116) Total Protein 6.9 g/dL (5.7-8.2) Albumin 2.9 g/dL (3.2-4.8) Blood Gas Liter Flow 0.00 Test 06/10/25 11:29 06/10/25 06:25 06/10/25 06:10 06/05/25 16:25 POC Glucose 73 mg/dl (70-106) Phenytoin (Dilantin) Level < 2.0 ug/mL (10-20) Differential Total Cells Counted 100.0 (100) Neutrophils % (Manual) 79 (37.0-80.0) Band Neutrophils % (Manual) 0 Lymphocytes % (Manual) 12 (10.0-50.0) Monocytes % (Manual) 6 (0-12) Eosinophils % (Manual) 3 (0-7) Basophils % (Manual) 0 (0.0-2.0) Metamyelocytes % (manual) 0 Myelocytes % (Manual) 0 Promyelocytes % (Manual) 0 Blast Cells % (Manual) 0 Reactive Lymphocytes 0 Ammonia 18 umol/L (11-32) Lactic Acid Level 2.2 mmol/L (0.4-2.0) Test 06/05/25 15:57 06/05/25 14:26 06/05/25 14:01 B-Type Natriuretic Peptide 255.51 pg/mL (0-100) Prothrombin Time 16.0 sec (9.3-11.8) Prothrombin Time INR 1.58 (0.9-1.15) Activated Partial Thromboplast Time 32.5 SEC (24.5-34.5) Urine Color Yellow (Yellow) Urine Clarity Clear (Clear) Urine pH 5.0 (5.0-9.0) Urine Specific [place] 1.014 (1.001-1.035) Urine Protein Trace (Negative) Urine Ketones Negative (Negative) Urine Blood 3+ /uL (Negative) Urine Nitrite Negative (Negative) Urine Bilirubin Negative (Negative) Urine Urobilinogen Normal mg/dL (Negative) Urine Leukocyte Esterase 1+ /uL (Negative) Urine RBC 32 /hpf (0 - 3) Urine Microscopic WBC 11 /HPF (0-3) Urine Squamous Epithelial Cells Few /hpf (<5) Urine Bacteria None seen /hpf (None Seen) Urine Mucus Few (None Seen) Urine Glucose Normal mg/dL (Normal) Other Laboratory Tests 06/18/25 05:09 06/17/25 10:12 Brief Hx & Hospital Course: The patient is a 70-year-old gentleman who was admitted with history of low oxygen saturations and shortness of breath. He has a history of COPD, CHF, hypertension, liver cirrhosis, seizure disorder, as well as coronary artery disease. The patient had evidence of UTI with ESBL E. coli as well as blood cultures positive for ESBL E. coli. Chest x-ray showed bibasilar atelectasis. The patient was placed on IV Invanz. Repeat blood cultures have been negative. The patient's ammonia level was 18. He is currently doing well and will be discharged home to resume his home medications, finished course of invanz inpatient. He will follow up with his primary in 1 week. caregiver to pickling grader today Condition at Discharge: Fair Final Diagnosis/Problems List * Sepsis with UTI with ESBL E. coli. * Chronic Mcdaniel. * Liver cirrhosis with hepatitis C. * History of drug abuse. * Chronic diastolic heart failure. * Coronary artery disease. * Moderate protein malnutrition. * COPD. * Functional quadriplegia. Discharge Disposition: Home Discharge Instruct/Medications Diet: Cardiac 2g Na,low cholest Activity: No Restrictions, As Tolerated Follow Up/Referral: myra contreras pcp in 1 wk Medications: resume home meds dc after abg on room air Scheduled Atorvastatin Calcium (Atorvastatin Calcium), 1 TAB PO DAILY, (Reported) Carvedilol (Coreg), 3.125 MG PO BID Furosemide (Furosemide), 1 TAB PO BID, (Reported) Gabapentin (Gabapentin), 1 TAB PO TID, (Reported) Hydrocodone-Acetaminophen (Hydrocodone Bitartrate/AC 10-325 mg), 1 TAB PO TIDP, (Reported) Midodrine Hcl (Midodrine Hcl), 1 TAB PO TID, (Reported) Morphine Sulfate (Morphine Sulfate Cr), 1 TAB PO TID, (Reported) Pantoprazole Sodium Sesquihydr (Pantoprazole Sodium), 40 MG PO BID Phenytoin Sodium (Dilantin), 1 CAP PO TID, (Reported) Rifaximin (Xifaxan), 1 TAB PO BID, (Reported) Risperidone (Risperdal), 0.5 MG PO HS, (Reported) Spironolactone (Spironolactone), 1 TAB PO DAILY, (Reported) Trazodone Hcl (Trazodone Hcl), 50 MG PO HS, (Reported) Scheduled PRN Lorazepam (Ativan Tablet), 1 TAB PO BIDPRN PRN for AGITATION, (Reported) Miscellaneous Medications Albuterol Sulfate (Albuterol Sulfate Hfa), INH, (Reported) Diclofenac Sodium (Actinic Ker (Diclofenac Sodium), TOP, (Reported) Lactulose (Lactulose), ML PO, (Reported) Metoprolol Tartrate (Lopressor), TAB PO, (Reported) Discharge Statement: "Patient was advised to return to the ER or call 911 if any headaches, dizziness, shortness of breath, chest pain, abdominal pain, bleeding, fevers, or worsening of medical condition. Patient was counseled about treatment plan, medications, possible side effects, patientverbalized understanding. All questions were answered to the best of my ability. This discharge took greater then 30 minutes in planning, reviewing documentation, counseling the patient, and discussing with other team members." ASSESSMENT ASSESSMENT Assessment sepsis Date of Service: Jun 20, 2025 Billing Provider: KATHI CH MD Common Visit Codes: [id number] DISCH DAY >30min KATHI CH MD Jun 20, 2025 08:21
[2025-06-20 15:23] LABS: Base Excess 1.7 mmol/L (-2.0-3.0)
== END 2025-06-20 17:20 | disposition home or self-care (01) | DRG 871 ==
LOC: ER 13:23 → EDBD 13:23 → EDSEX 13:23 → OVERFLOW 23:32 → TELE-CENTR 06-06 17:19 → CENTRAL 06-09 10:43
PROVIDERS: ADMIT Student in an Organized Health Care Education/Training Program; ATTEND Student in an Organized Health Care Education/Training Program
PROC: 05H933Z Insertion of Infusion Device into Right Brachial Vein, Percutaneous Approach (ICD-10-PCS; principal; 2025-06-11)
PROC: B54MZZA Ultrasonography of Right Upper Extremity Veins, Guidance (ICD-10-PCS; 2025-06-11)
DX: A41.51 Sepsis due to Escherichia coli [E. coli] (principal); J96.01 Acute respiratory failure with hypoxia; R53.2 Functional quadriplegia; E87.20 Acidosis, unspecified; E44.0 Moderate protein-calorie malnutrition; N39.0 Urinary tract infection, site not specified; J44.0 Chronic obstructive pulmonary disease with (acute) lower respiratory infection; Z16.12 Extended spectrum beta lactamase (ESBL) resistance; J98.11 Atelectasis; Z68.1 Body mass index [BMI] 19.9 or less, adult; I50.32 Chronic diastolic (congestive) heart failure; K74.60 Unspecified cirrhosis of liver; I11.0 Hypertensive heart disease with heart failure; B19.20 Unspecified viral hepatitis C without hepatic coma; G40.909 Epilepsy, unspecified, not intractable, without status epilepticus; I25.10 Atherosclerotic heart disease of native coronary artery without angina pectoris; K21.9 Gastro-esophageal reflux disease without esophagitis; Z86.73 Personal history of transient ischemic attack (TIA), and cerebral infarction without residual deficits; Z74.01 Bed confinement status; I25.2 Old myocardial infarction; Z98.61 Coronary angioplasty status
CPT/HCPCS: 36415; 36600; 71045; 80048; 80053; 80185; 81001; 82140; 82805; 82962; 83605; 83735; 83880; 85007; 85025; 85027; 85610; 85730; 87040; 87077; 87081; 87086; 87088; 87186; 93005; 94640; 96360; 96361; 97110; 97116; 97163; 97530; 99291; G0378; J0692; J1335; P9047

== ENCOUNTER 2025-08-15 11:57 | Inpatient (IN) | payer OTHER, MEDICAID ==
[~2025-08-15] VITALS: Ht 170.2 cm; Wt 56.5 kg
[~2025-08-15 11:57] MED LIST changes: -AZIT500T66 PO
--- NOTE | 2025-08-15 12:05 | ED.PDOC ---
Altered Mental Status HPI Comments 70 y.o male with PMHx of [place], HTN, COPD, CVA, CHF, and liver disease, presents to the ED via EMS for an evaluation of altered mental status. EMS reports patient is residing at a boarding care house where caregiver last saw him normal 3 hours prior to ED arrival. No other information given to EMS and no family present for additional information. Time Seen by MD: 12:00 Primary Care Provider: UNKNOWN Reviewed Notes: Nurses Notes, Spanish Speaking Babysitter Notes, Medications, Allergies Allergies: Coded Allergies: NO KNOWN ALLERGIES (Unverified , 10/27/23) Home Meds Active Scripts Carvedilol (COREG) 3.125 Mg Tab, 3.125 MG PO BID, #60 TAB Prov:LISSY JACQUES MD 06/11/24 Pantoprazole Sodium Sesquihydr (Pantoprazole Sodium) 40 Mg Tab, 40 MG PO BID, #60 TAB Prov:LISSY JACQUES MD 06/11/24 Reported Medications Lorazepam (ATIVAN TABLET) 0.5 Mg Tb, 1 TAB PO BIDPRN PRN for AGITATION, #90 TAB 03/08/25 Risperidone (Risperdal) 0.5 Mg Tab, 0.5 MG PO HS, TAB 03/08/25 Trazodone Hcl (Trazodone Hcl) 50 Mg Tab, 50 MG PO HS, MG 03/08/25 Hydrocodone-Acetaminophen (Hydrocodone Bitartrate/AC 10-325 mg) 1 Tab Tab, 1 TAB PO TIDP, TAB 03/08/25 Albuterol Sulfate (Albuterol Sulfate Hfa) 108 Mcg/Act Aer, INH 10/28/23 Diclofenac Sodium (Actinic Ker (Diclofenac Sodium) 3 % Gel, TOP 10/28/23 Lactulose (Lactulose) 10 Gm/15 Ml Frances, ML PO 10/28/23 Phenytoin Sodium (Dilantin) 100 Mg Cap, 1 CAP PO TID 10/28/23 Morphine Sulfate (Morphine Sulfate Cr) 15 Mg Tab, 1 TAB PO TID 10/28/23 Furosemide (Furosemide) 40 Mg Tab, 1 TAB PO BID 10/28/23 Rifaximin (Xifaxan) 550 Mg Tab, 1 TAB PO BID 10/28/23 Gabapentin (Gabapentin) 600 Mg Tab, 1 TAB PO TID 10/28/23 Atorvastatin Calcium (ATORVASTATIN CALCIUM) 40 Mg Tab, 1 TAB PO DAILY 10/28/23 Midodrine Hcl (Midodrine Hcl) 5 Mg Tab, 1 TAB PO TID 10/28/23 Spironolactone (Spironolactone) 25 Mg Tab, 1 TAB PO DAILY 10/28/23 Metoprolol Tartrate (Lopressor) 25 Mg Tb, TAB PO 10/28/23 Information Source: Emergency Med Personnel Mode of Arrival: EMS Severity: Other (Altered mental status ) Timing: Hours (3) Duration: Since onset Recent: Other (Patient is altered ) History of: CVA Associated Signs and Symptoms: Other (Patient is altered ) Past Medical History PAST MEDICAL HISTORY: Asthma, CHF, COPD, CVA, GERD, HTN, Liver, [place], Seizures Surgical History: PTCA Family History Family History: Reviewed,noncontributory to illness, Unknown Social History Smoker: Non-Smoker Alcohol: Denies ETOH Use Drugs: Denies Drug Use [facility] Unable to Obtain due to: Altered Mental Status Physical Exam General Appearance: Severe Distress HEENT: Normal ENT Inspection, Pharynx Normal, TMs Normal Neck: Full Range of Motion, Non-Tender, Normal, Normal Inspection Respiratory: Chest Non-Tender, Lungs Clear, No Accessory Muscle Use, No Respiratory Distress, Normal Breath Sounds Cardiovascular: No Edema, No JVD, No Murmur, No Gallop, Normal Peripheral Pulses, Regular Rate/Rhythm Breast Exam: Deferred Gastrointestinal: No Organomegaly, Non Tender, No Pulsatile Mass, Normal Bowel Sounds, Soft Genitalia: Deferred Pelvic: Deferred Rectal: Deferred Extremities: No calf tenderness Musculoskeletal : Apperance: Normal Neurologic: Disoriented Cerebellar Function: NOT DONE Reflexes: NOT DONE Skin: Jaundice Peripheral Pulses: 3+ Radial (R), 3+ Radial (L) Lymphatic: No Adenopathy Was a procedure done? Was a procedure done?: No Differential Diagnosis (ALOC) Differential Diagnosis: Dehydration, Hypoglycemia, Hypoxemia, Closed Head Injury, Heart Failure, Renal Failure X-Ray, Labs, Meds, VS Vital Signs Date Time Temp Pulse Resp B/P (MAP) Pulse Ox O2 Delivery O2 Flow Rate FiO2 08/15/25 11:58 98.2 78 12 125/80 97 98.2 08/15/25 11:57 84 Lab Test 08/15/25 15:30 08/15/25 13:00 Range/Units Lactic Acid Level Pending 2.5 *H 0.4-2.0 mmol/L White Blood Count 3.4 L 4.4-10.8 10^3/uL Red Blood Count 4.70 4.5-5.90 10^6/uL Hemoglobin 15.2 13.5-17.5 g/dL Hematocrit 44.5 41.0-53.0 % Mean Corpuscular Volume 94.7 80.0-100.0 fL Mean Corpuscular Hemoglobin 32.3 H 28.0-32.0 pg Mean Corpuscular Hemoglobin Concent 34.1 32.0-36.0 g/dL Red Cell Distribution Width 19.5 H 11.8-14.3 % Platelet Count 54 L 140-450 10^3/uL Mean Platelet Volume 7.7 6.9-10.8 fL Neutrophils (%) (Auto) 65.4 37.0-80.0 % Lymphocytes (%) (Auto) 23.6 10.0-50.0 % Monocytes (%) (Auto) 8.4 0.0-12.0 % Eosinophils (%) (Auto) 2.4 0.0-7.0 % Basophils (%) (Auto) 0.2 0.0-2.0 % Neutrophils # (Auto) 2.2 1.6-8.6 10 ^3/uL Lymphocytes # (Auto) 0.8 0.4-5.4 10 ^3/uL Monocytes # (Auto) 0.3 0-1.3 10 ^3/uL Eosinophils # (Auto) 0.1 0-0.8 10 ^3/uL Basophils # (Auto) 0 0-0.2 10 ^3/uL Nucleated Red Blood Cells 0.4 % Sodium Level 143 136-145 mmol/L Potassium Level 4.3 3.5-5.1 mmol/L Chloride Level 107 98-107 mmol/L Carbon Dioxide Level 27 20-31 mmol/L Anion Gap 9 5-15 Blood Urea Nitrogen 12 9-23 mg/dL Creatinine 0.75 0.700-1.30 mg/dL Glomerular Filtration Rate Calc 97 >90 mL/min BUN/Creatinine Ratio 16.0 10.0-20.0 Serum Glucose 103 74-106 mg/dL Calcium Level 9.3 8.7-10.4 mg/dL Total Bilirubin 2.2 H 0.2-1.0 mg/dL Aspartate Amino Transferase (AST) 50 H 13-40 U/L Alanine Aminotransferase (ALT) 25 7-40 U/L Alkaline Phosphatase 102 46-116 U/L Ammonia 124 *H 11-32 umol/L Troponin I High Sensitivity < 3 L </=54 ng/L Total Protein 8.1 5.7-8.2 g/dL Albumin 3.4 3.2-4.8 g/dL Patient confused. Possible hepatic encephalopathy. Possible sepsis. Lactic acid elevated. Ammonia level elevated. Was given lactulose. Continue monitoring. X-Ray, Labs, Meds, VS Comment [place] [address] Ph: [phone] DIAGNOSTIC IMAGING Diagnostic Imaging Report : [id number] Signed PATIENT: ALEXIS GHOSH ACCT: [id number] UNIT: [id number] : 1955 LOC: ER ROOM / BED: / AGE / SEX: 70 / M ADM STATUS: REG ER SERVICE 48 ORDERING PHYSICIAN: ZOYA UMANA MD PROCEDURE(s): CXRP - CHEST PORTABLE REASON: sob ORDER NUMBER(s): [id number], ACCESSION NUMBER(s): [id number] EXAM: XY CHEST PORTABLE Indication: sob Technique: Single frontal view of the chest was obtained Comparison: XY CHEST XRAY 1 VIEW on DOS: 06/29/25, XY CHEST PORTABLE on DOS: 06/16/25, XY CHEST PORTABLE on DOS: 06/05/25, XY CHEST PORTABLE on DOS: 03/07/25, XY CHEST PORTABLE on DOS: 06/07/24 FINDINGS: Lines and Tubes: None Lungs: Bibasilar opacities and low lung volumes. No pneumothorax. Cardiomediastinal contours: Unremarkable Bones: No acute osseous abnormality. IMPRESSION: Bibasilar opacities and low lung volumes. ATED BY: LUCI OROZCO MD DICTATED DATE/TIME: 08/15/25 1350 SIGNED BY: LUCI OROZCO MD SIGNED DATE/TIME: 08/15/25 135 CC: [place] [address] Ph: [phone] DIAGNOSTIC IMAGING Diagnostic Imaging Report : [id number] Signed PATIENT: ALEXIS GHOSH ACCT: [id number] UNIT: [id number] : 1955 LOC: ER ROOM / BED: / AGE / SEX: 70 / M ADM STATUS: REG ER SERVICE 1445 ORDERING PHYSICIAN: ZOYA UMANA MD PROCEDURE(s): HWOCT - HEAD WITHOUT CONTRAST REASON: altered ORDER NUMBER(s): [id number], ACCESSION NUMBER(s): [id number] Procedure: CT HEAD WITHOUT CONTRAST Study Date and Requested Time: 08/15/2025 03:00 PM History: altered Comparison: CT HEAD WITHOUT CONTRAST on DOS: 03/07/25, CT HEAD WITHOUT CONTRAST on DOS: 11/03/23 Dose: CTDI: 40.36 mGy DLP: 781.24 mGycm Technique: Multiplanar images obtained through the brain without intravenous contrast. Findings: Moderate frontoparietal predominant brain atrophy. Severe chronic small-vessel ischemic changes. Left basal ganglia hypodensity which may represent chronic lacunar infarct versus prominent perivascular space No hemorrhages, masses, mass effect, midline shift, herniation or cytotoxic edema following a large vascular territory. No intra-axial or extra-axial fluid collections. No evidence of hydrocephalus. The basal cisterns are patent. The pituitary gland, sella and parasellar regions are unremarkable. The cerebellar tonsils are in normal position. The cerebellum is unremarkable. The orbits and globes are unremarkable. Minimal mucoperiosteal thickening of the ethmoid air cells. Otherwise, the paranasal sinuses and mastoids are clear. There are no worrisome calvarial lesions. Impression: No evidence of acute intracranial abnormality. ATED BY: JESS GILBERT DO DICTATED DATE/TIME: 08/15/251534 SIGNED BY: JESS GILBERT DO SIGNED DATE/TIME: 08/15/251534 CC: Time of 1ST Reevaluation: 12:03 Reevaluation 1ST: Unchanged Patient Education/Counseling: Other (Patient is altered ) Family Education/Counseling: No Family Present SEPSIS Sepsis Screen Physician Orders Urinalysis (08/15/25 12:10) Chest Portable (08/15/25 12:49) Scanning Tech (08/15/25 12:10) Blood Culture (08/15/25 12:10) Electrocardigram (08/15/25 12:25) Sodium Chloride 0.9% (08/15/25 14:45) Head Without Contrast (08/15/25 14:45) Vital Signs Date Time Temp Pulse Resp B/P (MAP) Pulse Ox O2 Delivery O2 Flow Rate FiO2 08/15/25 11:58 98.2 78 12 125/80 97 98.2 08/15/25 11:57 84 Laboratory Tests Test 08/15/25 13:00 08/15/25 15:30 Lactic Acid Level 2.5 mmol/L (0.4-2.0) *H Pending White Blood Count 3.4 10^3/uL (4.4-10.8) L Departure 1 Departure Time of Disposition: 14:36 Impression: Primary Impression: Hepatic encephalopathy Disposition: ADMITTED INPATIENT Admit to: Med Surg Condition: Guarded Critical Care Note Critical Care Time?: Yes (90 min-critical care time only) Stability Stability form required: No Heart Score Heart Score: Heart Score Response (Comments) Value History N/A 0 EKG N/A 0 Age N/A 0 Risk Factors N/A 0 Troponin N/A 0 Total 0 I personally scribed for ZOYA UMANA MD ([email or web address]) on 08/15/25 at 12:05. Electronically submitted by Virginia Person ([facility]). I personally scribed for ZOYA UMANA MD ([email or web address]) on 08/15/25 at 15:48. Electronically submitted by Virginia Person ([facility]). ZOYA UMANA MD Aug 15, 2025 12:05
[2025-08-15 13:20] LABS: Hemoglobin 15.2 g/dL (13.5-17.5)
[2025-08-15 13:22] LABS: Hematocrit 44.5 % (41.0-53.0); Mean Corpuscular Hemoglobin 32.3 pg (28.0-32.0); Mean Corpuscular Volume 94.7 fL (80.0-100.0); Nucleated Red Blood Cells % 0.4 %
[2025-08-15 13:36] LABS: Alanine Aminotransferase 25 U/L (7-40); Albumin 3.4 g/dL (3.2-4.8); Alkaline Phosphatase 102 U/L (46-116); Anion Gap 9 (5-15); BUN/Creatinine Ratio 16.0 (10.0-20.0); Blood Urea Nitrogen 12 mg/dL (9-23); Calcium 9.3 mg/dL (8.7-10.4); Carbon Dioxide 27 mmol/L (20-31); Chloride 107 mmol/L (98-107); Glucose 103 mg/dL (74-106); Potassium 4.3 mmol/L (3.5-5.1); Sodium 143 mmol/L (136-145); Total Protein 8.1 g/dL (5.7-8.2)
[2025-08-15 13:37] LABS: Bilirubin, Total 2.2 mg/dL (0.2-1.0)
[2025-08-15 13:41] LABS: Lactic Acid w/Reflex 2.5 mmol/L (0.4-2.0)
--- NOTE | 2025-08-15 13:52 | DVH ---
EXAM: XY CHEST PORTABLE Indication: sob Technique: Single frontal view of the chest was obtained Comparison: XY CHEST XRAY 1 VIEW on DOS: 06/29/25, XY CHEST PORTABLE on DOS: 06/16/25, XY CHEST PORTABL E on DOS: 06/05/25, XY CHEST PORTABLE on DOS: 03/07/25, XY CHEST PORTABLE on DOS: 06/07/24 FINDINGS: Lines and Tubes: None Lungs: Bibasilar opacities and low lung volumes. No pneumothorax. Cardiomediastinal contours: Unremarkable Bones: No acute osseous abnormality. IMPRESSION: Bibasilar opacities and low lung volumes.
--- NOTE | 2025-08-15 15:38 | DVH ---
Procedure: CT HEAD WITHOUT CONTRAST Study Date and Requested Time: 08/15/2025 03:00 PM History: altered Comparison: CT HEAD WITHOUT CONTRAST on DOS: 03/07/25, CT HEAD WITHOUT CONTRAST on DOS: 11/03/23 Dose: CTDI: 40.36 mGy DLP: 781.24 mGycm Technique: Multiplanar images obtained through the brain without intravenous contrast. Findings: Moderate frontoparietal predominant brain atrophy. Severe chronic small-vessel ischemic changes. Lef t basal ganglia hypodensity which may represent chronic lacunar infarct versus prominent perivascular space No hemorrhages, masses, mass effect, midline shift, herniation or cytotoxic edema following a large v ascular territory. No intra-axial or extra-axial fluid collections. No evidence of hydrocephalus. The basal cisterns are patent. The pituitary gland, sella and parasellar regions are unremarkable. The cerebellar tonsils are in nor mal position. The cerebellum is unremarkable. The orbits and globes are unremarkable. Minimal mucoperiosteal thickening of the ethmoid air cells. Otherwise, the paranasal sinuses and mastoids are clear. There are no worrisome calvarial lesions. Impression: No evidence of acute intracranial abnormality.
[2025-08-15] MEDS: SODIUM CHLORIDE 0.9% 1,000 ML IV ONE ×2 (18:49)
[2025-08-15] MEDS: PIPERACILLIN-TAZOB 2.25GM 50 ML IV ONE (18:50)
[2025-08-15] MEDS: LACTULOSE 20Gm/30ML SOLN PO ONE (18:50)
[2025-08-15 20:01] VITALS: PULSE 82; RESP 14; O2SAT 99
[2025-08-15] MEDS ORDERED: ACETAMINOPHEN 325 MG TAB PO PRN (20:30)
[2025-08-15] MEDS ORDERED: ONDANSETRON HCL 4 MG/2 ML VIAL IV PRN (20:30)
[2025-08-15] MEDS ORDERED: DOCUSATE SOD 100 MG CAP PO PRN (20:30)
--- NOTE | 2025-08-15 21:33 | DVHHP2 ---
History of Present Illness Reason for Visit: Hepatic encephalopathy History of Present Illness The patient is a 70-year-old male with past medical history of asthma, CHF, COPD, CVA, GERD, liver disease, [place], seizures, and hypertension who presented to [facility] ED for evaluation of altered mental status. As reported by EMS, patient is residing at a boarding care house where caregiver last saw him normal 3 hours prior to ED arrival. No family present for additional information. Patient was seen and evaluated in the ED, laboratory data shows WBC 3.4, platelets 22498, sodium 143, potassium 4.3, BUN 12, creatinine 0.75, glucose 103, lactic acid 2.5 trending down to 1.9, calcium 9.3, total bilirubin 2.2, AST 50, ALT 25, ammonia 124, troponin < 3, blood pressure 131/73, heart rate 82, temperature 97.9 F, O2 saturation 99% on oxygen. Chest x-ray show no evidence of acute intracranial abnormality. Chest x-ray revealing bibasilar opacities and low lung volumes. Please see medication orders section in the computer. On my assessment, patient remains altered, no diaphoresis, currently on oxygen, no diarrhea, nausea, vomiting, fever, chills. Patient was admitted for further evaluation and medical management. Past Medical History Asthma, CHF, COPD, CVA, GERD, HTN, Liver, WI, Seizures Past Surgical History PTCA Family History Reviewed, noncontributory to the management of this case. Past Social History The patient lives at home, denies smoking, alcohol or illicit drugs abuse. Review of Systems Constitutional: Yes: Weakness; No: Fever, Chills, Sweats, Malaise, Other Eyes: No: Pain, Vision change, Conjunctivae inflammation, Eyelid inflammation, Other, Redness ENT: No: Ear pain, Ear discharge, Nose pain, Nose discharge, Nose congestion, Mouth pain, Mouth swelling, Throat pain, Throat swelling, Other Respiratory: Shortness of breath; No: Cough, Dry, SOB with excertion, Wheezing, Hemoptysis, Pleuritic Pain, Sputum, Wheezing, Other Cardiovascular: No: Chest Pain, Palpitations, Orthopnea, Paroxysmal Noc. Dyspnea, Edema, Lt Headedness, Other Gastrointestinal: No: Nausea, Vomiting, Abdominal Pain, Diarrhea, Constipation, Melena, Hematochezia, Other Genitourinary: No Dysuria, No Frequency, No Incontinence, No Hematuria, No Retention, No Other Musculoskeletal: No: other, neck pain, shoulder pain, arm pain, back pain, hand pain, leg pain, foot pain Skin: No: Rash, Lesions, Jaundice, Bruising, Other Neurological: Confusion, Other (Altered level of consciousness); No: Weakness, Numbness, Incoordination, Change in speech, Seizures Allergies: Coded Allergies: NO KNOWN ALLERGIES (Unverified , 10/27/23) Medications Current Medications Medications Dose Ordered Sig/Sandi Route Start Time Stop Time Status Last Admin Dose Admin Ceftriaxone Sodium 50 ml @ 100 mls/hr DAILY@09 IV 08/16/25 09:00 Metronidazole 100 ml @ 100 mls/hr Q8HR IV 08/15/25 22:00 Lactulose 30 ml BID PO 08/15/25 22:00 Famotidine 20 mg DAILY IV 08/16/25 10:00 Carvedilol 3.125 mg Q12HR PO 08/15/25 22:00 Spironolactone 25 mg DAILY PO 08/16/25 10:00 Phenytoin Sodium 100 mg Q8HR PO 08/15/25 22:00 Sodium Chloride 10 ml Q8HR IV 08/15/25 22:00 Acetaminophen/ Hydrocodone Bitart 1 tab Q4HP PRN PO 08/15/25 20:30 Ondansetron HCl 4 mg Q4HP PRN IV 08/15/25 20:30 Docusate Sodium 100 mg BIDPRN PRN PO 08/15/25 20:30 Acetaminophen 650 mg Q6HP PRN PO 08/15/25 20:30 Exam Vital Signs Vital Signs Date Time Temp Pulse Resp B/P (MAP) Pulse Ox O2 Delivery O2 Flow Rate FiO2 08/15/25 20:01 82 08/15/25 20:01 14 99 Nasal Cannula* 3 32 08/15/25 20:00 97.9 131/73 (92) 97.9 General Appearance: Alert, No acute distress, Other (Oriented x1) HEENT: Atraumatic, PERRLA, EOMI, Mucous membr. moist/pink Respiratory: Normal air movement Cardiovascular: Regular rate, Normal S1, Normal S2, No murmurs Abdominal: Normal bowel sounds, Soft, No tenderness, No hepatospenomegaly, No masses Extremities: No clubbing, No cyanosis, No edema, Normal pulses, No tenderness/swelling Skin: No rashes, No significant lesion Neuro: Normal tone, Sensation intact, Cranial nerves 3-12 NL, Reflexes 2+, Other (Generalized weakness) Psych/Mental Status: Mood NL, Other (Altered mental status) Labs/Xrays Labs Test 08/15/25 15:30 08/15/25 13:00 Range/Units Lactic Acid Level 1.9 0.4-2.0 mmol/L White Blood Count 3.4 L 4.4-10.8 10^3/uL Red Blood Count 4.70 4.5-5.90 10^6/uL Hemoglobin 15.2 13.5-17.5 g/dL Hematocrit 44.5 41.0-53.0 % Mean Corpuscular Volume 94.7 80.0-100.0 fL Mean Corpuscular Hemoglobin 32.3 H 28.0-32.0 pg Mean Corpuscular Hemoglobin Concent 34.1 32.0-36.0 g/dL Red Cell Distribution Width 19.5 H 11.8-14.3 % Platelet Count 54 L 140-450 10^3/uL Mean Platelet Volume 7.7 6.9-10.8 fL Neutrophils (%) (Auto) 65.4 37.0-80.0 % Lymphocytes (%) (Auto) 23.6 10.0-50.0 % Monocytes (%) (Auto) 8.4 0.0-12.0 % Eosinophils (%) (Auto) 2.4 0.0-7.0 % Basophils (%) (Auto) 0.2 0.0-2.0 % Neutrophils # (Auto) 2.2 1.6-8.6 10 ^3/uL Lymphocytes # (Auto) 0.8 0.4-5.4 10 ^3/uL Monocytes # (Auto) 0.3 0-1.3 10 ^3/uL Eosinophils # (Auto) 0.1 0-0.8 10 ^3/uL Basophils # (Auto) 0 0-0.2 10 ^3/uL Nucleated Red Blood Cells 0.4 % Sodium Level 143 136-145 mmol/L Potassium Level 4.3 3.5-5.1 mmol/L Chloride Level 107 98-107 mmol/L Carbon Dioxide Level 27 20-31 mmol/L Anion Gap 9 5-15 Blood Urea Nitrogen 12 9-23 mg/dL Creatinine 0.75 0.700-1.30 mg/dL Glomerular Filtration Rate Calc 97 >90 mL/min BUN/Creatinine Ratio 16.0 10.0-20.0 Serum Glucose 103 74-106 mg/dL Calcium Level 9.3 8.7-10.4 mg/dL Total Bilirubin 2.2 H 0.2-1.0 mg/dL Aspartate Amino Transferase (AST) 50 H 13-40 U/L Alanine Aminotransferase (ALT) 25 7-40 U/L Alkaline Phosphatase 102 46-116 U/L Ammonia 124 *H 11-32 umol/L Troponin I High Sensitivity < 3 L </=54 ng/L Total Protein 8.1 5.7-8.2 g/dL Albumin 3.4 3.2-4.8 g/dL PATIENT: ALEXIS GHOSH ACCT: [id number] UNIT: [id number] : 1955 LOC: ER ROOM / BED: / AGE / SEX: 70 / M ADM STATUS: REG ER SERVICE 1445 ORDERING PHYSICIAN: ZOYA UMANA MD PROCEDURE(s): HWOCT - HEAD WITHOUT CONTRAST REASON: altered ORDER NUMBER(s): [id number], ACCESSION NUMBER(s): [id number] Procedure: CT HEAD WITHOUT CONTRAST Study Date and Requested Time: 08/15/2025 03:00 PM History: altered Comparison: CT HEAD WITHOUT CONTRAST on DOS: 03/07/25, CT HEAD WITHOUT CONTRAST on DOS: 11/03/23 Dose: CTDI: 40.36 mGy DLP: 781.24 mGycm Technique: Multiplanar images obtained through the brain without intravenous contrast. Findings: Moderate frontoparietal predominant brain atrophy. Severe chronic small-vessel ischemic changes. Left basal ganglia hypodensity which may represent chronic lacunar infarct versus prominent perivascular space No hemorrhages, masses, mass effect, midline shift, herniation or cytotoxic edema following a large vascular territory. No intra-axial or extra-axial fluid collections. No evidence of hydrocephalus. The basal cisterns are patent. The pituitary gland, sella and parasellar regions are unremarkable. The ce rebellar tonsils are in normal position. The cerebellum is unremarkable. The orbits and globes are unremarkable. Minimal mucoperiosteal thickening of the ethmoid air cells. Otherwise, the paranasal sinuses and mastoids are clear. There are no worrisome calvarial lesions. Impression: No evidence of acute intracranial abnormality. ORDERING PHYSICIAN: ZOYA UMANA MD PROCEDURE(s): CXRP - CHEST PORTABLE REASON: sob ORDER NUMBER(s): [id number], ACCESSION NUMBER(s): [id number] EXAM: XY CHEST PORTABLE Indication: sob Technique: Single frontal view of the chest was obtained Comparison: XY CHEST XRAY 1 VIEW on DOS: 06/29/25, XY CHEST PORTABLE on DOS: 06/16/25, XY CHEST PORTABLE on DOS: 06/05/25, XY CHEST PORTABLE on DOS: 03/07/25, XY CHEST PORTABLE on DOS: 06/07/24 FINDINGS: Lines and Tubes: None Lungs: Bibasilar opacities and low lung volumes. No pneumothorax. Cardiomediastinal contours: Unremarkable Bones: No acute osseous abnormality. IMPRESSION: Bibasilar opacities and low lung volumes. SEPSIS Sepsis Screen Date sepsis recognized/suspect: Aug 15, 2025 Time Sepsis recognized/suspect: 1158 Recent Procedure: No On Antibiotic Therapy: No Respiratory Rate >20: No Heart Rate >90: No Temp<36 C (96.8 F) or >38.3 C: No SBP <90 or MAP <65 mmHG: No New Acute Mental Status Change: Yes Is the patient on CPAP, BIPAP,: No Physician Orders Head Without Contrast (08/15/25 14:45) Ceftriaxone 1gm/50ml (Rocephin) (08/16/25 09:00) Metronidazole 500mg/100ml (Flagyl 500mg/ (08/15/25 22:00) Lactulose Oral (08/15/25 22:00) Famotidine Injection (Pepcid Injection) (08/16/25 10:00) Carvedilol Tablet (Coreg Tablet) (08/15/25 22:00) Spironolactone (Aldactone) (08/16/25 10:00) Phenytoin Capsule (Dilantin Capsule) (08/15/25 22:00) Allergies (08/15/25 20:19) Code Status (08/15/25 20:19) Sodium Chloride Lock (Saline Lock Ns) (08/15/25 22:00) Oxygen Per Hour (08/15/25 20:19) Hydrocodone-Acet 5/325mg Tab ([place] 5/32 (08/15/25 20:30) Ondansetron Hcl (Zofran) (08/15/25 20:30) Docusate Sodium Capsule (Colace Capsule) (08/15/25 20:30) Fall Risk Precautions In Place QSHIFT (08/15/25 20:19) Complete Blood Count (08/16/25 04:00) Comprehensive Metabolic Panel (08/16/25 04:00) Cardiac Diet-2gna,Lofat,Lochol (08/16/25 Breakfast) Condition: Serious (08/15/25 20:19) Acetaminophen Tablet (Tylenol Tablet) (08/15/25 20:30) Maintain Bed Rest (08/15/25 20:19) Sequential Compression Device (08/15/25 ) Vital Signs Date Time Temp Pulse Resp B/P (MAP) Pulse Ox O2 Delivery O2 Flow Rate FiO2 08/15/25 20:01 82 08/15/25 20:01 82 14 99 Nasal Cannula* 3 32 08/15/25 20:00 97.9 82 12 131/73 (92) 99 97.9 Laboratory Tests Test 08/15/25 13:00 08/15/25 15:30 Lactic Acid Level 2.5 mmol/L (0.4-2.0) *H 1.9 mmol/L (0.4-2.0) White Blood Count 3.4 10^3/uL (4.4-10.8) L Medications Medications Dose Ordered Sig/Sandi Route Start Time Stop Time Status Last Admin Dose Admin Lactulose 60 ml ONCE ONCE PO 08/15/25 14:45 08/15/25 14:46 DC 08/15/25 18:50 60 ML Metronidazole 100 ml @ 100 mls/hr ONCE ONCE IV 08/15/25 14:45 08/15/25 15:44 DC 08/15/25 18:50 100 MLS/HR Piperacillin Sod/ Tazobactam Sod 50 ml @ 50 mls/hr ONCE ONCE IV 08/15/25 14:45 08/15/25 15:44 DC 08/15/25 18:50 50 MLS/HR Sodium Chloride 1,000 ml @ 150 mls/hr Q6H40M ONCE IV 08/15/25 14:45 08/15/25 21:24 DC 08/15/25 18:49 150 MLS/HR Sodium Chloride 1,000 ml @ 1,000 mls/hr Q1H ONCE IV 08/15/25 14:45 08/15/25 15:44 DC 08/15/25 18:49 1,000 MLS/HR Assessment/Plan Assessment/Plan Hepatic encephalopathy Thrombocytopenia Leukopenia Elevated lactic acid level Generalized weakness Acute respiratory distress Plan 1. Admit to telemetry unit 2. Breathing treatment 3. Pain control management 4. IV antibiotic management 5. Management of fluids and electrolytes 6. Consultation for hospitalist 7. Diagnostic test head CT 8. DVT prophylaxis on SCDs 9. Repeat labs CBC, CMP in a.m. 10. Home medication reviewed and reconciled 11. Continue with current medical management 12. Treatment plan discussed with patient and RN. Patient verbalized understanding. Plan discussed with: Patient, Other (RN) My Orders Orders - BRIAN PIMENTEL DNP Procedure Category Date Status Time Ceftriaxone 1gm/50ml PHA 08/16/25 In Process (Rocephin) 09:00 Metronidazole PHA 08/15/25 In Process 500mg/100ml (Flagyl 22:00 Lactulose Oral PHA 08/15/25 In Process 22:00 Famotidine Injection PHA 08/16/25 In Process (Pepcid Injection) 10:00 Carvedilol Tablet PHA 08/15/25 In Process (Coreg Tablet) 22:00 Spironolactone PHA 08/16/25 In Process (Aldactone) 10:00 Phenytoin Capsule PHA 08/15/25 In Process (Dilantin Capsule) 22:00 Allergies ZAHRA 08/15/25 In Process 20:19 Code Status CODE 08/15/25 Transmitted 20:19 Sodium Chloride Lock PHA 08/15/25 In Process (Saline Lock Ns) 22:00 Oxygen Per Hour RT 08/15/25 Transmitted 20:19 Hydrocodone-Acet PHA 08/15/25 In Process 5/325mg Tab ([place] 20:30 Ondansetron Hcl PHA 08/15/25 In Process (Zofran) 20:30 Docusate Sodium PHA 08/15/25 In Process Capsule (Colace 20:30 Fall Risk Precautions ZAHRA 08/15/[address] 20:19 Complete Blood Count LAB 08/16/25 Verified 04:00 Comprehensive LAB 08/16/25 Verified Metabolic Panel 04:00 Cardiac DIET 08/16/25 Transmitted Diet-2gna,Lofat,Lochol Breakfast Condition: Serious ZAHRA 08/15/25 In Process 20:19 Acetaminophen Tablet PHA 08/15/25 In Process (Tylenol Tablet) 20:30 Maintain Bed Rest ZAHRA 08/15/25 In Process 20:19 Sequential ZAHRA 08/15/25 In Process Compression Device Problem List: (1) Hepatic encephalopathy (2) Thrombocytopenia (3) Leukopenia (4) Elevated lactic acid level (5) Generalized weakness (6) Acute respiratory distress Date of Service: Aug 15, 2025 Billing Provider: BRIAN PIMENTEL DNP Common Visit Codes: [id number] INP/OBS CARE (HIGH) BRIAN PIMENTEL DNP Aug 15, 2025 21:33
[2025-08-15] MEDS ORDERED: MORPHINE SULFATE INJ 2 MG/ml SYRG IV PRN (21:45)
[2025-08-15] MEDS ORDERED: NITROGLYCERIN 0.4 MG SL TAB SL PRN (21:45)
[2025-08-15] MEDS: PHENYTOIN SODIUM 100 MG CAP PO SCH (22:10)
[2025-08-15] MEDS: LACTULOSE 20Gm/30ML SOLN PO SCH (22:11)
[2025-08-15] MEDS: SODIUM CHLOR 0.9% PF (SALINE LOCK) 10ML VIAL/SYR IV SCH (22:12)
[2025-08-15] MEDS: CARVEDILOL 3.125 MG TAB PO SCH (22:12)
--- NOTE | 2025-08-16 03:09 | ECG ---
[facility] Test Date: 2025-08-15 Test Time: 11:57:21 Pat Name: ALEXIS GHOSH Department: [facility] ED Patient ID: [id number] Room: 0289T Gender: M [employer]: ilan : 1955 Requested By: ZOYA UMANA Order Number: [id number] Reading MD: Dung Avitia Measurements Intervals [place] Rate: 84 P: -53 OK: 183 QRS: 3 QRSD: 97 T: -27 QT: 411 QTc: 486 Interpretive Statements Sinus or ectopic atrial rhythm Inferior infarct, age indeterminate Electronically Signed On 08-16-2025 18:48:28 PDT by Dung Avitia Please click the below link to view image of tracing.
[2025-08-16 07:41] LABS: Alanine Aminotransferase 22 U/L (7-40); Alkaline Phosphatase 71 U/L (46-116); Anion Gap 9 (5-15); BUN/Creatinine Ratio 22.0 (10.0-20.0); Blood Urea Nitrogen 13 mg/dL (9-23); Carbon Dioxide 25 mmol/L (20-31); Glucose 86 mg/dL (74-106); Potassium 4.1 mmol/L (3.5-5.1); Sodium 145 mmol/L (136-145); Total Protein 6.4 g/dL (5.7-8.2)
[2025-08-16 07:47] LABS: Hematocrit 35.6 % (41.0-53.0); Hemoglobin 12.3 g/dL (13.5-17.5); Mean Corpuscular Hemoglobin 32.6 pg (28.0-32.0); Mean Corpuscular Volume 94.6 fL (80.0-100.0); Nucleated Red Blood Cells % 0.1 %
[2025-08-16 07:50] LABS: Calcium 8.3 mg/dL (8.7-10.4); Chloride 111 mmol/L (98-107)
[2025-08-16 07:51] LABS: Albumin 2.7 g/dL (3.2-4.8); Bilirubin, Total 2.1 mg/dL (0.2-1.0)
[2025-08-16 08:00] VITALS: PULSE 67; RESP 11; O2SAT 97
[2025-08-16] MEDS: FAMOTIDINE (10MG/ML) 2ML VL IV SCH (11:51)
[2025-08-16] MEDS: SPIRONOLACTONE 25 MG TAB PO SCH (11:52)
--- NOTE | 2025-08-16 14:44 | DVHPN2 ---
Changes from previous H/P or p: No Changes Eyes: No Pain, No Vision change, No Conjunctivae inflammation, No Eyelid inflammation, No Other, No Redness ENT: No Ear pain, No Ear discharge, No Nose pain, No Nose discharge, No Nose congestion, No Mouth pain, No Mouth swelling, No Throat pain, No Throat swelling, No Other Cardiovascular: No Chest Pain, No Palpitations, No Orthopnea, No Paroxysmal Noc. Dyspnea, No Edema, No Lt Headedness, No Other Respiratory: No Cough, No Dry; Shortness of breath; No SOB with excertion, No Wheezing, No Hemoptysis, No Pleuritic Pain, No Sputum, No Other Gastrointestinal: No Nausea, No Vomiting, No Abdominal Pain, No Diarrhea, No Constipation, No Melena, No Hematochezia, No Other Genitourinary: No Dysuria, No Frequency, No Incontinence, No Hematuria, No Retention, No Other Musculoskeletal: No other, No neck pain, No shoulder pain, No arm pain, No back pain, No hand pain, No leg pain, No foot pain Skin: No Rash, No Lesions, No Jaundice, No Bruising, No Other Objective Vitals Vital Signs Date Time Temp Pulse Resp B/P (MAP) Pulse Ox O2 Delivery O2 Flow Rate FiO2 08/16/25 11:52 72 98/63 08/16/25 10:00 12 95 08/16/25 08:00 Nasal Cannula* 2 28 08/16/25 08:00 98.1 98.1 Medications Current Medications Medications Dose Ordered Sig/Sandi Route Start Time Stop Time Status Last Admin Dose Admin Ceftriaxone Sodium 50 ml @ 100 mls/hr DAILY@09 IV 08/16/25 09:00 08/16/25 11:51 100 MLS/HR Metronidazole 100 ml @ 100 mls/hr Q8HR IV 08/15/25 22:00 08/16/25 06:50 100 MLS/HR Lactulose 30 ml BID PO 08/15/25 22:00 08/16/25 11:51 30 ML Famotidine 20 mg DAILY IV 08/16/25 10:00 08/16/25 11:51 20 MG Carvedilol 3.125 mg Q12HR PO 08/15/25 22:00 08/15/25 22:12 3.125 MG Spironolactone 25 mg DAILY PO 08/16/25 10:00 08/16/25 11:52 25 MG Phenytoin Sodium 100 mg Q8HR PO 08/15/25 22:00 08/16/25 06:00 100 MG Sodium Chloride 10 ml Q8HR IV 08/15/25 22:00 08/16/25 06:00 10 ML Acetaminophen/ Hydrocodone Bitart 1 tab Q4HP PRN PO 08/15/25 20:30 Ondansetron HCl 4 mg Q4HP PRN IV 08/15/25 20:30 Docusate Sodium 100 mg BIDPRN PRN PO 08/15/25 20:30 Acetaminophen 650 mg Q6HP PRN PO 08/15/25 20:30 Nitroglycerin 0.4 mg Q5MINP PRN SL 08/15/25 21:45 Morphine Sulfate 2 mg Q30M PRN IV 08/15/25 21:45 Laboratory Results Laboratory Tests 08/16/25 07:09 Chemistry Test 08/16/25 07:09 Albumin 2.7 g/dL (3.2-4.8) L Calcium Level 8.3 mg/dL (8.7-10.4) L Total Protein 6.4 g/dL (5.7-8.2) LFT Test 08/16/25 07:09 Alanine Aminotransferase (ALT) 22 U/L (7-40) Alkaline Phosphatase 71 U/L (46-116) Aspartate Amino Transferase (AST) 44 U/L (13-40) H Total Bilirubin 2.1 mg/dL (0.2-1.0) H Microbiology Microbiology Date/Time Source Procedure Growth Status 08/15/25 13:00 Blood Blood Culture - Preliminary NO GROWTH AFTER 24 HOURS OF INCUBATION. Resulted Labs and/or images reviewed: Labs reviewed by me, Image(s) reviewed by me Assessment/Plan Assessment/Plan Acute Hepatic encephalopathy Thrombocytopenia Leukopenia Elevated lactic acid level Generalized weakness Acute respiratory distress Acute Hyperammonemia: Ammonia 129: Lactulose Acute CHF exacerbation Acute COPD exacerbation History of CVA Hypotension History of [place] Seizures Cirrhosis of liver Spent 75 minutes Advanced care planning time 20 minutes Patient is full code Plan discussed with: Patient Date of Service: Aug 16, 2025 Billing Provider: LISSY JACQUES MD Common Visit Codes: [id number] CARE 30-74 MIN LISSY JACQUES MD Aug 16, 2025 14:44
[2025-08-16 18:13] LABS: Urine Budding Yeast MODERATE /hpf (None Seen); Urine Protein, UAD Negative (Negative)
[2025-08-16 18:28] VITALS: BP 114/72; PULSE 73; RESP 18; TEMP 98.1; O2SAT 99
[2025-08-16 19:16] VITALS: BP 114/72; PULSE 73; RESP 18; TEMP 98.1; O2SAT 99
[2025-08-16 20:00] VITALS: PULSE 79
[2025-08-16] MEDS: HYDROcodone-ACET 5/325MG TAB PO PRN (20:33)
[2025-08-16 21:00] VITALS: BP 113/72; PULSE 80; RESP 16; TEMP 98.1; O2SAT 98
[2025-08-17] VITALS (9 sets, daily range): BP systolic 89–102; BP diastolic 56–64; PULSE 75–84; RESP 15–18; TEMP 98–98.5; O2SAT 97–99
--- NOTE | 2025-08-17 12:32 | DVHPN2 ---
Reviewed: Care Plan, H&P, Labs, Medications, Previous Orders, Radiology Changes from previous H/P or p: No Changes Eyes: No Pain, No Vision change, No Conjunctivae inflammation, No Eyelid inflammation, No Other, No Redness ENT: No Ear pain, No Ear discharge, No Nose pain, No Nose discharge, No Nose congestion, No Mouth pain, No Mouth swelling, No Throat pain, No Throat swelling, No Other Cardiovascular: No Chest Pain, No Palpitations, No Orthopnea, No Paroxysmal Noc. Dyspnea, No Edema, No Lt Headedness, No Other Respiratory: No Cough, No Dry; Shortness of breath; No SOB with excertion, No Wheezing, No Hemoptysis, No Pleuritic Pain, No Sputum, No Other Gastrointestinal: No Nausea, No Vomiting, No Abdominal Pain, No Diarrhea, No Constipation, No Melena, No Hematochezia, No Other Genitourinary: No Dysuria, No Frequency, No Incontinence, No Hematuria, No Retention, No Other Musculoskeletal: No other, No neck pain, No shoulder pain, No arm pain, No back pain, No hand pain, No leg pain, No foot pain Skin: No Rash, No Lesions, No Jaundice, No Bruising, No Other Objective Vitals Vital Signs Date Time Temp Pulse Resp B/P (MAP) Pulse Ox O2 Delivery O2 Flow Rate FiO2 08/17/25 09:40 80 92/60 08/17/25 09:00 98.0 16 99 98.0 08/16/25 20:00 Nasal Cannula* 3 32 Intake/Output Intake and Output 08/17/25 07:00 Intake Total 1415 ml Output Total 600 ml Balance 815 ml Intake Oral 1065 ml IV Total 350 ml Output Urine Total 600 ml # Voids 1 # Bowel Movements 2 Medications Current Medications Medications Dose Ordered Sig/Sandi Route Start Time Stop Time Status Last Admin Dose Admin Ceftriaxone Sodium 50 ml @ 100 mls/hr DAILY@09 IV 08/16/25 09:00 08/17/25 09:30 100 MLS/HR Metronidazole 100 ml @ 100 mls/hr Q8HR IV 08/15/25 22:00 08/17/25 06:02 100 MLS/HR Lactulose 30 ml BID PO 08/15/25 22:00 08/16/25 11:51 30 ML Famotidine 20 mg DAILY IV 08/16/25 10:00 08/17/25 09:39 20 MG Carvedilol 3.125 mg Q12HR PO 08/15/25 22:00 08/16/25 21:39 3.125 MG Spironolactone 25 mg DAILY PO 08/16/25 10:00 08/17/25 09:39 25 MG Phenytoin Sodium 100 mg Q8HR PO 08/15/25 22:00 08/17/25 06:02 100 MG Sodium Chloride 10 ml Q8HR IV 08/15/25 22:00 08/17/25 06:02 10 ML Acetaminophen/ Hydrocodone Bitart 1 tab Q4HP PRN PO 08/15/25 20:30 08/16/25 20:33 1 TAB Ondansetron HCl 4 mg Q4HP PRN IV 08/15/25 20:30 Docusate Sodium 100 mg BIDPRN PRN PO 08/15/25 20:30 Acetaminophen 650 mg Q6HP PRN PO 08/15/25 20:30 Nitroglycerin 0.4 mg Q5MINP PRN SL 08/15/25 21:45 Morphine Sulfate 2 mg Q30M PRN IV 08/15/25 21:45 Laboratory Results Laboratory Tests 08/16/25 07:09 Urinalysis Test 08/16/25 17:52 Urine Color Yellow (Yellow) Urine Clarity Turbid (Clear) H Urine pH 6.0 (5.0-9.0) Urine Specific [place] 1.021 (1.001-1.035) Urine Protein Negative (Negative) Urine Ketones Trace (Negative) Urine Blood Negative /uL (Negative) Urine Nitrite Negative (Negative) Urine Bilirubin Negative (Negative) Urine Urobilinogen Normal mg/dL (Negative) Urine Leukocyte Esterase 3+ /uL (Negative) Urine RBC 12 /hpf (0 - 3) Urine Microscopic WBC 794 /HPF (0-3) H Urine Squamous Epithelial Cells Few /hpf (<5) Urine Bacteria Few /hpf (None Seen) H Urine Mucus Few (None Seen) Urine Yeast (Budding) Moderate /hpf (None Seen) Urine Glucose Normal mg/dL (Normal) Microbiology Microbiology Date/Time Source Procedure Growth Status 08/15/25 13:00 Blood Blood Culture - Preliminary NO GROWTH AFTER 24 HOURS OF INCUBATION. Resulted Labs and/or images reviewed: Labs reviewed by me, Image(s) reviewed by me Assessment/Plan Assessment/Plan Acute Hepatic encephalopathy: GI consult for Dr. Puri Thrombocytopenia Leukopenia Elevated lactic acid level Generalized weakness Acute respiratory distress Acute Hyperammonemia: Ammonia 129: Lactulose Acute CHF exacerbation Acute COPD exacerbation History of CVA Hypotension History of [place] Seizures Cirrhosis of liver Spent 55 minutes Advanced care planning time 20 minutes Patient is full code Patient's lives in board and care Plan discussed with: Patient Date of Service: Aug 17, 2025 Billing Provider: LISSY JACQUES MD Common Visit Codes: [id number] INP/OBS CARE(HIGH) LISSY JACQUES MD Aug 17, 2025 12:32
[2025-08-17] MEDS: LACTULOSE 20Gm/30ML SOLN PO SCH (14:12)
--- NOTE | 2025-08-17 16:53 | DVHINCON2 ---
Date of service: Aug 17, [address] Jacques Reason for Consultation Liver cirrhosis with possible encephalopathy and pancytopenia History of Present Illness This 70-year-old male with a history of asthma congestive heart failure COPD CVA GERD liver disease MRSA she has hypertension etc. presented to the emergency room with decreased mental status this has played history of chronic cirrhosis with a severe liver disease. Patient was found to be in [place] [address] white count also down 3.4. Because of the severe cirrhosis in the decreased mental status the reason for the GI consult. No GI bleeding Past Medical History CVA COPD CHF C GERD hypertension liver disease Past Surgical History None except PTCA Family History: FH: heart attack G8 MOTHER G8 BROTHER G8 BROTHER Family History Noncontributory Social History Denies smoking or drinking Allergies: Coded Allergies: NO KNOWN ALLERGIES (Unverified , 10/27/23) Home Meds Active Scripts Carvedilol (COREG) 3.125 Mg Tab, 3.125 MG PO BID, #60 TAB Prov:LISSY JACQUES MD 06/11/24 Pantoprazole Sodium Sesquihydr (Pantoprazole Sodium) 40 Mg Tab, 40 MG PO BID, #60 TAB Prov:LISSY JACQUES MD 06/11/24 Reported Medications Lorazepam (ATIVAN TABLET) 0.5 Mg Tb, 1 TAB PO BIDPRN PRN for AGITATION, #90 TAB 03/08/25 Risperidone (Risperdal) 0.5 Mg Tab, 0.5 MG PO HS, TAB 03/08/25 Trazodone Hcl (Trazodone Hcl) 50 Mg Tab, 50 MG PO HS, MG 03/08/25 Hydrocodone-Acetaminophen (Hydrocodone Bitartrate/AC 10-325 mg) 1 Tab Tab, 1 TAB PO TIDP, TAB 03/08/25 Albuterol Sulfate (Albuterol Sulfate Hfa) 108 Mcg/Act Aer, INH 10/28/23 Diclofenac Sodium (Actinic Ker (Diclofenac Sodium) 3 % Gel, TOP 10/28/23 Lactulose (Lactulose) 10 Gm/15 Ml Frances, ML PO 10/28/23 Phenytoin Sodium (Dilantin) 100 Mg Cap, 1 CAP PO TID 10/28/23 Morphine Sulfate (Morphine Sulfate Cr) 15 Mg Tab, 1 TAB PO TID 10/28/23 Furosemide (Furosemide) 40 Mg Tab, 1 TAB PO BID 10/28/23 Rifaximin (Xifaxan) 550 Mg Tab, 1 TAB PO BID 10/28/23 Gabapentin (Gabapentin) 600 Mg Tab, 1 TAB PO TID 10/28/23 Atorvastatin Calcium (ATORVASTATIN CALCIUM) 40 Mg Tab, 1 TAB PO DAILY 10/28/23 Midodrine Hcl (Midodrine Hcl) 5 Mg Tab, 1 TAB PO TID 10/28/23 Spironolactone (Spironolactone) 25 Mg Tab, 1 TAB PO DAILY 10/28/23 Metoprolol Tartrate (Lopressor) 25 Mg Tb, TAB PO 10/28/23 Current Medications Current Medications Medications (Trade) Dose Ordered Sig/Sandi Route PRN Reason Start Time Stop Time Status Last Admin Lactulose 40 ml QID PO 08/17/25 12:45 08/17/25 14:12 Review of Systems Noncontributory Vital Signs Vital Signs Date Time Temp Pulse Resp B/P (MAP) Pulse Ox O2 Delivery O2 Flow Rate FiO2 08/17/25 13:00 98.0 84 17 102/64 (77) 97 98.0 08/16/25 20:00 Nasal Cannula* 3 32 Physical Exam Moderately built and nourished male in no acute distress very drowsy Vitals stable HEENT examination mild pallor no icterus Neck is supple no lymphadenopathy no thyroid Lungs clear Abdomen is soft nontender no masses bowel sounds Extremities no edema Labs/Diagnostic Data Labs Test 08/16/25 17:52 08/16/25 07:09 08/15/25 15:30 08/15/25 13:00 Range/Units Urine Color Yellow Yellow Urine Clarity Turbid H Clear Urine pH 6.0 5.0-9.0 Urine Specific [place] 1.021 1.001-1.035 Urine Protein Negative Negative Urine Ketones Trace Negative Urine Blood Negative Negative /uL Urine Nitrite Negative Negative Urine Bilirubin Negative Negative Urine Urobilinogen Normal Negative mg/dL Urine Leukocyte Esterase 3+ Negative /uL Urine RBC 12 0 - 3 /hpf Urine Microscopic WBC 794 H 0-3 /HPF Urine Squamous Epithelial Cells Few <5 /hpf Urine Bacteria Few H None Seen /hpf Urine Mucus Few None Seen Urine Yeast (Budding) Moderate None Seen /hpf Urine Glucose Normal Normal mg/dL White Blood Count 2.7 L 4.4-10.8 10^3/uL Red Blood Count 3.76 L 4.5-5.90 10^6/uL Hemoglobin 12.3 #L 13.5-17.5 g/dL Hematocrit 35.6 #L 41.0-53.0 % Mean Corpuscular Volume 94.6 80.0-100.0 fL Mean Corpuscular Hemoglobin 32.6 H 28.0-32.0 pg Mean Corpuscular Hemoglobin Concent 34.5 32.0-36.0 g/dL Red Cell Distribution Width 19.3 H 11.8-14.3 % Platelet Count 37 L 140-450 10^3/uL Mean Platelet Volume 8.4 6.9-10.8 fL Neutrophils (%) (Auto) 60.6 37.0-80.0 % Lymphocytes (%) (Auto) 24.2 10.0-50.0 % Monocytes (%) (Auto) 11.1 0.0-12.0 % Eosinophils (%) (Auto) 3.4 0.0-7.0 % Basophils (%) (Auto) 0.7 0.0-2.0 % Neutrophils # (Auto) 1.6 1.6-8.6 10 ^3/uL Lymphocytes # (Auto) 0.6 0.4-5.4 10 ^3/uL Monocytes # (Auto) 0.3 0-1.3 10 ^3/uL Eosinophils # (Auto) 0.1 0-0.8 10 ^3/uL Basophils # (Auto) 0 0-0.2 10 ^3/uL Nucleated Red Blood Cells 0.1 % Sodium Level 145 136-145 mmol/L Potassium Level 4.1 3.5-5.1 mmol/L Chloride Level 111 H 98-107 mmol/L Carbon Dioxide Level 25 20-31 mmol/L Anion Gap 9 5-15 Blood Urea Nitrogen 13 9-23 mg/dL Creatinine 0.59 L 0.700-1.30 mg/dL Glomerular Filtration Rate Calc 104 >90 mL/min BUN/Creatinine Ratio 22.0 H 10.0-20.0 Serum Glucose 86 74-106 mg/dL Calcium Level 8.3 L 8.7-10.4 mg/dL Total Bilirubin 2.1 H 0.2-1.0 mg/dL Aspartate Amino Transferase (AST) 44 H 13-40 U/L Alanine Aminotransferase (ALT) 22 7-40 U/L Alkaline Phosphatase 71 46-116 U/L Total Protein 6.4 5.7-8.2 g/dL Albumin 2.7 L 3.2-4.8 g/dL Lactic Acid Level 1.9 0.4-2.0 mmol/L Ammonia 124 *H 11-32 umol/L Troponin I High Sensitivity < 3 L </=54 ng/L Microbiology Date/Time Source Procedure Growth Status 08/15/25 13:00 Blood Blood Culture - Preliminary NO GROWTH AFTER 48 HOURS OF INCUBATION. Resulted Assessment 70-year-old male with a history of asthma since heart failure CVA GERD liver disease [place] admitted with hepatic encephalopathy ammonia level was 124 patient has got history of chronic liver disease patient has got pancytopenia with a platelet of 54 white count is 3.4 clinical impression Chronic liver disease with cirrhosis with encephalopathy Plan/Recommendation We will recommend to treatment with lactulose Monitor LFTs hemoglobin and white count and platelets and ammonia levels May need liver workup if not done in the past including hepatitis panel iron studies copper studies etc. to ensure there was no other pathology to account for the severe cirrhosis Prognosis is guarded long-term Thank you Dr. Khushi Jeter discussed with: Patient REVA FRASER MD Aug 17, 2025 16:53
[2025-08-18] VITALS (8 sets, daily range): BP systolic 91–120; BP diastolic 48–64; PULSE 71–83; RESP 13–18; TEMP 97.1–98.6; O2SAT 97–100
--- NOTE | 2025-08-18 12:20 | DVHPN2 ---
Reviewed: Care Plan, H&P, Labs, Medications, Previous Orders, Radiology Changes from previous H/P or p: No Changes Eyes: No Pain, No Vision change, No Conjunctivae inflammation, No Eyelid inflammation, No Other, No Redness ENT: No Ear pain, No Ear discharge, No Nose pain, No Nose discharge, No Nose congestion, No Mouth pain, No Mouth swelling, No Throat pain, No Throat swelling, No Other Cardiovascular: No Chest Pain, No Palpitations, No Orthopnea, No Paroxysmal Noc. Dyspnea, No Edema, No Lt Headedness, No Other Respiratory: No Cough, No Dry; Shortness of breath; No SOB with excertion, No Wheezing, No Hemoptysis, No Pleuritic Pain, No Sputum, No Other Gastrointestinal: No Nausea, No Vomiting, No Abdominal Pain, No Diarrhea, No Constipation, No Melena, No Hematochezia, No Other Genitourinary: No Dysuria, No Frequency, No Incontinence, No Hematuria, No Retention, No Other Musculoskeletal: No other, No neck pain, No shoulder pain, No arm pain, No back pain, No hand pain, No leg pain, No foot pain Skin: No Rash, No Lesions, No Jaundice, No Bruising, No Other Objective Vitals Vital Signs Date Time Temp Pulse Resp B/P (MAP) Pulse Ox O2 Delivery O2 Flow Rate FiO2 08/18/25 09:59 80 112/72 08/18/25 08:00 16 97 Nasal Cannula* 3 32 08/18/25 05:00 98.6 98.6 Intake/Output Intake and Output 08/18/25 07:00 Intake Total 2006 ml Balance 2006 ml Intake Oral 1656 ml IV Total 350 ml # Voids 7 # Bowel Movements 3 Medications Current Medications Medications Dose Ordered Sig/Sandi Route Start Time Stop Time Status Last Admin Dose Admin Ceftriaxone Sodium 50 ml @ 100 mls/hr DAILY@09 IV 08/16/25 09:00 08/18/25 09:54 100 MLS/HR Metronidazole 100 ml @ 100 mls/hr Q8HR IV 08/15/25 22:00 08/18/25 05:21 100 MLS/HR Famotidine 20 mg DAILY IV 08/16/25 10:00 08/18/25 09:58 20 MG Carvedilol 3.125 mg Q12HR PO 08/15/25 22:00 08/18/25 09:59 3.125 MG Spironolactone 25 mg DAILY PO 08/16/25 10:00 08/18/25 09:54 25 MG Phenytoin Sodium 100 mg Q8HR PO 08/15/25 22:00 08/18/25 05:21 100 MG Sodium Chloride 10 ml Q8HR IV 08/15/25 22:00 08/18/25 05:21 10 ML Acetaminophen/ Hydrocodone Bitart 1 tab Q4HP PRN PO 08/15/25 20:30 08/17/25 20:48 1 TAB Ondansetron HCl 4 mg Q4HP PRN IV 08/15/25 20:30 Docusate Sodium 100 mg BIDPRN PRN PO 08/15/25 20:30 Acetaminophen 650 mg Q6HP PRN PO 08/15/25 20:30 Nitroglycerin 0.4 mg Q5MINP PRN SL 08/15/25 21:45 Morphine Sulfate 2 mg Q30M PRN IV 08/15/25 21:45 Lactulose 40 ml QID PO 08/17/25 12:45 08/18/25 11:56 40 ML Laboratory Results Laboratory Tests 08/16/25 07:09 Urinalysis Test 08/16/25 17:52 Urine Color Yellow (Yellow) Urine Clarity Turbid (Clear) H Urine pH 6.0 (5.0-9.0) Urine Specific [place] 1.021 (1.001-1.035) Urine Protein Negative (Negative) Urine Ketones Trace (Negative) Urine Blood Negative /uL (Negative) Urine Nitrite Negative (Negative) Urine Bilirubin Negative (Negative) Urine Urobilinogen Normal mg/dL (Negative) Urine Leukocyte Esterase 3+ /uL (Negative) Urine RBC 12 /hpf (0 - 3) Urine Microscopic WBC 794 /HPF (0-3) H Urine Squamous Epithelial Cells Few /hpf (<5) Urine Bacteria Few /hpf (None Seen) H Urine Mucus Few (None Seen) Urine Yeast (Budding) Moderate /hpf (None Seen) Urine Glucose Normal mg/dL (Normal) Microbiology Microbiology Date/Time Source Procedure Growth Status 08/15/25 13:00 Blood Blood Culture - Preliminary NO GROWTH AFTER 48 HOURS OF INCUBATION. Resulted Labs and/or images reviewed: Labs reviewed by me, Image(s) reviewed by me Assessment/Plan Assessment/Plan Acute Hepatic encephalopathy: GI consult for Dr. Puri appreciated Thrombocytopenia Leukopenia Acute lactic acidosis Generalized weakness Acute respiratory distress Acute Hyperammonemia: Ammonia 129: Lactulose time on p.o. 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
[2025-08-18 13:26] LABS: Hematocrit 34.3 % (41.0-53.0); Hemoglobin 11.7 g/dL (13.5-17.5); Mean Corpuscular Hemoglobin 33.0 pg (28.0-32.0); Mean Corpuscular Volume 96.8 fL (80.0-100.0); Nucleated Red Blood Cells % 0.2 %
[2025-08-18 13:44] LABS: Alanine Aminotransferase 19 U/L (7-40); Alkaline Phosphatase 76 U/L (46-116); Anion Gap 6 (5-15); BUN/Creatinine Ratio 18.3 (10.0-20.0); Blood Urea Nitrogen 13 mg/dL (9-23); Carbon Dioxide 27 mmol/L (20-31); Glucose 102 mg/dL (74-106); Potassium 4.4 mmol/L (3.5-5.1); Sodium 142 mmol/L (136-145); Total Protein 6.1 g/dL (5.7-8.2)
[2025-08-18 13:48] LABS: Albumin 2.6 g/dL (3.2-4.8); Bilirubin, Total 1.3 mg/dL (0.2-1.0); Calcium 8.5 mg/dL (8.7-10.4); Chloride 109 mmol/L (98-107)
[2025-08-18] MEDS: LACTULOSE 20Gm/30ML SOLN PO SCH (18:36)
--- NOTE | 2025-08-18 21:44 | DVHPN2 ---
Progress Note - Dictate Date Seen: Aug 18, 2025 Medical Necessity Reason Pt with a Central, PICC or Fol: No Subjective Patient doing better more alert No nausea no vomiting no hematemesis On Lactulose for hyperammonemia vital signs Vital Sign Date Time Temp Pulse Resp B/P (MAP) Pulse Ox O2 Delivery O2 Flow Rate FiO2 08/18/25 16:43 97.1 79 13 93/62 (72) 98 97.1 08/18/25 08:00 Nasal Cannula* 3 32 Total Intake and Output 08/17/25 08/17/25 08/18/25 15:00 23:00 07:00 Intake Total 50 ml 1156 ml 800 ml Balance 50 ml 1156 ml 800 ml medications Current Medications Medications Dose Ordered Sig/Sandi Route Start Time Stop Time Status Last Admin Dose Admin Ceftriaxone Sodium 50 ml @ 100 mls/hr DAILY@09 IV 08/16/25 09:00 08/18/25 09:54 100 MLS/HR Metronidazole 100 ml @ 100 mls/hr Q8HR IV 08/15/25 22:00 08/18/25 14:12 100 MLS/HR Famotidine 20 mg DAILY IV 08/16/25 10:00 08/18/25 09:58 20 MG Carvedilol 3.125 mg Q12HR PO 08/15/25 22:00 08/18/25 09:59 3.125 MG Spironolactone 25 mg DAILY PO 08/16/25 10:00 08/18/25 09:54 25 MG Phenytoin Sodium 100 mg Q8HR PO 08/15/25 22:00 08/18/25 14:12 100 MG Sodium Chloride 10 ml Q8HR IV 08/15/25 22:00 08/18/25 14:12 10 ML Acetaminophen/ Hydrocodone Bitart 1 tab Q4HP PRN PO 08/15/25 20:30 08/17/25 20:48 1 TAB Ondansetron HCl 4 mg Q4HP PRN IV 08/15/25 20:30 Docusate Sodium 100 mg BIDPRN PRN PO 08/15/25 20:30 Acetaminophen 650 mg Q6HP PRN PO 08/15/25 20:30 Nitroglycerin 0.4 mg Q5MINP PRN SL 08/15/25 21:45 Morphine Sulfate 2 mg Q30M PRN IV 08/15/25 21:45 Lactulose 60 ml QID PO 08/18/25 18:00 08/18/25 18:36 60 ML objective Abdomen is soft nontender More alert and oriented laboratory and microbiology Laboratory Tests 08/18/25 13:05 Test 08/18/25 13:05 Range/Units Serum Glucose 102 74-106 mg/dL Assessment/Plan 70-year-old male with a history of asthma since heart failure CVA GERD liver disease [place] admitted with hepatic encephalopathy ammonia level was 124 patient has got history of chronic liver disease patient has got pancytopenia with a platelet of 54 white count is 3.4 clinical impression Chronic liver disease with cirrhosis with encephalopathy White count and platelets are low He is on lactulose responding well No gross bleeding Recommend to continue the treatment monitor the CBC and ammonia levels Thank you Dr. Puri Dietary Evaluation Review Comments: 1) Initiate Hepatic 60g Pro diet 2) Initiate MVI @ 1 tb qd 3) Encourage optimal PO intake 4) Follow-up with hepatology, cardiology, pulmonology, and neurology 4) Continue to monitor I&O, labs, and skin integrity Expected Outcomes/Goals: 1) appetite and labs to improve 2) f/u in 3-5 days Plan discussed with: Patient REVA PURI MD Aug 18, 2025 21:44
[2025-08-19] VITALS (9 sets, daily range): BP systolic 96–120; BP diastolic 60–75; PULSE 71–93; RESP 16–18; TEMP 97.5–98.7; O2SAT 98–100
--- NOTE | 2025-08-19 17:01 | DVHPN2 ---
Progress Note - Dictate Date Seen: Aug 19, 2025 Medical Necessity Reason Pt with a Central, PICC or Fol: No Subjective Patient seen at bedside, resting comfortably He is awake and more alert responding appropriately to questions Patient states he is feeling better Patient did have a bowel movement after lactulose treatment Ammonia level is trending down towards 115 today vital signs Vital Sign Date Time Temp Pulse Resp B/P (MAP) Pulse Ox O2 Delivery O2 Flow Rate FiO2 08/19/25 16:25 97.8 81 18 120/64 (82) 98 97.8 08/19/25 08:00 Nasal Cannula* 3 32 Total Intake and Output 08/18/25 08/18/25 08/19/25 15:00 23:00 07:00 Intake Total 50 ml 450 ml 360 ml Balance 50 ml 450 ml 360 ml medications Current Medications Medications Dose Ordered Sig/Sandi Route Start Time Stop Time Status Last Admin Dose Admin Ceftriaxone Sodium 50 ml @ 100 mls/hr DAILY@09 IV 08/16/25 09:00 08/19/25 08:40 100 MLS/HR Metronidazole 100 ml @ 100 mls/hr Q8HR IV 08/15/25 22:00 08/19/25 15:29 100 MLS/HR Famotidine 20 mg DAILY IV 08/16/25 10:00 08/19/25 08:41 20 MG Carvedilol 3.125 mg Q12HR PO 08/15/25 22:00 08/18/25 09:59 3.125 MG Spironolactone 25 mg DAILY PO 08/16/25 10:00 08/19/25 08:40 25 MG Phenytoin Sodium 100 mg Q8HR PO 08/15/25 22:00 08/19/25 14:06 100 MG Sodium Chloride 10 ml Q8HR IV 08/15/25 22:00 08/19/25 14:08 10 ML Acetaminophen/ Hydrocodone Bitart 1 tab Q4HP PRN PO 08/15/25 20:30 08/17/25 20:48 1 TAB Ondansetron HCl 4 mg Q4HP PRN IV 08/15/25 20:30 Docusate Sodium 100 mg BIDPRN PRN PO 08/15/25 20:30 Acetaminophen 650 mg Q6HP PRN PO 08/15/25 20:30 Nitroglycerin 0.4 mg Q5MINP PRN SL 08/15/25 21:45 Morphine Sulfate 2 mg Q30M PRN IV 08/15/25 21:45 Lactulose 60 ml QID PO 08/18/25 18:00 08/19/25 12:34 60 ML Rifaximin 550 mg BID PO 08/19/25 22:00 objective Abdomen is soft nontender More alert and oriented laboratory and microbiology Laboratory Tests 08/18/25 13:05 Test 08/18/25 13:05 Range/Units Serum Glucose 102 74-106 mg/dL Problems(with codes): (1) Hepatic encephalopathy (2) Generalized weakness (3) Elevated lactic acid level (4) Thrombocytopenia Prognosis Plan Chronic liver disease with cirrhosis with encephalopathy White count and platelets are low He is on lactulose responding well No gross bleeding; to monitor labs Recommend to continue the treatment monitor the CBC and ammonia levels Dietary Evaluation Review Comments: 1) Initiate Hepatic 60g Pro diet 2) Initiate MVI @ 1 tb qd 3) Encourage optimal PO intake 4) Follow-up with hepatology, cardiology, pulmonology, and neurology 4) Continue to monitor I&O, labs, and skin integrity Expected Outcomes/Goals: 1) appetite and labs to improve 2) f/u in 3-5 days Plan discussed with: Patient MARQUITA ALMENDAREZ MD Aug 19, 2025 17:01
[2025-08-20] VITALS (8 sets, daily range): BP systolic 98–114; BP diastolic 60–76; PULSE 70–84; RESP 16–18; TEMP 97.6–98.5; O2SAT 97–100
--- NOTE | 2025-08-20 11:46 | DVHPN2 ---
Reviewed: Care Plan, H&P, Labs, Medications, Previous Orders, Radiology Changes from previous H/P or p: No Changes Eyes: No Pain, No Vision change, No Conjunctivae inflammation, No Eyelid inflammation, No Other, No Redness ENT: No Ear pain, No Ear discharge, No Nose pain, No Nose discharge, No Nose congestion, No Mouth pain, No Mouth swelling, No Throat pain, No Throat swelling, No Other Cardiovascular: No Chest Pain, No Palpitations, No Orthopnea, No Paroxysmal Noc. Dyspnea, No Edema, No Lt Headedness, No Other Respiratory: No Cough, No Dry; Shortness of breath; No SOB with excertion, No Wheezing, No Hemoptysis, No Pleuritic Pain, No Sputum, No Other Gastrointestinal: No Nausea, No Vomiting, No Abdominal Pain, No Diarrhea, No Constipation, No Melena, No Hematochezia, No Other Genitourinary: No Dysuria, No Frequency, No Incontinence, No Hematuria, No Retention, No Other Musculoskeletal: No other, No neck pain, No shoulder pain, No arm pain, No back pain, No hand pain, No leg pain, No foot pain Skin: No Rash, No Lesions, No Jaundice, No Bruising, No Other Objective Vitals Vital Signs Date Time Temp Pulse Resp B/P (MAP) Pulse Ox O2 Delivery O2 Flow Rate FiO2 08/20/25 09:00 98.0 82 16 100/71 (81) 100 98.0 08/20/25 08:00 Nasal Cannula* 3 32 Intake/Output Intake and Output 08/20/25 07:00 Intake Total 1960 ml Balance 1960 ml Intake Oral 1610 ml IV Total 350 ml # Voids 4 # Bowel Movements 5 Medications Current Medications Medications Dose Ordered Sig/Sandi Route Start Time Stop Time Status Last Admin Dose Admin Ceftriaxone Sodium 50 ml @ 100 mls/hr DAILY@09 IV 08/16/25 09:00 08/20/25 08:44 100 MLS/HR Metronidazole 100 ml @ 100 mls/hr Q8HR IV 08/15/25 22:00 08/20/25 05:59 100 MLS/HR Famotidine 20 mg DAILY IV 08/16/25 10:00 08/20/25 08:43 20 MG Carvedilol 3.125 mg Q12HR PO 08/15/25 22:00 08/20/25 08:45 3.125 MG Spironolactone 25 mg DAILY PO 08/16/25 10:00 08/20/25 08:43 25 MG Phenytoin Sodium 100 mg Q8HR PO 08/15/25 22:00 08/20/25 06:00 100 MG Sodium Chloride 10 ml Q8HR IV 08/15/25 22:00 08/20/25 05:59 10 ML Acetaminophen/ Hydrocodone Bitart 1 tab Q4HP PRN PO 08/15/25 20:30 08/20/25 08:46 1 TAB Ondansetron HCl 4 mg Q4HP PRN IV 08/15/25 20:30 Docusate Sodium 100 mg BIDPRN PRN PO 08/15/25 20:30 Acetaminophen 650 mg Q6HP PRN PO 08/15/25 20:30 Nitroglycerin 0.4 mg Q5MINP PRN SL 08/15/25 21:45 Morphine Sulfate 2 mg Q30M PRN IV 08/15/25 21:45 Lactulose 60 ml QID PO 08/18/25 18:00 08/20/25 05:59 60 ML Rifaximin 550 mg BID PO 08/19/25 22:00 08/20/25 08:43 550 MG Laboratory Results Laboratory Tests 08/18/25 13:05 Urinalysis Test 08/16/25 17:52 Urine Color Yellow (Yellow) Urine Clarity Turbid (Clear) H Urine pH 6.0 (5.0-9.0) Urine Specific [place] 1.021 (1.001-1.035) Urine Protein Negative (Negative) Urine Ketones Trace (Negative) Urine Blood Negative /uL (Negative) Urine Nitrite Negative (Negative) Urine Bilirubin Negative (Negative) Urine Urobilinogen Normal mg/dL (Negative) Urine Leukocyte Esterase 3+ /uL (Negative) Urine RBC 12 /hpf (0 - 3) Urine Microscopic WBC 794 /HPF (0-3) H Urine Squamous Epithelial Cells Few /hpf (<5) Urine Bacteria Few /hpf (None Seen) H Urine Mucus Few (None Seen) Urine Yeast (Budding) Moderate /hpf (None Seen) Urine Glucose Normal mg/dL (Normal) Microbiology Microbiology Date/Time Source Procedure Growth Status 08/15/25 13:00 Blood Blood Culture - Preliminary NO GROWTH AFTER 72 HOURS OF INCUBATION. Resulted Labs and/or images reviewed: Labs reviewed by me, Image(s) reviewed by me Assessment/Plan Assessment/Plan Acute Hepatic encephalopathy: GI consult for Dr. Puri appreciated Thrombocytopenia Leukopenia Acute lactic acidosis Generalized weakness Acute respiratory distress Acute Hyperammonemia: Ammonia 129 down to 55: Lactulose 60 ml p.o. 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
--- NOTE | 2025-08-20 15:29 | DVHPN2 ---
Progress Note - Dictate Date Seen: Aug 20, 2025 Medical Necessity Reason Pt with a Central, PICC or Fol: No Subjective Patient seen at bedside, resting comfortably; appears more tired today Complains of mild abdominal discomfort Five bowel movements recorded yesterday all the patient had multiple the day before Ammonia level is down to 55 vital signs Vital Sign Date Time Temp Pulse Resp B/P (MAP) Pulse Ox O2 Delivery O2 Flow Rate FiO2 08/20/25 13:00 97.6 71 18 108/60 (76) 97 97.6 08/20/25 08:00 Nasal Cannula* 3 32 Total Intake and Output 08/19/25 08/19/25 08/20/25 15:00 23:00 07:00 Intake Total 50 ml 1460 ml 450 ml Balance 50 ml 1460 ml 450 ml medications Current Medications Medications Dose Ordered Sig/Sandi Route Start Time Stop Time Status Last Admin Dose Admin Ceftriaxone Sodium 50 ml @ 100 mls/hr DAILY@09 IV 08/16/25 09:00 08/20/25 08:44 100 MLS/HR Metronidazole 100 ml @ 100 mls/hr Q8HR IV 08/15/25 22:00 08/20/25 14:36 100 MLS/HR Famotidine 20 mg DAILY IV 08/16/25 10:00 08/20/25 08:43 20 MG Carvedilol 3.125 mg Q12HR PO 08/15/25 22:00 08/20/25 08:45 3.125 MG Spironolactone 25 mg DAILY PO 08/16/25 10:00 08/20/25 08:43 25 MG Phenytoin Sodium 100 mg Q8HR PO 08/15/25 22:00 08/20/25 14:36 100 MG Sodium Chloride 10 ml Q8HR IV 08/15/25 22:00 08/20/25 14:37 10 ML Acetaminophen/ Hydrocodone Bitart 1 tab Q4HP PRN PO 08/15/25 20:30 08/20/25 08:46 1 TAB Ondansetron HCl 4 mg Q4HP PRN IV 08/15/25 20:30 Docusate Sodium 100 mg BIDPRN PRN PO 08/15/25 20:30 Acetaminophen 650 mg Q6HP PRN PO 08/15/25 20:30 Nitroglycerin 0.4 mg Q5MINP PRN SL 08/15/25 21:45 Morphine Sulfate 2 mg Q30M PRN IV 08/15/25 21:45 Lactulose 60 ml QID PO 08/18/25 18:00 08/20/25 12:39 60 ML Rifaximin 550 mg BID PO 08/19/25 22:00 08/20/25 08:43 550 MG objective Abdomen is soft nontender More alert and oriented laboratory and microbiology Laboratory Tests 08/18/25 13:05 Test 08/18/25 13:05 Range/Units Serum Glucose 102 74-106 mg/dL Problems(with codes): (1) Elevated lactic acid level (2) Thrombocytopenia (3) Leukopenia (4) Generalized weakness (5) Hepatic encephalopathy Prognosis Plan Chronic liver disease with cirrhosis with encephalopathy White count and platelets are low He is on lactulose responding well No gross bleeding; to monitor labs Recommend to continue the treatment Dietary Evaluation Review Comments: 1) Initiate Hepatic 60g Pro diet 2) Initiate MVI @ 1 tb qd 3) Encourage optimal PO intake 4) Follow-up with hepatology, cardiology, pulmonology, and neurology 4) Continue to monitor I&O, labs, and skin integrity Expected Outcomes/Goals: 1) appetite and labs to improve 2) f/u in 3-5 days Plan discussed with: Patient MARQUITA ALMENDAREZ MD Aug 20, 2025 15:29
[2025-08-21 01:00] VITALS: BP 96/58; PULSE 68; RESP 16; TEMP 97.9; O2SAT 97
[2025-08-21 05:00] VITALS: BP 106/70; PULSE 72; RESP 17; TEMP 98.4; O2SAT 98
[2025-08-21 07:03] LABS: Hematocrit 34.6 % (41.0-53.0); Hemoglobin 11.8 g/dL (13.5-17.5); Mean Corpuscular Hemoglobin 33.3 pg (28.0-32.0); Mean Corpuscular Volume 97.4 fL (80.0-100.0); Nucleated Red Blood Cells % 0.1 %
[2025-08-21 07:25] LABS: Alanine Aminotransferase 24 U/L (7-40); Alkaline Phosphatase 79 U/L (46-116); Anion Gap 10 (5-15); BUN/Creatinine Ratio 20.5 (10.0-20.0); Blood Urea Nitrogen 16 mg/dL (9-23); Carbon Dioxide 24 mmol/L (20-31); Glucose 100 mg/dL (74-106); Potassium 4.4 mmol/L (3.5-5.1); Sodium 142 mmol/L (136-145); Total Protein 6.8 g/dL (5.7-8.2)
[2025-08-21 07:39] LABS: Albumin 3.0 g/dL (3.2-4.8); Bilirubin, Total 1.4 mg/dL (0.2-1.0); Calcium 8.5 mg/dL (8.7-10.4); Chloride 108 mmol/L (98-107)
[2025-08-21 08:00] VITALS: PULSE 75; PULSE 78; RESP 16; O2SAT 99
[2025-08-21 08:33] VITALS: BP 104/74; PULSE 78; RESP 16; TEMP 97.8; O2SAT 99
--- NOTE | 2025-08-21 12:21 | DVHPN2 ---
Reviewed: Care Plan, H&P, Labs, Medications, Previous Orders, Radiology Changes from previous H/P or p: No Changes Eyes: No Pain, No Vision change, No Conjunctivae inflammation, No Eyelid inflammation, No Other, No Redness ENT: No Ear pain, No Ear discharge, No Nose pain, No Nose discharge, No Nose congestion, No Mouth pain, No Mouth swelling, No Throat pain, No Throat swelling, No Other Cardiovascular: No Chest Pain, No Palpitations, No Orthopnea, No Paroxysmal Noc. Dyspnea, No Edema, No Lt Headedness, No Other Respiratory: No Cough, No Dry; Shortness of breath; No SOB with excertion, No Wheezing, No Hemoptysis, No Pleuritic Pain, No Sputum, No Other Gastrointestinal: No Nausea, No Vomiting, No Abdominal Pain, No Diarrhea, No Constipation, No Melena, No Hematochezia, No Other Genitourinary: No Dysuria, No Frequency, No Incontinence, No Hematuria, No Retention, No Other Musculoskeletal: No other, No neck pain, No shoulder pain, No arm pain, No back pain, No hand pain, No leg pain, No foot pain Skin: No Rash, No Lesions, No Jaundice, No Bruising, No Other Objective Vitals Vital Signs Date Time Temp Pulse Resp B/P (MAP) Pulse Ox O2 Delivery O2 Flow Rate FiO2 08/21/25 09:11 89 95/66 08/21/25 08:33 97.8 16 99 97.8 08/21/25 08:00 Nasal Cannula* 3 32 Intake/Output Intake and Output 08/21/25 07:00 Intake Total 2250 ml Balance 2250 ml Intake Oral 1900 ml IV Total 350 ml # Voids 8 # Bowel Movements 6 Medications Current Medications Medications Dose Ordered Sig/Sandi Route Start Time Stop Time Status Last Admin Dose Admin Ceftriaxone Sodium 50 ml @ 100 mls/hr DAILY@09 IV 08/16/25 09:00 08/21/25 09:04 100 MLS/HR Metronidazole 100 ml @ 100 mls/hr Q8HR IV 08/15/25 22:00 08/21/25 05:54 100 MLS/HR Famotidine 20 mg DAILY IV 08/16/25 10:00 08/21/25 09:04 20 MG Carvedilol 3.125 mg Q12HR PO 08/15/25 22:00 08/20/25 21:51 3.125 MG Spironolactone 25 mg DAILY PO 08/16/25 10:00 08/20/25 08:43 25 MG Phenytoin Sodium 100 mg Q8HR PO 08/15/25 22:00 08/21/25 05:46 100 MG Sodium Chloride 10 ml Q8HR IV 08/15/25 22:00 08/21/25 05:46 10 ML Acetaminophen/ Hydrocodone Bitart 1 tab Q4HP PRN PO 08/15/25 20:30 08/20/25 08:46 1 TAB Ondansetron HCl 4 mg Q4HP PRN IV 08/15/25 20:30 Docusate Sodium 100 mg BIDPRN PRN PO 08/15/25 20:30 Acetaminophen 650 mg Q6HP PRN PO 08/15/25 20:30 Nitroglycerin 0.4 mg Q5MINP PRN SL 08/15/25 21:45 Morphine Sulfate 2 mg Q30M PRN IV 08/15/25 21:45 Lactulose 60 ml QID PO 08/18/25 18:00 08/21/25 05:46 60 ML Rifaximin 550 mg BID PO 08/19/25 22:00 08/21/25 09:05 550 MG Laboratory Results Laboratory Tests 08/21/25 06:29 Chemistry Test 08/21/25 06:29 Albumin 3.0 g/dL (3.2-4.8) L Calcium Level 8.5 mg/dL (8.7-10.4) L Total Protein 6.8 g/dL (5.7-8.2) LFT Test 08/21/25 06:29 Alanine Aminotransferase (ALT) 24 U/L (7-40) Alkaline Phosphatase 79 U/L (46-116) Aspartate Amino Transferase (AST) 45 U/L (13-40) H Total Bilirubin 1.4 mg/dL (0.2-1.0) H Urinalysis Test 08/16/25 17:52 Urine Color Yellow (Yellow) Urine Clarity Turbid (Clear) H Urine pH 6.0 (5.0-9.0) Urine Specific [place] 1.021 (1.001-1.035) Urine Protein Negative (Negative) Urine Ketones Trace (Negative) Urine Blood Negative /uL (Negative) Urine Nitrite Negative (Negative) Urine Bilirubin Negative (Negative) Urine Urobilinogen Normal mg/dL (Negative) Urine Leukocyte Esterase 3+ /uL (Negative) Urine RBC 12 /hpf (0 - 3) Urine Microscopic WBC 794 /HPF (0-3) H Urine Squamous Epithelial Cells Few /hpf (<5) Urine Bacteria Few /hpf (None Seen) H Urine Mucus Few (None Seen) Urine Yeast (Budding) Moderate /hpf (None Seen) Urine Glucose Normal mg/dL (Normal) Microbiology Microbiology Date/Time Source Procedure Growth Status 08/15/25 13:00 Blood Blood Culture - Final NO GROWTH AFTER 5 DAYS OF INCUBATION. Complete Labs and/or images reviewed: Labs reviewed by me, Image(s) reviewed by me Assessment/Plan Assessment/Plan Acute Hepatic encephalopathy: GI consult for Dr. Puri appreciated Thrombocytopenia Leukopenia Acute lactic acidosis Generalized weakness Acute respiratory distress Acute Hyperammonemia: Ammonia 129 down to 28: Lactulose 60 ml p.o. q.6 hours Acute CHF exacerbation Acute COPD exacerbation History of CVA Hypotension History of [place] Seizures Cirrhosis of liver Spent 55 minutes Advanced care planning time 20 minutes Patient is full code Patient's lives in board and care care giver Elsie [phone] at bedside Plan discussed with: Patient, Other (pet care assistant elsie) My Orders Orders - LISSY JACQUES MD Procedure Category Date Status Time * Elevator Service Technician CONS 08/21/25 Transmitted Consult Pt Request For Service PT 08/21/25 Verified 12:17 Date of Service: Aug 21, 2025 Billing Provider: LISSY JACQUES MD Common Visit Codes: [id number] INP/OBS CARE(HIGH) LISSY JACQUES MD Aug 21, 2025 12:21
--- NOTE | 2025-08-21 12:25 | DVHDS2 ---
Discharge Summary Date of Admission Aug 15, 2025 at 21:32 Date of Discharge: Aug 21, 2025 Admitting Diagnosis Altered mental status Wounds: None Labs/Diagnostic Data: Laboratory Results Test 08/21/25 06:29 08/16/25 17:52 08/15/25 15:30 08/15/25 13:00 White Blood Count 3.5 10^3/uL (4.4-10.8) Red Blood Count 3.56 10^6/uL (4.5-5.90) Hemoglobin 11.8 g/dL (13.5-17.5) Hematocrit 34.6 % (41.0-53.0) Mean Corpuscular Volume 97.4 fL (80.0-100.0) Mean Corpuscular Hemoglobin 33.3 pg (28.0-32.0) Mean Corpuscular Hemoglobin Concent 34.2 g/dL (32.0-36.0) Red Cell Distribution Width 19.5 % (11.8-14.3) Platelet Count 65 10^3/uL (140-450) Mean Platelet Volume 8.3 fL (6.9-10.8) Neutrophils (%) (Auto) 61.9 % (37.0-80.0) Lymphocytes (%) (Auto) 24.6 % (10.0-50.0) Monocytes (%) (Auto) 10.3 % (0.0-12.0) Eosinophils (%) (Auto) 2.8 % (0.0-7.0) Basophils (%) (Auto) 0.4 % (0.0-2.0) Neutrophils # (Auto) 2.2 10 ^3/uL (1.6-8.6) Lymphocytes # (Auto) 0.9 10 ^3/uL (0.4-5.4) Monocytes # (Auto) 0.4 10 ^3/uL (0-1.3) Eosinophils # (Auto) 0.1 10 ^3/uL (0-0.8) Basophils # (Auto) 0 10 ^3/uL (0-0.2) Nucleated Red Blood Cells 0.1 % Sodium Level 142 mmol/L (136-145) Potassium Level 4.4 mmol/L (3.5-5.1) Chloride Level 108 mmol/L (98-107) Carbon Dioxide Level 24 mmol/L (20-31) Anion Gap 10 (5-15) Blood Urea Nitrogen 16 mg/dL (9-23) Creatinine 0.78 mg/dL (0.700-1.30) Glomerular Filtration Rate Calc 96 mL/min (>90) BUN/Creatinine Ratio 20.5 (10.0-20.0) Serum Glucose 100 mg/dL (74-106) Calcium Level 8.5 mg/dL (8.7-10.4) Total Bilirubin 1.4 mg/dL (0.2-1.0) Aspartate Amino Transferase (AST) 45 U/L (13-40) Alanine Aminotransferase (ALT) 24 U/L (7-40) Alkaline Phosphatase 79 U/L (46-116) Ammonia 28 umol/L (11-32) Total Protein 6.8 g/dL (5.7-8.2) Albumin 3.0 g/dL (3.2-4.8) Urine Color Yellow (Yellow) Urine Clarity Turbid (Clear) Urine pH 6.0 (5.0-9.0) Urine Specific [place] 1.021 (1.001-1.035) Urine Protein Negative (Negative) Urine Ketones Trace (Negative) Urine Blood Negative /uL (Negative) Urine Nitrite Negative (Negative) Urine Bilirubin Negative (Negative) Urine Urobilinogen Normal mg/dL (Negative) Urine Leukocyte Esterase 3+ /uL (Negative) Urine RBC 12 /hpf (0 - 3) Urine Microscopic WBC 794 /HPF (0-3) Urine Squamous Epithelial Cells Few /hpf (<5) Urine Bacteria Few /hpf (None Seen) Urine Mucus Few (None Seen) Urine Yeast (Budding) Moderate /hpf (None Seen) Urine Glucose Normal mg/dL (Normal) Lactic Acid Level 1.9 mmol/L (0.4-2.0) Troponin I High Sensitivity < 3 ng/L (</=54) Other Laboratory Tests 08/21/25 06:29 Brief Hx & Hospital Course: 70-year-old male with a history of alcoholic cirrhosis burden for altered mental status and confusion. Patient was found to be in acute hepatic encephalopathy with a hyperammonemia of 129 treated with the lactulose came down to 28 at the time of discharge . History of CHF COPD CVA hypertension [place] seizures and cirrhosis of liver also has thrombocytopenia. GI consult by Dr. Puri. The patient was placed on home medications spironolactone rifaximin [facility]. The plan is acceptable with the patient and the patient's caregiver Ludy Consults/Reason for consult GI Dr. Camila Silva Operations or Procedures CT abdomen pelvis without contrast Condition at Discharge: Fair Final Diagnosis/Problems List Acute Hepatic encephalopathy: GI consult for Dr. Puri appreciated Thrombocytopenia Leukopenia Acute lactic acidosis Generalized weakness Acute respiratory distress Acute Hyperammonemia: Ammonia 129 down to 28: Lactulose 60 ml p.o. q.6 hours Acute CHF exacerbation Acute COPD exacerbation History of CVA Hypotension History of [place] Seizures Cirrhosis of liver Discharge Disposition: [facility] Facility Discharge Instruct/Medications Diet: Cardiac 2g Na,low cholest Activity: Light activity Follow Up/Referral: Follow up With the long term Dr Medications: see list Scheduled Atorvastatin Calcium (Atorvastatin Calcium), 1 TAB PO DAILY, (Reported) Carvedilol (Coreg), 3.125 MG PO BID Furosemide (Furosemide), 1 TAB PO BID, (Reported) Gabapentin (Gabapentin), 1 TAB PO TID, (Reported) Hydrocodone-Acetaminophen (Hydrocodone Bitartrate/AC 10-325 mg), 1 TAB PO TIDP, (Reported) Midodrine Hcl (Midodrine Hcl), 1 TAB PO TID, (Reported) Morphine Sulfate (Morphine Sulfate Cr), 1 TAB PO TID, (Reported) Pantoprazole Sodium Sesquihydr (Pantoprazole Sodium), 40 MG PO BID Phenytoin Sodium (Dilantin), 1 CAP PO TID, (Reported) Rifaximin (Xifaxan), 1 TAB PO BID, (Reported) Risperidone (Risperdal), 0.5 MG PO HS, (Reported) Spironolactone (Spironolactone), 1 TAB PO DAILY, (Reported) Trazodone Hcl (Trazodone Hcl), 50 MG PO HS, (Reported) Scheduled PRN Lorazepam (Ativan Tablet), 1 TAB PO BIDPRN PRN for AGITATION, (Reported) Miscellaneous Medications Albuterol Sulfate (Albuterol Sulfate Hfa), INH, (Reported) Diclofenac Sodium (Actinic Ker (Diclofenac Sodium), TOP, (Reported) Lactulose (Lactulose), ML PO, (Reported) Metoprolol Tartrate (Lopressor), TAB PO, (Reported) 39 (Time taken for discharge summary 39 minutes) Discharge Statement: "Patient was advised to return to the ER or call 911 if any headaches, dizziness, shortness of breath, chest pain, abdominal pain, bleeding, fevers, or worsening of medical condition. Patient was counseled about treatment plan, medications, possible side effects, patientverbalized understanding. All questions were answered to the best of my ability. This discharge took greater then 30 minutes in planning, reviewing documentation, counseling the patient, and discussing with other team members." ASSESSMENT ASSESSMENT Hospital Course Improved marginally Assessment Acute Hepatic encephalopathy: GI consult for Dr. Puri appreciated Thrombocytopenia Leukopenia Acute lactic acidosis Generalized weakness Acute respiratory distress Acute Hyperammonemia: Ammonia 129 down to 28: Lactulose 60 ml p.o. q.6 hours Acute CHF exacerbation Acute COPD exacerbation History of CVA Hypotension History of [place] Seizures Cirrhosis of liver Date of Service: Aug 21, 2025 Billing Provider: LISSY JACQUES MD Common Visit Codes: [id number] DISCH DAY >30min LISSY JACQUES MD Aug 21, 2025 12:25
[2025-08-21 13:00] VITALS: BP 95/56; PULSE 74; RESP 16; TEMP 98.2; O2SAT 100
[2025-08-21 17:00] VITALS: BP 108/82; PULSE 65; RESP 18; TEMP 97.3; O2SAT 99
--- NOTE | 2025-08-21 21:06 | DVHPN2 ---
Progress Note - Dictate Date Seen: Aug 21, 2025 (Late entry Time of visit 6:00 p.m.) Medical Necessity Reason Pt with a Central, PICC or Fol: No Subjective No new complaints, ammonia level has normalized Patient had a bowel movement Abdominal discomfort improved vital signs Vital Sign Date Time Temp Pulse Resp B/P (MAP) Pulse Ox O2 Delivery O2 Flow Rate FiO2 08/21/25 17:00 97.3 65 18 108/82 (91) 99 97.3 08/21/25 08:00 Nasal Cannula* 3 32 Total Intake and Output 08/20/25 08/20/25 08/21/25 15:00 23:00 07:00 Intake Total 50 ml 1450 ml 750 ml Balance 50 ml 1450 ml 750 ml objective Abdomen is soft nontender More alert and oriented laboratory and microbiology Laboratory Tests 08/21/25 06:29 Test 08/21/25 06:29 Range/Units Serum Glucose 100 74-106 mg/dL Problems(with codes): (1) Elevated lactic acid level (2) Generalized weakness (3) Hepatic encephalopathy Prognosis Plan Discharge planning is in progress to [facility] Continue lactulose 30 mL p.o. daily Outpatient follow up with GI Services next available appointment Pancytopenia stable and improving Continue rehab and physical therapy Dietary Evaluation Review Comments: 1) Initiate Hepatic 60g Pro diet 2) Initiate MVI @ 1 tb qd 3) Encourage optimal PO intake 4) Follow-up with hepatology, cardiology, pulmonology, and neurology 4) Continue to monitor I&O, labs, and skin integrity Expected Outcomes/Goals: 1) appetite and labs to improve 2) f/u in 3-5 days Plan discussed with: Patient, Other (Dr Wayne Steen ) MARQUITA ALMENDAREZ MD Aug 21, 2025 21:06
== END 2025-08-21 19:50 | DRG 442 ==
LOC: ER 11:57 → EDBD 11:57 → OVERFLOW 21:32 → TELE-WESTW 08-16 18:07
PROVIDERS: ADMIT Family Medicine; ATTEND Family Medicine
DX: K76.82 Hepatic encephalopathy (principal); E72.20 Disorder of urea cycle metabolism, unspecified; E87.20 Acidosis, unspecified; J44.1 Chronic obstructive pulmonary disease with (acute) exacerbation; K74.60 Unspecified cirrhosis of liver; I11.0 Hypertensive heart disease with heart failure; D69.6 Thrombocytopenia, unspecified; D72.819 Decreased white blood cell count, unspecified; K21.9 Gastro-esophageal reflux disease without esophagitis; I25.2 Old myocardial infarction; Z86.73 Personal history of transient ischemic attack (TIA), and cerebral infarction without residual deficits; Z82.49 Family history of ischemic heart disease and other diseases of the circulatory system; Z79.899 Other long term (current) drug therapy
CPT/HCPCS: 36415; 70450; 71045; 80053; 81001; 82140; 83605; 84484; 85025; 87040; 93005; 96361; 96365; 97163; 99291; 99292; G0378; J2543; J3490